=== PATIENT | female | born 1965 | race Caucasian/White ===

== ENCOUNTER 2020-09-10 16:44 | Emergency (ER) | payer OTHER, SELFPAY ==
[2020-09-10 16:45] VITALS: BP 163/103; PULSE 94; RESP 16; TEMP 36; O2SAT 99; BMI 32.2
[2020-09-10 16:47] VITALS: BP 163/103; PULSE 94; RESP 16; TEMP 36; O2SAT 99
--- NOTE | 2020-09-10 16:56 | EKG12_ITS ---
Test Reason : ABD PAIN Blood Pressure : / mmHG Vent. Rate : 087 BPM Atrial Rate : 087 BPM P-R Int : 168 ms QRS Dur : 096 ms QT Int : 372 ms P-R-T Axes : 056 -25 019 degrees QTc Int : 447 ms Normal sinus rhythm Moderate voltage criteria for LVH, may be normal variant Borderline ECG Confirmed by BENJIE BLANK, THOMAS ([id number]), pictures editor PETAR JAMES ([id number]) on 09/14/2020 9:57:53 AM Referred By: STEVE Confirmed By:THOMAS WALDROP MD
--- NOTE | 2020-09-10 16:56 | CT_ITS ---
INDICATION: abdominal pain -- IV PO Contrast EXAMINATION: CT Abdomen And Pelvis W/ Contrast Injection TECHNIQUE: Helically acquired images were obtained of the abdomen and pelvis after IV contrast. A radiation dose optimization technique was used for this scan. IV Contrast dosage and agent: Oral and amp; IV Gastrografin and amp; 100mL Isovue-300 Oral contrast: Yes. COMPARISON: None. FINDINGS: Visualized lung bases: Unremarkable Liver: The liver is enlarged measuring 19.5 cm in craniocaudal dimension. Gallbladder: Unremarkable Spleen: Unremarkable Pancreas: Unremarkable Adrenal Glands: Unremarkable Kidneys: Unremarkable Vasculature: Unremarkable GI Tract: Unremarkable Lymphadenopathy: There is widespread lymphadenopathy in the abdomen and pelvis. For example, there is a 2.8 cm right inguinal lymph node (axial image 114), a 3.5 cm left internal iliac node (axial image 93), a 1.3 cm caval node (axial image 66) and a 1.9 cm patricia hepatis node (axial image 48). Peritoneum: No ascites. Bladder: Unremarkable Reproductive organs: Bilateral tubal ligation. Bones/Soft tissues: Mild scattered degenerative changes of the visualized spine. CT/Abdomen/Pelvis WITH Contrast IMPRESSION: Widespread lymphadenopathy in the abdomen and pelvis as described above with no suspicious mass identified. Leading diagnosis is lymphoma. Recommend percutaneous biopsy of the 2.8 cm right inguinal lymph node which should be easily accessible by ultrasound. Hepatomegaly. Electronically Signed: Ra Kincaid MD at 19:24 EDT Tel , Service support ,
--- NOTE | 2020-09-10 16:57 | ED.VIS.GI ---
HPI HPI - GI History of Present Illness Chief Complaint: Abd Pain Detail of Chief Complaint: At mental pain for 2 days and nausea x2 weeks Informant: patient Abdominal Pain/Flank Pain Current Severity: 610 Diarrhea/Melena/Hematochezia GI Symptom: Negative for Diarrhea, Melena and Hematochezia Narrative Narrative: Patient presents to the emergency department with nausea x2 weeks. Initially she attributed to attempting to quit smoking. Patient started having some discomfort to the right lower quadrant 2 days ago and noticed a lump there. She denies any fevers. She denies blood in her stool or black tarry stool. She denies chest pain or shortness of breath. She denies urinary symptoms. She is not had any significant abdominal surgeries other than a tubal ligation. Prior similar symptoms: No PFSH PFSH Medical History (Updated 09/10/20 @ 20:[address] Roosevelt Marin, ) Arthritis Home Medications hydrochlorothiazide 12.5 mg PO DAILY #30 capsule 04/30/14 [Rx Last Taken 01/19/17] dicyclomine 20 mg PO TIDAC #20 capsule 01/19/17 [Rx Last Taken Unknown] levothyroxine 175 mcg PO DAILY 01/19/17 [History Last Taken 01/19/17] promethazine 25 mg PO Q6H PRN PRN #10 tablet 01/19/17 [Rx Last Taken Unknown] hydrocodone-acetaminophen 1 tab PO Q4H PRN PRN 2 Days #10 tablet 09/10/20 [Rx Last Taken Unknown] ondansetron 4 mg PO Q8H PRN PRN #10 tab 09/10/20 [Rx Last Taken Unknown] Allergy/AdvReac Type Severity Reaction Status Date / Time gabapentin Allergy Intermediate Hives Verified 09/10/20 17:05 Sulfa (Sulfonamide Allergy Intermediate HIVES, Verified 01/19/17 08:00 Antibiotics) NAUSEA morphine AdvReac Mild Nausea Verified 09/10/20 17:05 Social History Smoking Status: Light Smoker (<10/day) ROS ROS ED Constitutional Constitutional ED: Reports systems reviewed and no addt'l complaints, except as documented; Denies body ache(s), change in weight or chills Eyes Eyes: Denies acute decrease in peripheral vision, change in vision, double vision or loss of vision ENT ENT ED: Reports none; Denies ear pain, lip swelling, loss taste/smell, neck pain, otalgia or sore throat Cardiovascular Cardiovascular: Reports none; Denies abdominal pain, chest pain with activity, leg edema, lightheadedness, palpitations, rapid heart rate or syncope Respiratory/Chest Respiratory/Chest: Reports none; Denies change in mental status, dry cough, dyspnea, hemoptysis, shortness of breath at rest or shortness of breath with exertion Gastrointestinal Gastrointestinal: Reports none, abdominal pain and nausea; Denies change in stool character, diarrhea, hematemesis, hematochezia, melena, rectal bleeding or vomiting Genitourinary Genitourinary ED: Reports none; Denies abdominal discomfort, anuria, dysuria, genital pain or polyuria Musculoskeletal Musculoskeletal: Reports none; Denies arthralgias, back pain, difficulty walking, extremity pain, muscle weakness or myalgias Integumentary Reports none; Denies abscess or rash Neurologic Neurologic: Reports none; Denies abnormal gait, confusion, focal weakness, frequent falls, headache(s), loss of vision, numbness, paresthesias, radicular pain, vertigo or weakness Psychiatric Psychiatric: Reports systems reviewed and no addt'l complaints, except as documented and none; Denies behavioral changes, confusion, difficulty concentrating, hallucinations, suicidal ideation, tactile hallucinations or visual hallucinations Endocrine Endocrinology: Denies none, cold intolerance, excessive sweating, fatigue or heat intolerance Hematologic/Lymphatic Hematologic/Lymphatic: Reports none; Denies anemia, easy bleeding or easy bruising Allergic/Immunologic Allergic/Immunologic ED: Denies as per HPI, none, lip swelling, mouth swelling, throat swelling, tongue swelling or hives EXAM Physical Exam Const Vital Signs: 09/10/20 16:45 09/10/20 16:47 09/10/20 19:45 Temperature 96.8 F L 96.8 F L Temperature Source Temporal Temporal Pulse Rate 94 94 Respiratory Rate 16 16 16 Blood Pressure 163/103 H 163/103 H Blood Pressure Mean 123 123 Pulse Ox 99 99 Oxygen Delivery Method Room Air Room Air Positive well nourished and well developed General Appearance ED: well developed and NAD HEENT Reports TM's clear and moist mucous membranes normocephalic and atraumatic; Negative for trauma or tenderness Tympanic Membrane ED: Yes TM's clear Eyes PERRL and EOMs intact bilaterally General Eye ED: Negative for pale conjunctiva or scleral icterus Neck no lymphadenopathy, supple and no JVD General: Negative for tenderness Chest Wall inspection of chest normal and palpation of chest normal Chest: Negative for tenderness Resp normal respiratory effort and clear to auscultation bilaterally Effort and Inspection: Negative for respiratory distress or pain with movement Auscultation: Negative for rhonchi, wheezes or diminished lung sounds Cardio regular rate, regular rhythm, S1 normal heart sound, S2 normal heart sound and no murmurs Peripheral Pulses: pulses 2+ throughout GI normal to inspection, nondistended, normoactive bowel sounds, soft to palpation, non-tender, non-distended and no masses GI Narrative: Patient has a fullness/mass in the right groin area that is slightly tender to palpation. I suspect this may be an inguinal hernia. There is no erythema or warmth over the area. Palpation: soft and tender RLQ Back/Spine no CVA tenderness and no thoracic nor lumbar tenderness Extremity normal to inspection General Extremety ED: Negative for edema General Extremity: Negative for edema Neuro oriented x3, CN's II-XII intact bilaterally, no sensory deficits noted and gait normal Sensorium / Orientation: awake, alert, oriented to person, oriented to place and oriented to time Motor Exam: strength 5/5 throughout and strength abnormal Psych mental status grossly normal Skin no rashes or lesions noted and no wounds MDM MDM MDM Narrative Medical decision making narrative: Patient has concerning evidence for lymphoma on CT. Oncology referral was recommended with possible biopsy of right inguinal lymph node. I did discuss case with oncologist on-call Dr. Gonzales who asked that patient call his office and they will see her after the weekend. Lab Data Attestation: I reviewed the patient's lab results. Labs: Laboratory Results - last 24 hr 09/10/20 09/10/20 09/10/20 16:45 17:05 17:05 WBC 10.0 RBC 4.22 Hgb 12.4 Hct 37.4 MCV 88.6 MCH 29.4 MCHC 33.2 RDW Std Deviation 44.2 H RDW Coeff of Junior 13.7 Plt Count 301 MPV 10.3 Immature Gran % (Auto) 0.400 Neut % (Auto) 58.9 Lymph % (Auto) 29.7 [place] % (Auto) 7.1 Eos % (Auto) 3.2 Baso % (Auto) 0.7 Absolute Neuts (auto) 5.9 Absolute Lymphs (auto) 2.97 Nucleated RBC % 0 Sodium 137 Potassium 3.1 L Chloride 98 Carbon Dioxide 33.0 H Anion Gap 6 BUN 15 Creatinine 0.88 Estim Creat Clear Calc 70.01 Est GFR (MDRD) Af Amer 86 Est GFR (MDRD) Non-Af 71 BUN/Creatinine Ratio 17.0 Glucose 89 Lactic Acid Calcium 10.4 H Total Bilirubin 0.40 AST 22 ALT 35 Alkaline Phosphatase 95 Troponin I < 0.015 Total Protein 8.1 Albumin 4.2 Globulin 3.9 Albumin/Globulin Ratio 1.1 Lipase 30 L Urine Color Yellow Urine Clarity Clear Urine pH 7.0 Ur Specific [place] 1.010 Urine Protein Negative Urine Glucose (UA) Normal Urine Ketones Negative Urine Occult Blood Negative Urine Nitrite Negative Urine Bilirubin Negative Urine Urobilinogen Normal Ur Leukocyte Esterase Negative Urine RBC 0 SEEN Urine WBC 0 SEEN Ur Squamous Epith Cells 0 SEEN Urine Bacteria 0 SEEN Urine Mucus 0 SEEN 09/10/20 17:05 WBC RBC Hgb Hct MCV MCH MCHC RDW Std Deviation RDW Coeff of Junior Plt Count MPV Immature Gran % (Auto) Neut % (Auto) Lymph % (Auto) [place] % (Auto) Eos % (Auto) Baso % (Auto) Absolute Neuts (auto) Absolute Lymphs (auto) Nucleated RBC % Sodium Potassium Chloride Carbon Dioxide Anion Gap BUN Creatinine Estim Creat Clear Calc Est GFR (MDRD) Af Amer Est GFR (MDRD) Non-Af BUN/Creatinine Ratio Glucose Lactic Acid 1.1 Calcium Total Bilirubin AST ALT Alkaline Phosphatase Troponin I Total Protein Albumin Globulin Albumin/Globulin Ratio Lipase Urine Color Urine Clarity Urine pH Ur Specific [place] Urine Protein Urine Glucose (UA) Urine Ketones Urine Occult Blood Urine Nitrite Urine Bilirubin Urine Urobilinogen Ur Leukocyte Esterase Urine RBC Urine WBC Ur Squamous Epith Cells Urine Bacteria Urine Mucus Radiography Diagnostic Testing: Radiology Impression Abdomen/Pelvis CT 09/10/20 16:56 IMPRESSION: Widespread lymphadenopathy in the abdomen and pelvis as described above with no suspicious mass identified. Leading diagnosis is lymphoma. Recommend percutaneous biopsy of the 2.8 cm right inguinal lymph node which should be easily accessible by ultrasound. Hepatomegaly. Electronically Signed: Ra Kincaid MD at 19:24 EDT Tel , Service support , EKG Initial EKG: Attestation: I personally reviewed and interpreted this EKG as follows: Comments: Sinus rhythm with a ventricular rate of 87 bpm with moderate LVH criteria. Discharge Plan Triage Chief Complaint: Abd Pain ED Provider: Roosevelt Marin Dx/Rx/DC Orders Clinical Impression: Abdominal pain, Lymphoma Instructions: What Is Non-Hodgkins Lymphoma?, ED Abdominal Pain Unkn Cause Fem, ED Tumor, Uncertain Cause Prescriptions: New hydrocodone-acetaminophen [hydrocodone-acetaminophen] 1 TABLET tablet 1 tab PO Q4H PRN PRN (Reason: Pain) 2 Days Qty: 10 RF: 0 ondansetron [ondansetron] 4 MG tablet 4 mg PO Q8H PRN PRN (Reason: Nausea) Qty: 10 RF: 0 No Action hydrochlorothiazide 12.5 MG capsule 12.5 mg PO DAILY Qty: 30 RF: 2 levothyroxine 175 MCG tablet 175 mcg PO DAILY RF: 0 promethazine 25 MG tablet 25 mg PO Q6H PRN PRN (Reason: Nausea) Qty: 10 RF: 0 dicyclomine 10 MG capsule 20 mg PO TIDAC Qty: 20 RF: 0 Primary Care Provider: Miles Underwood Referrals: Leena Gonzales MD [STAFF PHYSICIAN] - 3-5 Days Miles Underwood MD [Primary Care Provider] - Disposition Disposition: Home, self care
[2020-09-10] MEDS: 0.9% Normal Saline 1,000 ML 125 ML IV (17:16)
[2020-09-10] MEDS: Ondansetron 4 MG/2 ML Vial IV (17:16)
[2020-09-10 17:23] LABS: Absolute Lymphocyte Count 2.97 X10^3/uL (0.83-4.51); Absolute Neutrophil Count 5.9 X10^3/uL (2.0-7.7); Basophil# 0.07 X10^3/uL; Basophil% 0.7 % (0-1); Eosinophil# 0.32 X10^3/uL; Eosinophils% 3.2 % (0-5); Hematocrit 37.4 % (37-47); Hemoglobin 12.4 g/dL (12.0-15.0); Lymphocyte # 2.97 X10^3/ul (0.83-4.51); Lymphocyte % 29.7 % (19-41); Mean Corp Hgb Conc 33.2 g/dL (32-36); Mean Corpuscular Hgb 29.4 pg (27.0-32.0); Mean Corpuscular Volume 88.6 fL (81-99); Mean Platelet Vol. 10.3 fl (6.2-12.0); Monocyte# 0.71 X10^3/uL; Monocyte% 7.1 % (0-10); NRBC Flagged by Analyzer 0 % (0-5); Neutrophil # 5.89 X10^3/uL (2.7-7.7); Neutrophil % 58.9 % (47-70); Platelet Count 301 K/mm3 (150-450); RBC Distribution Width CV 13.7 % (11.6-14.6); RBC Distribution Width SD 44.2 fl (35.1-43.9); Red Blood Count 4.22 M/mm3 (4.2-5.4)
[2020-09-10 17:43] LABS: ALB/GLOB Ratio 1.1 RATIO (0.9-2.4); AST(SGOT) 22 U/L (15-37); Alanine Aminotransfer ALT/SGPT 35 U/L (13-56); Albumin, Serum 4.2 g/dL (3.2-5.0); Alkaline Phosphatase 95 U/L (45-117); Anion Gap 6 (5-15); BUN 15 mg/dL (7-18); Calcium,Total 10.4 mg/dL (8.5-10.1); Chloride 98 mmol/L (98-107); Creatinine, Serum 0.88 mg/dL (0.55-1.02); EST Glomerular Filtration Rate 71 mL/min (>60); Est Glom Filt Rate - Afr Amer 86 mL/min (>60); Estimated Creatinine Clearance 70.01 ml/min; Globulin 3.9 g/dL (2.2-4.2); Glucose 89 mg/dL (74-106); Lipase 30 U/L (73-393); Potassium 3.1 mmol/L (3.5-5.1); Protein, Total 8.1 g/dL (6.4-8.2); Sodium Level 137 mmol/L (136-145)
[2020-09-10 17:56] LABS: Lactic Acid 1.1 mmol/L (0.4-1.9)
[2020-09-10 19:00] LABS: Bacteria 0 SEEN /hpf (None Seen); Mucous, Urine 0 SEEN /hpf (<or=2+); Red Blood Cells-Urine 0 SEEN /hpf (0-5); Squamous Epithelial Cells - UA 0 SEEN /hpf (5-10); White Blood Cells 0 SEEN /hpf (0-5)
[2020-09-10 19:08] LABS: Color, Urine Yellow (Yellow); Glucose, Dipstick Normal (Normal); Ketone-Dipstick Negative (Negative); Leukocyte Esterase-Dipstick Negative /ul (Negative); Nitrite-Dipstick Negative (Negative); Occult Blood-Urine Negative /ul (Negative); Protein-Dipstick Negative (Negative); Urine Bilirubin Dipstick Negative (Negative); Urine Clarity Clear (Clear); Urine Urobilinogen Normal (Normal)
[2020-09-10 19:45] VITALS: RESP 16
[2020-09-10] MEDS: Morphine 4 MG/ML Syringe IV (20:23)
[2020-09-10 21:15] VITALS: BP 154/106; PULSE 83; RESP 16; O2SAT 98
== END 2020-09-10 21:16 | disposition home or self-care (01) ==
PROVIDERS: Emergency Provider Emergency Medicine; PCP Family Medicine
DX: R10.9 Unspecified abdominal pain (principal); C85.90 Non-Hodgkin lymphoma, unspecified, unspecified site
CPT/HCPCS: 74177; 80053; 81001; 83605; 83690; 84484; 85025; 93005; 96361; 96374; 96375; 99284; J7030; Q9967; A4216; J2405

== ENCOUNTER → 2020-09-23 07:59 | Outpatient (CLI) | payer OTHER, SELFPAY ==
[2020-09-16 12:55] VITALS: BMI 32.1
[2020-09-23] VITALS (10 sets, daily range): BP systolic 111–165; BP diastolic 66–90; PULSE 67–85; RESP 10–22; TEMP 37; O2SAT 95–100; BMI 31.9
--- NOTE | 2020-09-23 | IMM_PTH ---
PATIENT: OSIEL MEDINA LOC: CT U#:[id number] AGE/SX: 59/F ROOM: RE09/23/[address]: Dr. Leena Gonzales MD : 1965 BED: DIS: SPEC #: [id number] RECD: 09/24/20 11:24 STATUS: EMA REQ #: [id number] ASHLEY: 09/23/20 00:[address]: Leena Gonzales DEPT: IMMUNOHISTOCHEMISTRY RECD BY: Lynda Worthington ENTERED: 09/24/20 11:26 SP TYPE: IMMUNO OTHR DR: Dr. Miles Underwood MD Tissues: Inguinal lymph node, NOS Procedures: BCL-2 (add) BCL-6 (add) CD10 (add) CD20 (add) CD23 (add) CD43 (add) CD45 (add) CD5 (add) CD79A (add) CYCLIN (add) KI-67 (add) CD3 (initial) PHYSICIAN & [address] [id number] SPECIMEN INFORMATION: Tissue Source: Right inguinal lymph node Clinical Info: Inguinal mass Specimen Number: [id number] CPT code: 05698, 38920 x11 METHODOLOGY: Deparaffinized sections of prefer/formalin-fixed tissue or PAP/DQ stained slides are incubated with monoclonal/polyclonal antibodies/oligonucleotide probes. Localization is made via biotin free immunoperoxidase method. Appropriate controls are performed and reacted as expected. Results on target cell population are indicated in the following table: RESULTS: ANTIBODY / CLONE RESULT CD3 (PS1) negative CD5 (SP10) negative CD20 (L26) positive CD43 (L60) negative CD45 (RP2/18) positive CD79a (11E3) positive CD10 (56C6) positive CD23 (1B12) negative BCL-2 (bcl-2/100/D5) positive BCL-6 (RY675A/A8) positive Cyclin D1/BCL-1 (SP4) negative Ki-67 (30-9) positive, low to moderate These tests were developed and their performance characteristics determined by [facility]. They may not have been cleared or approved by the U.S. Food and Drug Administration. The FDA has determined that such clearance or approval is not necessary. The above immunohistochemical/dualISH markers are ordered and reviewed by the Pathologist. INTERPRETATION: Right inguinal lymph node, CT-guided biopsy: Consistent with involvement by non-Hodgkin B-cell lymphoma, favor follicular lymphoma, grade 1/3. SJ:blu 09/27/2020 Case has been reviewed in consultation with Dr. Quiles who concurs with the above diagnosis. IDC:AM
--- NOTE | 2020-09-23 | ASPIGT_PTH ---
PATIENT: OSIEL MEDINA LOC: ID U#:[id number] AGE/SX: 59/F ROOM: RE09/23/[address]: Dr. Leena Gonzales MD : 1965 BED: DIS: SPEC #: [id number] RECD: 09/23/20 10:50 STATUS: EMA OLIVERIO #: [id number] ASHLEY: 09/23/20 00:[address]: Leena Gonzales DEPT: SURGICAL PATHOLOGY RECD BY: Rohit Wisdom ENTERED: 09/23/20 10:52 SP TYPE: ASP RAD OTHR DR: Dr. Miles Underwood MD Tissues: Inguinal region, NOS Procedures: FNA Specimen Adequacy Special Stain Group II Surgery Specimen Level IV Imprint (control) HEADER OPERATION: CT-guided inguinal mass biopsy PRE-OP DIAGNOSIS: Inguinal mass TISSUE SUBMITTED: Right inguinal lymph node 18-gauge core x4 MICROSCOPIC DIAGNOSIS Right inguinal lymph node, CT-guided core biopsy: Consistent with focal involvement by non-Hodgkin B-cell lymphoma and favor follicular lymphoma, grade 1/3. Flow cytometry study from [facility] shows a clonal (lambda+) CD10 positive B-cell population is detected in polyclonal background. The complete report is viewable in patient?s EMR. See microscopic description and comment. SJ:rg 09/27/2020 COMMENT The specimen is evaluated at the time of biopsy by Dr. Garcias. Immediate Evaluation = Numerous lymphocytes are noted. Immunohistochemistry ([id number]) supports the above diagnosis. Flow cytometry study from [facility] also mention that correlation with FISH studies for BCL2, BCL6 and c-myc rearrangements may be contributory. Correlation with clinical findings and appropriate follow up are necessary. Case has been reviewed in consultation with Dr. Quiles who concurs with the above diagnosis. IDC:AM MICROSCOPIC DESCRIPTION Slides are reviewed. The specimen shows fragments of lymphoid tissue with focal nodule formation consisting of small lymphocytes. Immunohistochemistry ([id number]) shows these lymphocytes to be positive for CD20, CD79a, BCL2 and BCL6, consistent with focal involvement by follicular lymphoma.. GROSS DESCRIPTION Received in fixative is one container labeled with the patient's name and designated right inguinal lymph node. The specimen consists of multiple irregular fragments of [place] soft tissue that in aggregate measure 1 x 0.2 x 0.1 cm. The specimen is totally submitted in one cassette. Two touch imprints are prepared at the time of core biopsy. A core is also submitted for flow cytometry study. / SJ:rg 09/23/20 TC:0 CPT: 82755,31638 ADDENDUM ADDENDUM ADDENDUM ADDENDUM ADDENDUM ADDENDUM ADDENDUM ADDENDUM ADDENDUM ADDENDUM 02/08/2023 09:37 ADDENDUM 02/08/2023 09:37 ADDENDUM 02/08/2023 09:37 ADDENDUM 02/08/2023 09:37 ADDENDUM 02/08/2023 09:37 This addendum is added to incorporate an outside pathology consultation report. The case was examined at [facility] (#[id number]) and the following diagnosis was rendered. Right inguinal lymph node, CT-guided core biopsy: Classic follicular lymphoma. Please see complete above mentioned consultation report in EMR
--- NOTE | 2020-09-23 08:12 | CT_ITS ---
PROCEDURE: CT GUIDED biopsy of the right inguinal lymph node. DATE: 09/23/2020. INDICATION: Female, 54 years old. Right inguinal adenopathy. PHYSICIAN: Jake Taylor M.D. RADIATION DOSAGE (If Supplied By Facility): CTDIvol = ( 14.5 ) mGy, DLP = ( 326.45 ) mGycm. Individualized dose optimization techniques were utilized. PROCEDURE: The risks, benefits, and alternatives to the procedure were explained to the patient. The specific risk of hemorrhage requiring further treatment or intervention was detailed and accepted. Follow-up instructions were discussed with the patient as well. Written informed consent was obtained. The patient was brought into the CT suite and placed in the supine position. . An appropriate entry site was identified. The overlying skin was prepped and draped in the usual sterile fashion. 1% lidocaine was administered subcutaneously for local anesthesia. Conscious sedation was performed. The patient received 2 mg of VERSED intravenously. Conscious sedation was started at 10:01 AM and terminated at 10:21 AM. The patient was independently monitored by the department nurse. Under CT guidance, a total of 4 passes were performed utilizing an 18-gauge core biopsy needle. The specimens were then placed in the appropriate fluid and transported to the laboratory for analysis. Hemostasis was obtained. The patient tolerated the procedure well without immediate complications. CT/Biopsy/Inj or Needle Placement IMPRESSION: Successful CT guided percutaneous core biopsies of the right inguinal lymph node, as described above. The conscious sedation protocol was followed. Electronically Signed: Jake Taylor MD at 10:48 EDT , Service support ,
[2020-09-23 08:32] LABS: Absolute Lymphocyte Count 2.04 X10^3/uL (0.83-4.51); Basophil# 0.06 X10^3/uL; Basophil% 0.7 % (0-1); Eosinophil# 0.31 X10^3/uL; Eosinophils% 3.4 % (0-5); Hematocrit 34.5 % (37-47); Hemoglobin 11.5 g/dL (12.0-15.0); Lymphocyte # 2.04 X10^3/ul (0.83-4.51); Lymphocyte % 22.6 % (19-41); Mean Corp Hgb Conc 33.3 g/dL (32-36); Mean Corpuscular Hgb 29.6 pg (27.0-32.0); Mean Corpuscular Volume 88.7 fL (81-99); Mean Platelet Vol. 10.1 fl (6.2-12.0); Monocyte# 0.64 X10^3/uL; Monocyte% 7.1 % (0-10); NRBC Flagged by Analyzer 0 % (0-5); Neutrophil # 5.95 X10^3/uL (2.7-7.7); Platelet Count 269 K/mm3 (150-450); RBC Distribution Width CV 13.5 % (11.6-14.6); Red Blood Count 3.89 M/mm3 (4.2-5.4)
[2020-09-23 09:12] LABS: Prothrombin Time (Protime)PT. 12.7 SECONDS (11.7-14.9)
[2020-09-23 09:13] LABS: Partial Thromboplast Time 32.7 Seconds (24.1-36.2)
[2020-09-23] MEDS: Midazolam 2 MG/2 ML Syringe IV (10:01)
== END | disposition home or self-care (01) ==
PROVIDERS: PCP Family Medicine; Referring Provider Internal Medicine Hematology & Oncology; Visit Provider Internal Medicine Hematology & Oncology
DX: Z01.818 Encounter for other preprocedural examination (principal); C82.05 Follicular lymphoma grade I, lymph nodes of inguinal region and lower limb; R59.1 Generalized enlarged lymph nodes; M54.5 Low back pain; R10.9 Unspecified abdominal pain; G89.29 Other chronic pain; I10 Essential (primary) hypertension; F17.210 Nicotine dependence, cigarettes, uncomplicated
CPT/HCPCS: 49180; 36415; 77012; 85025; 85610; 85730; 88172; 88305; 88313; 88341; 88342; 99156; J7040; A4216

== ENCOUNTER → 2020-10-05 11:51 | Outpatient (CLI) | payer OTHER, SELFPAY ==
[2020-09-30 14:39] VITALS: BMI 32.3
[2020-10-05 13:25] LABS: Absolute Lymphocyte Count 1.52 X10^3/uL (0.83-4.51); Absolute Neutrophil Count 6.2 X10^3/uL (2.0-7.7); Basophil# 0.07 X10^3/uL; Basophil% 0.8 % (0-1); Eosinophil# 0.18 X10^3/uL; Eosinophils% 2.1 % (0-5); Hematocrit 37.8 % (37-47); Hemoglobin 12.4 g/dL (12.0-15.0); Lymphocyte # 1.52 X10^3/ul (0.83-4.51); Lymphocyte % 17.9 % (19-41); Mean Corp Hgb Conc 32.8 g/dL (32-36); Mean Corpuscular Hgb 29.3 pg (27.0-32.0); Mean Corpuscular Volume 89.4 fL (81-99); Mean Platelet Vol. 10.4 fl (6.2-12.0); Monocyte% 5.9 % (0-10); NRBC Flagged by Analyzer 0 % (0-5); Neutrophil # 6.21 X10^3/uL (2.7-7.7); Neutrophil % 72.9 % (47-70); Platelet Count 322 K/mm3 (150-450); RBC Distribution Width CV 13.6 % (11.6-14.6); RBC Distribution Width SD 44.7 fl (35.1-43.9); Red Blood Count 4.23 M/mm3 (4.2-5.4); White Blood Count 8.5 K/mm3 (4.4-11.0)
[2020-10-05 13:38] LABS: Prothrombin Time (Protime)PT. 12.9 SECONDS (11.7-14.9)
[2020-10-05 13:52] LABS: ALB/GLOB Ratio 0.9 RATIO (0.9-2.4); AST(SGOT) 21 U/L (15-37); Alanine Aminotransfer ALT/SGPT 36 U/L (13-56); Albumin, Serum 3.9 g/dL (3.2-5.0); Alkaline Phosphatase 104 U/L (45-117); Anion Gap 5 (5-15); BUN 16 mg/dL (7-18); BUN/Creat Ratio 22.7 RATIO (10-20); Bilirubin, Direct 0.11 mg/dL (0.00-0.30); Calcium,Total 9.2 mg/dL (8.5-10.1); Chloride 100 mmol/L (98-107); Cholesterol 169 mg/dL (200); EST Glomerular Filtration Rate 92 mL/min (>60); Est Glom Filt Rate - Afr Amer 112 mL/min (>60); Globulin 4.2 g/dL (2.2-4.2); Glucose 64 mg/dL (74-106); Potassium 3.6 mmol/L (3.5-5.1); Protein, Total 8.1 g/dL (6.4-8.2); Sodium Level 138 mmol/L (136-145); Triglycerides 90 mg/dL
[2020-10-05 14:24] LABS: HIV - WCH Non-Reactive (Nonreactive); Hepatitis B Surface Antibody Non-Reactive; Hepatitis B Surface Antigen Non-Reactive (Nonreactive); Syphilis Antibodies Non-reactive
[2020-10-15 08:08] LABS: HCV Quant. RNA PCR HCV Not Detected IU/mL (.); Hepatitis B Core Ab Total Negative (Negative)
[2020-10-15 11:12] LABS: Hepatitis A AB, Total Negative (Negative)
== END ==
PROVIDERS: PCP Family Medicine; Referring Provider Internal Medicine Infectious Disease; Visit Provider Internal Medicine Infectious Disease
DX: B18.2 Chronic viral hepatitis C (principal)
CPT/HCPCS: 36415; 80053; 82248; 82465; 84478; 85025; 85610; 86703; 86704; 86706; 86708; 86780; 87340; 87522; 87902

== ENCOUNTER 2021-04-26 12:36 | Outpatient (CLI) | payer MEDICAID, SELFPAY ==
--- NOTE | 2021-04-26 12:38 | CT_ITS ---
STUDY: CT CHEST, ABDOMEN T PELVIS WITH CONTRAST REASON FOR EXAM: Female, 55 years old. F/U LYMPHOMA RADIATION DOSAGE (If Supplied By Facility): CTDIvol = ( 15.65 ) mGy, DLP = ( 1827.7 ) mGycm TECHNIQUE: Transaxial imaging was performed following intravenous administration of IV 100mL Isovue-300. Individualized dose optimization techniques were used for this CT. COMPARISON: Comparison is made with prior study dated 09/10/2020. FINDINGS: CHEST The lungs are normal. There is no demonstrated pleural abnormality. There are calcifications of the coronary arteries. There are multiple small lymph nodes within the mediastinum, which are normal in size and morphology most compatible with reactive lymph hyperplasia. Normal hilar regions. Normal unenhanced pulmonary arteries. Normal aorta arch and descending thoracic aorta. Normal osseous structures. Diffuse fatty infiltration of the liver. ABDOMEN There is decreased attenuation of the liver consistent with steatosis. Mild hepatomegaly. Normal gallbladder and extrahepatic biliary system. Normal spleen. Normal pancreas. Normal bilateral adrenal glands. Normal right kidney. Normal left kidney. Normal visualized stomach. Normal small intestine. Normal colon. The appendix is visualized and appears normal. Normal abdominal aorta. Normal inferior vena cava. There is borderline retroperitoneal lymphadenopathy with enlarged nodes no greater than 10mm in the short axis diameter. PELVIS Normal urinary bladder. Normal visualized small intestine. Normal visualized colon. There is no pelvic fluid. The previously seen right inguinal lymph node has decreased in size. It presently measures 1.1 cm. Stable 3.5 cm lymph node in the left FENTANYL iliac chain. Normal visualized pelvic arteries. There is evidence of bilateral tubal ligation clips. Normal abdominal wall. There are degenerative changes of the visualized lumbar spine. CT/CT Chest, Abd, Pel w/Contrast IMPRESSION: Interval decrease in size of the right iliac lymph node. Stable enlargement of the left iliac lymph node. Electronically Signed: Jake Taylor MD at 14:45 EST , Service support ,
--- NOTE | 2021-04-26 12:38 | CT_ITS ---
STUDY: CT SOFT TISSUE NECK WITH CONTRAST REASON FOR EXAM: Female, 55 years old. F/U for non-Hodgkin''s lymphoma. RADIATION DOSAGE (If Supplied By Facility): CTDIvol = ( 15.65 ) mGy, DLP = ( 1827.7 ) mGycm TECHNIQUE: The patient was scanned in a multi-detector CT scanner. High resolution transaxial imaging was performed following intravenous administration of IV 100mL Isovue-300. Sagittal and coronal images were reconstructed. Individualized dose optimization techniques were used for this CT. COMPARISON: None. FINDINGS: Normal bilateral parotid glands. Normal bilateral nuclear medical tech spaces. Normal bilateral parapharyngeal spaces. Normal bilateral carotid spaces. Normal bilateral sublingual and submandibular glands and spaces. Normal visualized nasopharynx. Normal retropharyngeal space. Normal perivertebral space. Normal visualized bilateral faucial tonsils. The visualized tongue, tongue base and oropharynx are normal. There are minimally enlarged lymph nodes of the neck, with preservation of normal kirby architecture, consistent with a reactive lymph hyperplasia. There is no demonstrated solid or cystic mass lesion. There is no abnormal contrast enhancement. Normal epiglottis, bilateral vallecula and hypopharynx. The pre-epiglottic and paraglottic adipose spaces are normal. Normal visualized bilateral piriform sinuses, aryepiglottic folds, vocal cords, and arytenoid-cricoid articulations. Normal subglottic trachea. Normal bilateral lobes of the thyroid gland. Normal visualized pulmonary apices. Normal visualized paranasal sinuses. There is multilevel degenerative changes of the cervical spine. CT/Soft Tissue Neck WITH Contrast IMPRESSION: Scattered small cervical lymph nodes as described. Electronically Signed: Jake Taylor MD at 14:34 EST , Service support ,
== END 2021-04-26 23:59 | disposition home or self-care (01) ==
LOC: CT 12:37
PROVIDERS: PCP Family Medicine; Referring Provider Internal Medicine Hematology & Oncology; Visit Provider Internal Medicine Hematology & Oncology
DX: C82.08 Follicular lymphoma grade I, lymph nodes of multiple sites (principal)
CPT/HCPCS: 70491; 71260; 74177; Q9967

== ENCOUNTER → 2021-11-29 | Outpatient (CLI) | payer MEDICAID, SELFPAY ==
--- NOTE | 2021-11-29 07:46 | CT_ITS ---
STUDY: CT CHEST, ABDOMEN T PELVIS WITH CONTRAST REASON FOR EXAM: Female, 56 years old. F/U LYMPHOMA WITH INCREASED ABDOMINAL BLOATING RADIATION DOSAGE (If Supplied By Facility): CTDIvol = ( 21.19 ) mGy, DLP = ( 2002.47 ) mGycm TECHNIQUE: Transaxial imaging was performed following intravenous administration of IV 100mL Isovue-300. Individualized dose optimization techniques were used for this CT. COMPARISON: Comparison is made with prior study dated 04/26/2021. FINDINGS: CHEST Stable small bilateral axillary lymph nodes. The largest lymph node in the right axilla measures 1.3 cm. Mild degree of groundglass appearance in both lungs as compared to prior study. Follow-up is recommended. There is no demonstrated pleural abnormality. There are calcifications of the coronary arteries. Mild cardiomegaly. There are multiple small lymph nodes within the mediastinum, which are normal in size and morphology most compatible with reactive lymph hyperplasia. Normal hilar regions. Normal unenhanced pulmonary arteries. Normal aorta arch and descending thoracic aorta. There are multi-level degenerative changes of the thoracic spine. Diffuse fatty infiltration of the liver. ABDOMEN There is decreased attenuation of the liver consistent with steatosis. Mild hepatomegaly. Normal gallbladder and extrahepatic biliary system. Normal spleen. Normal pancreas. Normal bilateral adrenal glands. Normal right kidney. Normal left kidney. Normal visualized stomach. Normal small intestine. Normal colon. The appendix is visualized and appears normal. There is scattered atherosclerotic calcification of the abdominal aorta, without a demonstrated aneurysm. Normal inferior vena cava. There is retroperitoneal lymphadenopathy with enlarged nodes greater than 10-15mm in the short axis. There is evidence of a 2 cm x 2.6 cm lymph node in the aortocaval region. This has increased as compared to prior study. Normal abdominal wall. There are diffuse degenerative changes of the visualized lumbar spine. PELVIS Normal urinary bladder. There is evidence of bilateral tubal ligation. Since prior study, there has been a decrease in the size of the left external iliac lymph node. It presently measures 2.3 cm Normal visualized small intestine. Normal visualized colon. There is no pelvic fluid. Normal visualized pelvic arteries. CT/CT Chest, Abd, Pel w/Contrast IMPRESSION: Slight increase in size of a lymph node in the aortocaval region. Slight decrease in size of the left external iliac lymph node. Mild hepatomegaly and diffuse fatty infiltration of the liver. Electronically Signed: Jake Taylor MD at 9:58 EDT ,
== END | disposition home or self-care (01) ==
PROVIDERS: PCP Family Medicine; Referring Provider Internal Medicine Hematology & Oncology; Visit Provider Internal Medicine Hematology & Oncology
DX: C82.90 Follicular lymphoma, unspecified, unspecified site (principal)
CPT/HCPCS: 71260; 74177; Q9967

== ENCOUNTER 2021-12-14 12:04 | Emergency (ER) | payer MEDICAID, SELFPAY ==
[2021-12-14 12:05] VITALS: BP 174/91; PULSE 93; RESP 18; TEMP 36.2; O2SAT 100; BMI 33.7
--- NOTE | 2021-12-14 12:54 | EKG12_ITS ---
Test Reason : ABDOMINAL PAIN Blood Pressure : / mmHG Vent. Rate : 071 BPM Atrial Rate : 071 BPM P-R Int : 152 ms QRS Dur : 094 ms QT Int : 396 ms P-R-T Axes : 003 -21 000 degrees QTc Int : 430 ms Normal sinus rhythm Moderate voltage criteria for LVH, may be normal variant ( R in aVL , [place] product ) Borderline ECG Confirmed by SHUBHAM BLANK, DAVID ([id number]), editorial writer PETAR JAMES ([id number]) on 12/16/2021 11:52:47 AM Referred By: LUIS Confirmed By:LANDON JALLOH MD
[2021-12-14] MEDS: 0.9% Normal Saline 1,000 ML 1000 ML IV (13:04)
--- NOTE | 2021-12-14 13:14 | NURSING ---
PER LAB, NEED ANOTHER PURPLE. DYAN WILL PRINT THE LABEL
[2021-12-14 13:27] LABS: ALB/GLOB Ratio 0.9 RATIO (0.9-2.4); AST(SGOT) 25 U/L (15-37); Alanine Aminotransfer ALT/SGPT 44 U/L (13-56); Albumin, Serum 3.5 g/dL (3.2-5.0); Alkaline Phosphatase 122 U/L (45-117); Anion Gap 7 (5-15); BUN 20 mg/dL (7-18); Calcium,Total 9.2 mg/dL (8.5-10.1); Chloride 99 mmol/L (98-107); Creatinine, Serum 0.87 mg/dL (0.55-1.02); EST Glomerular Filtration Rate 72 mL/min (>60); Est Glom Filt Rate - Afr Amer 87 mL/min (>60); Globulin 4.1 g/dL (2.2-4.2); Glucose 112 mg/dL (74-106); Lipase 54 U/L (73-393); Potassium 3.1 mmol/L (3.5-5.1); Protein, Total 7.6 g/dL (6.4-8.2); Sodium Level 137 mmol/L (136-145); Troponin-I HS 6 pg/mL (3.0-54.0)
[2021-12-14 13:27] LABS: Absolute Lymphocyte Count 1.95 X10^3/uL (0.83-4.51); Absolute Neutrophil Count 5.7 X10^3/uL (2.0-7.7); Basophil# 0.03 X10^3/uL; Basophil% 0.4 % (0-1); Eosinophil# 0.19 X10^3/uL; Eosinophils% 2.3 % (0-5); Hematocrit 33.4 % (37-47); Hemoglobin 11.3 g/dL (12.0-15.0); Lymphocyte # 1.95 X10^3/ul (0.83-4.51); Lymphocyte % 23.3 % (19-41); Mean Corp Hgb Conc 33.8 g/dL (32-36); Mean Corpuscular Hgb 29.4 pg (27.0-32.0); Mean Corpuscular Volume 86.8 fL (81-99); Mean Platelet Vol. 10.7 fl (6.2-12.0); Monocyte# 0.52 X10^3/uL; Monocyte% 6.2 % (0-10); NRBC Flagged by Analyzer 0 % (0-5); Neutrophil # 5.65 X10^3/uL (2.7-7.7); Neutrophil % 67.4 % (47-70); Platelet Count 223 K/mm3 (150-450); RBC Distribution Width CV 13.7 % (11.6-14.6); RBC Distribution Width SD 43.1 fl (35.1-43.9); Red Blood Count 3.85 M/mm3 (4.2-5.4); White Blood Count 8.4 K/mm3 (4.4-11.0)
[2021-12-14] MEDS: Famotidine 200 MG/20 ML MDV 20 MG in 0.9% Normal Saline (Pres. free 8 ML 300 MG IV (13:45)
[2021-12-14 15:00] VITALS: BP 132/78; PULSE 91; RESP 16; O2SAT 97
[2021-12-14] MEDS: Potassium Chloride Oral Tablet 20 MEQ PO (15:09)
[2021-12-14] MEDS: Mag Hydrox/Al Hydrox/Simeth 30 ML UDC PO (15:09)
--- NOTE | 2021-12-14 15:23 | EDS_ITS ---
HPI HPI - GI History of Present Illness Chief Complaint: Abd Pain Informant: patient Narrative Narrative: Patient is a 56-year-old female with history of follicular lymphoma that is currently just observed, presenting with worsening abdominal discomfort and bloating/distention. Is been going on for the past 2 months but worse over the past few days. Last night she had episode where she threw up stomach acid into her mouth. She denies any blood in her stool. She notes that last week she had a CT of her chest abdomen pelvis performed by her oncologist. She does she recent was on a course of Augmentin. No chest pain, shortness of breath or difficulty breathing. No other complaints at this time. [facility] Medical History Allergies Anemia Anxiety and depression Arthritis Chronic back pain Depression Drug abuse Easy bruising Follicular lymphoma Hepatitis C virus infection cured after antiviral drug therapy History of edema Hypertension Mass of right axilla Osteoarthritis Pain in right upper arm Post-menopausal Shortness of breath on exertion Smoker Thyroid disease Wears dentures Home Medications hydrochlorothiazide 12.5 mg capsule 12.5 mg PO DAILY ##30 04/30/14 [Rx Last Taken 01/19/17] levothyroxine 175 mcg tablet 200 mcg PO DAILY 01/19/17 [History Last Taken 01/19/17] promethazine 25 mg tablet 25 mg PO Q6H PRN PRN Nausea #10 TABLETS 01/19/17 [Rx Last Taken Unknown] ondansetron 4 mg disintegrating tablet 4 mg PO Q8H PRN PRN Nausea #10 tabs 09/10/20 [Rx Last Taken Unknown] duloxetine 60 mg capsule,delayed release (Cymbalta) 60 mg PO DAILY 09/16/20 [History Last Taken Unknown] ibuprofen 600 mg tablet 600 mg PO Q6H PRN Pain 09/16/20 [History Last Taken Unknown] polyethylene glycol 3350 17 gram oral powder packet (Miralax) 17 g PO DAILY 02/21/21 [History Last Taken Unknown] buprenorphine 8 mg-naloxone 2 mg sublingual tablet 1 tab sublingual BID 05/03/21 [History Last Taken Unknown] bupropion HCl 150 mg tablet,12 hr sustained-release (Wellbutrin SR) 150 mg PO BID 05/03/21 [History Last Taken Unknown] famotidine 20 mg tablet (Pepcid) 20 mg PO BID #30 tabs 12/14/21 [Rx Last Taken Unknown] ondansetron HCl 4 mg tablet 4 mg PO Q6H PRN nausea and vomiting #20 tabs 12/14/21 [Rx Last Taken Unknown] Allergy/AdvReac Type Severity Reaction Status Date / Time gabapentin AdvReac Intermediate Hives Verified 12/14/21 12:07 Sulfa (Sulfonamide AdvReac Intermediate HIVES, Verified 12/14/21 12:07 Antibiotics) NAUSEA morphine AdvReac Mild Nausea Verified 12/14/21 12:07 Family History Grandmother Arthritis Thyroid disorder Breast cancer Diabetes Hypertension CVA (cerebral vascular accident) Grandfather Diabetes Mother Anesthesia complication Asthma Severe allergy Grandmother Breast cancer High cholesterol Thyroid disorder Father CVA (cerebral vascular accident) Surgical History H/O total thyroidectomy History of back surgery History of excision of mass History of tubal ligation Status post removal of thyroid nodule Social History Smoking Status: Current every day smoker tobacco type: cigarettes Tobacco: How many years used: 35 how long ago did patient quit smoking: only smoking 1-2 cigarettes/day second hand exposure: No counseling given: provider counseling alcohol intake: never substance use type: former substance user Date of last use: 3.5 YEARS AGO, marijuana, heroin and methamphetamine 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: [employer] seatbelt use: always do you feel safe at home: Yes additional social history: Does Not Take Aspirin Does Take Ibuprofen As Needed ROS ROS ED Constitutional Constitutional ED: Denies chills or fever(s) ENT ENT ED: Denies rhinorrhea or sore throat Cardiovascular Cardiovascular: Denies chest pain or palpitations Respiratory/Chest Respiratory/Chest: Denies cough Gastrointestinal Gastrointestinal: Reports abdominal pain and nausea; Denies constipation, diarrhea, melena or vomiting Genitourinary Genitourinary ED: Denies dysuria or hematuria Musculoskeletal Musculoskeletal: Denies arthralgias or myalgias Integumentary Denies rash Neurologic Neurologic: Denies headache(s) or weakness Psychiatric Psychiatric: Denies anxiety Hematologic/Lymphatic Hematologic/Lymphatic: Denies easy bleeding or easy bruising EXAM Physical Exam Const Vital Signs: 12/14/21 12:05 12/14/21 15:00 Temperature 97.1 F L Temperature Source Temporal Pulse Rate 93 91 Respiratory Rate 18 16 Blood Pressure 174/91 H 132/78 H Blood Pressure Mean 118 96 Pulse Ox 100 97 Oxygen Delivery Method Room Air Room Air Positive well nourished and well developed General Appearance ED: well developed and NAD; Negative for pallor HEENT Reports moist mucous membranes normocephalic and atraumatic Eyes PERRL and EOMs intact bilaterally Neck supple and no JVD Resp normal respiratory effort and clear to auscultation bilaterally Cardio regular rate and no murmurs GI non-tender, non-distended and no masses GI Narrative: Slightly protuberant abdomen, no fluid wave appreciated Palpation: Negative for guarding or rigid Back/Spine no CVA tenderness Extremity full ROM General Extremety ED: Negative for edema or tenderness General Extremity: Negative for edema Neuro moves all extremities Sensorium / Orientation: alert and oriented to person Motor Exam: Negative for general weakness Psych mental status grossly normal and thought process normal Skin no wounds General Skin Exam: Negative for jaundice or pallor MDM MDM MDM Narrative Medical decision making narrative: Patient is evaluated for increased abdominal distention and discomfort. Her discomfort is mostly in her epigastric region. She had a CT of her chest abdomen pelvis last week which is reviewed and did show some changes in her lymph nodes but nothing to really explain her symptoms. No obstruction or mass. Patient is given IV fluids and Pepcid in the ER. Initially she is hypertensive but on repeat without any intervention her blood pressure improved significantly. EKG does not show any acute changes. Cardiac work-up normal.CBC shows mild anemia which is at the patient's baseline. CMP shows a mildly elevated alkaline phosphatase at 122 which is just a little bit above her baseline. Potassium mildly low at 3.1. She is given potassium replacement in the ER. Lipase and liver enzymes are normal. High sensitivity troponin is normal at 6. I suspect patient's pain is more from her stomach in the absence of any pancreatitis and I do not suspect cholecystitis. She does not have an elevated white count and has a negative Lund sign. I do not think repeat imaging is indicated. Patient is given a GI cocktail be started on H2 jerald therapy. Is given a referral for GI. Counseled on return precautions. She verbalized agreement understands plan. Discharged home in stable condition. Lab Data Attestation: I reviewed the patient's lab results. Labs: Laboratory Results - last 24 hr 12/14/21 12/14/21 12/14/21 12:55 12:55 13:17 WBC Cancelled 8.4 Corrected WBC Cancelled RBC Cancelled 3.85 L Hgb Cancelled 11.3 L Hct Cancelled 33.4 L MCV Cancelled 86.8 MCH Cancelled 29.4 MCHC Cancelled 33.8 RDW Std Deviation Cancelled 43.1 RDW Coeff of Junior Cancelled 13.7 Plt Count Cancelled 223 MPV Cancelled 10.7 Immature Gran % (Auto) Cancelled 0.400 Neut % (Auto) Cancelled 67.4 Lymph % (Auto) Cancelled 23.3 Yell % (Auto) Cancelled 6.2 Eos % (Auto) Cancelled 2.3 Baso % (Auto) Cancelled 0.4 Absolute Neuts (auto) Cancelled 5.7 Absolute Lymphs (auto) Cancelled 1.95 Total Counted Cancelled Neutrophils % (Manual) Cancelled Band Neutrophils % Cancelled Lymphocytes % (Manual) Cancelled Monocytes % (Manual) Cancelled Eosinophils % (Manual) Cancelled Basophils % (Manual) Cancelled Metamyelocytes % Cancelled Myelocytes % Cancelled Promyelocytes % Cancelled Blast Cells % Cancelled Plasma Cell % (Manual) Cancelled Other Cells % Cancelled Nucleated RBC % Cancelled 0 Nucleated RBCs/100 WBC Cancelled Differential Comment Cancelled Diff Path Review Cancelled Hypersegmented Neuts Cancelled Atypical Lymphocytes Cancelled Reactive Lymphocytes Cancelled Smudge Cells Cancelled Toxic Granulation Cancelled Toxic Vacuolation Cancelled Dohle Bodies Cancelled Karina Rods Cancelled Platelet Estimate Cancelled Plt Morphology Comment Cancelled RBC Morphology Cancelled Polychromasia Cancelled Hypochromasia Cancelled Poikilocytosis Cancelled Basophilic Stippling Cancelled Anisocytosis Cancelled Microcytosis Cancelled Macrocytosis Cancelled Spherocytes Cancelled Sickle Cells Cancelled Target Cells Cancelled Tear Drop Cells Cancelled Ovalocytes Cancelled Stomatocytes Cancelled Marvin-Algona Bodies Cancelled Bayard Cells Cancelled Bite Cells Cancelled Crenated Cell Cancelled Acanthocytes (Spur) Cancelled Rouleaux Cancelled Schistocytes Cancelled Sodium 137 Potassium 3.1 L Chloride 99 Carbon Dioxide 31.0 Anion Gap 7 BUN 20 H Creatinine 0.87 Estim Creat Clear Calc 69.20 Est GFR (MDRD) Af Amer 87 Est GFR (MDRD) Non-Af 72 BUN/Creatinine Ratio 23.0 H Glucose 112 H Calcium 9.2 Total Bilirubin 0.20 AST 25 ALT 44 Alkaline Phosphatase 122 H Troponin I High Sens 6 Total Protein 7.6 Albumin 3.5 Globulin 4.1 Albumin/Globulin Ratio 0.9 Lipase 54 L Rhythm Strip Rhythm Strip: Sinus Rhythm Rate: 71 Ectopy: None EKG Initial EKG: Attestation: I personally reviewed and interpreted this EKG as follows: Interpretation: Sinus Rhythm Comments: Normal sinus rhythm at a rate of 71 Left axis deviation Minimal voltage criteria for LVH Normal ST segments No change compared to prior EKG on 09/10/2020 Discharge Plan Triage Chief Complaint: Abd Pain ED Provider: Luba Kessler Dx/Rx/DC Orders Clinical Impression: Epigastric pain, Hypokalemia Instructions: ED Hypokalemia, ED Epigastric Pain Uncertain Cause Prescriptions: New famotidine [Pepcid] 20 mg tablet 20 mg PO BID Qty: 30 0RF ondansetron HCl 4 mg tablet 4 mg PO Q6H PRN (Reason: nausea and vomiting) Qty: 20 0RF No Action ibuprofen 600 mg tablet 600 mg PO Q6H PRN (Reason: Pain) duloxetine [Cymbalta] 60 mg capsule,delayed release(DR/EC) 60 mg PO DAILY bupropion HCl [Wellbutrin SR] 150 mg tablet sustained-release 12 hr 150 mg PO BID buprenorphine-naloxone 8-2 mg tablet, sublingual 1 tab sublingual BID hydrochlorothiazide 12.5 MG capsule 12.5 mg PO DAILY Qty: 30 2RF levothyroxine 175 MCG tablet 200 mcg PO DAILY promethazine 25 MG tablet 25 mg PO Q6H PRN PRN (Reason: Nausea) Qty: 10 0RF ondansetron [ondansetron] 4 MG tablet 4 mg PO Q8H PRN PRN (Reason: Nausea) Qty: 10 0RF polyethylene glycol 3350 [Miralax] 17 gram Powder In Packet 17 g PO DAILY Primary Care Provider: Miles Underwood Referrals: Friend,DO Tai [Med Staff - Active Staff] - As soon as possible Miles Underwood MD [Primary Care Provider] - Disposition Disposition: Home, Self Care
== END 2021-12-14 15:36 | disposition home or self-care (01) ==
PROVIDERS: Emergency Provider Emergency Medicine; PCP Family Medicine; Visit Provider Emergency Medicine
DX: R10.13 Epigastric pain (principal); C82.90 Follicular lymphoma, unspecified, unspecified site; E87.6 Hypokalemia; F17.210 Nicotine dependence, cigarettes, uncomplicated; R14.0 Abdominal distension (gaseous); F32.A Depression, unspecified; F41.9 Anxiety disorder, unspecified; Z79.899 Other long term (current) drug therapy; Z79.890 Hormone replacement therapy; E07.9 Disorder of thyroid, unspecified; Z86.19 Personal history of other infectious and parasitic diseases
CPT/HCPCS: 80053; 83690; 84484; 85025; 93005; 99284; A4216; J3490

== ENCOUNTER → 2021-12-16 | Outpatient (CLI) | payer MEDICAID, SELFPAY ==
[2021-12-16 11:34] LABS: Erythrocyte Sedimentation Rate 16 mm/hr (0-30)
[2021-12-16 12:13] LABS: LDH 158 U/L (84-246)
[2021-12-16 12:20] LABS: Hemoglobin A1c 5.6 % (3.8-5.6)
[2021-12-16 12:37] LABS: HIV - WCH Non-Reactive (Nonreactive); Vitamin B12 504 pg/mL (211-911)
[2021-12-19 13:07] LABS: Anti-Centromere B Ab <0.2 AI (0.0-0.9); Anti-Chromatin <0.2 AI (0.0-0.9); Anti-Jo <0.2 AI (0.0-0.9); Anti-Scleroderma-70 AB <0.2 AI (0.0-0.9); RNP Ab <0.2 AI (0.0-0.9); SJOGREN'S Anti-SS-A test 0.5 AI (0.0-0.9); SJOGREN'S Anti-SS-B test < 0.2 AI (0.0-0.9); Smith Ab <0.2 AI (0.0-0.9)
[2021-12-19 15:07] LABS: Endomysial Antibody IgA Negative (Negative)
[2021-12-20 15:12] LABS: Immunoglobulin A 227 mg/dL (87-352); t-Transglutaminase IgA <2 U/mL (0-3)
[2021-12-20 15:15] LABS: Anti-dsDNA Ab <1 IU/mL (0-9)
[2021-12-23 07:07] LABS: Albumin 3.5 g/dL (2.9-4.4); Alpha-1-Globulins 0.3 g/dL (0.0-0.4); Alpha-2-Globulins 0.8 g/dL (0.4-1.0); Complement C3 144 mg/dL (82-167); Cytoplasmic Ab (C-ANCA) <1:20 titer (Neg:<1:20); Immunoglobulin A 236 mg/dL (87-352); Immunoglobulin E 76 IU/mL (6-495); Immunoglobulin G 1102 mg/dL (586-1602); Immunoglobulin M 66 mg/dL (26-217); PROEL- TOTAL PROTEIN 6.6 g/dL (6.0-8.5)
[2021-12-23 11:03] LABS: Complement CH50 > 60 U/mL (>41)
[2021-12-23 11:04] LABS: AFP, Tumor Marker 3.7 ng/mL (0.0-9.2); CCP IgG Antibodies 5 units (0-19); Perinuclear Ab (P-ANCA) <1:20 titer (Neg:<1:20)
== END | disposition home or self-care (01) ==
LOC: LAB 10:26
PROVIDERS: PCP Family Medicine; Referring Provider Internal Medicine Gastroenterology; Visit Provider Internal Medicine Gastroenterology
DX: R10.9 Unspecified abdominal pain (principal)
CPT/HCPCS: 36415; 82105; 82607; 82784; 82785; 83036; 83516; 83615; 84165; 85652; 86140; 86160; 86162; 86200; 86225; 86235; 86255; 86256; 86334; 86703

== ENCOUNTER → 2021-12-22 | Outpatient (CLI) | payer MEDICAID, SELFPAY ==
--- NOTE | 2021-12-22 07:26 | US_ITS ---
STUDY: ABDOMINAL ULTRASOUND - ELASTOGRAPHY REASON FOR VISIT: Female, 56 years old. GRANT. TECHNIQUE: Liver stiffness measurements were obtained on a [employer] RS 85 ultrasound machine using a CA 1-7 probe following the SRU guidelines. 3 measurements were obtained using a 2-D-SWE method. The IQR/M was 23 % suggesting a quality data set. TECHNICAL QUALITY: Adequate. COMPARISON: Comparison is made with prior study done earlier today. FINDINGS: Liver: Hepatomegaly and fatty infiltration of the liver. Median liver stiffness measured 6 kPa. US/Elastography Parenchyma/Organ IMPRESSION: Liver stiffness measures 6 kPa compatible with F2-F3 (Mild to moderate liver fibrosis) Metavir score. Electronically Signed: Jake Taylor MD at 13:04 EDT ,
--- NOTE | 2021-12-22 07:37 | US_ITS ---
STUDY: ABDOMINAL ULTRASOUND - RIGHT UPPER QUADRANT REASON FOR VISIT: Female, 56 years old GRANT TECHNIQUE: Ultrasound evaluation of the right upper quadrant was performed with real-time and static berkowitz-scale imaging. TECHNICAL QUALITY: Adequate. COMPARISON: None. FINDINGS: Liver: The liver is enlarged and measures 19 cm. There is increased echogenicity consistent with fatty infiltration. Focal fatty sparing is seen in the region of the gallbladder fossa. The bile ducts are within normal limits. There is hepatic color flow. The direction of portal flow is hepatopetal. There is no demonstrated mass lesion. Gallbladder: Normal distended gallbladder. The gallbladder wall measures 1.3 mm. There is a negative sonographic Lund''s sign. There is no pericholecystic fluid. There are no gallstones. Common Bile Duct (C.B.D.): The common bile duct measures 5.0 mm. Pancreas: Normal size of the head, body and tail of the pancreas. There is increased echogenicity of the pancreas. There is a 2.1 cm x 1.8 cm x 1.1 cm hypoechoic nodule in the body of the pancreas. A similar appearing hypoechoic solid nodule is also seen in the head of the pancreas measuring 1.8 cm x 1.9 cm x 0.9 cm. These may represent peripancreatic lymph nodes. Correlation with a dedicated CT scan of the pancreas is recommended. Right Kidney: Normal size of the right kidney. The right kidney measures 11.8 cm x 5.6 x 5 cm. Normal renal cortex. The right cortex measures 1.4 cm. There is no demonstrated renal mass or cyst. There is no right hydronephrosis. US/Abdomen Limited IMPRESSION: Hepatomegaly and fatty infiltration of the liver. Focal fatty sparing is seen in the region of the gallbladder fossa. There are 2 adjacent hypoechoic nodules in the region of the head and neck portion of the pancreas. These may represent peripancreatic lymph nodes. Correlation with a dedicated CT scan of the pancreas is recommended for further evaluation. The patient is known to have lymphoma. Electronically Signed: Jake Taylor MD at 13:01 EDT ,
== END | disposition home or self-care (01) ==
LOC: US 07:25
PROVIDERS: PCP Family Medicine; Referring Provider Internal Medicine Gastroenterology; Visit Provider Internal Medicine Gastroenterology
DX: K75.81 Nonalcoholic steatohepatitis (NASH) (principal)
CPT/HCPCS: 76705; 76981

== ENCOUNTER → 2022-01-02 | Outpatient (CLI) | payer MEDICAID, SELFPAY ==
--- NOTE | 2022-01-02 15:02 | CT_ITS ---
STUDY: CT ABDOMEN AND PELVIS WITH CONTRAST REASON FOR EXAM: Female, 56 years old. Pancreatic protocol. Pancreatic abnormality seen on prior abdominal ultrasound. RADIATION DOSAGE (If Supplied By Facility): CTDIvol = ( 20.35 ) mGy, DLP = ( 1434.4 ) mGycm TECHNIQUE: Transaxial images were obtained from the dome of the diaphragm to the symphysis pubis with oral contrast. Oral and amp; IV Readi-CAT and amp; 100mL Isovue-300 was administered. Sagittal and coronal images were reconstructed. Individualized dose optimization techniques were used for this CT. COMPARISON: Comparison is made with prior CT scan dated 09/10/2020 and prior sonogram of the abdomen dated 12/22/2021. FINDINGS: The visualized lung bases are unremarkable. The visualized portions of the heart are within normal limits. There is decreased attenuation of the liver consistent with steatosis. Hepatomegaly. Normal gallbladder and extrahepatic biliary system. Normal spleen. Normal pancreas. There are 2 adjacent well-defined hypodense nodules in the region of the uncinate process of the pancreas and head of the pancreas. These correspond to the sonographic findings. The larger measures 1.9 cm x 1.4 cm. Another nodule measures 1.7 cm x 1.1 cm. These most likely represent peripancreatic lymph nodes. Small lymph nodes are also seen within the gastroepiploic ligament. Normal bilateral adrenal glands. Normal right kidney. Normal left kidney. Normal visualized stomach. Normal small intestine. There are scattered colonic diverticula consistent with diverticulosis. The appendix is visualized and appears normal. Normal abdominal aorta. Normal inferior vena cava. There is retroperitoneal lymphadenopathy with enlarged nodes greater than 10-15mm in the short axis. This has progressed as compared to prior study. Normal urinary bladder. There is absence of the uterus consistent with a prior hysterectomy. Normal abdominal wall. There are degenerative changes of the visualized lumbar spine. CT/Abdomen/Pelvis WITH Contrast IMPRESSION: Retroperitoneal and peripancreatic lymphadenopathy. Hepatomegaly and diffuse fatty infiltration of the liver. Electronically Signed: Jake Taylor MD at 15:37 EDT ,
== END | disposition home or self-care (01) ==
LOC: CT 15:01
PROVIDERS: PCP Family Medicine; Referring Provider Internal Medicine Gastroenterology; Visit Provider Internal Medicine Gastroenterology
DX: R59.0 Localized enlarged lymph nodes (principal); K76.0 Fatty (change of) liver, not elsewhere classified; R16.0 Hepatomegaly, not elsewhere classified
CPT/HCPCS: 74177; Q9967

== ENCOUNTER 2022-01-11 07:10 | Day surgery (SDC) | payer MEDICAID, SELFPAY ==
--- NOTE | 2022-01-10 17:32 | PCM.HP.BLA ---
History and Physical Date of Admission: 01/11/22 HISTORY OF PRESENT ILLNESS This is a 55 year-old woman who presents with a recurrent soft tissue mass on her right axillary area that has been increasing in size over the last several months.? She denies any pain in the soft tissue mass unless she bumps it.? She complains of some numbness on the posterior antebrachial area of her right arm.? She denies any trauma.? She denies any fever.? She denies any difficulty using her right arm and hand.? She denies any recent infection.? She has developed Stage IV lymphoma that is currently stable at this time. She is receiving no treatments at this time.? She had this mass excised in January,. Patient had a CT in November, which showed stable small bilateral axillary lymph nodes.? The largest lymph node in the right axilla measures 1.3 cm. She presents at this time for further evaluation and treatment. PAST MEDICAL HISTORY Anemia Anxiety and depression Arthritis Chronic back pain Drug abuse Follicular lymphoma Hepatitis C virus infection cured after antiviral drug therapy Hypertension Mass of right axilla Osteoarthritis Pain in right upper arm Thyroid disease PAST SURGICAL HISTORY H/O total thyroidectomy History of back surgery History of tubal ligation Status post removal of thyroid nodule ALLERGIES gabapentin Sulfa (Sulfonamide Antibiotics) morphine MEDICATIONS hydrochlorothiazide levothyroxine promethazine ondansetron bupropion HCl duloxetine ibuprofen buprenorphine-naloxone [Suboxone] FAMILY HISTORY Grandmother - Arthritis, Thyroid disorder, Breast cancer, Diabetes, Hypertension, CVA (cerebral vascular accident) Grandfather - Diabetes Mother - Anesthesia complication, Asthma Grandmother - Breast cancer, High cholesterol, Thyroid disorder SOCIAL HISTORY Smoking Status:? Current every day smoker tobacco type: cigarettes Tobacco: How many years used:? 35 alcohol intake:? never substance use type:? former substance user Date of last use: 3 YEARS AGO, heroin and methamphetamine REVIEW OF SYSTEMS GENERAL:? Denies fever, fatigue or weight loss.? She has history of drug abuse. EYES:? Denies eye pain. ENT:? Denies nasal congestion or sore throat. CARDIOVASCULAR:? Denies chest pain, fatigue, lightheadedness or shortness of breath with exertion. RESPIRATORY:? Denies cough.? Has shortness of breath.? The patient is a smoker. GASTROINTESTINAL:? Complains of constipation.? Denies nausea, vomiting or diarrhea. GENITOURINARY:? Denies hematuria.? Has urinary frequency.? She has had a uterine ablation. MUSCULOSKELETAL:? Complains of joint pain, back pain and arthritis.? Denies stiffness and muscle weakness.? She has had a back surgery. INTEGUMENTARY:? She has enlarging painful recurrent soft tissue mass in the right posterior axillary area. NEUROLOGIC: Denies poor balance and weakness.? She has some numbness in the right posterior arm.? Has lightheadedness. PSYCHOLOGICAL:? Complains of depression.? Denies anxiety.? Has claustrophobia. ENDOCRINE:? Denies excessive thirst or urination.? She has thyroid disease, has had thyroid nodule removed. HEMATOLOGIC:? She has anemia. She has Stage IV lymphoma. PHYSICAL EXAMINATION HEENT:? Pupils equal, round and reactive to light.? Extraocular muscles intact.? Throat is clear. NECK:? Supple.? Nontender.? No cervical adenopathy. LUNGS:? Clear to auscultation. HEART:? Regular rate and rhythm. ABDOMEN:? Soft.? No masses. EXTREMITIES:? Full range of motion.? No axillary adenopathy.? Radial pulses are palpable. On the right posterior axillary area, there is a soft tissue mass measuring about 6 cm. It is mobile.? No evidence of infection.? No ulceration.? Slight tenderness when she bumps it.? She has some numbness in the right posterior arm along with generalized pain in the right arm. NEUROLOGIC:? Cranial nerves II-XII grossly intact. IMPRESSION 1.? 6 cm? painful recurrent soft tissue mass, right posterior axillary area. 2.? Some paresthesias in the right posterior arm. 3.? History of lymphoma. 4.? Smoker. PLAN I recommend excision of this painful recurrent soft tissue mass on her right posterior axillary area that has increased in size over the last several months.? We will send the soft tissue mass to Pathology for analysis to rule out carcinoma.? Depending on the amount of dissection, a drain may be necessary postoperatively.? She will wear a compression Amado wrap postoperatively.? Surgery can be performed on an outpatient basis under local anesthesia with IV sedation.? The patient was informed of the risks and complications of the procedure, including alternatives of surgery.? These were discussed with her personally.? She voiced understanding and wished to proceed.? Some of the risks and complications were included in a form from the [employer]. Encouraged the patient to stop smoking as it may have deleterious effects on wound healing. Assessment & Plan Assessment/Plan (1) Mass of right axilla: (2) Pain in right upper arm: (3) Paresthesia of arm: (4) Follicular lymphoma: QUALIFIERS: Follicular lymphoma grade: grade I Lymphoma site: multiple regions Qualified Code(s): C82.08 - Follicular lymphoma grade I, lymph nodes of multiple sites (5) Smoker: (6) Substance abuse:
[2022-01-11] VITALS (8 sets, daily range): BP systolic 124–140; BP diastolic 60–92; PULSE 64–80; RESP 16–18; TEMP 36.2–36.9; O2SAT 93–96; BMI 33.0
[2022-01-11] MEDS: Lactated Ringers 1,000 ML 15 ML IV (07:56)
[2022-01-11] MEDS: Cefazolin 2 GM in 0.9% Normal Saline 100 ML IV (08:42)
--- NOTE | 2022-01-11 09:00 | SOF_PTH ---
PATIENT: OSIEL MEDINA LOC: [facility] U#:[id number] AGE/SX: 56/F ROOM: RE01/11/[address]: Dr. Royal Sandoval MD : 1965 BED: DIS: 01/11/2022 SPEC #: [id number] RECD: 01/11/22 11:45 STATUS: EMA REQ #: [id number] ASHLEY: 01/11/22 09:[address]: Royal Sandoval DEPT: SURGICAL PATHOLOGY RECD BY: Chari Kim ENTERED: 01/11/22 13:30 SP TYPE: SOFT TISS OTHR DR: Dr. Miles Underwood MD Tissues: Soft tissues, NOS Procedures: Surgery Specimen Level III HEADER OPERATION: Excision, painful soft tissue mass, posterior axillary line PRE-OP DIAGNOSIS: Soft tissue mass, right posterior axillary area TISSUE SUBMITTED: Soft tissue mass, right posterior axillary area MICROSCOPIC DIAGNOSIS Soft tissue mass, right posterior axillary area, excision: Mature adipose tissue, consistent with lipoma. BAM:blu 01/12/2022 MICROSCOPIC DESCRIPTION Slides are reviewed. GROSS DESCRIPTION Received in fixative is one container labeled with the patient's name and designated soft tissue mass, right posterior axillary area. The specimen consists of an irregular piece of yellow adipose tissue measuring 8 x 5.5 x 2.5 cm. Sections reveal yellow adipose cut surfaces without areas of hemorrhage, necrosis or cystic degeneration. Hospice Executive Director sections are submitted in four cassettes. / BAM:blu 01/11/2022 TC:1 CPT: 13370
[2022-01-11] MEDS: Lidocaine 1% /Epi 1:100 (20ml) 20 ML Vial (09:05)
--- NOTE | 2022-01-11 10:32 | PCM.OPRPT ---
Problems Associated Problem List Diagnoses (1) Mass of right axilla: (2) Pain in right upper arm: (3) Paresthesia of arm: (4) Follicular lymphoma: (5) Smoker: (6) Substance abuse: Report of Operation Date of Procedure: 01/11/22 Pre-Operative Diagnosis: 1.? 6 cm? painful recurrent soft tissue mass, right posterior axillary area/lateral back. 2.? Some paresthesias in the right posterior arm. 3.? History of lymphoma. 4.? Smoker. 5. History of substance abuse - on Suboxone. Post-Operative Diagnosis: Same. Surgery/Procedure Performed:: Excision 6 cm painful recurrent soft tissue mass right posterior axillary area/lateral back with 6 cm layered closure. Description of Surgical Findings:: This is a 55 year-old woman who presents with a recurrent soft tissue mass on her right axillary area that has been increasing in size over the last several months.? She denies any pain in the soft tissue mass unless she bumps it.? She complains of some numbness on the posterior antebrachial area of her right arm.? She denies any trauma.? She denies any fever.? She denies any difficulty using her right arm and hand.? She denies any recent infection.? She has developed Stage IV lymphoma that is currently stable at this time. She is receiving no treatments at this time.? She had this mass excised in January,. Patient had a CT in November, which showed stable small bilateral axillary lymph nodes.? The largest lymph node in the right axilla measures 1.3 cm. She presents at this time for excision of this recurrent soft tissue mass. Patient was informed of the risks and complications of the procedure including alternatives to surgery. These were discussed with the patient personally. Patient voices understanding and wishes to proceed. Some of the risks and complications were included in a form from the [employer]. I used Brigido absorbable hemostat. Reference Number - [id number]. Lot Number - [id number]. Expiration - January 04, 2026. Surgeon: Royal Sandoval ships equipment engineer: None Type of Anesthesia: Local MAC (with xylocaine and epinephrine.) Anesthesiologist: Marco A Yip MD and Efraín Xiong CRNA. Specimen's removed: Soft tissue mass right posterior axillary area to Pathology. Drains: None. Estimated Blood Loss (mL): 20. Description of Procedure: Patient was seen in the preop area to concha the surgical area. Any further questions she had were answered personally and to her satisfaction. Patient was taken to OR in supine position and was given IV sedation. Her right shoulder was lifted up after placing a bump underneath. The right shoulder and axillary area was prepped and draped in the usual fashion. SCD's were placed for DVT prophylaxis. Perioperative antibiotics were given intravenously. I marked a curvilinear line to be used for the incision, and it was infiltrated with Xylocaine and epinephrine. After waiting 5 minutes for the anesthetic to take effect, a curvilinear incision was made into the subcutaneous tissue. The soft tissue mass was palpable and using sharp dissection with scissors, I dissected out the soft tissue mass down to the muscle. There was some residual scar tissue from previous surgery that was also excised. The mass was easily dissected off the muscle. There was no infiltration of the mass into the muscle. The scar tissue that was adherent to the muscle from previous surgery could explain her discomfort when the mass was bumped and with activity. The mass was sent to Pathology for analysis to rule out carcinoma. The wound was irrigated with saline. Hemostasis was obtained with electrocautery. I sprayed Brigido absorbable hemostat into the wound to help minimize seroma formation. I felt the wound cavity was not large enough to warrant a drain. Will place a compression dressing on for postop care. The wound was then closed in a layered fashion with 3-0 Monocryl interrupted sutures for the deep dermis and subcutaneous tissue. The skin was approximated with 3-0 Monocryl running subcuticular suture and followed with Histoacryl skin tissue adhesive. After allowing the adhesive to dry, I placed a gauze compression dressing. The length of the layered closure is 6 cm. Patient tolerated the procedure well and was sent to PACU in satisfactory condition. Patient will be sent home on antibiotics. She will use Tylenol for pain as she is on Suboxone. Patient will followup in a week for a wound check and for discussion of the pathology report. Will place an libia wrap in the office to help with compression. She will keep her right arm elevated during the initial postoperative period. She will be on a lifting restriction as well during the initial postoperative period. Grafts/Implants Used: Brigido absorbable hemostat. Procedure Start Time: 09:05 Procedure Stop Time: 09:54 Complications None. Admit VTE Documentation VTE Present on Admission: No VTE Mechan Device Prophylaxis: SCD's VTE Pharm Prophylaxis ordered?: No Addendum Addendum: Surgery Charges CPT - 95311 ICD-10 - R22.31, M79.621, R20.2, C82.90, F17.200, F19.10
[2022-01-11] MEDS: Acetaminophen 500 MG Tablet 1000 MG PO (10:45)
--- NOTE | 2022-01-11 11:33 | DCINST_ITS ---
Discharge Instructions Diet Discharge Diet: No restrictions Activity Discharge Activity: May Shower (in two days.) and - (No heavy lifting right arm. 20 lb lifting restriction. ) Return to work on:: 01/16/22 (tentative.) May shower in (days): 2 May resume sexual activity in: 1 week Weight Bearing Status: Full weight bearing Lifting Restrictions: 20 lbs. Keep extremity elevated above heart level: Right Arm (elevate right arm.) Dressing / Incision Call your doctor if your incision/area has: Continuous Slow Oozing, Sudden Increased Bleeding, Increased Pain/ Swelling, Increased Redness, Foul Smelling Discharge and Swelling at the incision site Call your doctor if you observe: Fever of 101 or Higher, Coldness, Increased Pain, Shortness of breath, Calf discomfort and Uncontrolled pain Change Dressing in: 2 days (dry dressings every other day as needed.) Cleanse incision/area with: Soap & Water (may get the incision wet in the shower in two days.) Follow Up Care Please Follow Up With: Royal Sandoval MD When: one week. call [phone] for appt. Test Results: Test results from this visit will be discussed in further detail at your follow- up appointment, if applicable. Discharge Plan Admission Primary Reason for Your Visit: excision soft tissue mass right posterior axillary area. Attending Provider: Royal Sandoval Primary Care Provider: Miles Underwood Instructions Additional Instructions / Restrictions: Apply dry dressings every other day. Empty and record drainage output daily. No heavy lifting right arm - 20 lbs restriction Discharge Orders/Prescriptions Prescriptions: New doxycycline hyclate 100 mg capsule 100 mg PO BID Qty: 20 0RF L.acidoph,saliva-B.bif-S.therm [Acidophilus Probiotic Blend] 175 mg capsule 1 cap PO DAILY 10 Days Qty: 10 0RF No Action ibuprofen 600 mg tablet 600 mg PO Q6H PRN (Reason: Pain) duloxetine [Cymbalta] 60 mg capsule,delayed release(DR/EC) 60 mg PO DAILY bupropion HCl [Wellbutrin SR] 150 mg tablet sustained-release 12 hr 150 mg PO BID buprenorphine-naloxone 8-2 mg tablet, sublingual 1 tab sublingual BID hydrochlorothiazide 12.5 MG capsule 12.5 mg PO DAILY Qty: 30 2RF levothyroxine 175 MCG tablet 200 mcg PO DAILY ondansetron [ondansetron] 4 MG tablet 4 mg PO Q8H PRN PRN (Reason: Nausea) Qty: 10 0RF polyethylene glycol 3350 [Miralax] 17 gram Powder In Packet 17 g PO DAILY famotidine [Pepcid] 20 mg tablet 20 mg PO BID Qty: 30 2RF Referrals / Follow Up: Royal Sandoval MD [Med Staff - Active Staff] - ( followup one week.) Miles Underwood MD [Primary Care Provider] - Disposition Disposition (needs filled in before D/C Order can be placed): Home, Self Care
== END 2022-01-11 12:23 | disposition home or self-care (01) ==
LOC: SDC 07:11 → AC 07:12
PROVIDERS: PCP Family Medicine; Referring Provider Surgery; Visit Provider Surgery
PROC: (CPT 21931; principal; 2022-01-11 08:45)
DX: D17.21 Benign lipomatous neoplasm of skin and subcutaneous tissue of right arm (principal); C82.08 Follicular lymphoma grade I, lymph nodes of multiple sites; G89.29 Other chronic pain; I10 Essential (primary) hypertension; E89.0 Postprocedural hypothyroidism; M19.90 Unspecified osteoarthritis, unspecified site; F41.9 Anxiety disorder, unspecified; F17.210 Nicotine dependence, cigarettes, uncomplicated; Z79.899 Other long term (current) drug therapy; Z87.898 Personal history of other specified conditions; Z86.19 Personal history of other infectious and parasitic diseases; Z80.3 Family history of malignant neoplasm of breast
CPT/HCPCS: 21931; 88305; 88304; J7120; J2405

== ENCOUNTER → 2022-02-07 | Outpatient (CLI) | payer MEDICAID, SELFPAY | END | disposition home or self-care (01) | PROVIDERS: PCP Family Medicine; Visit Provider Nurse Practitioner Family | DX: S41.101A Unspecified open wound of right upper arm, initial encounter (principal); X58.XXXA Exposure to other specified factors, initial encounter; D17.21 Benign lipomatous neoplasm of skin and subcutaneous tissue of right arm; F17.200 Nicotine dependence, unspecified, uncomplicated | CPT/HCPCS: 87070; 87075; 87077; 87186; 87205 ==

== ENCOUNTER 2022-02-21 12:17 | Day surgery (SDC) | payer MEDICAID, SELFPAY ==
--- NOTE | 2022-02-21 | IMM_PTH ---
PATIENT: OSIEL MEDINA LOC: [place] U#:[id number] AGE/SX: 56/F ROOM: RE02/21/[address]: Dr. Tai Castelan DO : 1965 BED: DIS: 02/21/2022 SPEC #: [id number] RECD: 02/22/22 09:50 STATUS: EMA REQ #: [id number] ASHLEY: 02/21/22 00:[address]: Tai Castelan DEPT: IMMUNOHISTOCHEMISTRY RECD BY: Ferny Carmona ENTERED: 02/22/22 09:50 SP TYPE: IMMUNO OTHR DR: Dr. Miles Underwood MD Tissues: Stomach, NOS Procedures: H Pylori (initial) PHYSICIAN & INSTITUTION [place] [id number] SPECIMEN INFORMATION: Tissue Source: B. Antrum Clinical Info: Abdominal pain Specimen Number: [id number] CPT code: 56889 METHODOLOGY: Deparaffinized sections of prefer/formalin-fixed tissue or PAP/DQ stained slides are incubated with monoclonal/polyclonal antibodies/oligonucleotide probes. Localization is made via biotin free immunoperoxidase method. Appropriate controls are performed and reacted as expected. Results on target cell population are indicated in the following table: RESULTS: ANTIBODY / CLONE RESULT Block B H Pylori (polyclonal) negative These tests were developed and their performance characteristics determined by [facility]. They may not have been cleared or approved by the U.S. Food and Drug Administration. The FDA has determined that such clearance or approval is not necessary. The above immunohistochemical/dualISH markers are ordered and reviewed by the Pathologist. INTERPRETATION: Antrum: Negative for Helicobacter pylori organisms. /BAM :julia 02/23/2022
[2022-02-21] MEDS: Lactated Ringers 1,000 ML 15 ML IV (12:35)
[2022-02-21 12:51] VITALS: BP 138/75; PULSE 72; RESP 17; TEMP 36.6; O2SAT 95; BMI 32.7
--- NOTE | 2022-02-21 13:30 | EGD_PTH ---
PATIENT: OSIEL MEDINA LOC: [place] U#:[id number] AGE/SX: 56/F ROOM: RE02/21/[address]: Dr. Tai Castelan DO : 1965 BED: DIS: 02/21/2022 SPEC #: [id number] RECD: 02/21/22 14:30 STATUS: EMA REMukund #: [id number] ASHLEY: 02/21/22 13:[address]: Tai Castelan DEPT: SURGICAL PATHOLOGY RECD BY: Chari Kim ENTERED: 02/22/22 11:36 SP TYPE: EGD BIOPSY OT DR: Dr. Miles Underwood MD Tissues: A - Duodenum, NOS B - Gastric mucous membrane C - Gastric mucous membrane D - Esophagus, NOS E - Ileum, NOS F - Sigmoid colon biopsy G - Sigmoid colon biopsy Procedures: Special Stain Group II Surgery Specimen Level IV Alcian Blue/PAS (control) HEADER OPERATION: Colonoscopy, EGD ([facility] [place]) PRE-OP DIAGNOSIS: Abdominal pain TISSUE SUBMITTED: A. Duodenum colon biopsy, B. Antrum biopsy, C. Gastric body biopsy, D. Distal esophagus biopsy, E. Terminal ileum biopsy, F. Sigmoid colon biopsy, G. Sigmoid polyp biopsy MICROSCOPIC DIAGNOSIS A. Duodenum colon biopsy: Fragments of duodenal mucosa, no pathologic diagnosis. B. Antrum biopsy: Mild gastritis. See microscopic description and comment. C. Gastric body biopsy: A fragment of gastric mucosa with focal moderate chronic inflammation. D. Distal esophagus biopsy: Fragments of gastroesophageal mucosa with chronic inflammation. Intestinal metaplasia (goblet cell metaplasia) not identified. See comment. E. Terminal ileum biopsy: Fragments of small intestinal mucosa, no pathologic diagnosis. F. Sigmoid colon biopsy: Fragments of colonic mucosa, no pathologic diagnosis. G. Sigmoid polyp biopsy: Tubular adenoma. /BAM COMMENT B. The results of immunohistochemistry for Helicobacter pylori will be reported separately ([id number]). C & D. Alcian blue/PAS stain with matched control supports the above diagnosis. MICROSCOPIC DESCRIPTION Slides are reviewed. The specimen shows fragments of gastric mucosa with chronic inflammatory cell infiltrates in the lamina propria consisting of lymphocytes and plasma cells, consistent with mild chronic gastritis. Focal intestinal metaplasia (goblet cell metaplasia) is also noted. GROSS DESCRIPTION A. Received is one container labeled with the patient name and designated duodenum. The specimen consists of two irregular fragment of light [place]ijer[place] soft tissue that in aggregate measure 0.6 x 0.3 x 0.1 cm. The specimen is totally submitted in one cassette. B. Received is one container labeled with the patient name and designated antrum. The specimen consists of two irregular fragment of light [place] soft tissue that in aggregate measure 0.8 x 0.3 x 0.1 cm. The specimen is totally submitted in one cassette. C. Received is one container labeled with the patient name and designated gastric body. The specimen consists of one irregular fragment of light [place] soft tissue that measures 0.4 x 0.4 x 0.1 cm. The specimen is totally submitted in one cassette. D. Received is one container labeled with the patient name and designated distal esophagus. The specimen consists of two irregular fragment of light [place] soft tissue that in aggregate measure 0.8 x 0.3 x 0.1 cm. The specimen is totally submitted in one cassette. E. Received is one container labeled with the patient name and designated terminal ileum. The specimen consists of two irregular fragment of light [place] soft tissue that in aggregate measure 1.0 x 0.3 x 0.1. The specimen is totally submitted in one cassette. F. Received is one container labeled with the patient name and designated sigmoid colon. The specimen consists of two irregular fragment of light [place] soft tissue that in aggregate measure 1.2 x 0.3 x 0.1 cm. The specimen is totally submitted in one cassette. G. Received is one container labeled with the patient name and designated sigmoid polyp. The specimen consists of one irregular fragment of light [place] soft tissue that measures 0.3 x 0.3 x 0.1 cm. The specimen is totally submitted in one cassette. /SJ:cc 02/22/2022 TC:1 CPT:21903 x7, 50522
--- NOTE | 2022-02-21 13:45 | PCM.HP.BLA ---
History and Physical Date of Admission: 02/21/22 STACI MEDINA, is a 56 F who presents to the office today for Initial consult. Staci established with this clinic 12.16.21 following [facility] ED presentation 12.14.21 with epigastric abdominal discomfort and bloating, reflux, SOB, decreased appetite (several pounds weight loss) and constipation (BM QOD with very hard stools with anal burning) for two months with worsening over a couple days to include emesis; symptoms have been stable. Biochemical workup found hypokalemia and this was replaced; cardiac workup WNL; imaging done the week prior by her oncologist reviewed with lymph node changes. She was given GI cocktail and discharged home with famotidine which is minimally helpful. HCV history with treatment in . She returned to IV drug use 2015 and contracted HCV again and underwent treatment again which cleared again. Last blood monitoring 10.05.20 with continued clearance. [facility] follicular lymphoma Stage IV, grade I(); drug abuse; depression. CT chest/abd/pel 11.29.21 for follicular lymphoma monitoring noted stable/mild increase lymphadenopathy; groundglass appearance in bilateral lungs, new since last study; fatty infiltration of liver with hepatomegaly (normal spleen). Biochemical workup 12.14.21 CBC, CMP (potassium 3.1) without additional pertinent abnormality. AST 25/ALT44/ alk phos H122; lipase L54 ROS Const Constitutional: No anorexia, fatigue, fever(s), weight change or sleep problems Eyes Eyes: No change in vision ENT ENT: No abnormal hearing, difficulty swallowing, mouth lesions, tongue swelling or throat swelling Resp Respiratory: No cough or shortness of breath Cardio Cardiology: No chest pain at rest, chest pain with exertion, shortness of breath or dyspnea on exertion Gastro GI: No difficulty swallowing Genitourinary-Female: No difficulty urinating or burning urination Musc Musculoskeletal: No joint pain, joint swelling, muscle weakness or decreased muscle mass Skin Skin: No hair loss in leg, yellowing of the eye, itchy eyes, rash, skin ulcer or skin swelling Neuro Neurology: No abnormal hearing, abnormal movements, confusion, unsteady gait/balance or memory loss Psych Psychiatric: No anxiety, No confusion and No memory loss Endo Endocrine: No fatigue or weight change Aller/Imm Allergy/Immunologic: No itchy eyes, throat swelling or tongue swelling Salas/Lymp Hematologic/Lymphatic: No easy bleeding, easy bruising or enlarged lymph nodes Exam Const General: cooperative and comfortable Nutritional Appearance: average body habitus and well nourished [facility] Head: normal to inspection Ears: hearing grossly normal bilaterally Nose: external nose normal Face and sinus: normal facial exam Mouth: oral mucosae normal Throat: posterior oropharynx normal Eyes General: appearance normal, both eyes and all related structures Neck Neck: normal visual inspection Chest Chest palpation & inspection: normal inspection of the chest and normal palpation of entire chest wall Resp Effort & Inspection: normal respiratory effort Auscultation: Bilateral: Clear to Auscultation Cardio Palpation: normal PMI Rate: regular rate Rhythm: regular rhythm GI Inspection: normal to inspection Auscultation: normal bowel sounds Percussion: normal to percussion Palpation: no hepatosplenomegaly Skin General: no rashes or lesions noted Neuro General: patient alert Extrem General: normal to inspection Psych Affect: normal affect Quality Reporting Tobacco Screening ([facility] 138) Smoking Status: Current every day smoker Assessment and Plan Assessment and Plan (1) Abdominal pain: ?Status:?Chronic ?Plan: The differential diagnosis for abdominal pain could be secondary to fatty liver disease as she does have some mild hepatomegaly.? She does not drink any alcohol.? Also on the differential diagnosis for abdominal pain would be peptic ulcer disease, hiatal hernia, cholelithiasis, bile acid reflux.? We will get an upper endoscopy and we will get imaging with functional studies including gastric emptying study (2) Hepatitis C virus infection cured after antiviral drug therapy: ?Status:?Chronic ?Plan: Patient is negative for hepatitis C PCR RNA quant.? She will need to get alpha-fetoprotein checked every 6 months. ? ? ? Orders: Orders CRP Today R10.9 - Unspecified abdominal pain ? LDH Today R10.9 - Unspecified abdominal pain ? Erythrocyte Sed Rate Today R10.9 - Unspecified abdominal pain ? ANCA Today R10.9 - Unspecified abdominal pain ? Celiac Disease Profile Today R10.9 - Unspecified abdominal pain ? Immunoglobulin A Today R10.9 - Unspecified abdominal pain ? Immunoglobulin E Today R10.9 - Unspecified abdominal pain ? Immunoglobulin G Today R10.9 - Unspecified abdominal pain ? Immunoglobulin M Today R10.9 - Unspecified abdominal pain ? Vitamin B12 Today R10.9 - Unspecified abdominal pain ? HIV - [facility] Today R10.9 - Unspecified abdominal pain ? Hemoglobin A1c Today R10.9 - Unspecified abdominal pain ? DORI Comprehensive Panel Today R10.9 - Unspecified abdominal pain ? Calprotectin, Stool Today R10.9 - Unspecified abdominal pain ? AFP, Tumor Marker Today R10.9 - Unspecified abdominal pain ? Complement C3 Today R10.9 - Unspecified abdominal pain ? Complement C4 Today R10.9 - Unspecified abdominal pain ? CCP IgG Antibodies Today R10.9 - Unspecified abdominal pain ? Complement CH50 Today R10.9 - Unspecified abdominal pain ? GIANCARLO + Protein Elect, Serum Today R10.9 - Unspecified abdominal pain ? Elastography Parenchyma/Organ 1 Week K75.81 - Nonalcoholic steatohepatitis (GRANT), R10.9 - Unspecified abdominal pain ? I have examined the patient and the H&P has been reviewed. There are no clinical changes since date of exam.
[2022-02-21 14:25] VITALS: BP 114/61; BP 138/75; PULSE 68; RESP 16; TEMP 36.6; O2SAT 100
--- NOTE | 2022-02-21 14:27 | OP.EGD_ITS ---
Patient Name: Staci Sutton Procedure Date: 02/21/2022 1:40 PM Date of : 1965 Age: 56 Procedure: Upper GI endoscopy Indications: Epigastric abdominal pain Providers: Tai Castelan DO Medicines: Monitored Anesthesia Care Patient Profile: This is a 56 year old female. Refer to note in patient chart for documentation of history and physical. Patient has symptoms of chronic epigastric abdominal pain. Complications: No immediate complications. Procedure: Pre-Anesthesia Assessment: - Prior to the procedure, a History and Physical was performed, and patient medications and allergies were reviewed. The risks and benefits of the procedure and the sedation options and risks were discussed with the patient. All questions were answered and informed consent was obtained. Patient identification and proposed procedure were verified in the pre-procedure area. Mental Status Examination: alert and oriented. Airway Examination: normal oropharyngeal airway and neck mobility. Respiratory Examination: clear to auscultation. CV Examination: normal. Prophylactic Antibiotics: The patient does not require prophylactic antibiotics. Prior Anticoagulants: The patient has taken no previous anticoagulant or antiplatelet agents. After reviewing the risks and benefits, the patient was deemed in satisfactory condition to undergo the procedure. The anesthesia plan was to use monitored anesthesia care (MAC). Immediately prior to administration of medications, the patient was re-assessed for adequacy to receive sedatives. The heart rate, respiratory rate, oxygen saturations, blood pressure, adequacy of pulmonary ventilation, and response to care were monitored throughout the procedure. The physical status of the patient was re-assessed after the procedure. After obtaining informed consent, the endoscope was passed under direct vision. Throughout the procedure, the patient's blood pressure, pulse, and oxygen saturations were monitored continuously. The Colonoscope was introduced through the mouth, and advanced to the second part of duodenum. The upper GI endoscopy was accomplished without difficulty. The patient tolerated the procedure well. Scope In: 1:52:40 PM Scope Out: 1:59:26 PM Total Procedure Duration Time 0 hours 6 minutes 46 seconds Findings: Non-severe esophagitis with no bleeding was found 36 to 38 cm from the incisors. Biopsies were taken with a cold forceps for histology. Verification of patient identification for the specimen was done. Estimated blood loss was minimal. A small hiatal hernia was present. One non-bleeding cratered gastric ulcer with no stigmata of bleeding was found in the gastric body. The lesion was 3 mm in largest dimension. Biopsies were taken with a cold forceps for histology. Verification of patient identification for the specimen was done. Estimated blood loss was minimal. There was retained fluid seen in the stomach. Patchy mildly erythematous mucosa without active bleeding and with no stigmata of bleeding was found in the first portion of the duodenum. Impression: - Non-severe reflux esophagitis. Biopsied. - Small hiatal hernia. - Non-bleeding gastric ulcer with no stigmata of bleeding. Biopsied. - Erythematous duodenopathy. Recommendation: - Discharge patient to home. - Resume previous diet. - Continue present medications. - Await pathology results. - Repeat upper endoscopy in 1 year for surveillance. - Use sucralfate tablets 1 gram PO BID for 4 weeks. - Gastric emptying study to evaluate retained food in the stomach Procedure Code(s): --- Professional --- 08914, Esophagogastroduodenoscopy, flexible, transoral; with biopsy, single or multiple CPT copyright 2017 [employer] [place] [employer]. All rights reserved. The codes documented in this report are preliminary and upon him coder review may be revised to meet current compliance requirements. Tai Castelan DO 02/21/2022 2:26:52 PM This report has been signed electronically. Number of Addenda: 0 Note Initiated On: 02/21/2022 1:40 PM
--- NOTE | 2022-02-21 14:27 | OP.CCLET_ITS ---
02/21/2022 Miles Underwood Re : Upper GI endoscopy procedure for Staci Stewartr Kj This procedure was performed on Monday, February 21, 2022. My impressions and recommendations are as follows: Impressions : - Non-severe reflux esophagitis. Biopsied. - Small hiatal hernia. - Non-bleeding gastric ulcer with no stigmata of bleeding. Biopsied. - Erythematous duodenopathy. Recommendations : - Discharge patient to home. - Resume previous diet. - Continue present medications. - Await pathology results. - Repeat upper endoscopy in 1 year for surveillance. - Use sucralfate tablets 1 gram PO BID for 4 weeks. - Gastric emptying study to evaluate retained food in the stomach My findings are described in the full procedure note, which is enclosed. If I can be of further assistance, please feel free to contact me at . Sincerely, Tai Friend, 02/21/2022 2:26:52 PM This report has been signed electronically.
[2022-02-21 14:30] VITALS: BP 109/70; BP 138/75; PULSE 63; RESP 14; O2SAT 92
--- NOTE | 2022-02-21 14:31 | OP.CCLET_ITS ---
02/21/2022 Miles Underwood Re : Colonoscopy procedure for Staci Sutton Dear Kj This procedure was performed on Monday, February 21, 2022. My impressions and recommendations are as follows: Impressions : - Preparation of the colon was fair. - One 5 mm polyp in the sigmoid colon, removed with a hot snare. Resected and retrieved. - Congested mucosa in the sigmoid colon, in the descending colon and in the transverse colon. Biopsied. - Stool in the rectum, in the sigmoid colon, at the splenic flexure and in the cecum. - Congested mucosa in the terminal ileum. Biopsied. Recommendations : - Discharge patient to home. - Resume previous diet. - Continue present medications. - Await pathology results. - Repeat colonoscopy in 5 years for surveillance after piecemeal polypectomy. - Return to GI office. My findings are described in the full procedure note, which is enclosed. If I can be of further assistance, please feel free to contact me at . Sincerely, Tai Castelan, 02/21/2022 2:31:05 PM This report has been signed electronically.
--- NOTE | 2022-02-21 14:31 | OP.COLON_ITS ---
Patient Name: Staci Sutton Procedure Date: 02/21/2022 1:59 PM Date of : 1965 Age: 56 Procedure: Colonoscopy Indications: Epigastric abdominal pain, Abdominal pain in the left lower quadrant, Abdominal pain in the left upper quadrant, Clinically significant diarrhea of unexplained origin Providers: Tai Castelan DO Medicines: Monitored Anesthesia Care Patient Profile: This is a 56 year old female. Refer to note in patient chart for documentation of history and physical. Patient has symptoms of chronic epigastric abdominal pain. Last Colonoscopy: none. The patient's first colonoscopy is today. Complications: No immediate complications. Procedure: Pre-Anesthesia Assessment: - Prior to the procedure, a History and Physical was performed, and patient medications and allergies were reviewed. The risks and benefits of the procedure and the sedation options and risks were discussed with the patient. All questions were answered and informed consent was obtained. Patient identification and proposed procedure were verified in the pre-procedure area. Mental Status Examination: alert and oriented. Airway Examination: normal oropharyngeal airway and neck mobility. Respiratory Examination: clear to auscultation. CV Examination: normal. Prophylactic Antibiotics: The patient does not require prophylactic antibiotics. Prior Anticoagulants: The patient has taken no previous anticoagulant or antiplatelet agents. After reviewing the risks and benefits, the patient was deemed in satisfactory condition to undergo the procedure. The anesthesia plan was to use monitored anesthesia care (MAC). Immediately prior to administration of medications, the patient was re-assessed for adequacy to receive sedatives. The heart rate, respiratory rate, oxygen saturations, blood pressure, adequacy of pulmonary ventilation, and response to care were monitored throughout the procedure. The physical status of the patient was re-assessed after the procedure. After I obtained informed consent, the scope was passed under direct vision. Throughout the procedure, the patient's blood pressure, pulse, and oxygen saturations were monitored continuously. The Colonoscope was introduced through the anus and advanced to the terminal ileum. The colonoscopy was performed without difficulty. The patient tolerated the procedure well. The quality of the bowel preparation was fair. Scope In: 2:02:02 PM Scope Withdrawal Time 0 hours 12 minutes 7 seconds Scope Out: 2:20:04 PM Total Procedure Duration Time 0 hours 18 minutes 2 seconds Findings: The perianal and digital rectal examinations were normal. Internal hemorrhoids were seen on retroflexion exam in the rectum. A 5 mm polyp was found in the sigmoid colon. The polyp was sessile. The polyp was removed with a hot snare. Resection and retrieval were complete. Verification of patient identification for the specimen was done. Estimated blood loss was minimal. An area of mildly congested mucosa was found in the sigmoid colon, in the descending colon and in the transverse colon. Biopsies were taken with a cold forceps for histology. Verification of patient identification for the specimen was done. Estimated blood loss was minimal. A small amount of stool was found in the rectum, in the sigmoid colon, at the splenic flexure and in the cecum. A patchy area of the terminal ileum was congested. Biopsies were taken with a cold forceps for histology. Verification of patient identification for the specimen was done. Estimated blood loss was minimal. Impression: - Preparation of the colon was fair. - One 5 mm polyp in the sigmoid colon, removed with a hot snare. Resected and retrieved. - Congested mucosa in the sigmoid colon, in the descending colon and in the transverse colon. Biopsied. - Stool in the rectum, in the sigmoid colon, at the splenic flexure and in the cecum. - Congested mucosa in the terminal ileum. Biopsied. Recommendation: - Discharge patient to home. - Resume previous diet. - Continue present medications. - Await pathology results. - Repeat colonoscopy in 5 years for surveillance after piecemeal polypectomy. - Return to GI office. Procedure Code(s): --- Professional --- 05567, Colonoscopy, flexible; with removal of tumor(s), polyp(s), or other lesion(s) by snare technique 08521, 61, Colonoscopy, flexible; with biopsy, single or multiple CPT copyright 2017 [place] [employer]. All rights reserved. The codes documented in this report are preliminary and upon lead electrician review may be revised to meet current compliance requirements. Tai Castelan DO 02/21/2022 2:31:05 PM This report has been signed electronically. Number of Addenda: 0 Note Initiated On: 02/21/2022 1:59 PM
[2022-02-21 14:35] VITALS: BP 101/59; BP 138/75; PULSE 61; RESP 63; O2SAT 16
[2022-02-21 14:40] VITALS: BP 108/65; BP 138/75; PULSE 63; RESP 16; TEMP 36.5; O2SAT 95
[2022-02-21 14:57] VITALS: BP 138/75
== END 2022-02-21 15:16 | disposition home or self-care (01) ==
LOC: EN 12:19 → AC 12:21
PROVIDERS: PCP Family Medicine; Referring Provider Family Medicine; Visit Provider Internal Medicine Gastroenterology
PROC: 0DJD8ZZ Inspection of Lower Intestinal Tract, Via Natural or Artificial Opening Endoscopic (ICD-10-PCS; CPT 45378; principal; 2022-02-21 13:25)
DX: K21.00 Gastro-esophageal reflux disease with esophagitis, without bleeding (principal); D12.5 Benign neoplasm of sigmoid colon; K44.9 Diaphragmatic hernia without obstruction or gangrene; K31.89 Other diseases of stomach and duodenum; K29.50 Unspecified chronic gastritis without bleeding; F17.200 Nicotine dependence, unspecified, uncomplicated; K64.8 Other hemorrhoids; K63.89 Other specified diseases of intestine; K25.7 Chronic gastric ulcer without hemorrhage or perforation; F32.A Depression, unspecified; F41.9 Anxiety disorder, unspecified; I10 Essential (primary) hypertension; R12 Heartburn; E07.9 Disorder of thyroid, unspecified; Z79.899 Other long term (current) drug therapy
CPT/HCPCS: 43239; 45385; 45380; 88305; 88313; 88342; J7120; J2405

== ENCOUNTER → 2022-11-28 | Outpatient (CLI) | payer MEDICAID, SELFPAY ==
--- NOTE | 2022-11-28 08:01 | CT_ITS ---
EXAM: CT CHEST, ABDOMEN AND PELVIS WITH INTRAVENOUS CONTRAST CLINICAL INDICATION: F/U LYMPHOMA TECHNIQUE: Helically acquired images were obtained of the chest, abdomen and pelvis with intravenous contrast. This CT exam was performed using one or more of the following dose reduction techniques: automated exposure control, adjustment of the mA and/or kV according to patient size, and/or use of iterative reconstruction technique. CONTRAST: Oral and amp; IV Gastrografin and amp; 100mL Isovue-300 RADIATION DOSE: CTDIvol = 16.18 mGy, DLP = 1496.45 mGy-cm COMPARISON: CT chest abdomen pelvis with contrast 11/29/2021. FINDINGS: CHEST: LUNGS AND PLEURAL SPACES: Unremarkable. No mass. No consolidation or edema. No pleural effusion or thickening. No pneumothorax. HEART: Mild cardiomegaly is unchanged. Normal pericardium. No calcified plaques in the 3 vessel coronary arteries. MEDIASTINUM: Tiny left periaortic nodes are unchanged. No mediastinal or hilar lymphadenopathy. No paratracheal lymphadenopathy. Esophagus is unremarkable. No hiatal hernia. THYROID: Unremarkable. No thyroid lesions. ABDOMEN: LIVER: Moderate diffuse fatty infiltration of the liver is unchanged. Mild hepatomegaly measuring 21.6 cm long. GALLBLADDER AND BILE DUCTS: Unremarkable. No calcified gallstones. No gallbladder distention or wall edema. No intra- or extrahepatic biliary ductal dilation. PANCREAS: Unremarkable. No focal cystic or solid mass. SPLEEN: Unremarkable. Normal size without focal cystic or solid mass. ADRENALS: Unremarkable. No nodules. KIDNEYS AND URETERS: Unremarkable. Normal renal size and position. No hydronephrosis. STOMACH AND BOWEL: Unremarkable. No stomach or bowel distention. No focal inflammatory change. PELVIS: APPENDIX: No evidence of acute appendicitis. BLADDER: Unremarkable. REPRODUCTIVE: Unremarkable as visualized. No mass. CHEST, ABDOMEN and PELVIS: INTRAPERITONEAL SPACE: Unremarkable. No ascites or other fluid collection. No free air. BONES/JOINTS: 6 lumbar type vertebral bodies due to partial lumbarization of S1. Using this convention, there is an old anterior wedge compression fracture of the T9 vertebral body. There is left L5 unilateral pars defect and mild anterolisthesis of L5 on L6.. No suspicious lytic or blastic abnormality. SOFT TISSUES: Unremarkable. No discrete abdominal or pelvic wall hernia. VASCULATURE: 4 cm and dilatation of the ascending thoracic aorta versus 2.2 cm diameter of the ascending thoracic aorta. This is unchanged. No aortic dissection. No obvious central pulmonary embolism although this study was not performed with the pulmonary embolism protocol. LYMPH NODES: 4.3 x 3 x 4.6 cm solid lymphadenopathy in the right axilla is unchanged. Smaller solid lymph nodes in both axilla are unchanged. Decreased size of retroperitoneal lymphadenopathy in between the IVC and the abdominal aorta measuring approximately 1.7 x 0.7, previously 2.5 x 1.2 cm (series 3, image 66). Small solid mesenteric lymph nodes around the mesenteric vessels are unchanged. New left pelvic sidewall lymphadenopathy measuring 3.5 x 4.5 cm (series 3, image 93). At least 4 solid lymph nodes above the pancreatic head, behind the right main portal vein and in the right celiac plexus are unchanged in size and configuration. CT/CT Chest, Abd, Pel w/Contrast IMPRESSION: 1. New large left pelvic sidewall lymphadenopathy measuring 3.5 x 4.5 cm. 2. Large solid lymphadenopathy in the right axilla and multiple small solid lymph nodes in both axilla are unchanged. 3. Decreased size of retroperitoneal lymphadenopathy in between the IVC and the abdominal aorta measuring approximately 1.7 x 0.7 cm, previously 2.5 x 1.2 cm (series 3, image 66). 4. At least 4 prominent solid lymph nodes above the pancreatic head/behind the right main portal vein and in the right side of the celiac plexus are unchanged in size and configuration. 5. Tiny solid lymph nodes in the mesentery around the mesenteric vessels are unchanged. 6. Tiny lymph nodes in the left anterior periaortic space of the chest are unchanged. 7. Hepatomegaly and moderate diffuse hepatic steatosis are unchanged. Electronically Signed: Garrett Dueñas MD at 11:58 EDT ,
[2022-11-28 08:26] LABS: CREATININE FINGERSTICK < 0.9 mg/dL (0.55-1.02); EGFR FINGERSTICK > 60.0000 mL/min (>60)
== END | disposition home or self-care (01) ==
LOC: CT 08:00
PROVIDERS: PCP Family Medicine; Referring Provider Internal Medicine Hematology & Oncology; Visit Provider Internal Medicine Hematology & Oncology
DX: C82.90 Follicular lymphoma, unspecified, unspecified site (principal)
CPT/HCPCS: 71260; 74177; Q9967

== ENCOUNTER 2022-12-18 07:42 | Outpatient (CLI) | payer MEDICAID, SELFPAY ==
[2022-12-18] VITALS (9 sets, daily range): BP systolic 76–138; BP diastolic 56–91; PULSE 63–73; RESP 13–18; TEMP 37.2; O2SAT 93–98; BMI 30.9
--- NOTE | 2022-12-18 | IMM_PTH ---
PATIENT: OSIEL MEDINA LOC: CT U#:[id number] AGE/SX: 57/F ROOM: RE12/18/[address]: Dr. Leena Gonzales MD : 1965 BED: DIS: 12/18/2022 SPEC #: [id number] RECD: 12/18/22 13:34 STATUS: EMA REQ #: [id number] ASHLEY: 12/18/22 00:[address]: Leena Gonzales DEPT: IMMUNOHISTOCHEMISTRY RECD BY: Lynda Worthington ENTERED: 12/18/22 13:36 SP TYPE: IMMUNO OTHR DR: Dr. Miles Underwood MD Tissues: Lymph node of pelvis, NOS Procedures: BCL-2 (add) BCL-6 (add) CD10 (add) CD20 (add) CD23 (add) CD3 (add) CD43 (add) CD45 (add) CD5 (add) CD79A (add) CK8 (add) CYCLIN (add) KI-67 (add) MUM1 (add) C-MYC (add) Pankeratin (initial) PHYSICIAN & [place] [id number] SPECIMEN INFORMATION: Tissue Source: Left pelvic lymph node Clinical Info: Left pelvic lymph node Specimen Number: [id number] CPT code: 15910, 64028 x15 METHODOLOGY: Deparaffinized sections of prefer/formalin-fixed tissue or PAP/DQ stained slides are incubated with monoclonal/polyclonal antibodies/oligonucleotide probes. Localization is made via biotin free immunoperoxidase method. Appropriate controls are performed and reacted as expected. Results on target cell population are indicated in the following table: RESULTS: ANTIBODY / CLONE RESULT AE1-3 (AE1/AE3/PCK26) negative CK8 (52egsuS76) negative CD3 (PS1) negative CD5 (SP10) negative CD10 (56C6) positive CD20 (L26) positive CD23 (1B12) positive CD43 (L60) negative CD45 (RP2/18) positive CD79a (11E3) positive BCL-2 (bcl-2/100/D5) positive BCL-6 (QS215Z/A8) positive Cyclin D1/BCL-1 (SP4) negative MUM1 (MRQ-43) positive, plasma cells C-MYC (Y69) negative Ki-67 (30-9) positive (<10%) These tests were developed and their performance characteristics determined by [facility]. They may not have been cleared or approved by the U.S. Food and Drug Administration. The FDA has determined that such clearance or approval is not necessary. The above immunohistochemical/dualISH markers are ordered and reviewed by the Pathologist. INTERPRETATION: Left pelvic lymph node, CT-guided core biopsy: Classic follicular lymphoma (CFL). See comment. SJ:rg 12/26/2022 The specimen is sent to [facility] for expert opinion, reviewed by Dr. West and the above diagnosis is rendered. The complete report is viewable in the patient's EMR. Case has been reviewed in consultation with Dr. Quiles who concurs with the above diagnosis. IDC:AM
--- NOTE | 2022-12-18 07:55 | CT_ITS ---
PROCEDURE: CT GUIDED biopsy of the left pelvic lymph node DATE: December 18, 2022. INDICATION: Female, 57 years old. History of lymphoma. PHYSICIAN: Jake Taylor M.D. RADIATION DOSAGE (If Supplied By Facility): CTDIvol = ( 24 ) mGy, DLP = ( 598.54 ) mGycm. Individualized dose optimization techniques were utilized. PROCEDURE: The risks, benefits, and alternatives to the procedure were explained to the patient. The specific risk of hemorrhage requiring further treatment or intervention was detailed and accepted. Follow-up instructions were discussed with the patient as well. Written informed consent was obtained. The patient was brought into the CT suite and placed in the prone position. . An appropriate entry site was identified. The overlying skin was prepped and draped in the usual sterile fashion. 1% lidocaine was administered subcutaneously for local anesthesia. Conscious sedation was performed. The patient received 3 mg of Versed and 75 mcg of fentanyl intravenously. Conscious sedation was started at 9:01 AM and terminated at 9:21 AM. The patient was independently monitored by the department nurse. Under CT guidance, a total of 7 passes were performed utilizing an 18-gauge core biopsy needle. The specimens were then placed in the appropriate fluid and transported to the laboratory for analysis. Hemostasis was obtained. The patient tolerated the procedure well without immediate complications. CT/Biopsy/Inj or Needle Placement IMPRESSION: Successful CT guided biopsy of the left pelvic lymph node, as described above. Conscious sedation protocol was followed. Electronically Signed: Jake Taylor MD at 10:00 EDT ,
[2022-12-18 08:00] LABS: Platelet Count 229 K/mm3 (150-450)
[2022-12-18 08:26] LABS: Prothrombin Time (Protime)PT. 13.3 SECONDS (11.7-14.9)
[2022-12-18 08:37] LABS: Partial Thromboplast Time 28.9 Seconds (24.1-36.2)
[2022-12-18] MEDS: Midazolam 2 MG/2 ML Syringe IV ×2 (09:01→09:17)
[2022-12-18] MEDS: 0.9% Normal Saline (250mL Bag) 250 ML 15 ML IV (09:01)
[2022-12-18] MEDS: fentaNYL 100 MCG/2 ML Ampul IV ×2 (09:02→09:17)
[2022-12-18] MEDS: Lidocaine 2% (20 ml mdv) 20 ML Vial INFILT (09:14)
--- NOTE | 2022-12-18 09:15 | ASPIGT_PTH ---
PATIENT: OSIEL MEDINA LOC: [place] U#:[id number] AGE/SX: 57/F ROOM: RE12/18/[address]: Dr. Leena Gonzales MD : [id number] BED: DIS: 12/18/2022 SPEC #: [id number] RECD: 12/18/22 10:22 STATUS: EMA REQ #: [id number] ASHLEY: 12/18/22 09:[address]: Leena Gonzales DEPT: SURGICAL PATHOLOGY RECD BY: Rohit Wisdom ENTERED: 12/18/22 10:23 SP TYPE: ASP RAD OTHR DR: Dr. Miles Underwood MD Tissues: Lymph node of pelvis, NOS Procedures: FNA Specimen Adequacy Special Stain Group II Surgery Specimen Level IV Surgery Specimen Level V Imprint (control) HEADER OPERATION: CT-guided lymph node biopsy PRE-OP DIAGNOSIS: Left pelvic lymph node TISSUE SUBMITTED: Left pelvic lymph node 18-gauge core x7 MICROSCOPIC DIAGNOSIS Left pelvic lymph node, CT-guided core biopsy: Consistent with follicular lymphoma. See comment. SJ:rg 12/26/2022 COMMENT The specimen is evaluated at the time of biopsy by Dr. Garcias. Immediate Evaluation = Numerous lymphocytes are noted. Immunohistochemistry ([id number]) supports the above diagnosis. The specimen is sent to [facility] for expert opinion, reviewed by Dr. West and the above diagnosis is rendered. The complete report is viewable in the patient's EMR. Flow cytometry study from [facility] shows low cell viability and low cell yield hinders accurate interpretation; however, in the viable cell population, the analysis has detected a lambda monotypic Bcell population (10%). 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 This case is discussed with Dr. Gonzales on 12/27/2022. Case has been reviewed in consultation with Dr. Quiles who concurs with the above diagnosis. IDC:AM MICROSCOPIC DESCRIPTION Slides are reviewed. GROSS DESCRIPTION Received in fixative is one container labeled with the patient's name and designated left pelvic lymph node. The specimen consists of multiple irregular fragments of [place] soft tissue that in aggregate measure 1.0 x 0.1 x <0.1 cm. The specimen is totally submitted in one cassette. Two touch imprints are prepared at the time of core biopsy. A portion of the specimen is also submitted for flow cytometry studies. / SJ:rg 12/18/2022 TC:0 [facility]: [id number] ADDENDUM ADDENDUM ADDENDUM ADDENDUM ADDENDUM ADDENDUM ADDENDUM ADDENDUM ADDENDUM ADDENDUM 02/08/2023 09:41 ADDENDUM 02/08/2023 09:41 ADDENDUM 02/08/2023 09:41 ADDENDUM 02/08/2023 09:41 ADDENDUM 02/08/2023 09:41 This addendum is added to incorporate an outside pathology consultation report. The case was examined at [facility] (#[id number]) and the following diagnosis was rendered. Left pelvic lymph node, CT-guided core biopsy: Limited tissue with findings most consistent with recurrent follicular lymphoma. Please see complete above mentioned consultation report in EMR
== END 2022-12-18 23:59 | disposition home or self-care (01) ==
LOC: CT 07:44
PROVIDERS: Radiology Diagnostic Radiology; PCP Family Medicine; Referring Provider Internal Medicine Hematology & Oncology; Visit Provider Internal Medicine Hematology & Oncology
DX: Z01.818 Encounter for other preprocedural examination (principal); C82.90 Follicular lymphoma, unspecified, unspecified site; R59.9 Enlarged lymph nodes, unspecified
CPT/HCPCS: 38505; 36415; 77012; 85049; 85610; 85730; 88172; 88305; 88307; 88313; 88341; 88342; 99156; J7050

== ENCOUNTER 2023-04-02 15:11 | Emergency (ER) | payer MEDICAID, SELFPAY ==
[2023-04-02 15:13] VITALS: BP 185/98; PULSE 80; RESP 22; TEMP 36.6; O2SAT 100; BMI 32.0
[2023-04-02 15:16] VITALS: BP 185/98; PULSE 80; RESP 22; O2SAT 100
--- NOTE | 2023-04-02 15:24 | EX.ED.SAOD ---
HPI History of Present Illness Chief Complaint: Substance Abuse Informant: patient Onset/Context/Timing Onset: Today Context: Gradual Onset Timing: Continuous Current Severity: Mild Maximum Severity: Mild Associated Symptoms Associated Symptoms: Positive for diarrhea* Narrative Prior similar symptoms: Yes Recent Illness/Hospitalization: No PFSH PFSH Medical History Allergies Anemia Anxiety Anxiety and depression Arthritis Chronic back pain Delayed surgical wound healing Depression Drug abuse Easy bruising Excessive bleeding Follicular lymphoma Gastric reflux Heartburn Hepatitis C virus infection cured after antiviral drug therapy History of edema Hypertension Leg cramps Lipoma of right axilla Lymph node enlargement Lymphoma Mass of right axilla Open wound Open wound of right axillary region Osteoarthritis Pain in right upper arm Post-menopausal Shortness of breath on exertion Smoker Substance abuse Thyroid disease Wears dentures Home Medications duloxetine 60 mg capsule,delayed release (Cymbalta) 60 mg PO DAILY 09/16/20 [History Last Taken 01/11/22 06:00] buprenorphine 8 mg-naloxone 2 mg sublingual tablet 1 tab sublingual BID 05/03/21 [History Last Taken Unknown] bupropion HCl 150 mg tablet,12 hr sustained-release (Wellbutrin SR) 150 mg PO BID 05/03/21 [History Last Taken 01/11/22 06:00] famotidine 20 mg tablet (Pepcid) 20 mg PO BID #30 tabs 01/03/22 [Rx Last Taken 01/11/22 06:00] cetirizine 10 mg tablet 10 mg PO DAILY 12/18/22 [History Last Taken Unknown] chlorthalidone 25 mg tablet 25 mg PO DAILY 12/18/22 [History Last Taken Unknown] levothyroxine 200 mcg tablet 200 mcg PO DAILY 12/18/22 [History Last Taken Unknown] levothyroxine 25 mcg tablet 25 mcg PO DAILY 12/18/22 [History Last Taken Unknown] ondansetron 4 mg disintegrating tablet 4 mg PO Q6H PRN nausea and vomiting #7 tabs 04/02/23 [Rx Last Taken Unknown] Allergy/AdvReac Type Severity Reaction Status Date / Time gabapentin Allergy Intermediate Hives Verified 04/02/23 15:13 Sulfa (Sulfonamide Allergy Intermediate HIVES, Verified 04/02/23 15:13 Antibiotics) NAUSEA morphine AdvReac Mild Nausea Verified 12/25/23 15:13 Family History Grandmother Arthritis Thyroid disorder Breast cancer Diabetes Hypertension CVA (cerebral vascular accident) Grandfather Diabetes Mother Anesthesia complication Asthma Severe allergy Grandmother Breast cancer High cholesterol Thyroid disorder Father CVA (cerebral vascular accident) Surgical History H/O total thyroidectomy History of axillary surgery History of back surgery History of excision of mass History of tubal ligation Status post removal of thyroid nodule Social History Smoking Status: Light Smoker (<10/day) Tobacco: How many years used: 35 how long ago did patient quit smoking: only smoking 1-2 cigarettes/day second hand exposure: No counseling given: provider counseling alcohol intake: never substance use type: former substance user Date of last use: 3.5 YEARS AGO, marijuana, heroin and methamphetamine brenda/anabaptist: Lutheran seatbelt use: always do you feel safe at home: Yes additional social history: Does Not Take Aspirin Does Take Ibuprofen As Needed ROS ROS ED ROS Narrative Diarrhea. Withdrawal symptoms. Abdominal cramping. Review of Systems ROS Unobtainable: Denies due to encephalopathy Constitutional Constitutional ED: Denies chills or fever(s) ENT ENT ED: Denies ear pain Cardiovascular Cardiovascular: Denies chest pain Respiratory/Chest Respiratory/Chest: Denies cough or dyspnea Gastrointestinal Gastrointestinal: Reports abdominal pain, diarrhea and nausea; Denies constipation, melena or vomiting Musculoskeletal Musculoskeletal: Denies arthralgias Integumentary Denies abscess Neurologic Neurologic: Denies headache(s) Psychiatric Psychiatric: Denies anxiety or depression Endocrine Endocrinology: Denies cold intolerance Hematologic/Lymphatic Hematologic/Lymphatic: Denies easy bleeding Allergic/Immunologic Allergic/Immunologic ED: Denies mouth swelling or tongue swelling EXAM Physical Exam Narrative Exam Narrative: 57-year-old female vital signs are stable blood pressure 185/98. Pulse ox 100% room air no signs hypoxia. Afebrile. Does not look septic or toxic. She is anxious and walking about the room. H EENT exam unremarkable. Neck nontender. Lungs clear to auscultation bilaterally. Heart regular rhythm no murmur. Abdomen soft, nontender, nondistended normal bowel sounds no peritoneal signs. Moving all 4 extremities. Calves are nontender no edema. Neurologically she is awake and alert with no focal motor deficits. Const Vital Signs: 04/02/23 15:13 04/02/23 15:16 04/02/23 16:00 Temperature 97.8 F Temperature Source Oral Pulse Rate 80 80 99 Respiratory Rate 22 H 22 H 18 Blood Pressure 185/98 H 185/98 H 148/70 H Blood Pressure Mean 127 127 96 Pulse Ox 100 100 100 Oxygen Delivery Method Room Air Room Air Room Air 04/02/23 17:23 Temperature Temperature Source Pulse Rate 92 Respiratory Rate 12 Blood Pressure 160/95 H Blood Pressure Mean 116 Pulse Ox 96 Oxygen Delivery Method Room Air Positive well nourished and well developed; Negative for obese or cachectic General Appearance ED: well developed; Negative for cachectic or pallor Nutritional Appearance: Negative for cachectic or obese HEENT Reports moist mucous membranes; Denies dry mucous membranes atraumatic; Negative for trauma or tenderness Mouth ED: No dry mucous membranes Mouth: No dry mucous membranes Eyes PERRL and EOMs intact bilaterally General Eye ED: Negative for pale conjunctiva, scleral icterus or other Neck no lymphadenopathy, supple and no JVD Thyroid: Negative for tender or other Lymph Lymphatic: no lymphadenopathy noted; Negative for lymphadenopathy or other Chest Wall inspection of chest normal; Negative for palpation of chest normal Resp normal respiratory effort and clear to auscultation bilaterally Effort and Inspection: Negative for retractions Auscultation: Negative for rales, rhonchi or wheezes Cardio regular rate, regular rhythm, S1 normal heart sound, S2 normal heart sound and no murmurs Rate: Negative for bradycardia or tachycardic Rhythm: Negative for abnormal rhythm Bruits: Negative for other GI soft to palpation, non-tender, non-distended and no masses Inspection: Negative for abdominal distention Palpation: Negative for tender, guarding, rigid or hepatomegaly Bladder / Kidney Exam: No other Back/Spine no CVA tenderness General Back: Negative for CVA tenderness Cervical Spine: Negative for cervical spine tenderness Thoracic Spine / Upper Back: Negative for thoracic spinal tenderness Lumbar Spine / Lower Back: Negative for lumbar spinal tenderness Extremity General Extremety ED: Negative for edema or tenderness General Extremity: Negative for edema Neuro oriented x3 and CN's II-XII intact bilaterally Sensorium / Orientation: alert, oriented to person, oriented to place and oriented to time; Negative for confused, lethargic or stuporous Speech: speech normal Motor Exam: strength 5/5 throughout Psych mental status grossly normal and thought process normal Mood & Affect: anxious Skin General Skin Exam: Negative for jaundice or pallor Rashes: no rashes Trauma: Negative for abrasion MDM MDM MDM Narrative Medical decision making narrative: 57-year-old female history of oxycodone abuse. Today took Suboxone which put her in withdrawal. She complaining of nausea, diarrhea and abdominal cramping. She does not want detox. She will be treated with IV Ativan and Zofran and reassessed. Repeat exam at 4:00 patient was still having a lot of withdrawal symptoms. Was given a second dose of IV Ativan. Patient doing well at 5:40 PM. She will be given 1 more dose of Ativan and discharged home with a prescription for Zofran. She was strongly encouraged both by nursing staff and myself to consider either an in or outpatient detox. History & Record Review Discussion w/independent historian: Patient Additional record(s) reviewed:: Prior inpatient record, Prior outpatient record, Prior ED visit and Prior labs Discharge Plan Triage Chief Complaint: Substance Abuse ED Provider: Colt Figueroa Dx/Rx/DC Orders Clinical Impression: History of lymphoma, Drug abuse, Acute drug withdrawal syndrome Instructions: Treating Drug Abuse and Addiction, ED Drug Abuse, ED Opioid Withdrawal Prescriptions: New ondansetron 4 mg tablet,disintegrating 4 mg PO Q6H PRN (Reason: nausea and vomiting) Qty: 7 0RF No Action duloxetine [Cymbalta] 60 mg capsule,delayed release(DR/EC) 60 mg PO DAILY bupropion HCl [Wellbutrin SR] 150 mg tablet sustained-release 12 hr 150 mg PO BID buprenorphine-naloxone 8-2 mg tablet, sublingual 1 tab sublingual BID levothyroxine 25 mcg tablet 25 mcg PO DAILY Patient Comments: TAKE 1 TABLET BY MOUTH EVERY DAY on ON AN EMPTY STOMACH in addition to 200mcg. levothyroxine 200 mcg tablet 200 mcg PO DAILY Patient Comments: Take 1 tablet by mouth once daily. cetirizine 10 mg tablet 10 mg PO DAILY Patient Comments: TAKE 1 TABLET BY MOUTH EVERY DAY chlorthalidone 25 mg tablet 25 mg PO DAILY Patient Comments: Take 1 tablet by mouth once daily. famotidine [Pepcid] 20 mg tablet 20 mg PO BID Qty: 30 2RF Primary Care Provider: Miles Underwood Referrals: Miles Underwood MD [Primary Care Provider] - As Needed Activity Restrictions/Additional Instructions: Strongly consider either following up with the [facility] for outpatient detox or if you continue to use consider inpatient detox. Zofran as needed for nausea. Disposition Disposition: Home, Self Care
[2023-04-02] MEDS: LORazepam 2 MG/ML Syringe 1 MG IV ×3 (15:39→17:57)
[2023-04-02] MEDS: Ondansetron 4 MG/2 ML Vial IV (15:39)
[2023-04-02 16:00] VITALS: BP 148/70; PULSE 99; RESP 18; O2SAT 100
[2023-04-02 17:23] VITALS: BP 160/95; PULSE 92; RESP 12; O2SAT 96
[2023-04-02 18:01] VITALS: BP 154/92; PULSE 94; RESP 16; O2SAT 99
== END 2023-04-02 18:05 | disposition home or self-care (01) ==
PROVIDERS: Emergency Provider Emergency Medicine; PCP Family Medicine; Visit Provider Emergency Medicine
DX: F19.139 Other psychoactive substance abuse with withdrawal, unspecified (principal); F17.210 Nicotine dependence, cigarettes, uncomplicated; G89.29 Other chronic pain; F41.9 Anxiety disorder, unspecified; F32.A Depression, unspecified; Z79.899 Other long term (current) drug therapy
CPT/HCPCS: 96374; 96375; 96376; 99283; A4216; J2405

== ENCOUNTER 2023-04-02 23:22 | Emergency (ER) | payer MEDICAID, SELFPAY ==
[2023-04-02 23:23] VITALS: BP 169/86; PULSE 94; RESP 16; TEMP 36.1; O2SAT 99; BMI 32.3
--- NOTE | 2023-04-02 23:56 | EDS_ITS ---
HPI History of Present Illness Chief Complaint: Substance Abuse Informant: patient Narrative Narrative: 57-year-old female history of opiate abuse presenting to the emergency room requesting detox. Patient states for 12 years she was on Suboxone currently being prescribed by Dr. Mooney. She states that she was a former IV heroin user. About 1 week ago she began to use oxycodone 30 mg tablets. She states that this was a relapse. She reports that she tried to get back on her Suboxone today but is having withdrawal symptoms still. She notes nausea diarrhea jitteriness palpitations. She was seen in the emergency room earlier and was not wanting detox. Patient does use recreational cannabis [facility] Medical History Allergies Anemia Anxiety Anxiety and depression Arthritis Chronic back pain Delayed surgical wound healing Depression Drug abuse Easy bruising Excessive bleeding Follicular lymphoma Gastric reflux Heartburn Hepatitis C virus infection cured after antiviral drug therapy History of edema Hypertension Leg cramps Lipoma of right axilla Lymph node enlargement Lymphoma Mass of right axilla Open wound Open wound of right axillary region Osteoarthritis Pain in right upper arm Post-menopausal Shortness of breath on exertion Smoker Substance abuse Thyroid disease Wears dentures Home Medications duloxetine 60 mg capsule,delayed release (Cymbalta) 60 mg PO DAILY 09/16/20 [History Last Taken 01/11/22 06:00] buprenorphine 8 mg-naloxone 2 mg sublingual tablet 1 tab sublingual BID 05/03/21 [History Last Taken Unknown] bupropion HCl 150 mg tablet,12 hr sustained-release (Wellbutrin SR) 150 mg PO BID 05/03/21 [History Last Taken 01/11/22 06:00] famotidine 20 mg tablet (Pepcid) 20 mg PO BID #30 tabs 01/03/22 [Rx Last Taken 01/11/22 06:00] cetirizine 10 mg tablet 10 mg PO DAILY 12/18/22 [History Last Taken Unknown] chlorthalidone 25 mg tablet 25 mg PO DAILY 12/18/22 [History Last Taken Unknown] levothyroxine 200 mcg tablet 200 mcg PO DAILY 12/18/22 [History Last Taken Unknown] levothyroxine 25 mcg tablet 25 mcg PO DAILY 12/18/22 [History Last Taken U nknown] ondansetron 4 mg disintegrating tablet 4 mg PO Q6H PRN nausea and vomiting #7 tabs 04/02/23 [Rx Last Taken Unknown] Allergy/AdvReac Type Severity Reaction Status Date / Time gabapentin Allergy Intermediate Hives Verified 04/02/23 23:25 Sulfa (Sulfonamide Allergy Intermediate HIVES, Verified 04/02/23 23:25 Antibiotics) NAUSEA morphine AdvReac Mild Nausea Verified 04/02/23 23:25 Family History Grandmother Arthritis Thyroid disorder Breast cancer Diabetes Hypertension CVA (cerebral vascular accident) Grandfather Diabetes Mother Anesthesia complication Asthma Severe allergy Grandmother Breast cancer High cholesterol Thyroid disorder Father CVA (cerebral vascular accident) Surgical History H/O total thyroidectomy History of axillary surgery History of back surgery History of excision of mass History of tubal ligation Status post removal of thyroid nodule Social History Smoking Status: Current every day smoker tobacco type: cigarettes Tobacco: How many years used: 35 how long ago did patient quit smoking: only smoking 1-2 cigarettes/day second hand exposure: No counseling given: provider counseling alcohol intake: never substance use type: former substance user Date of last use: 3.5 YEARS AGO, marijuana, heroin and methamphetamine brenda/gnosticism: Orthodox seatbelt use: always do you feel safe at home: Yes additional social history: Does Not Take Aspirin Does Take Ibuprofen As Needed ROS ROS ED Constitutional Constitutional ED: Reports chills and sweats; Denies fever(s) or weight loss Eyes Eyes: Denies change in vision or diplopia ENT ENT ED: Denies ear pain, rhinorrhea or sore throat Cardiovascular Cardiovascular: Denies chest pain, orthopnea, palpitations or racing heartbeat Respiratory/Chest Respiratory/Chest: Denies cough, dyspnea or orthopnea Gastrointestinal Gastrointestinal: Reports diarrhea and nausea; Denies abdominal pain or vomiting Genitourinary Genitourinary ED: Denies dysuria, hematuria or urinary frequency Musculoskeletal Musculoskeletal: Reports myalgias; Denies arthralgias Integumentary Denies abscess or rash Neurologic Neurologic: Reports other Details: Jitteriness ; Denies headache(s) or weakness Psychiatric Psychiatric: Denies anxiety, depression, suicidal ideation or suicidal thoughts Endocrine Endocrinology: Denies polydipsia, polyphagia or polyuria Allergic/Immunologic Allergic/Immunologic ED: Denies mouth swelling, tongue swelling or urticaria EXAM Physical Exam Const Vital Signs: 04/02/23 23:23 Temperature 97.0 F L Temperature Source Temporal Pulse Rate 94 Respiratory Rate 16 Blood Pressure 169/86 H Blood Pressure Mean 113 Pulse Ox 99 Oxygen Delivery Method Room Air Positive well nourished and well developed General Appearance ED: well developed HEENT Reports normocephalic, head/scalp atraumatic and moist mucous membranes Eyes PERRL and EOMs intact bilaterally Neck no lymphadenopathy, supple and no JVD Resp normal respiratory effort and clear to auscultation bilaterally Cardio regular rate, regular rhythm and no murmurs GI normal to inspection, nondistended, normoactive bowel sounds and non-tender Palpation: soft Back/Spine no CVA tenderness and normal ROM Extremity normal to inspection General Extremety ED: Negative for edema General Extremity: Negative for edema Neuro oriented x3 and CN's II-XII intact bilaterally Sensorium / Orientation: alert Motor Exam: strength 5/5 throughout Psych mental status grossly normal Mood & Affect: anxious; Negative for depressed or tearful Skin no rashes or lesions noted and no wounds MDM MDM MDM Narrative Medical decision making narrative: After the history and physical I told the patient that since she is having withdrawal symptoms we agreed to admit her into detox. She nodded in agreement after I left the room informed nursing that she does not want to stay in the hospital and subsequently left the emergency department again. Lab Data Attestation: I reviewed the patient's lab results. Labs: Laboratory Results - last 24 hr 04/03/23 00:15 WBC 13.5 H RBC 3.95 L Hgb 11.1 L Hct 34.1 L MCV 86.3 MCH 28.1 MCHC 32.6 RDW Std Deviation 42.7 RDW Coeff of Junior 13.7 Plt Count 292 MPV 9.9 Immature Gran % (Auto) 0.600 Neut % (Auto) 82.1 H Lymph % (Auto) 12.3 L [place] % (Auto) 4.6 Eos % (Auto) 0.1 Baso % (Auto) 0.3 Absolute Neuts (auto) 11.1 H Absolute Lymphs (auto) 1.66 Nucleated RBC % 0 Sodium 133 L Potassium 3.3 L Chloride 95 L Carbon Dioxide 34.0 H Anion Gap 4 L BUN 11 Creatinine 0.65 Estim Creat Clear Calc 91.55 Est GFR (MDRD) Af Amer 122 Est GFR (MDRD) Non-Af 101 BUN/Creatinine Ratio 17.0 Glucose 102 Calcium 9.5 Total Bilirubin 0.30 AST 25 ALT 38 Alkaline Phosphatase 92 Total Protein 7.6 Albumin 3.7 Globulin 3.9 Albumin/Globulin Ratio 0.9 Serum , Qual NEGATIVE Urine Opiates Screen NEGATIVE Urine Methadone Screen NEGATIVE Ur Barbiturates Screen NEGATIVE Ur Phencyclidine Scrn NEGATIVE Ur Amphetamines Screen NEGATIVE MDMA (Ecstasy) Screen NEGATIVE U Benzodiazepines Scrn NEGATIVE Urine Cocaine Screen NEGATIVE U Cannabinoids Screen POSITIVE H Ur Drug Screen Comment Ethyl Alcohol < 3.0 Discharge Plan Triage Chief Complaint: Substance Abuse ED Provider: Gaston Flores Dx/Rx/DC Orders Clinical Impression: Drug abuse, Acute drug withdrawal syndrome Prescriptions: No Action duloxetine [Cymbalta] 60 mg capsule,delayed release(DR/EC) 60 mg PO DAILY bupropion HCl [Wellbutrin SR] 150 mg tablet sustained-release 12 hr 150 mg PO BID buprenorphine-naloxone 8-2 mg tablet, sublingual 1 tab sublingual BID levothyroxine 25 mcg tablet 25 mcg PO DAILY Patient Comments: TAKE 1 TABLET BY MOUTH EVERY DAY on ON AN EMPTY STOMACH in addition to 200mcg. levothyroxine 200 mcg tablet 200 mcg PO DAILY Patient Comments: Take 1 tablet by mouth once daily. cetirizine 10 mg tablet 10 mg PO DAILY Patient Comments: TAKE 1 TABLET BY MOUTH EVERY DAY chlorthalidone 25 mg tablet 25 mg PO DAILY Patient Comments: Take 1 tablet by mouth once daily. ondansetron 4 mg tablet,disintegrating 4 mg PO Q6H PRN (Reason: nausea and vomiting) Qty: 7 0RF famotidine [Pepcid] 20 mg tablet 20 mg PO BID Qty: 30 2RF Primary Care Provider: Miles Underwood Referrals: Miles Underwood MD [Primary Care Provider] - Disposition Disposition: Home, Self Care Discharge Date/Time: 04/03/23 00:34
[2023-04-03] MEDS: Ondansetron ODT 4 MG Tablet PO (00:33)
[2023-04-03 00:39] LABS: Amphetamine Urine VISTA NEGATIVE (<1000 ng/mL); Barbiturate Urine VISTA NEGATIVE (< 200 ng/mL); Benzodiazepine Urine VISTA NEGATIVE (< 200 ng/mL); Cocaine Urine VISTA NEGATIVE (< 300 ng/mL); Ecstacy Urine VISTA NEGATIVE (< 500 ng/mL); Methadone Urine VISTA NEGATIVE (< 300 ng/mL); PCP Urine VISTA NEGATIVE (< 25 ng/mL); THC Urine VISTA POSITIVE (< 50 ng/mL); Vista UDS pH Range 7
[2023-04-03 00:41] LABS: Alcohol, Blood (Medical)-Serum < 3.0 mg/dL; Internal QC Validated? YES +Cl - CLEAR BKGD; Pregnancy, Serum, hCG Quali. NEGATIVE Negative
[2023-04-03 00:42] LABS: Absolute Lymphocyte Count 1.66 X10^3/uL (0.83-4.51); Absolute Neutrophil Count 11.1 X10^3/uL (2.0-7.7); Basophil# 0.04 X10^3/uL; Basophil% 0.3 % (0-1); Eosinophil# 0.02 X10^3/uL; Eosinophils% 0.1 % (0-5); Hematocrit 34.1 % (37-47); Hemoglobin 11.1 g/dL (12.0-15.0); Lymphocyte # 1.66 X10^3/ul (0.83-4.51); Lymphocyte % 12.3 % (19-41); Mean Corp Hgb Conc 32.6 g/dL (32-36); Mean Corpuscular Hgb 28.1 pg (27.0-32.0); Mean Corpuscular Volume 86.3 fL (81-99); Mean Platelet Vol. 9.9 fl (6.2-12.0); Monocyte# 0.62 X10^3/uL; Monocyte% 4.6 % (0-10); NRBC Flagged by Analyzer 0 % (0-5); Neutrophil # 11.08 X10^3/uL (2.7-7.7); Neutrophil % 82.1 % (47-70); Platelet Count 292 K/mm3 (150-450); RBC Distribution Width CV 13.7 % (11.6-14.6); RBC Distribution Width SD 42.7 fl (35.1-43.9); Red Blood Count 3.95 M/mm3 (4.2-5.4); White Blood Count 13.5 K/mm3 (4.4-11.0)
[2023-04-03 00:44] LABS: ALB/GLOB Ratio 0.9 RATIO (0.9-2.4); AST(SGOT) 25 U/L (15-37); Alanine Aminotransfer ALT/SGPT 38 U/L (13-56); Albumin, Serum 3.7 g/dL (3.2-5.0); Alkaline Phosphatase 92 U/L (45-117); Anion Gap 4 (5-15); BUN 11 mg/dL (7-18); Calcium,Total 9.5 mg/dL (8.5-10.1); Chloride 95 mmol/L (98-107); Creatinine, Serum 0.65 mg/dL (0.55-1.02); EST Glomerular Filtration Rate 101 mL/min (>60); Est Glom Filt Rate - Afr Amer 122 mL/min (>60); Estimated Creatinine Clearance 91.55 ml/min; Globulin 3.9 g/dL (2.2-4.2); Glucose 102 mg/dL (74-106); Potassium 3.3 mmol/L (3.5-5.1); Protein, Total 7.6 g/dL (6.4-8.2); Sodium Level 133 mmol/L (136-145)
== END 2023-04-03 00:34 | disposition home or self-care (01) ==
LOC: ED 23:55
PROVIDERS: Emergency Provider Emergency Medicine; PCP Family Medicine; Visit Provider Emergency Medicine
DX: F11.13 Opioid abuse with withdrawal (principal); F32.A Depression, unspecified; F41.9 Anxiety disorder, unspecified; F17.210 Nicotine dependence, cigarettes, uncomplicated; Z79.899 Other long term (current) drug therapy; Z85.72 Personal history of non-Hodgkin lymphomas
CPT/HCPCS: 36415; 80053; 80307; 80320; 84703; 85025; 82077

== ENCOUNTER 2023-04-03 08:35 | Observation (INO) | payer MEDICAID, SELFPAY ==
[2023-04-03 08:37] VITALS: BP 165/100; PULSE 95; RESP 16; TEMP 36.1; O2SAT 98; BMI 31.3
--- NOTE | 2023-04-03 08:59 | EX.ED.SAOD ---
HPI History of Present Illness Chief Complaint: Substance Abuse Informant: patient Narrative Narrative: Patient returns to the emergency room again secondary to requesting detox. She was seen twice yesterday. She has a history of heroin abuse and has been on Suboxone for 12 years. A week or slightly more ago she started taking oxycodone. Yesterday she started taking Suboxone again to get herself off of it and threw herself into withdrawal. She was initially seen in the ER yesterday afternoon for help with symptom control and did not want detox at that time. She was given several doses of Zofran and Ativan. She return to the emergency room again last night, but eloped prior to admission. She states that she feels that she cannot do this at home on her own and needs to be admitted. She complains of muscle spasms in her legs with abdominal cramping and diarrhea. [facility] Medical History Allergies Anemia Anxiety Anxiety and depression Arthritis Chronic back pain Delayed surgical wound healing Depression Drug abuse Easy bruising Excessive bleeding Follicular lymphoma Gastric reflux Heartburn Hepatitis C virus infection cured after antiviral drug therapy History of edema Hypertension Leg cramps Lipoma of right axilla Lymph node enlargement Lymphoma Mass of right axilla Open wound Open wound of right axillary region Osteoarthritis Pain in right upper arm Post-menopausal Shortness of breath on exertion Smoker Substance abuse Thyroid disease Wears dentures Home Medications duloxetine 60 mg capsule,delayed release (Cymbalta) 60 mg PO DAILY 09/16/20 [History Last Taken 01/11/22 06:00] buprenorphine 8 mg-naloxone 2 mg sublingual tablet 1 tab sublingual BID 05/03/21 [History Last Taken Unknown] bupropion HCl 150 mg tablet,12 hr sustained-release (Wellbutrin SR) 150 mg PO BID 05/03/21 [History Last Taken 01/11/22 06:00] famotidine 20 mg tablet (Pepcid) 20 mg PO BID #30 tabs 01/03/22 [Rx Last Taken 01/11/22 06:00] cetirizine 10 mg tablet 10 mg PO DAILY 12/18/22 [History Last Taken Unknown] chlorthalidone 25 mg tablet 25 mg PO DAILY 12/18/22 [History Last Taken Unknown] levothyroxine 200 mcg tablet 200 mcg PO DAILY 12/18/22 [History Last Taken Unknown] levothyroxine 25 mcg tablet 25 mcg PO DAILY 12/18/22 [History Last Taken Unknown] ondansetron 4 mg disintegrating tablet 4 mg PO Q6H PRN nausea and vomiting #7 tabs 04/02/23 [Rx Last Taken Unknown] Allergy/AdvReac Type Severity Reaction Status Date / Time gabapentin Allergy Intermediate Hives Verified 04/03/23 08:38 Sulfa (Sulfonamide Allergy Intermediate HIVES, Verified 04/03/23 08:38 Antibiotics) NAUSEA morphine AdvReac Mild Nausea Verified 04/03/23 08:38 Family History Grandmother Arthritis Thyroid disorder Breast cancer Diabetes Hypertension CVA (cerebral vascular accident) Grandfather Diabetes Mother Anesthesia complication Asthma Severe allergy Grandmother Breast cancer High cholesterol Thyroid disorder Father CVA (cerebral vascular accident) Surgical History H/O total thyroidectomy History of axillary surgery History of back surgery History of excision of mass History of tubal ligation Status post removal of thyroid nodule Social History Smoking Status: Current every day smoker tobacco type: cigarettes and e-cigarettes Tobacco: How many years used: 35 how long ago did patient quit smoking: only smoking 1-2 cigarettes/day second hand exposure: No counseling given: provider counseling alcohol intake: never substance use type: former substance user Date of last use: 3.5 YEARS AGO, marijuana, heroin and methamphetamine brenda/congregational: Yarsanism seatbelt use: always do you feel safe at home: Yes additional social history: Does Not Take Aspirin Does Take Ibuprofen As Needed ROS ROS ED Constitutional Constitutional ED: Denies chills or fever(s) Eyes Eyes: Denies discharge from eye(s) ENT ENT ED: Denies discharge from eye(s), rhinorrhea or sore throat Cardiovascular Cardiovascular: Denies chest pain or palpitations Respiratory/Chest Respiratory/Chest: Denies cough or dyspnea Gastrointestinal Gastrointestinal: Reports abdominal pain, diarrhea and nausea; Denies vomiting Genitourinary Genitourinary ED: Denies dysuria Musculoskeletal Musculoskeletal: Reports extremity pain; Denies back pain Integumentary Denies Abrasions or rash Neurologic Neurologic: Denies headache(s) or weakness Psychiatric Psychiatric: Reports anxiety; Denies depression Allergic/Immunologic Allergic/Immunologic ED: Denies lip swelling or urticaria EXAM Physical Exam Const Vital Signs: 04/03/23 08:37 Temperature 97 F L Temperature Source Temporal Pulse Rate 95 Respiratory Rate 16 Blood Pressure 165/100 H Blood Pressure Mean 121 Pulse Ox 98 Oxygen Delivery Method Room Air Positive well nourished and well developed General Appearance ED: well developed HEENT Reports moist mucous membranes Eyes EOMs intact bilaterally Chest Wall inspection of chest normal and palpation of chest normal Resp normal respiratory effort and clear to auscultation bilaterally Cardio regular rate and regular rhythm GI soft to palpation and non-tender Neuro oriented x3 and no sensory deficits noted Motor Exam: strength 5/5 throughout Psych Mood & Affect: anxious MDM MDM MDM Narrative Medical decision making narrative: Patient's labs from midnight are reviewed. I will repeat the tox screen and EtOH level at this time. She is given 0.5 mg of Ativan. History & Record Review Discussion w/independent historian: Patient Additional record(s) reviewed:: Prior ED visit and Prior labs Lab Data Attestation: I reviewed the patient's lab results. Labs: Laboratory Results - last 24 hr 04/03/23 04/03/23 09:15 09:20 Urine Opiates Screen NEGATIVE Urine Methadone Screen NEGATIVE Ur Barbiturates Screen NEGATIVE Ur Phencyclidine Scrn NEGATIVE Ur Amphetamines Screen NEGATIVE MDMA (Ecstasy) Screen NEGATIVE U Benzodiazepines Scrn NEGATIVE Urine Cocaine Screen NEGATIVE U Cannabinoids Screen POSITIVE H Ur Drug Screen Comment Ethyl Alcohol < 3.0 Treatment and Re-Evaluation Narrative: .On repeat evaluation patient is still complaining of some leg spasms her talk screen is positive for cannabinoids. EtOH is negative. I will speak with hospitalist regarding admission. Discharge Plan Triage Chief Complaint: Substance Abuse ED Provider: Kelley Herrera Dx/Rx/DC Orders Clinical Impression: Desire for detoxification, Opiate abuse, episodic Prescriptions: No Action duloxetine [Cymbalta] 60 mg capsule,delayed release(DR/EC) 60 mg PO DAILY bupropion HCl [Wellbutrin SR] 150 mg tablet sustained-release 12 hr 150 mg PO BID buprenorphine-naloxone 8-2 mg tablet, sublingual 1 tab sublingual BID levothyroxine 25 mcg tablet 25 mcg PO DAILY Patient Comments: TAKE 1 TABLET BY MOUTH EVERY DAY on ON AN EMPTY STOMACH in addition to 200mcg. levothyroxine 200 mcg tablet 200 mcg PO DAILY Patient Comments: Take 1 tablet by mouth once daily. cetirizine 10 mg tablet 10 mg PO DAILY Patient Comments: TAKE 1 TABLET BY MOUTH EVERY DAY chlorthalidone 25 mg tablet 25 mg PO DAILY Patient Comments: Take 1 tablet by mouth once daily. ondansetron 4 mg tablet,disintegrating 4 mg PO Q6H PRN (Reason: nausea and vomiting) Qty: 7 0RF famotidine [Pepcid] 20 mg tablet 20 mg PO BID Qty: 30 2RF Primary Care Provider: Miles Underwood Referrals: Miles Underwood MD [Primary Care Provider] - Disposition Disposition: Acute Care [facility]
[2023-04-03] MEDS: LORazepam 2 MG/ML Syringe 0.5 MG IV (09:12)
[2023-04-03 09:49] LABS: Amphetamine Urine VISTA NEGATIVE (<1000 ng/mL); Barbiturate Urine VISTA NEGATIVE (< 200 ng/mL); Benzodiazepine Urine VISTA NEGATIVE (< 200 ng/mL); Cocaine Urine VISTA NEGATIVE (< 300 ng/mL); Ecstacy Urine VISTA NEGATIVE (< 500 ng/mL); Methadone Urine VISTA NEGATIVE (< 300 ng/mL); PCP Urine VISTA NEGATIVE (< 25 ng/mL); THC Urine VISTA POSITIVE (< 50 ng/mL); Vista UDS pH Range 7
[2023-04-03 09:52] LABS: Alcohol, Blood (Medical)-Serum < 3.0 mg/dL
--- NOTE | 2023-04-03 10:37 | NURSING ---
DR CHONG FOR DR MOYA
--- NOTE | 2023-04-03 10:49 | PCM.HP.STD ---
[facility] General Date of Service: 04/03/23 Chief Complaint: opiate withdrawal. [facility] Narrative OSIEL MEDINA, is a 57 F who presents with opiate withdrawal. Patient has been on Suboxone through Dr. Acuna and over the past week has been using oxycodone. She either takes orally or snorts it. Patient has taken her Suboxone and then started going through withdrawal from the oxycodones that she was taking. Presented to the emergency room 2 other times. And just was not able to tolerated at home so presents again for the third time within 24 hours. Patient now agreeable to staying. She did agree to stay yesterday but left AMA. [facility] Medical History Allergies Anemia Anxiety Anxiety and depression Arthritis Chronic back pain Delayed surgical wound healing Depression Drug abuse Easy bruising Excessive bleeding Follicular lymphoma Gastric reflux Heartburn Hepatitis C virus infection cured after antiviral drug therapy History of edema Hypertension Leg cramps Lipoma of right axilla Lymph node enlargement Lymphoma Mass of right axilla Open wound Open wound of right axillary region Osteoarthritis Pain in right upper arm Post-menopausal Shortness of breath on exertion Smoker Substance abuse Thyroid disease Wears dentures Home Medications duloxetine 60 mg capsule,delayed release (Cymbalta) 60 mg PO DAILY 09/16/20 [History Last Taken 01/11/22 06:00] buprenorphine 8 mg-naloxone 2 mg sublingual tablet 1 tab sublingual BID 05/03/21 [History Last Taken Unknown] bupropion HCl 150 mg tablet,12 hr sustained-release (Wellbutrin SR) 150 mg PO BID 05/03/21 [History Last Taken 01/11/22 06:00] famotidine 20 mg tablet (Pepcid) 20 mg PO BID #30 tabs 01/03/22 [Rx Last Taken 01/11/22 06:00] cetirizine 10 mg tablet 10 mg PO DAILY 12/18/22 [History Last Taken Unknown] chlorthalidone 25 mg tablet 25 mg PO DAILY 12/18/22 [History Last Taken Unknown] levothyroxine 200 mcg tablet 200 mcg PO DAILY 12/18/22 [History Last Taken Unknown] levothyroxine 25 mcg tablet 25 mcg PO DAILY 12/18/22 [History Last Taken Unknown] ondansetron 4 mg disintegrating tablet 4 mg PO Q6H PRN nausea and vomiting #7 tabs 04/02/23 [Rx Last Taken Unknown] Allergy/AdvReac Type Severity Reaction Status Date / Time gabapentin Allergy Intermediate Hives Verified 04/03/23 08:38 Sulfa (Sulfonamide Allergy Intermediate HIVES, Verified 04/03/23 08:38 Antibiotics) NAUSEA morphine AdvReac Mild Nausea Verified 04/03/23 08:38 Family History Grandmother Arthritis Thyroid disorder Breast cancer Diabetes Hypertension CVA (cerebral vascular accident) Grandfather Diabetes Mother Anesthesia complication Asthma Severe allergy Grandmother Breast cancer High cholesterol Thyroid disorder Father CVA (cerebral vascular accident) Surgical History H/O total thyroidectomy History of axillary surgery History of back surgery History of excision of mass History of tubal ligation Status post removal of thyroid nodule Social History Smoking Status: Current every day smoker tobacco type: cigarettes and e-cigarettes Tobacco: How many years used: 35 how long ago did patient quit smoking: only smoking 1-2 cigarettes/day second hand exposure: No counseling given: provider counseling alcohol intake: never substance use type: former substance user Date of last use: 3.5 YEARS AGO, marijuana, heroin and methamphetamine brenda/sabianism: Worship seatbelt use: always do you feel safe at home: Yes additional social history: Does Not Take Aspirin Does Take Ibuprofen As Needed ROS ROS Narrative Tremulousness. Feeling ill. All review of systems were negative except as mentioned above in the history of present illness and the other review of systems. Vital Signs Vital Signs Vital Signs: 04/03/23 08:37 Temperature 36.1 C L Temperature Source Temporal Pulse Rate 95 Respiratory Rate 16 Blood Pressure 165/100 H Blood Pressure Mean 121 Pulse Ox 98 Oxygen Delivery Method Room Air Weight Weight: 87.997 kg Body Mass Index (BMI) 31.3 Physical Exam Const alert Constitutional Narrative: Appears older than stated age. Nontoxic. Normal gait. General Appearance: cooperative HEENT normocephalic Eyes Eyes Narrative: No icterus. Neck no lymphadenopathy Resp normal respiratory effort GI non-tender and non-distended Extremity normal to inspection Neuro Sensorium / Orientation: awake and alert Psych affect normal Results Lab / Micro Data Labs: Laboratory Results - last 24 hr 04/03/23 09:15: Ethyl Alcohol < 3.0 04/03/23 09:20: Urine Opiates Screen NEGATIVE, Urine Methadone Screen NEGATIVE, Ur Barbiturates Screen NEGATIVE, Ur Phencyclidine Scrn NEGATIVE, Ur Amphetamines Screen NEGATIVE, MDMA (Ecstasy) Screen NEGATIVE, U Benzodiazepines Scrn NEGATIVE, Urine Cocaine Screen NEGATIVE, U Cannabinoids Screen POSITIVE H, Ur Drug Screen Comment Assessment & Plan Assessment/Plan (1) Acute drug withdrawal syndrome: PLAN: Plan Acute opiate withdrawal Precipitated by Suboxone with patient has been taking oxycodone. Patient has been oxycodone through Dr. Acuna but over the past week has been taking oxycodone. Discussed with the patient and she agrees to stay in the [facility] program. Patient will be placed on buprenorphine as well as other agents to help with other somatic complaints with her withdrawal. Patient already established with 180. Tobacco abuse: Continue nicotine patch. Charges/Coding Visit Charges Inpatient E&M: 01657 Init Hosp L2
--- NOTE | 2023-04-03 10:51 | NURSING ---
MED SURG CASTILLO OPIOD ABUSE, DESIRE FOR DETOX
[2023-04-03 11:02] VITALS: BP 140/74; PULSE 88; RESP 18; O2SAT 98
[2023-04-03 11:37] VITALS: BMI 30.5
[2023-04-03 11:48] VITALS: BP 162/97; PULSE 82; RESP 18; TEMP 36.7; O2SAT 97
[2023-04-03] MEDS: hydrOXYzine PAM 25 MG Capsule 50 MG PO (12:00)
[2023-04-03] MEDS: Ondansetron 8 MG Tablet PO (12:00)
[2023-04-03 14:29] VITALS: BP 160/83; PULSE 92; RESP 16; TEMP 36.8; O2SAT 100
[2023-04-03] MEDS: Acetaminophen 500 MG Tablet PO (15:28)
[2023-04-03] MEDS: cloNIDine HCl 0.1 MG Tablet 0.100000000000000006 MG PO (15:50)
[2023-04-03] MEDS: Buprenorphine HCl 2 MG TAB.SUBL 4 MG SL (16:02)
--- NOTE | 2023-04-03 17:13 | NURSING ---
pt leaving [facility]. pt stated her son is home alone and can't stay
== END 2023-04-03 17:12 | disposition left against medical advice (07) ==
LOC: ED 10:24 → MS3 17:15
PROVIDERS: Emergency Provider Emergency Medicine; PCP Family Medicine
DX: F11.23 Opioid dependence with withdrawal (principal); F17.210 Nicotine dependence, cigarettes, uncomplicated; F17.290 Nicotine dependence, other tobacco product, uncomplicated; E07.9 Disorder of thyroid, unspecified; Z79.890 Hormone replacement therapy; Z79.899 Other long term (current) drug therapy; K21.9 Gastro-esophageal reflux disease without esophagitis; Z86.19 Personal history of other infectious and parasitic diseases
CPT/HCPCS: 36415; 80053; 80307; 80320; 84703; 85025; 96374; 96375; 96376; 99221; 99282; 99283; 99284; J7030; A4216; G0378; G0480; J2405

== ENCOUNTER 2023-05-18 19:10 | Emergency (ER) | payer MEDICAID, SELFPAY ==
[2023-05-18 19:12] VITALS: BP 175/100; PULSE 100; RESP 18; TEMP 36.7; O2SAT 98; BMI 31.4
--- OUTSIDE RECORDS SUMMARY | 2023-05-18 20:35 | XMS RPT_ITS | CCD ---
Author Name Unknown Address [address] [facility] [address] [place] [address] Organization [facility] Care Team Providers Care Engineering Specialist Technician Name Role Phone Jade Underwood MD Primary Care Provider [phone] Janeth BLANK,MS, Erick Unavailable Christian [facility], Leena Morrison Unavailable Beryl PIZANO, [place] Primary Care Provider Unava ilable LEENA GONZALES Referring Unavailable ERICK FOWLER Attending UnavailERICK Gao Attending UnavailERICK Gao Referring Unavaildorian SYKES RUNGE Primary Care Unavailable ERICK FOWLER Attending ERICK Lambert Referring Unavaildorian SYKES RUNGE Primary Care Unavailable Jade Underwood MD Primary Care Provider SHERIDAN GRADY Attending Unavailable JADE UNDERWOOD Primary Care Unavailable JADE UNDERWOOD Referring Unavailable JADE UNDERWOOD Referring Unavailable JADE UNDERWOOD Primary Care Unavailable JADE UNDERWOOD Attending Unavailable JADE UNDERWOOD Primary Care Unavailable JADE UNDERWOOD Referring Unavailable JADE UNDERWOOD Primary Care Unavailable Allergies Allergy Classification Reported Allergen(s) Allergy Type Date of Onset Reaction(s) Facility (20 sources) gabapentin; Translations: [GABAPENTIN] Drug Allergy 7 [facility] Work Phone: (20 sources) Sulfonamides (Antibiotic); Translations: [SULFA (SULFONAMIDE ANTIBIOTICS)] Drug Intolerance 5 GI Upset [facility] Work Phone: Medications Current Medications Medication Drug Class(es) Dates Sig (Normalized) Sig (Original) amoxicillin 875 mg / clavulanate 125 mg oral tablet (1 source) Penicillin-class Antibacterial Start: 12-09-2021 End: 12-14-2021 take 1 tablet by mouth twice daily amoxicillin-clav ulanic acid (AUGMENTIN) 875-125 mg per tablet Take 1 tablet by mouth twice daily for 5 days. 10 tablet 0 12/09/2021 12/14/2021 Active Completed/Discontinued Medications Medication Drug Class(es) Dates Sig (Normalized) Sig (Original) 12 hr buPROPion hydrochloride 150 mg extended release oral tablet (20 sources) Aminoketone Start: 01-23-2022 End: 12-18-2022 take 1 tablet by mouth twice daily buPROPion SR (ZYBAN SR; WELLBUTRIN SR) 150 mg 12 hr tablet Take 1 tablet by mouth twice daily. 180 tablet 1 12/18/2022 Active Problems Active Problems Problem Classification Problem Date Documented Date Episodic/Chronic Complications of surgical procedures or medical care (20 sources) Postoperative hypothyroidism; Translations: [Postprocedural hypothyroidism] Onset: 07-26-2015 07-26-2015 Chronic Disorders of teeth and jaw (1 source) Temporomandibular joint disorder; Translations: [Unspecified temporomandibular joint disorder, unspecified side] Episodic Essential hypertension (20 sources) Essential hypertension; Translations: [Essential (primary) hypertension] Onset: 03-08-2018 03-08-2018 Chronic Hepatitis (2 sources) Chronic hepatitis C; Translations: [Chronic viral hepatitis C] Chronic Hepatitis (20 sources) Viral hepatitis C; Translations: [Unspecified viral hepatitis C without hepatic coma] 02-06-2018 Episodic Mood disorders (20 sources) Major depressive disorder; Translations: [Major depressive disorder, single episode, unspecified] Onset: 03-16-2005 01-01-2017 Chronic Non-Hodgkin`s lymphoma (20 sources) Follicular non-Hodgkin's lymphoma, small cleaved cell (clinical); Translations: [Follicular lymphoma grade I, lymph nodes of multiple sites] Onset: 10-06-2020 02-18-2021 Chronic Osteoarthritis (7 sources) Osteoarthritis; Translations: [Unspecified osteoarthritis, unspecified site] Onset: 11-02-2022 11-02-2022 Chronic Other connective tissue disease (20 sources) History of lumbar fusion; Translations: [Arthrodesis status] Onset: 02-15-2011 02-15-2011 Episodic Other injuries and conditions due to external causes (1 source) Injury of coccyx; Translations: [Unspecified injury of lower back, initial encounter] Episodic Other lower respiratory disease (1 source) Cough; Translations: [Acute cough] Episodic Other nervous system disorders (20 sources) Chronic pain; Translations: [Other chronic pain] Onset: 09-16-2014 09-16-2014 Chronic Other nervous system disorders (1 source) Other chronic pain; Translations: [Chronic pain of both knees] Onset: 06-06-2022 Chronic Other non-traumatic joint disorders (1 source) Joint pain; Translations: [Pain in unspecified joint] Episodic Other nutritional; endocrine; and metabolic disorders (2 sources) Obese class I; Translations: [Obesity, unspecified] Onset: 01-30-2023 01-30-2023 Chronic Other skin disorders (1 source) Mass of skin; Translations: [Localized swelling, mass and lump, unspecified] Episodic Other skin disorders (1 source) Mass of skin of back; Translations: [Localized swelling, mass and lump, trunk] Episodic Other upper respiratory disease (2 sources) Seasonal allergy; Translations: [Other seasonal allergic rhinitis] Chronic Other upper respiratory disease (1 source) Nasal sinus problem; Translations: [Other specified disorders of nose and nasal sinuses] Episodic Residual codes; unclassified (7 sources) Edema; Translations: [Edema, unspecified] Episodic Substance-related disorders (20 sources) History of heroin abuse; Translations: [Opioid abuse, in remission] 08-23-2016 Chronic Past or Other Problems Problem Classification Problem Date Documented Date Episodic/Chronic Allergic reactions (7 sources) Allergic condition; Translations: [Allergy status to unspecified drugs, medicaments and biological substances status] Onset: 11-02-2022 11-02-2022 Episodic Fluid and electrolyte disorders (7 sources) Hypokalemia; Translations: [Hypokalemia] Onset: 11-02-2022 11-02-2022 Episodic Infective arthritis and osteomyelitis (except that caused by tuberculosis or sexually transmitted disease) (7 sources) Bilateral infective arthritis of knees; Translations: [Pyogenic arthritis, unspecified] Onset: 11-02-2022 11-02-2022 Episodic Other and unspecified benign neoplasm (7 sources) Lipoma of axilla; Translations: [Benign lipomatous neoplasm of skin and subcutaneous tissue of unspecified limb] Onset: 11-02-2022 11-02-2022 Episodic Other connective tissue disease (1 source) Myalgia, unspecified site; Translations: [Myalgias] Onset: 11-02-2022 Episodic Other non-traumatic joint disorders (2 sources) Pain in right knee; Translations: [Pain in joint, lower leg] Onset: 06-06-2022 Episodic Other non-traumatic joint disorders (1 source) Pain in left knee; Translations: [Chronic pain of both knees] Onset: 06-06-2022 Episodic Other screening for suspected conditions (not mental disorders or infectious disease) (20 sources) Patient encounter status; Translations: [Encounter for screening for malignant neoplasm of colon] Onset: 02-21-2018 02-21-2018 Episodic Pancreatic disorders (not diabetes) (7 sources) Disorder of pancreas; Translations: [Disease of pancreas, unspecified] Onset: 01-05-2022 11-02-2022 Episodic Residual codes; unclassified (20 sources) Family history of breast cancer; Translations: [Family history of malignant neoplasm of breast] Onset: 01-31-2007 01-31-2007 Episodic Spondylosis; intervertebral disc disorders; other back problems (20 sources) Radiculopathy due to lumbar intervertebral disc disorder; Translations: [Intervertebral disc disorders with radiculopathy, lumbar region] Onset: 10-28-2014 10-28-2014 Episodic Results Test Name Value Interpretation Reference Range Facil ity Vital Signs Date Time Vital Sign Value Performing Clinician Nenai fiona 01-30-2023 13:45-0400 Body height 167.6 cm Erick Fowler MD,MS Work Phone: [facility] 01-30-2023 13:45-0400 Body mass index (BMI) [Ratio] 30.76 kg/m2 Erick Fowler MD,MS Work Phone: [facility] 01-30-2023 13:45-0400 Body temperature 98.71 [degF] Erick Fowler MD,MS Work Phone: [facility] 01-30-2023 13:45-0400 Body weight 86.46 kg Erick Fowler MD,MS Work Phone: [facility] 01-30-2023 13:45-0400 Diastolic blood pressure 75 mm[Hg] Erick Fowler MD,MS Work Phone: [facility] 01-30-2023 13:45-0400 Heart rate 72 /min Erick Fowler MD,MS Work Phone: [facility] 01-30-2023 13:45-0400 Respiratory rate 14 /min Erick Fowler MD,MS Work Phone: [facility] 01-30-2023 13:45-0400 SaO2% (BldA) [Mass fraction] 96 % Erick Fowler MD,MS Work Phone: [facility] 01-30-2023 13:45-0400 Systolic blood pressure 126 mm[Hg] Erick Fowler MD,MS Work Phone: [facility] 11-22-2022 10:06-0400 Body height 166 cm Sheridan [place] SATELLITE DISH TECHNICIAN.GARNISHER Work Phone: [facility] 11-22-2022 10:06-0400 Body weight 88.72 kg Sheridan [place] SATELLITE DISH TECHNICIAN.GARNISHER Work Phone: [facility] 11-22-2022 10:06-0400 Diastolic blood pressure 76 mm[Hg] Sheridan Miguel A SATELLITE DISH TECHNICIAN.GARNISHER Work Phone: [facility] 11-22-2022 10:06-0400 Systolic blood pressure 126 mm[Hg] Sheridan Miguel A SATELLITE DISH TECHNICIAN.GARNISHER Work Phone: [facility] 05-04-2022 15:46-0500 Body weight 90.27 kg Jade Underwood MD Work Phone: [facility] 05-04-2022 15:46-0500 Diastolic blood pressure 82 mm[Hg] Jade Underwood MD Work Phone: [facility] 05-04-2022 15:46-0500 Heart rate 84 /min Jade Underwood MD Work Phone: [facility] 05-04-2022 15:46-0500 SaO2% (BldA) [Mass fraction] 95 % Jade Underwood MD Work Phone: [facility] 05-04-2022 15:46-0500 Systolic blood pressure 130 mm[Hg] Jade Underwood MD Work Phone: [facility] 12-09-2021 12:28-0400 Body temperature 98.01 [degF] Kary Paige APRN.GARNISHER Work Phone: [facility] 12-09-2021 12:28-0400 Body weight 94.8 kg Kary Paige APRN.GARNISHER Work Phone: [facility] 12-09-2021 12:28-0400 Diastolic blood pressure 80 mm[Hg] Kary Paige APRN.GARNISHER Work Phone: [facility] 12-09-2021 12:28-0400 Heart rate 106 /min Kary Paige APRN.GARNISHER Work Phone: [facility] 12-09-2021 12:28-0400 Respiratory rate 18 /min Kary Paige APRN.GARNISHER Work Phone: [facility] 12-09-2021 12:28-0400 SaO2% (BldA) [Mass fraction] 97 % Kary Paige APRN.GARNISHER Work Phone: [facility] 12-09-2021 12:28-0400 Systolic blood pressure 126 mm[Hg] Kary Paige APRN.GARNISHER Work Phone: [facility] 07-25-2021 13:05-0400 Body temperature 97.5 [degF] La Alejandra PA-C Work Phone: [facility] 07-25-2021 13:05-0400 Body weight 98.43 kg La Brennany PA-C Work Phone: [facility] 07-25-2021 13:05-0400 Diastolic blood pressure 74 mm[Hg] La Athy PA-C Work Phone: [facility] 07-25-2021 13:05-0400 Heart rate 78 /min La Athy PA-C Work Phone: [facility] 07-25-2021 13:05-0400 Respiratory rate 16 /min La Athy PA-C Work Phone: [facility] 07-25-2021 13:05-0400 SaO2% (BldA) [Mass fraction] 97 % La Athy PA-C Work Phone: [facility] 07-25-2021 13:05-0400 Systolic blood pressure 132 mm[Hg] La Athy PA-C Work Phone: [facility] Encounters Encounter Date Encounter Type Care Provider Facility Start: 05-14-2023 Refill Jade Underwood MD Work Phone: [facility] Procedures Date Procedure Procedure Detail Performing Clinician Start: 01-30-2023 Beta-2 microglobulin Na jose Fowler MD,MS Work Phone: Start: 01-30-2023 CBC AND ELECTRONIC DIFF Erick Fowler MD,MS Work Phone: Start: 01-30-2023 Complete blood count with white cell differential, automated Erick Fowler MD,MS Work Phone: Start: 01-30-2023 Comprehensive metabo lic panel Erick Fowler MD,MS Work Phone: Start: 01-30-2023 Flow cytometry cell surf marker techl only ea Erick Fowler MD,MS Work Phone: Start: 01-30-2023 Iadna hepatitis c qu ant & reverse director industrial Erick Fowler MD,MS Work Phone: Start: 01-30-2023 IMMUNOGLOBULIN FREE CHAINS Erick Fowler MD,MS Work Phone: Start: 01-30-2023 SPE SERUM TOTAL PROTEIN Erick Fowler MD,MS Work Phone: Start: 11-02-2022 Lipid 1996 panel - S judith or Plasma Jade Underwood MD Work Phone: Start: 02-21-2022 Colonoscopy Jade Wagner MD Work Phone: Start: 11-14-2016 Mammography Jade Wagner MD Work Phone: Plan of Treatment Date Care Activity Detail Author Start: 11-23-2027 HPV TESTING HPV TESTING [facility] Start: 11-23-2027 Screening for malign ant neoplasm of cervix HPV Testing [facility] Start: 11-03-2027 Lipid panel Lipid Screening [facility] Start: 11-03-2027 LIPID SCREEN LIPID SCREEN [facility] Start: 06-06-2027 Tetanus vaccination TETANUS [facility] Start: 06-06-2027 Urine microalbumin profile [facility] Start: 11-02-2025 DIABETES SCREEN DIABETES SCREEN [facility] Start: 11-02-2025 Diabetes Screening Diabetes Screenin g [facility] Start: 2024 LIPID SCREEN LIPID SCREEN [facility] Start: 01-31-2024 Potassium [Moles/vol ume] in Serum or Plasma POTASSIUM [facility] Start: 11-23-2023 BP CONTROLLED (<130/80) BP CON TROLLED (<130/80) [facility] Start: 11-23-2023 PAP TESTING PAP TESTING [facility] Start: 11-23-2023 Screening for malign ant neoplasm of cervix Pap Testing [facility] Start: 11-03-2023 ANNUAL PCP TEAM MEETING SPECIALIST RAYMOND DISEASE VISIT ANNUAL PCP TEAM CHRONIC DISEASE VISIT [facility] Start: 11-03-2023 BP CONTROLLED (<130/80) BP CON TROLLED (<130/80) [facility] Start: 11-03-2023 COVID-19 VACCINE (#1) COVID-19 VACCI NE (#1) [facility] Immunizations Immunization Date Immunization Notes Care Provider Fa cility 11-02-2022 pneumococcal (PCV20) vaccine, 20 valent (PREVNAR 20) Jade Underwood MD Work Phone: [facility] 03-23-2022 influenza, seasonal, injectable Jade Underwood MD Work Phone: [facility] 03-23-2022 influenza virus vaccine, unspecified formulation Erick Fowler MD,MS Work Phone: [facility] 12-22-2020 influenza, seasonal, injectable Jade Underwood MD Work Phone: [facility] 03-08-2020 influenza, seasonal, injectable Jade Underwood MD Work Phone: [facility] 05-16-2018 hepatitis A and hepatitis B vaccine Jade Underwood MD Work Phone: [facility] 05-16-2018 hepatitis B vaccine, unspecified formulation Jade Underwood MD Work Phone: [facility] 06-06-2017 tetanus toxoid, reduced diphtheria toxoid, and acellular pertussis vaccine, adsorbed Jade Underwood MD Work Phone: [facility] 12-01-2016 influenza, injectabl e, quadrivalent, contains preservative Jade Underwood MD Work Phone: [facility] 12-25-2014 influenza, injectabl e, quadrivalent, contains preservative Jade Underwood MD Work Phone: [facility] 02-06-2006 influenza virus vaccine, unspecified formulation Jade Underwood MD Work Phone: [facility] Work Phone: Payers Date Payer Category [facility]ayer [facility] [id number] 2023-Present [address] [place] [address] [id number] 2022 Medicaid [id number] 2022 Unknown [id number] 2020 Medicaid [facility] [facility] MEDICAID [id number] 2020-Present [phone] [address] [place] [address] Medicaid [id number] 2020 Medicaid [id number] 1967 Unknown [id number] 1967 Unknown [id number] 1967 Unknown [id number] Social History Date Type Detail Facility Start: 09-15-2020 End: 12-09-2021 Tobacco smoking status NHIS Ex-smoker [facility] History of tobacco use Cigarette Smoker [facility] Start: 09-15-2020 End: 11-02-2022 Cigarettes smoked current (pack per day) - Reported 0.5 [facility] Start: 09-15-2020 End: 05-04-2022 Tobacco use and exposure Smokeless tobacco non-user [facility] Start: 02-18-2021 End: 11-22-2022 Alcohol intake Current non-drinker of alcohol (finding) [facility] Start: 1965 Sex Assigned At Female [facility] Start: 07-15-2021 End: 12-09-2021 Exposure to SARS-CoV-2 (event) Not sure [facility] Work Phone: History of tobacco use Current smoker [facility] Start: 05-04-2022 [facility] Start: 05-04-2022 End: 11-02-2022 Tobacco use panel [facility] National Score (1-10 0), lower number is lower risk 92 [facility] Start: 02-08-2021 Gender identity Identifies as female gender (finding) [facility] Start: 02-08-2021 Sexual orientation Heterosexual (fin dylan) [facility] Tobacco smoking consumption unknown [facility] Start: 1965 Sex Assigned At Not on file [facility] Clinical Notes 02-05-2015 to 05-14-2023 Telephone Encounter - Kelley Renee - 05/14/2023 2:05 PM ESTTelephone Encounter - Guerline Dao LPN - 05/11/2023 11:40 AM Noris Garcia DO, PhD - 01/30/2023 2:00 PM EDTAttachments Note Date & Type Note Facility 05-14-2023 Miscellaneous Notes [facility] Patient has been identified by name and date of : Yes Patient aware RX will be sent to pharmacy. No need to notify patient. Patient phones for refill(s): Requested Prescriptions Pending Prescriptions Disp Refills DULoxetine (CYMBALTA) 60 mg capsule 90 capsule 1 Sig: Take 1 capsule by mouth once daily. Date of last office visit : 11/02/2022 Date of next office visit : Visit date not found Last 2 Encounter Wt Readings: Date: Wt: 11/22/2022 88.7 kg (195 lb 9.6 oz) 11/02/2022 85.7 kg (189 lb) Not applicable Please advise. Kelley Tanner Pss documented in this encounter [facility] 05-11-2023 Miscellaneous Notes No show letter #1 sent to patient for missed visit today. documented in this encounter [facility] 01-30-2023 History of Presen t illness Narrative Follicular Lymphoma History of Present Illness Mr Sutton is a 57 y/o male with a history of Hep C (treated twice 2010 and 2015), IV drug abuse (in the past), hypertension, chronic back pain who is seen in consultation for Stage SHAYE, Grade 1 FL. His oncology history is detailed below. The patient confirms the below stated oncology history. Currently the patient states she has some intermittent night sweats, 15 lbs unplanned weight loss in last 3-4 months and worsening fatigue over the last few months. No fevers reported. Patient was initially seen in the [place] emergency room on September 10, 2020 with abdominal pain, nausea, anorexia, and a few pounds weight loss. CT scan of the abdomen and pelvis showed widespread lymphadenopathy in the abdomen and pelvis concerning for lymphoma and hepatomegaly. Right inguinal lymph node CT-guided core biopsy was completed on September 23, 2020 was consistent with focal involvement by non-Hodgkin B-cell lymphoma and favor follicular lymphoma, grade 1/3. Flow cytometry study showed a clonal (lambda+) CD10 positive B-cell population is detected in polyclonal background. PET/CT completed October showed Increased glucose concentration observed in the left vallecula, the right axilla, the abdominal retroperitoneum and left hemipelvis and right inguinal lymph node distributions, as well as axial skeleton. Patient had no B symptoms at presentation and reported nonspecific mainly upper GI symptoms that responded to OTC symptomatic treatment (Gas-X) and reducing the use of NSAIDs at the time of diagnosis. Patient is in the intermediate risk group by FLIPI International prognostic index score of 2 (1 for being stage IV and and 1 point for involvement of more than 4 kirby areas). She is below age 60 with a normal hemoglobin and LDH (0 points) at diagnosis. Pt established care with Dr Zamora and on followed with watchful waiting. CT Scans from April 26, 2021 showed scattered small cervical lymph nodes, Interval decrease in size of the right iliac lymph node and stable enlargement of the left iliac lymph node. CT scans from November 29, 2021 showed slight increase in size of a lymph node in the aortocaval region, slight decrease in size of the left external iliac lymph node and mild hepatomegaly and diffuse fatty infiltration of the liver. CT scans from November 28, 2022 showed new large left pelvic sidewall lymphadenopathy measuring 3.5 x 4.5 cm. Large solid lymphadenopathy in the right axilla and multiple small solid lymph nodes in both axilla were unchanged. There was decreased size of retroperitoneal lymphadenopathy in between the IVC and the abdominal aorta measuring approximately 1.7 x 0.7 cm, previously 2.5 x 1.2 cm . At least 4 prominent solid lymph nodes above the pancreatic head/behind the right main portal vein and in the right side of the celiac plexus were unchanged in size and configuration. Tiny solid lymph nodes in the mesentery around the mesenteric vessels were unchnaged. Tiny lymph nodes in the left anterior periaortic space of the chest were unchanged as well CT guided core biopsy of left pelvic nodule consistent with follicular lymphoma, grade 1 In terms of his Hep C treated presumed cured patient was evaluated by ID on October 05, 2020, HCV quantitative RNA PCR was not detected, conclusion was made that he has no active hepatitis C andas such no contraindication for anti-CD 20 monoclonal antibody therapy. Oncology History Diagnosis: Follicular lymphoma, Grade 1 Date of diagnosis: September 23, 2020 Presentation: Nausea, vomiting abdominal pain Sites of initial disease: left vallecula, the right axilla, the abdominal retroperitoneum and left hemipelvis and right inguinal lymph node distributions, as well as axial skeleton Pathology: CT guided core biopsy right inguinal lymph node (09/23/20) consistent with FL. Grade 1.A clonal (lambda+) CD10 positive B-cell population is detected in polyclonal background. CT guided core biopsy of left pelvic nodule (12/18/22)consistent with follicular lymphoma Prognostic indicators: FLIPI International prognostic index score of 2 (1 for being stage IV and and 1 point for involvement of more than 4 kirby areas). She is below age 62 with a normal hemoglobin and LDH (0 points) at diagnosis Treatment/critical events: No treatments yet Review of Systems CONSTITUTIONAL: fever no; nightsweats yes; weightloss yes; fatigue 5 HEENT: change in vision yes; facial pain/tenderness no; mouth pain/sores no RESP: cough no; sputum no; SOB no; UMANA no CVS: chest pain no; palpitations no; edema noGI: nausea/vomiting no; diarrhea no; blood in stool no : dysuria no; frequency no; urinary retention no HEME: bleeding no; bruising no ID: recent infection no LYMPH: notably enlargement/growth LN no NEURO: change in sensation no; change in strength no; gait imbalance no SKIN: rash no A 10-point ROS is otherwise unremarkable except as further documented in the HPI. Past Medical History: Diagnosis Date Follicular lymphoma Hepatitis C History of heroin abuse HTN (hypertension) Intervertebral disc disorder with radiculopathy of lumbar region Lipoma of axilla Major depressive disorder Osteoarthritis Allergies Allergen Reactions Gabapentin rash Sulfa Antibiotics Other reaction(s): GI Upset Current Outpatient Medications Medication Sig buprenorphine 8 mg/naloxone 2 mg (SUBOXONE) SL film DISSOLVE 1 (ONE) FILM UNDER THE TONGUE TWICE DAILY buPROPion 150 MG tablet SR Take 1 tablet by mouth 2 times daily. Cetirizine 10 MG tablet Take 1 tablet by mouth daily. Chlorthalidone 25 MG tablet Take 1 tablet by mouth daily. Diclofenac sodium 1 % Gel gel Apply 2 g topically Every 12 hours as needed. DULoxetine [address] Particles capsule DR Take 1 capsule by mouth daily. Levothyroxine 200 MCG tablet Take 1 tablet by mouth daily. Multiple Vitamins-Minerals (MULTIVITAMIN GUMMIES ADULT PO) Take by mouth. Potassium Chloride ER 20 MEQ Tab CR tablet Take 1 tablet by mouth 2 times daily. Sucralfate 1 GM/10ML oral suspension Take 10 mL by mouth 2 times daily. Family history of Breast cancer in maternal grandmother. Other quintana no other cancer history in family. Physical Examination BP 126/75 (BP Position: Sitting) Pulse 72 Temp 98.7 F (37.1 C) (Oral) Resp 14 Ht 1.676 m (5' 6 ) Wt 86.5 kg (190 lb 9.6 oz) SpO2 96% BMI 30.76 kg/m ECOG Performance Status 0 Ms. Sutton is a 57 y.o. year-old female in [facility]. HEENT: normocephalic, atraumatic; extraocular movements intact and pupils reactive to light; sclera anicteric; conjuctiva normal; oropharynx without lesions NECK: supple; no JVD CHEST: clear to auscultation and percussion bilaterally; no wheezes/rhonchi/rales CARD: heart sounds regular; no murmurs/rubs/gallops appreciated ABDO: soft, non-tender, non-distended; bowel sounds normoactive Liver Not palpable cm Spleen Not palpable cm EXT: free of clubbing, cyanosis, and edema NEURO: screening examination grossly non-focal; A&O x 3 SKIN: free of rashes LYMPH: no cervical, supraclavicular, axillary or inguinal LAD Left (cm x cm) Right (cm x cm) Cervical Not palpable Not palpable Supraclavicular Not palpable Not palpable Axillary Not palpable Not palpable Inguinal Not palpable Not palpable PSYCH: Normal mood, affect congruent Data Review Lab Results Component Value Date/Time WBC 6.96 01/30/2023 03:17 PM SODIUM 136 01/30/2023 03:17 PM POTASSIUM 3.8 01/30/2023 03:17 PM CHLORIDE 99 01/30/2023 03:17 PM CO2 31 01/30/2023 03:17 PM BUN 13 01/30/2023 03:17 PM ALT 24 01/30/2023 03:17 PM AST 22 01/30/2023 03:17 PM Additional studies are pending at the time this document was created and are described in the detailed plan below Impression Ms Sutton endorses several worsening symptoms at this time including unplanned weight loss, fatigue and intermittent night sweats. She has also had new large left pelvic sidewall lymphadenopathy measuring 3.5 x 4.5 cm which on biopsy shows FL, grade 1 (since Nov 2021 imaging). Patients primary oncologist has recommended follow up imaging in 6 mo ths. Given the worsening symptoms and new large mass development within the year it is essential we rule out a more aggressive form of the disease. Patients last PET was 2 years ago and we would need a updated PET imaging. Also, we would need a Bone marrow biopsy to rule out marrow involvement to truly stage her disease. We will also get additional lab work. Patient will return after these imaging and staging studies are done to discuss further treatment. Plan in Detail Imaging studies will be completed a whole-body FDG-PET Lymphoma study Additional laboratory studies to include: LDH, B2M, hepatitis serologies, and HIV serology, Immunophenotyping, Immunoglobulin free chains, monoclonal protein immunofixation, Uric acid Bone marrow biopsy to be completed to complete staging Please see a separate note by Dr. Fowler for further details. Mert Garcia DO, PhD Fellow Physician Hematology and Medical Oncology [facility] Chief Complaint Patient presents with Follow-up History of Present Illness Ms Sutton is a 57 y.o. female with a history of Hep C (treated twice 2010 and 2015), hypertension, and chronic back pain who is seen in consultation for advanced stage follicular lymphoma. Her oncology history is detailed below. She is accompanied by her son to the current visit. The patient confirms the below stated oncology history. Currently the patient reports worsening fatigue over the past few months associated with intermittent night sweats and 15 lbs (unintentional) weight loss in the past 3-4 months. She denies fevers. Denies any recent infections. Denies any new overt LAD. Oncology History Diagnosis: Follicular lymphoma, grade 1 Date of diagnosis: 09/23/2020 Stage at diagnosis: advanced stage Sites of initial disease: left vallecula, R axilla, abdominal LAD, RP, R inguinal LAD, and left hemipelvis as well as axial skeleton Presentation: Nausea, vomiting abdominal pain She initially presented to the ED in Sep 2020 with abdominal pain, nausea, and anorexia. CT A/P showed widespread lymphadenopathy in the abdomen and pelvis concerning for lymphoma and hepatomegaly. She then underwent R inguinal LNBx (09/23/20) that came back as follicular lymphoma, grade 1/3. PET/CT (10/26/20) showed FDG avidity in the left vallecula, R axilla, abdominal LAD, RP, R inguinal LAD, and left hemipelvis as well as axial skeleton. Pathology: R inguinal LNBx, 09/23/20 - FL, grade 1 Prognostic indicators: FLIPI: 2 Treatment/critical events: 04/26/21: CTs showed scattered small cervical LN with interval decrease in size of the right iliac LN and stable enlargement of the left iliac LN 11/29/21: CTs showed slight increase in size of a lymph node in the aortocaval region, slight decrease in size of the left external iliac lymph node and mild hepatomegaly and diffuse fatty infiltration of the liver. 11/28/22: CTs showed new large left pelvic sidewall LAD measuring 3.5 x 4.5 cm with relatively stable R axillary, and abdominal LAD and decreased RP LAD. 12/18/22: CT guided core biopsy of left pelvic LN came back c/w low-grade follicular lymphoma Review of Systems CONSTITUTIONAL: fever no; nightsweats yes; weightloss yes; fatigue Yes HEENT: change in vision yes; facial pain/tenderness no; mouth pain/sores no RESP: cough no; sputum no; SOB no; UMANA no CVS: chest pain no; palpitations no; edema no GI: nausea/vomiting no; diarrhea no; blood in stool no : dysuria no; frequency no; urinary retention no HEME: bleeding no; bruising no ID: recent infection no LYMPH: notably enlargement/growth LN no NEURO: change in sensation no; change in strength no; gait imbalance no SKIN: rash no A 12-point ROS is otherwise unremarkable except as further documented in the HPI. 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 Cetirizine 10 MG tablet Take 1 tablet by mouth daily. Chlorthalidone 25 MG tablet Take 1 tablet by mouth daily. Diclofenac sodium 1 % Gel gel Apply 2 g topically Every 12 hours as needed. DULoxetine [address] Particles capsule DR Take 1 capsule by mouth daily. Levothyroxine 200 MCG tablet Take 1 tablet by mouth daily. Multiple Vitamins-Minerals (MULTIVITAMIN GUMMIES ADULT PO) Take by mouth. Potassium Chloride ER 20 MEQ Tab CR tablet Take 1 tablet by mouth 2 times daily. Sucralfate 1 GM/10ML oral suspension Take 10 mL by mouth 2 times daily. Family History No FH of lymphomas Physical Examination BP 126/75 (BP Position: Sitting) Pulse 72 Temp 98.7 F (37.1 C) (Oral) Resp 14 Ht 1.676 m (5' 6 ) Wt 86.5 kg (190 lb 9.6 oz) SpO2 96% BMI 30.76 kg/m ECOG Performance Status 1 Ms. Sutton is a 57 y.o. year-old female in [facility]. HEENT: normocephalic, atraumatic; extraocular movements intact and pupils reactive to light; sclera anicteric; conjuctiva normal; oropharynx without lesions NECK: supple; no JVD CHEST: clear to auscultation and percussion bilaterally; no wheezes/rhonchi/rales CARD: heart sounds regular; no murmurs/rubs/gallops appreciated ABDO: soft, non-tender, non-distended; bowel sounds normoactive EXT: free of clubbing, cyanosis, and edema NEURO: screening examination grossly non-focal; A&O x 3 SKIN: free of rashes LYMPH: no cervical, supraclavicular, axillary or inguinal LAD PSYCH: Normal mood, affect congruent Data Review Lab Results Component Value Date/Time WBC 6.96 01/30/2023 03:17 PM SODIUM 136 01/30/2023 03:17 PM POTASSIUM 3.8 01/30/2023 03:17 PM CHLORIDE 99 01/30/2023 03:17 PM CO2 31 01/30/2023 03:17 PM BUN 13 01/30/2023 03:17 PM ALT 24 01/30/2023 03:17 PM AST 22 01/30/2023 03:17 PM Additional studies are pending at the time this document was created and are described in the detailed plan below. Imaging CT C/A/P, 11/28/22 IMPRESSION - New large left pelvic sidewall lymphadenopathy measuring 3.5 x 4.5 cm. - Large solid lymphadenopathy in the right axilla and multiple small solid lymph nodes in both axilla were unchanged. - There was decreased size of retroperitoneal lymphadenopathy in between the IVC and the abdominal aorta measuring approximately 1.7 x 0.7 cm, previously 2.5 x 1.2 cm . - At least 4 prominent solid lymph nodes above the pancreatic head/behind the right main portal vein and in the right side of the celiac plexus were unchanged in size and configuration. - Tiny solid lymph nodes in the mesentery around the mesenteric vessels were unchnaged. - Tiny lymph nodes in the left anterior periaortic space of the chest were unchanged as well Impression/Plan Follicular lymphoma Ms. Sutton is a 57 y.o. female with advanced stage FL diagnosed in Sep 2020 (never treated) with recent progression on the surveillance CTs in Nov 2022. I discussed the natural history and pathobiology of follicular lymphoma with Ms. Sutton and her family today including the risk of HT. I discussed the indications for treatment (GELF criteria) and the treatment options when treatment is required. Of note, her CTs in Nov 2022 showed new large left pelvic sidewall lymphadenopathy measuring 3.5 x 4.5 cm. Although this was biopsied and came back as FL, I am worried for transformation given her presentation (progressively worsening fatigue and 'B' symptoms) and the probability of sampling error. Hence, would recommend PET scan for further evaluation. Based on the results of the PET, may consider repeat biopsy should the FDG avidity is high. This is very important as the treatment options are different for FL versus transformed lymphoma. As she did not have BMBx at diagnosis, would recommend BMBx for completion of staging w/up. Will also order PB flow to r/o circulating lymphoma cells. Will order B2M, LDH, and viral studies including EBV PCR, hepatitis and HIV testing as Hep B/C and HIV have been associated with the development of lymphoma. We will also check SFLC ratio, qt immunoglobulins, and a SPEP with immunofixation as some lymphomas secrete a paraprotein that can be used to follow the disease activity. Chronic medical issues I advised her to follow with her PCP for chronic medical issues including routine healthcare needs, health maintenance, and age appropriate health screening. I had a detailed discussion with patient and her family and answered all questions to their satisfaction. I will plan to see her back (2 weeks) following the PET and BMBx to review the results and formulate the final management plan. Erick Fowler MD, MS Muffler Installer - Hematology documented in this encounter [facility] 01-30-2023 Instructions Annabelle Rodriguez RN - 01/30/2023 2:00 PM EDT Primary Care Team Dr. Erick Singh, GARNISHER - Certified Nurse Practitioner Idalmis Keenan CNP- Certified Nurse Pracitioner Yolanda Haynes RN - Nurse Annabelle Palencia RN - Nurse Vicki Sykes RN- Patient Care Die Attacher Contact Numbers: Clinic Phone & Appointment Changes: [phone] Clinic For Medication Refills: Please plan ahead and request all prescription refills at your office visit with your doctor. Allow one week for prescription refills to be processed over the telephone. All Paperwork: Please allow up to 2 weeks for all disability, FMLA, etc to be filled out. Please specify what your request is as to what and where we should send completed paperwork. (This is to inform us if we should send the completed papers to you or directly to your employer). Yolanda, the primary nurse is the one who will normally fill this paperwork out for you, and will only call to inform you the paperwork is completed and sent if requested. Fall Prevention at Home Here are some tips to use in your home to help prevent falls. Throughout the home Remove throw rugs so you do not trip on them. Replace or remove carpet that is torn or has turned-up edges. Avoid thick carpet. Shoes may catch on these and cause you to stumble or fall. Move furniture or other things that may block pathways. Be sure you have good lighting throughout your home. Use night lights or leave some lights on in the house to help you see at night or when you come home in the evening. Use switches that glow in the dark, so they can be seen more easily. Keep electrical cords and small things out of your path. Use your cane or walker rather than using furniture to give you support when walking. Stairs Mount sturdy handrails to help with going up and down stairs. They should extend beyond the top and bottom stair. Improve the visibility on your stairs. Have good lighting on the stairs. Non-skid surfaces can be applied to wood stairs to prevent sliding. [place] a bright colored line on the edge of each step so they are more easily seen, especially if you have poor vision. In the bathroom Place non-skid decals or a mat in the tub or shower. Install grab bars around the toilet and in the shower or bathtub. Towel bars are to hold towels, and they will break if you use them as grab bars. Use a tub seat and an elevated toilet seat. Leave the bathroom door unlocked so it can be opened if you do fall. In the bedroom Avoid wearing long nightgowns or robes. These can cause you to trip. Avoid wearing loose shoes that cause you to scuff or shuffle your feet as you walk. Wear shoes or slippers that fit well and stay securely on your feet. In the kitchen Have commonly used items at counter level or within easy reach. Do not climb or reach to high shelves. If you use a step stool, use a stable step stool with a handrail. Other tips Be careful that you do not trip over your pet. Be aware of where you pet is when you are moving around. Use caution when sitting down. Before sitting down on a chair, make sure the backs of your legs are touching the seat of the chair behind you. Keep a telephone close by or consider carrying a portable phone. Take your time. Get in the habit of moving at speeds that are safe for your energy level and ability. Do not cantu to answer the phone or door. Ask for help when getting up from bed, a chair or the toilet if you feel at all shaky, weak, dizzy or lightheaded. Talk to your doctor or others on your health care team if you have questions. You may request more written information from the [employer] for [employer] Information at or email: [email or web address]. The following attachments cannot be sent through Care Everywhere.Scan: PET (Allyson Paige) (Swiss)Bone Marrow Procedure Guide (Allyson Paige) (Swiss)documented in this encounter [facility] 01-26-2023 Note Request received for second opinion consultation by Halina Solorio APRN-LENORA. Dx Follicular Lymphoma . Please review OS slides to confirm diagnosis. Thanks. Preoperative Diagnosis: Left pelvic lymph node. [facility] documented as of this encounter (statuses as of 11/03/2022) [facility] History of Past illness Narrative* Problem Noted Date Diagnosed Date Resolved Date Delayed surgical wound healing 11/02/2022 11/02/2022 11/02/2022 Opioid dependence 11/02/2022 11/02/2022 11/02/2022 Pain of right upper arm 01/18/2022 11/02/202210/08 Paresthesia of upper extremity 01/18/2022 11/02/2022 11/02/2022 Substance abuse 01/18/2022 11/02/2022 11/02/2022 Screening for colon cancer 02/21/2018 1 06/01/2021 Overview: Added automatically from request for surgery [id number] Pain in right elbow 02/05/2015 08/24/19 17 Arthrodesis status 11/04/2012 7 Backache 11/04/2012 08/23/2016 Premenopausal menorrhagia 01/24/2012 Chronic SI joint pain 03/24/20112016 History of depression 03/24/20112011 Back pain 02/15/2011 08/23/2016 DDD (degenerative disc disease), lumbar 02/15/2011 08/23/2016 Lumbago 02/08/2007 08/23/2016 Overview: Herniated disc L4-L5. LIPOMA OTHER SPECIFIED SITES 01/31/2007 08/23/2016 Diffuse cystic mastopathy 01/31/2007 Nontoxic uninodular goiter 01/15/2007 0 08/23/2016 Enthesopathy of hip region 09/28/2005 0 08/23/2016 Nontoxic multinodular goiter 02/15/2005 12/13/2011 Headache(784.0) 02/15/2005 08/23/2016 documented as of this encounter (statuses as of 11/14/2022) [facility] History of Past illness Narrative* Problem Noted Date Diagnosed Date Resolved Date Delayed surgical wound healing 11/02/2022 11/02/2022 11/02/2022 Opioid dependence 11/02/2022 11/02/2022 11/02/2022 Pain of right upper arm 01/18/2022 11/02/202210/08 Paresthesia of upper extremity 01/18/2022 11/02/2022 11/02/2022 Substance abuse 01/18/2022 11/02/2022 11/02/2022 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 Dsouza Screening for colon cancer 02/21/2018 1 06/01/2021 Overview: Added automatically from request for surgery [id number] Pain in right elbow 02/05/2015 08/24/19 17 Arthrodesis status 11/04/2012 7 Backache 11/04/2012 08/23/2016 Premenopausal menorrhagia 01/24/2012 Chronic SI joint pain 03/24/20112016 History of depression 03/24/20112011 Back pain 02/15/2011 08/23/2016 DDD (degenerative disc disease), lumbar 02/15/2011 08/23/2016 Lumbago 02/08/2007 08/23/2016 Overview: Herniated disc L4-L5. LIPOMA OTHER SPECIFIED SITES 01/31/2007 08/23/2016 Diffuse cystic mastopathy 01/31/2007 Nontoxic uninodular goiter 01/15/2007 0 08/23/2016 Enthesopathy of hip region 09/28/2005 0 08/23/2016 Nontoxic multinodular goiter 02/15/2005 12/13/2011 Headache(784.0) 02/15/2005 08/23/2016 documented as of this encounter (statuses as of 11/22/2022) [facility] History of Past illness Narrative* Problem Noted Date Diagnosed Date Resolved Date Delayed surgical wound healing 11/02/2022 11/02/2022 11/02/2022 Opioid dependence 11/02/2022 11/02/2022 11/02/2022 Pain of right upper arm 01/18/2022 11/02/202210/08 Paresthesia of upper extremity 01/18/2022 11/02/2022 11/02/2022 Substance abuse 01/18/2022 11/02/2022 11/02/2022 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 Dsouza Screening for colon cancer 02/21/2018 1 06/01/2021 Overview: Added automatically from request for surgery [id number] Pain in right elbow 02/05/2015 08/24/19 17 Arthrodesis status 11/04/2012 7 Backache 11/04/2012 08/23/2016 Premenopausal menorrhagia 01/24/2012 Chronic SI joint pain 03/24/20112016 History of depression 03/24/20112011 Back pain 02/15/2011 08/23/2016 DDD (degenerative disc disease), lumbar 02/15/2011 08/23/2016 Lumbago 02/08/2007 08/23/2016 Overview: Herniated disc L4-L5. LIPOMA OTHER SPECIFIED SITES 01/31/2007 08/23/2016 Diffuse cystic mastopathy 01/31/2007 Nontoxic uninodular goiter 01/15/2007 0 08/23/2016 Enthesopathy of hip region 09/28/2005 0 08/23/2016 Nontoxic multinodular goiter 02/15/2005 12/13/2011 Headache(784.0) 02/15/2005 08/23/2016 documented as of this encounter (statuses as of 11/23/2022) [facility] History of Past illness Narrative* Problem Noted Date Diagnosed Date Resolved Date Delayed surgical wound healing 11/02/2022 11/02/2022 11/02/2022 Opioid dependence 11/02/2022 11/02/2022 11/02/2022 Pain of right upper arm 01/18/2022 11/02/202210/08 Paresthesia of upper extremity 01/18/2022 11/02/2022 11/02/2022 Substance abuse 01/18/2022 11/02/2022 11/02/2022 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 Dsouza Screening for colon cancer 02/21/2018 1 06/01/2021 Overview: Added automatically from request for surgery [id number] Pain in right elbow 02/05/2015 08/24/19 17 Arthrodesis status 11/04/2012 7 Backache 11/04/2012 08/23/2016 Premenopausal menorrhagia 01/24/2012 Chronic SI joint pain 03/24/20112016 History of depression 03/24/20112011 Back pain 02/15/2011 08/23/2016 DDD (degenerative disc disease), lumbar 02/15/2011 08/23/2016 Lumbago 02/08/2007 08/23/2016 Overview: Herniated disc L4-L5. LIPOMA OTHER SPECIFIED SITES 01/31/2007 08/23/2016 Diffuse cystic mastopathy 01/31/2007 Nontoxic uninodular goiter 01/15/2007 0 08/23/2016 Enthesopathy of hip region 09/28/2005 0 08/23/2016 Nontoxic multinodular goiter 02/15/2005 12/13/2011 Headache(784.0) 02/15/2005 08/23/2016 documented as of this encounter (statuses as of 12/19/2022) [facility] History of Past illness Narrative* Problem Noted Date Diagnosed Date Resolved Date Delayed surgical wound healing 11/02/2022 11/02/2022 11/02/2022 Opioid dependence 11/02/2022 11/02/2022 11/02/2022 Pain of right upper arm 01/18/2022 11/02/2022 0710/2022 Paresthesia of upper extremity 01/18/2022 11/02/2022 11/02/2022 Substance abuse 01/18/2022 11/02/2022 11/02/2022 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 Dsouza Screening for colon cancer 02/21/2018 1 06/01/2021 Overview: Added automatically from request for surgery [id number] Pain in right elbow 02/05/2015 08/24/19 17 Arthrodesis status 11/04/2012 7 Backache 11/04/2012 08/23/2016 Premenopausal menorrhagia 01/24/2012 Chronic SI joint pain 03/24/20112016 History of depression 03/24/20112011 Back pain 02/15/2011 08/23/2016 DDD (degenerative disc disease), lumbar 02/15/2011 08/23/2016 Lumbago 02/08/2007 08/23/2016 Overview: Herniated disc L4-L5. LIPOMA OTHER SPECIFIED SITES 01/31/2007 08/23/2016 Diffuse cystic mastopathy 01/31/2007 Nontoxic uninodular goiter 01/15/2007 0 08/23/2016 Enthesopathy of hip region 09/28/2005 0 08/23/2016 Nontoxic multinodular goiter 02/15/2005 12/13/2011 Headache(784.0) 02/15/2005 08/23/2016 documented as of this encounter (statuses as of 05/11/2023) [facility] History of Past illness Narrative* Problem Noted Date Diagnosed Date Resolved Date Delayed surgical wound healing 11/02/2022 11/02/2022 11/02/2022 Opioid dependence 11/02/2022 11/02/2022 11/02/2022 Pain of right upper arm 01/18/2022 11/02/202210/08 Paresthesia of upper extremity 01/18/2022 11/02/2022 11/02/2022 Substance abuse 01/18/2022 11/02/2022 11/02/2022 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 Dsouza Screening for colon cancer 02/21/2018 1 06/01/2021 Overview: Added automatically from request for surgery [id number] Pain in right elbow 02/05/2015 08/24/19 17 Arthrodesis status 11/04/2012 7 Backache 11/04/2012 08/23/2016 Premenopausal menorrhagia 01/24/2012 Chronic SI joint pain 03/24/20112016 History of depression 03/24/20112011 Back pain 02/15/2011 08/23/2016 DDD (degenerative disc disease), lumbar 02/15/2011 08/23/2016 Lumbago 02/08/2007 08/23/2016 Overview: Herniated disc L4-L5. LIPOMA OTHER SPECIFIED SITES 01/31/2007 08/23/2016 Diffuse cystic mastopathy 01/31/2007 Nontoxic uninodular goiter 01/15/2007 0 08/23/2016 Enthesopathy of hip region 09/28/2005 0 08/23/2016 Nontoxic multinodular goiter 02/15/2005 12/13/2011 Headache(784.0) 02/15/2005 08/23/2016 documented as of this encounter (statuses as of 05/15/2023) [facility] NoteHNO ID: [id number] Author: Jade Underwood MD Service: ? Author Type: Physician Type: Progress Notes Filed: 11/02/2022 3:12 PM Note Text: Patient presents with: 6 Month Exam HPI: Patient presents today for office visit for follow up. PSYCH: Currently tolerating medications well: Yes. But, doesn't feel they are working anymore for her anxiety/depression. Waiting to get in with psychiatry. Has appt scheduled. Side effects: No. Sleep issues: No. Sleeping fairly good for the most part. Pain in legs is the issue. Xrays show some degenerative changes. Had ordered rheum studies at last ov and she did not do them. Has a hx of ddd and has had issues with her right leg since. Energy changes: Yes. still with fatigue. Taking Vitamin B-12 which is helping a little bit. Appetite changes: yes. Loss of appetite. Current depression: trying to having a better outlook on things. Stopped watching the news. Current anxiety: some current anxiety Suicidal ideation: No. HYPOTHYROID: Patient is compliant with medications: Taking whole pill daily. Patient has changes in energy: Yes Patient has changes in hair or skin: No Patient has temperature intolerance: No Patient has weight changes: No Arthritis: pain in other areas are better. Would like refill on Diclofenac gel. Using Ibuprofen sparingly due to G.I upset. The gel definitely helps. Offered physical therapy. Decline for now. No swelling or giving out. Still seeing heme onc. Has talked with [facility]ology about switching to them. No chest pain or shortness of breath. See previous note: PSYCH: Currently tolerating medications well: Yes . Side effects: No. Sleep issues: trouble staying asleep. Usually waking up due to pain in knees. 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 Walking everywhere she goes also doesn't help. Energy changes: Yes. Fatigue. Better once up and moving around. Appetite changes: No. Current depression: improving with being able to work. Current anxiety: No. Suicidal ideation: No. HYPOTHYROID: Patient is compliant with medications: Taking whole pill daily. Patient has changes in energy: Yes Patient has changes in hair or skin: No Patient has temperature intolerance: No Patient has weight changes: No Arthritis: Pain in knees, elbows, shoulders, and feet. Arthritis v side effect of meds or lymphoma? Takes ibuprofen 600mg which doesn't help stomach. Sees Dr Friend on Protonix and carafate now. Knees are worst issue. No swelling or giving out. Has some family hx of arthritis but unsure if rheumatologic Discussed using voltaren gel and avoiding nsaid. Still seeing heme onc. In next month Has a lump on her left back. Feels like a lipoma. Suggested we could have surgery evaluate it. Has had repeat hep c levels after treatment. No chest pain or shortness of breath MEDICATIONS: Current Outpatient Medications Medication Sig cetirizine (ZYRTEC) 10 mg tablet Take 1 tablet by mouth once daily. sucralfate (CARAFATE) 100 mg/mL suspension Take 10 mL by mouth twice daily. DULoxetine (CYMBALTA) 60 mg capsule Take 1 capsule by mouth once daily. buPROPion SR (ZYBAN SR; WELLBUTRIN SR) 150 mg 12 hr tablet Take 1 tablet by mouth twice daily. levothyroxine (SYNTHROID) 200 mcg tablet Take 1 tablet by mouth once daily. chlorthalidone (HYGROTON) 25 mg tablet Take 1 tablet by mouth once daily. ondansetron orally disintegrating (ZOFRAN ODT) 4 mg disintegrating tablet Take 1 tablet by mouth every 8 hours as needed for nausea/vomiting. multivit-minerals/folic acid (ADULT MULTIVITAMIN GUMMIES ORAL) Take by mouth. fluticasone (FLONASE) 50 mcg/actuation nasal spray Use 2 Sprays in each nostril once daily. Rinse mouth after use. polyethylene glycol 3350 (MIRALAX) 17 gram/dose powder Take 17 g by mouth once daily. Mix with 8 ounces of liquid and allow sufficient time to dissolve. (1 capful equals 17 g) buprenorphine-nalOXone SL (SUBOXONE) 8-2 mg subl Dissolve 2 tablets under the tongue once daily. No current facility-administered medications for this visit. ALLERGIES: ALLERGIES Allergen Reactions Neurontin [Gabapent* rash Sulfa (Sulfonamide * GI Upset PAST MEDICAL HISTORY Diagnosis Date Depressive disorder, not elsewhere classified Headache(784.0) Hepatitis C Signs- now tests neg. post tx History of heroin abuse (HCC) in remission, sees [facility] Human papillomavirus in conditions classified elsewhere and of unspecified site Hypertension Lumbago 02/08/2007 Nontoxic uninodular goiter 01/15/2007 Postoperative hypothyroidism 07/26/2015 Unspecified disorder of thyroid 1992 Benign, left thyroidectomy PAST SURGICAL HISTORY Procedure Laterality Date CAUTERY CERVIX CRYOCAUTERY INITIAL/REPEAT 09/2004 at correctional facility COLONOSCOPY W/BIOPSY SINGLE/MULTIPLE 02/21/2022 Dr. Castelan- [facility]; repeat 5 years DANWV (MISSED AB 1ST TRIMESTER) EGD W/B (more content not included)...[facility]07-20-2023 Miscellaneous Notes* Telephone Encounter - Arleen Valdivia - 10/26/2022 1:29 PM EDT Patient has been identified by name and date of : Yes Last office visit in this department was 05-04-22 NOV:11-02-22 RX INSTRUCTIONS: Patient aware RX will be sent to pharmacy. No need to notify patient. Patient phones requesting refills as follows: diclofenac (VOLTAREN) 1 % topical gel Requested Prescriptions Pending Prescriptions Disp Refills cetirizine (ZYRTEC) 10 mg tablet 30 tablet 5 Sig: Take 1 tablet by mouth once daily. Please review and advise. Arleen Webb documented in this encounterTus[facility]aw[facility]02-28-2023 NoteHNO ID: [id number] Author: RT Sanjiv(R) Service: ? Author Type: Cilnical Scientist Type: Progress Notes Filed: 06/06/2022 2:57 PM Note Text: Radiology Service Progress Note PATIENT NAME: Staci Sutton DATE OF SERVICE: June 06, 2022 TIME: 2:42 PM PATIENT IDENTITY VERIFICATION COMPLETED USING TWO (2) IDENTIFIERS: Name and Date of confirmed by patient verbally. FALL SCREENING: Has the patient had 2 falls in the last year or 1 fall with injury or currently using an Ambulatory Assistive Device (Walker, Cane, Wheelchair, Crutches, etc.)? No PATIENT GENDER DATA: Female. status: : No status: NO. PATIENT RELEVANT IMPLANT DATA REVIEWED: Yes RADIOLOGY DEPARTMENT: General X-ray: Exam(s) Completed: Lower Extremity X-Ray(s): Knee, AP / Lat / Tunne / Merchant Bilateral PERIPHERAL IV DATA: Not applicable SIGNED BY: RT Sanjiv(R) June 06, 2022 2:42 [facility]01-26-2023 History of Present illness Narrative* Jade Underwood MD - 05/04/2022 3:46 PM EST Patient presents with: Follow Up Arthritis HPI: Patient presents today for office visit for follow up. PSYCH: Currently tolerating medications well: Yes . Side effects: No. Sleep issues: trouble staying asleep. Usually waking up due to pain in knees. 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 Walking everywhere she goes also doesn't help. Energy changes: Yes. Fatigue. Better once up and moving around. Appetite changes: No. Current depression: improving with being able to work. Current anxiety: No. Suicidal ideation: No. HYPOTHYROID: Patient is compliant with medications: Taking whole pill daily. Patient has changes in energy: Yes Patient has changes in hair or skin: No Patient has temperature intolerance: No Patient has weight changes: No Arthritis: Pain in knees, elbows, shoulders, and feet. Arthritis v side effect of meds or lymphoma?Takes ibuprofen 600mg which doesn't help stomach. Sees Dr Friend on Protonix and carafate now. Knees are worst issue. No swelling or giving out. Has some family hx of arthritis but unsure if rheumatologic Discussed using voltaren gel and avoiding nsaid. Still seeing heme onc. In next month Has a lump on her left back. Feels like a lipoma. Suggested we could have surgery evaluate it. Has had repeat hep c levels after treatment. No chest pain or shortness of breath. MEDICATIONS: Current Outpatient Medications Medication Sig pantoprazole DR (PROTONIX) 40 mg tablet Take 40 mg by mouth once daily. sucralfate (CARAFATE) 100 mg/mL suspension Take 10 mL by mouth twice daily. chlorthalidone (HYGROTON) 25 mg tablet Take 1 tablet by mouth once daily. levothyroxine (SYNTHROID) 200 mcg tablet Take 1 tablet by mouth once daily. Except 1/2 tab on Mondays (Patient taking differently: Take 200 mcg by mouth once daily.) DULoxetine (CYMBALTA) 60 mg capsule Take 1 capsule by mouth once daily. ibuprofen (MOTRIN) 600 mg tablet Take 1 tablet by mouth every 6 hours as needed for pain. buPROPion SR (ZYBAN SR; WELLBUTRIN SR) 150 mg 12 hr tablet Take 1 tablet by mouth twice daily. cetirizine (ZYRTEC) 10 mg tablet Take 1 tablet by mouth once daily. ondansetron orally disintegrating (ZOFRAN ODT) 4 mg disintegrating tablet Take 1 tablet by mouth every 8 hours as needed for nausea/vomiting. multivit-minerals/folic acid (ADULT MULTIVITAMIN GUMMIES ORAL) Take by mouth. polyethylene glycol 3350 (MIRALAX) 17 gram/dose powder Take 17 g by mouth once daily. Mix with 8 ounces of liquid and allow sufficient time to dissolve. (1 capful equals 17 g) buprenorphine-nalOXone SL (SUBOXONE) 8-2 mg subl Dissolve 2 tablets under the tongue once daily. cyclobenzaprine (FLEXERIL) 10 mg tablet Take 1 tablet by mouth three times daily as needed for muscle spasm. fluticasone (FLONASE) 50 mcg/actuation nasal spray Use 2 Sprays in each nostril once daily. Rinse mouth after use. No current facility-administered medications for this visit. ALLERGIES: ALLERGIES Allergen Reactions Neurontin [Gabapent* rash Sulfa (Sulfonamide * GI Upset PAST MEDICAL HISTORY Diagnosis Date Depressive disorder, not elsewhere classified Headache(784.0) Hepatitis C Signs- now tests neg. post tx History of heroin abuse (HCC) in remission, sees [facility] Human papillomavirus in conditions classified elsewhere and of unspecified site Hypertension Lumbago 02/08/2007 Nontoxic uninodular goiter 01/15/2007 Postoperative hypothyroidism 07/26/2015 Unspecified disorder of thyroid 1992 Benign, left thyroidectomy PAST SURGICAL HISTORY Procedure Laterality Date CAUTERY CERVIX CRYOCAUTERY INITIAL/REPEAT 09/2004 at correctional facility [facility] D&C (MISSED AB 1ST TRIMESTER) EGD W/BX, SINGLE OR MULT 02/21/2022 Dr. Castelan- [facility] LAMINECTOMY W/O FFD 1/2 VERT SEG LUMBAR 2008 L4-L5 Lumbar fusion LIG/TRNSXJ FLP TUBE ABDL/VAG APPR UNI/BI 02/2006 Tubal ligation NOVASURE 03/07/2012 PAST SURGICAL HISTORY OF 1991 left thyroidectomy, benign nodule PAST SURGICAL HISTORY OF 02/2014 right thyroid removed PAST SURGICAL HISTORY OF 2012 Fatty Tissue Removal from right armpit THYROID RIGHT FINE NEEDLE ASPIRATION 02/20/2007 U/S FNA right thyroid nodule/cyst FAMILY HISTORY Problem Relation Age of Onset Allergies Mother Asthma Mother other (gout) Father Breast Cancer Maternal Grandmother Thyroid Maternal Grandmother Stroke Paternal Grandmother other (htn) Paternal Grandmother Diabetes Paternal Grandfather Social History Tobacco Use Smoking status: Every Day Packs/day: 0.50 Years: 15.00 Pack years: 7.50 Types: Cigarettes Smokeless tobacco: Never Substance Use Topics Alcohol use: No Drug use: No Comment: past heroin use, but Clean for almost 1 year- last 04/2017 Reviewed current medications, allergies, past medical history, surgical history, family history andsocial history today. REVIEW OF SYSTEMS All other reviewed and negative other than HPI. HEALTH MAINTENANCE: Reviewed health maintenance issues today and recommended the following in detail. COVID-19 VACCINE(1) Never done PNEUMOCOCCAL(1 - PCV) Never done BP CONTROLLED (<130/80) Never done SHINGRIX VACCINE(1 of 2) Never done PAP TESTING due on 12/05/2015 MAMMOGRAM due on 11/14/2017 HEPATITIS B(2 of 3 - Hep B Twinrix 3-dose series) due on 06/13/2018 HPV TESTING due on 12/05/2019 VITALS: BP 130/82 Pulse 84 Wt 90.3 kg (199 lb) LMP 02/27/2012 SpO2 95% BMI 32.12 kg/m Last 4 Encounter Wt Readings: Date: Wt: 05/04/2022 90.3 kg (199 lb) 12/09/2021 94.8 kg (209 lb) 07/25/2021 98.4 kg (217 lb) 02/18/2021 95.3 kg (210 lb) PHYSICAL EXAMINATION: General appearance: Well appearing, alert, in no acute distress, well-hydrated, well nourished. Skin:lipoma like lesion on back. Head: Normocephalic, no masses, lesions, tenderness or abnormalities Eyes: Anicteric sclera. Pupils are equally round and reactive to light. Extraocular movements are intact. Lungs: Lungs clear to auscultation. No wheezing, rhonchi, rales Heart: RRR without murmur, gallop, or rubs. No ectopy Abdomen: Normal abdominal exam, Abdomen soft, non-tender. Bowel sounds normal. No masses, organomegaly Extremities: No deformities, edema, skin discoloration, clubbing or cyanosis. Good capillary refill. Musculoskeletal: No joint swelling, deformity, or tenderness Peripheral pulses: Normal Neuro: Negative. ASSESSMENT/PLAN: 1. 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) - ICD9: 202.08, ICD10: C82.08 (primary diagnosis) Per heme onc 2. S/P lumbar fusion - ICD9: V45.4, ICD10: Z98.1 - DULOXETINE 60 MG CAPSULE,DELAYED RELEASE 3. Moderate episode of recurrent major depressive disorder (HCC) - ICD9: 296.32, ICD10: F33.1 - DULOXETINE 60 MG CAPSULE,DELAYED RELEASE 4. Postoperative hypothyroidism - ICD9: 244.0, ICD10: E89.0 - follow labs. - LEVOTHYROXINE 200 MCG TABLET - TSH BLD - T4 FREE/FREE THYROX 5. Edema, unspecified type - ICD9: 782.3, ICD10: R60.9 - stable. - CHLORTHALIDONE 25 MG TABLET 6. History of heroin abuse (HCC) - ICD9: 305.53, ICD10: F11.11 - per 1 80 7. Chronic hepatitis C without hepatic coma (HCC) - ICD9: 070.54, ICD10: B18.2 - treated 8. Essential hypertension - ICD9: 401.9, ICD10: I10 - good control - Continue current medication(s) - Goal of BP <130/80 - COMP METABOLIC PANEL - LIPID PANEL BASIC 9. Mass of skin of back - ICD9: 782.2, ICD10: R22.2 - start with us - US CHEST WALL/SOFT TISSUE 10. Chronic pain of both knees - ICD9: 719.46, 338.29, ICD10: M25.561, M25.562, G89.29 - XR KNEE GENERAL 4V AP BOTH/PA BOTH/LAT/MERC BILATERAL 11. Arthralgia, unspecified joint - ICD9: 719.40, ICD10: M25.50 - SED RATE WESTERGREN - C-REACTIVE PROTEIN (CRP) - DORI BY IFA SCREEN - RHEUMATOID FACTOR BL 12. Screening breast examination - ICD9: V76.10, ICD10: Z12.39 - Follow up for annual exam in one year. - [facility] SCREENING Jade Underwood RTO in six months and prn. documented in this encounterTuscarawas Hospital01-20-2023 Miscellaneous Notes* Telephone Encounter - Eugenia Lamar Ma - 04/28/2022 1:59 PM EST Last office visit: 03/31/22 F/u scheduled: 05/04/22 Eugenia Lamar Ma * Telephone Encounter - Karyna Lutz Pss - 04/28/2022 1:49 PM EST Patient has been identified by name and date of : Yes Requested Prescriptions Pending Prescriptions Disp Refills chlorthalidone (HYGROTON) 25 mg tablet 30 tablet 0 Sig: Take 1 tablet by mouth once daily. levothyroxine (SYNTHROID) 200 mcg tablet 30 tablet 0 Sig: Take 1 tablet by mouth once daily. Except 1/2 tab on Mondays RX INSTRUCTIONS: Patient aware RX will be sent to pharmacy. No need to notify patient. Karyna Lutz Pss documented in this encounterTuscarawas Hospital12-29-2022 Miscellaneous Notes* Telephone Encounter - Lyndsey Fuentes Pss - 04/06/2022 1:14 PM EST Patient has been identified by name and date of : Yes Last office visit in this department: 02/18/2021 RX INSTRUCTIONS: Patient aware RX will be sent to pharmacy. No need to notify patient. Patient phones requesting refills as follows: Requested Prescriptions Pending Prescriptions Disp Refills DULoxetine (CYMBALTA) 60 mg capsule 30 capsule 0 Sig: Take 1 capsule by mouth once daily. ibuprofen (MOTRIN) 600 mg tablet 60 tablet 5 Sig: Take 1 tablet by mouth every 6 hours as needed for pain. buPROPion SR (ZYBAN SR; WELLBUTRIN SR) 150 mg 12 hr tablet 60 tablet 0 Sig: Take 1 tablet by mouth twice daily. Please review and advise. Lyndsey Fuentes Pss documented in this encounterTuscarawas Hospital12-23-2022 History of Present illness Narrative* Jade Underwood MD - 03/31/2022 8:06 AM EST Did not check in. Called and no answer. Left message to reschedule. documented in this encounterTuscarawas Hospital12-21-2022 Miscellaneous Notes* Telephone Encounter - DENIZ Moon - 03/29/2022 11:22 AM EST VIRGIE 02/18/2021 Appointment scheduled 03/31/22 Please advise. Thank you. DENIZ Moon * Telephone Encounter - Venita Singh - 03/29/2022 11:07 AM EST Patient has been identified by name and date of : Yes Patient phones for refill(s): Requested Prescriptions Pending Prescriptions Disp Refills levothyroxine (SYNTHROID) 200 mcg tablet 30 tablet 0 Sig: Take 1 tablet by mouth once daily. Except 1/2 tab on Mondays chlorthalidone (HYGROTON) 25 mg tablet 30 tablet 0 Sig: Take 1 tablet by mouth once daily. Date of last office visit in primary care: 12/09/21 Last 2 Encounter Wt Readings: Date: Wt: 12/09/2021 94.8 kg (209 lb) 07/25/2021 98.4 kg (217 lb) Previous labs/tests for medication: Not applicable Please advise. Thank you. Venita Singh documented in this encounterTuscarawas Hospital12-01-2022 Miscellaneous Notes* Telephone Encounter - DENIZ Moon - 03/09/2022 2:34 PM EST TC to patient who is agreeable to appointment. [facility] Pt also requesting refill of Cymbalta as she took the last capsule today. Pended if provider agreeable. Please advise. Thank you. DENIZ Moon * Telephone Encounter - Cassie Burciaga Ma - 03/07/2022 3:04 PM EST Left message for patient to return call. Pt needs to be seen in family medicine. Has not been seen in over a year. Then needs referred to physical therapy for functional capacity eval. Cassie Burciaga Ma * Telephone Encounter - Jade Underwood MD - 03/07/2022 1:44 PM EST Needs a functional capacity eval by physical therapy to complete this. Also has not been seen here in a year so is way over due and cannot fill out anything like that unless seen relatively recently. * Telephone Encounter - Guerline Dao LPN - 03/06/2022 6:35 PM EST Type of form: Treating Source Statement Form received via walk in When form is completed, forms states to fax back to citizens Disability Form has been forwarded to Physician Desk: Dr. Kj Dao LPN documented in this encounterTuscarawas Hospital12-01-2022 Miscellaneous Notes* Telephone Encounter - Cassie Burciaga Ma - 03/09/2022 11:36 AM EST Dose was adjusted on 12/04/21 * Telephone Encounter - Elly Singh PA-C - 12/03/2021 3:34 PM EDT Please clarify notes from Dr. Underwood 11/25/2021. Patient is listed on [facility] labs 11/23/2021 with TSH of 0.28 indicating she is over replaced with thyroid. There are notes in the chart that this was discussed but I do not see that anything was changed. Please ask if he adjusted her dose or recommended rechecking labs. If not we probably should consider at least rechecking labs and then consider changing thyroid doseif the TSH is still low. Thanks, Rei Singh PA-C documented in this encounterTuscarawas Hospital11-25-2022 Miscellaneous Notes* Telephone Encounter - Chuyita Paige MA - 03/03/2022 11:01 AM EST Patient has been identified by name and date of : Yes Requested Prescriptions Pending Prescriptions Disp Refills buPROPion SR (ZYBAN SR; WELLBUTRIN SR) 150 mg 12 hr tablet 60 tablet 0 Sig: Take 1 tablet by mouth twice daily. RX INSTRUCTIONS: Patient aware RX will be sent to pharmacy. No need to notify patient. Chuyita Paige MA Virgie: 06/2021 No appointment scheduled Last refill: 01/2022 * Telephone Encounter - Radha Webb - 03/03/2022 9:30 AM EST Patient has been identified by name and date of : Yes Last office visit in this department: 02/18/2021 RX INSTRUCTIONS: Patient aware RX will be sent to pharmacy. No need to notify patient. Patient phones requesting refills as follows: Requested Prescriptions Pending Prescriptions Disp Refills buPROPion SR (ZYBAN SR; WELLBUTRIN SR) 150 mg 12 hr tablet 60 tablet 0 Sig: Take 1 tablet by mouth twice daily. Please review and advise. Radha Guerin Pss documented [facility] this [facility]11-18-2022 Miscellaneous Notes* Telephone Encounter - Lyndsey Fuentes Pss - 02/24/2022 10:37 AM EST Patient has been identified by name and date of : Yes Last office visit in this department: 02/18/2021 RX INSTRUCTIONS: Patient aware RX will be sent to pharmacy. No need to notify patient. Patient phones requesting refills as follows: Requested Prescriptions Pending Prescriptions Disp Refills levothyroxine (SYNTHROID) 200 mcg tablet 30 tablet 0 Sig: Take 1 tablet by mouth once daily. Except 1/2 tab on Mondays chlorthalidone (HYGROTON) 25 mg tablet 30 tablet 0 Sig: Take 1 tablet by mouth once daily. Please review and advise. Lyndsey Fuentes Pss [facility]10-31-[facility]22 Miscellaneous Notes* Telephone Encounter - Guerline Dao LPN - 02/06/2022 12:17 PM EDT VIRGIE 02/18/21 Has been notified to schedule a visit. * [facility] 02/06/2022 11:51 AM EDT Patient has been identified by name and date of : Yes Requested Prescriptions Pending Prescriptions Disp Refills DULoxetine (CYMBALTA) 60 mg capsule 30 capsule 0 Sig: Take 1 capsule by mouth once daily. RX INSTRUCTIONS: Patient aware RX will be sent to pharmacy. No need to notify patient. Margaret [facility] Electronically [facility] at 02/06/2022 11:53 AM EDT documented in this encounterTuscarawas Hospital09-27-2022 Miscellaneous Notes* Telephone Encounter - Sandra Webb - 01/03/2022 12:14 PM EDT Patient has been identified by name and date of : Yes Requested Prescriptions Pending Prescriptions Disp Refills DULoxetine (CYMBALTA) 60 mg capsule 30 capsule 0 Sig: Take 1 capsule by mouth once daily. RX INSTRUCTIONS: Patient aware RX will be sent to pharmacy. No need to notify patient. Sandradane Harrington Pss documented in this encounterTuscarawas Hospital09-22-2022 Miscellaneous Notes* Telephone Encounter - Eugenia Lamar Ma - 12/29/2021 10:43 AM EDT Last office visit: 02/18/21 F/u scheduled: none RX INSTRUCTIONS: Please note there was a med update on 12/04/21, but no rx sent to pharmacy Eugenia Lamar Ma * Telephone Encounter - Karyna Webb - 12/29/2021 10:30 AM EDT Patient has been identified by name and date of : Yes Requested Prescriptions Pending Prescriptions Disp Refills levothyroxine (SYNTHROID) 200 mcg tablet 30 tablet 0 Sig: Take 1 tablet by mouth once daily. Except 1/2 tab on Mondays RX INSTRUCTIONS: Please note there was a med update on 12/04/21, but no rx sent to pharmacy Patient aware RX will be sent to pharmacy. No need to notify patient. Karyna Webb documented in this encounterTuscarawas Hospital09-15-2022 Miscellaneous Notes* Telephone Encounter - Eugenia Lamar Ma - 12/22/2021 11:36 AM EDT Last office visit: 02/18/21 F/u scheduled: none, has no showed and cancelled last 2 appts. Eugenia Lamar Ma * Telephone Encounter - Kelley Tanner Pss - 12/22/2021 10:29 AM EDT [facility] Patient has been identified by name and date of : Yes Patient aware RX will be sent to pharmacy. No need to notify patient. Patient phones for refill(s): Requested Prescriptions Pending Prescriptions Disp Refills chlorthalidone (HYGROTON) 25 mg tablet 30 tablet 0 Sig: Take 1 tablet by mouth once daily. cetirizine (ZYRTEC) 10 mg tablet 30 tablet 5 Sig: Take 1 tablet by mouth once daily. Date of last office visit : 02/18/2021 Date of next office visit : Visit date not found Last 2 Encounter Wt Readings: Date: Wt: 12/09/2021 94.8 kg (209 lb) 07/25/2021 98.4 kg (217 lb) Please advise. Kelley Tanner Pss documented in this encounterTuscarawas Hospital09-02-2022 History of Present illness Narrative* Kary Paige APRN.GARNISHER - 12/09/2021 12:56 PM EDT CC: Patient presents with: Sore Throat: Pain rated 3, x2 wks, bilateral ear decreased hearing, cough, intermittent SOB, deniedchest pain. Patient complained of having difficulty swallowing solid foods on and off for the last few weeks. Patient is a lymphoma patient. Patient did mention it to her oncologist a week ago when he was getting do some scans but the oncologist said to follow-up with primary care and did not scan the area. Will make a follow-up with primary care to go over this patient was instructed if anything worsens or changes she needs to go to the ER patient denies any difficulty breathing swallowing liquids at thistime HPI: Staci Sutton is a 56 year old female who presents to the office with complaint of respiratory symptoms, head congestion, cough, nonproductive, and sore throat for 2 weeks. Symptoms are worsening Associated symptoms includes sore throat and facial pain/pressure. Denies fever, nausea, vomiting , and diarrhea. Treatments tried include nothing so far. with no relief of symptoms. Sick contacts: unknown. History of asthma, frequent episodes of bronchitis, chronic bronchitis, bronchiectasis or COPD: No Smoker: No Seasonal/environmental allergies: No The ROS is otherwise negative. The patient's pmh, medications, allergies, and past visits are reviewed. PHYSICAL EXAM: BP 126/80 Pulse 106 Temp 36.7 C (98 F) Resp 18 Wt 94.8 kg (209 lb) LMP 02/27/2012 SpO2 97% BMI 33.73 kg/m General appearance: alert, cooperative, pleasant, in no acute distress Head: Normocephalic Eyes: EOM's intact, conjunctiva pink and moist, no icterus, sclera white, non-injected Ears: Right ear: External ear/canal- Normal, TM - clear with good landmarks. Left ear: External ear/canal- Normal, TM - clear with good landmarks Oropharynx:moist without lesions, No erythema, exudates or tonsillar hypertrophy. Heart: Negative. RRR without obvious murmur, gallop, or rubs. No ectopy. Lungs: clear to auscultation, without rales or wheeze, good air exchange PAST MEDICAL HISTORY Diagnosis Date Depressive disorder, not elsewhere classified Headache(784.0) Hepatitis C Signs- now tests neg. post tx History of heroin abuse (HCC) in remission, sees [facility] Human papillomavirus in conditions classified elsewhere and of unspecified site Hypertension Lumbago 02/08/2007 Nontoxic uninodular goiter 01/15/2007 Postoperative hypothyroidism 07/26/2015 Unspecified disorder of thyroid 1991 Benign, left thyroidectomy PAST SURGICAL HISTORY Procedure Laterality Date CAUTERY CERVIX CRYOCAUTERY INITIAL/REPEAT 09/2004 at [facility] (MISSED AB 1ST TRIMESTER) LAMINECTOMY W/O FFD 04/10 VERT SEG LUMBAR 2008 L4-L5 Lumbar fusion LIG/TRNSXJ FLP TUBE ABDL/VAG APPR UNI/BI 02/2006 Tubal ligation NOVASURE 03/07/2012 PAST SURGICAL HISTORY OF 1991 left thyroidectomy, benign nodule PAST SURGICAL HISTORY OF 02/2014 right thyroid removed PAST SURGICAL HISTORY OF 2012 Fatty Tissue Removal from right armpit THYROID RIGHT FINE NEEDLE ASPIRATION 02/20/07 U/S FNA right thyroid nodule/cyst ALLERGIES Neurontin [Gabapentin] and Sulfa (Sulfonamide Antibiotics) MEDICATIONS levothyroxine (SYNTHROID) 200 mcg tablet Take 1 tablet by mouth once daily. Except 1/2 tab on Mondays chlorthalidone (HYGROTON) 25 mg tablet Take 1 tablet by mouth once daily. DULoxetine (CYMBALTA) 60 mg capsule Take 1 capsule by mouth once daily. ibuprofen (MOTRIN) 600 mg tablet Take 1 tablet by mouth every 6 hours as needed for pain. cyclobenzaprine (FLEXERIL) 10 mg tablet Take 1 tablet by mouth three times daily as needed for muscle spasm. buPROPion SR (ZYBAN SR; WELLBUTRIN SR) 150 mg 12 hr tablet Take 1 tablet by mouth twice daily. cetirizine (ZYRTEC) 10 mg tablet Take 1 tablet by mouth once daily. ondansetron orally disintegrating (ZOFRAN ODT) 4 mg disintegrating tablet Take 1 tablet by mouth every 8 hours as needed for nausea/vomiting. multivit-minerals/folic acid (ADULT MULTIVITAMIN GUMMIES ORAL) Take by mouth. fluticasone (FLONASE) 50 mcg/actuation nasal spray Use 2 Sprays in each nostril once daily. Rinse mouth after use. polyethylene glycol 3350 (MIRALAX) 17 gram/dose powder Take 17 g by mouth once daily. Mix with 8 ounces of liquid and allow sufficient time to dissolve. (1 capful equals 17 g) buprenorphine-nalOXone SL (SUBOXONE) 8-2 mg subl Dissolve 2 tablets under the tongue once daily. amoxicillin-clavulanic acid (AUGMENTIN) 875-125 mg per tablet Take 1 tablet by mouth twice daily for 5 days. potassium chloride (K-TAB) 10 mEq tablet Take 1 tablet by mouth daily with breakfast. (Patient not taking: Reported on 07/25/2021 ) FAMILY HISTORY Problem Relation Age of Onset Allergies Mother Asthma Mother other (gout) Father Breast Cancer Maternal Grandmother Thyroid Maternal Grandmother Stroke Paternal Grandmother other (htn) Paternal Grandmother Diabetes Paternal Grandfather Social History Tobacco Use Smoking status: Former Packs/day: 0.50 Years: 15.00 Pack years: 7.50 Types: Cigarettes Smokeless tobacco: Never Substance Use Topics Alcohol use: No Drug use: No Comment: past heroin use, but Clean for almost 1 year- last 04/2017 ASSESSMENT/PLAN: 1. Sinus pressure - ICD9: 478.19, ICD10: J34.89 (primary diagnosis) 2. Acute cough - ICD9: 786.2, ICD10: R05.1 Augmentin twice a day for 5 days. Prescription instructions reviewed with patient as applicable. Potential red flag symptoms discussed with the patient. Reviewed appropriate action plan to take if red flag symptoms occur. Patient agreeable to treatment plan. Kary Piage APRN.LENORA documented [facility] encounter[facility] Miscellaneous Notes* Telephone Encounter - Karyna Webb - 11/18/2021 12:51 PM EDT Patient has been identified by name and date of : Yes Requested Prescriptions Pending Prescriptions Disp Refills chlorthalidone (HYGROTON) 25 mg tablet 30 tablet 5 Sig: Take 1 tablet by mouth once daily. DULoxetine (CYMBALTA) 60 mg capsule 90 capsule 1 Sig: Take 1 capsule by mouth once daily. levothyroxine (SYNTHROID) 200 mcg tablet 90 tablet 1 Sig: Take 1 tablet by mouth once daily. Take on empty stomach. For Thyroid. RX INSTRUCTIONS: Patient aware RX will be sent to pharmacy. No need to notify patient. Karyna Webb documented in this encounterT[facility]04-18-2022 History of Present illness Narrative* La Alejandra PA-C - 07/25/2021 3:13 PM EDT This note was created using [employer]. Subjective Staci Sutton is a 55 year old female. HPI Patient presents with low back pain and tailbone pain after a fall . She states before workshe slipped and fell landing on her buttock. Since then has been very sore. She did have a fusion in her lumbar spine 10 to 12 years ago but has had chronic back problems since then. She states she always gets pain radiating down her legs. Denies any weakness. No loss of bowel or bladder control orsaddle anesthesia. She denies hitting her head. No other injuries. She has been able to ambulate. She also would like her blood pressure checked. She goes to a clinic a couple days a week in the check her blood pressure on a machine and 1 time it was 180/100. She states they did not recheck it manually. She is not having any symptoms of this. She is on chlorthalidone for history of hypertension. Review of Systems Musculoskeletal: Positive for back pain. All other systems reviewed and are negative. PAST MEDICAL HISTORY Diagnosis Date Depressive disorder, not elsewhere classified Headache(784.0) Hepatitis C Signs- now tests neg. post tx History of heroin abuse (HCC) in remission, sees [facility] Human papillomavirus in conditions classified elsewhere and of unspecified site Hypertension Lumbago 02/08/2007 Nontoxic uninodular goiter 01/15/2007 Postoperative hypothyroidism 07/26/2015 Unspecified disorder of thyroid 1992 Benign, left thyroidectomy Current Outpatient Medications Medication Sig Dispense Refill buPROPion SR (ZYBAN SR; WELLBUTRIN SR) 150 mg 12 hr tablet Take 1 tablet by mouth twice daily. 60 tablet 5 chlorthalidone (HYGROTON) 25 mg tablet Take 1 tablet by mouth once daily. 30 tablet 5 ibuprofen (MOTRIN) 600 mg tablet Take 1 tablet by mouth every 6 hours as needed for pain. 60 tablet5 levothyroxine (SYNTHROID) 200 mcg tablet Take 1 tablet by mouth once daily. Take on empty stomach. For Thyroid. 90 tablet 1 DULoxetine (CYMBALTA) 60 mg capsule Take 1 capsule by mouth once daily. 90 capsule 1 cetirizine (ZYRTEC) 10 mg tablet Take 1 tablet by mouth once daily. 30 tablet 5 ondansetron orally disintegrating (ZOFRAN ODT) 4 mg disintegrating tablet Take 1 tablet by mouth every 8 hours as needed for nausea/vomiting. 30 tablet 0 multivit-minerals/folic acid (ADULT MULTIVITAMIN GUMMIES ORAL) Take by mouth. fluticasone (FLONASE) 50 mcg/actuation nasal spray Use 2 Sprays in each nostril once daily. Rinse mouth after use. 1 Bottle 5 polyethylene glycol 3350 (MIRALAX) 17 gram/dose powder Take 17 g by mouth once daily. Mix with 8 ounces of liquid and allow sufficient time to dissolve. (1 capful equals 17 g) 510 g 5 buprenorphine-nalOXone SL (SUBOXONE) 8-2 mg subl Dissolve 2 tablets under the tongue once daily. predniSONE (DELTASONE) 20 mg tablet Take 2 tablets by mouth once daily for 5 days. 10 tablet 0 cyclobenzaprine (FLEXERIL) 10 mg tablet Take 1 tablet by mouth three times daily as needed for muscle spasm. 15 tablet 0 diclofenac (VOLTAREN) 1 % topical gel Apply 2 g to affected area twice daily as needed. (Patient not taking: Reported on 07/25/2021 ) 350 g 11 potassium chloride (K-TAB) 10 mEq tablet Take 1 tablet by mouth daily with breakfast. (Patient not taking: Reported on 07/25/2021 ) 30 tablet 5 No current facility-administered medications for this visit. PAST SURGICAL HISTORY Procedure Laterality Date CAUTERY CERVIX CRYOCAUTERY INITIAL/REPEAT 09/2004 at [facility] facility D&C (MISSED AB 1ST TRIMESTER) LAMINECTOMY W/O FFD 04/10 VERT SEG LUMBAR 2008 L4-L5 Lumbar fusion LIG/TRNSXJ FLP TUBE ABDL/VAG APPR UNI/BI 02/2006 Tubal ligation NOVASURE 03/07/2012 PAST SURGICAL HISTORY OF 1991 left thyroidectomy, benign nodule PAST SURGICAL HISTORY OF 02/2014 right thyroid removed PAST SURGICAL HISTORY OF 2012 Fatty Tissue Removal from right armpit THYROID RIGHT FINE NEEDLE ASPIRATION 02/20/07 U/S FNA right thyroid nodule/cyst FAMILY HISTORY Problem Relation Age of Onset Allergies Mother Asthma Mother other (gout) Father Breast Cancer Maternal Grandmother Thyroid Maternal Grandmother Stroke Paternal Grandmother other (htn) Paternal Grandmother Diabetes Paternal Grandfather Social History Tobacco Use Smoking status: Former Smoker Packs/day: 0.50 Years: 15.00 Pack years: 7.50 Types: Cigarettes Smokeless tobacco: Never Used Substance Use Topics Alcohol use: No Drug use: No Comment: past heroin use, but Clean for almost 1 year- last 04/2017 Objective BP 132/74 Pulse 78 Temp 36.4 C (97.5 F) Resp 16 Wt 98.4 kg (217 lb) LMP 02/27/2012 HeW736% BMI 35.02 kg/m Physical Exam Vitals reviewed. Constitutional: Appearance: Normal appearance. HENT: Head: Normocephalic and atraumatic. Musculoskeletal: Comments: Exam of the lumbar spine reveals a midline surgical scar over the lumbar back. No significant tenderness here or in the paraspinal lumbar musculature. She is tender over the tailbone on palpation. No bruising or swelling. Increased pain with sitting. Normal strength and sensation in lower extremities. DTRs intact and symmetrical bilaterally. Able to ambulate normally. Skin: General: Skin is warm and dry. Findings: No rash. Neurological: Mental Status: She is alert. Assessment and Plan ASSESSMENT/PLAN: 1. Tailbone injury, initial encounter - ICD9: 959.19, ICD10: S39.92XA (primary diagnosis) X-rays are negative. Discussed Tylenol, given prescription for prednisone and flexeril. Discussed not taking ibuprofen at the same time as prednisone. Follow- up with PCP if not improving. - XR SACRUM/COCCYX 3V AP/LAT 2. Chronic low back pain with sciatica, sciatica laterality unspecified, unspecified back pain laterality - ICD9: 724.2, 724.3, 338.29, ICD10: M54.40, G89.29 - XR LUMBAR GENERAL 3V AP/LAT/L5-S1 La Alejandra PA-C documented in this encounterT[facility]03-25-2022 Miscellaneous Notes* Telephone Encounter - Vika Webb - 07/01/2021 4:37 PM EDT Patient has been identified by name and date of : Yes Pending Prescriptions Disp Refills BUPROPION HCL SR 150 MG TABLET,12 HR SUSTAINED-RELEASE 60 tablet 5 Sig: Take 1 tablet by mouth twice daily. MARCELLUS: No RX INSTRUCTIONS: Patient aware RX will be sent to pharmacy. No need to notify patient. Vika Farris Pss documented in this encounterT[facility]aw[facility]11-15-2018 History of Past illness Narrative* Problem Noted Date Resolved Date Screening for colon cancer 02/21/201803/31 Overview: Added automatically from request for surgery [id number] Pain in right elbow 02/05/2015 08/23/2016 Arthrodesis status 11/04/2012 08/23/2016 Backache 11/04/2012 08/23/2016 Premenopausal menorrhagia 01/24/20122012 Chronic SI joint pain 03/24/2011 08/23/2016 History of depression 03/24/2011 12/13/2011 Back pain 02/15/2011 08/23/2016 DDD (degenerative disc disease), lumbar 02/16/20 11 08/23/2016 Lumbago 02/08/2007 08/23/2016 Overview: Herniated disc L4-L5. LIPOMA OTHER SPECIFIED SITES 01/31/2007 Diffuse cystic mastopathy 01/31/20072016 Nontoxic uninodular goiter 01/15/200708/23 Enthesopathy of hip region 09/28/200508/23 Nontoxic multinodular goiter 02/15/200508/2011 Headache(784.0) 02/15/2005 08/23/2016 documented as of this encounter (statuses as of 04/01/2022) [facility] of [facility] illness Narrative* Problem Noted Date Resolved Date Screening for colon cancer 02/21/201803/31 Overview: Added automatically from request for surgery [id number] Pain in right elbow 02/05/2015 08/23/2016 Arthrodesis status 11/04/2012 08/23/2016 Backache 11/04/2012 08/23/2016 Premenopausal menorrhagia 01/24/20122012 Chronic SI joint pain 03/24/2011 08/23/2016 History of depression 03/24/2011 12/13/2011 Back pain 02/15/2011 08/23/2016 DDD (degenerative disc disease), lumbar 02/16/20 11 08/23/2016 Lumbago 02/08/2007 08/23/2016 Overview: Herniated disc L4-L5. LIPOMA OTHER SPECIFIED SITES 01/31/2007 Diffuse cystic mastopathy 01/31/20072016 Nontoxic uninodular goiter 01/15/200708/23 Enthesopathy of hip region 09/28/200508/23 Nontoxic multinodular goiter 02/15/200508/2011 Headache(784.0) 02/15/2005 08/23/2016 documented as of this encounter (statuses as of 04/12/2022) [facility] illness Narrative* Problem Noted Date Resolved Date Screening for colon cancer 02/21/201803/31 Overview: Added automatically from request for surgery [id number] Pain in right elbow 02/05/2015 08/23/2016 Arthrodesis status 11/04/2012 08/23/2016 Backache 11/04/2012 08/23/2016 Premenopausal menorrhagia 01/24/20122012 Chronic SI joint pain 03/24/2011 08/23/2016 History of depression 03/24/2011 12/13/2011 Back pain 02/15/2011 08/23/2016 DDD (degenerative disc disease), lumbar 02/16/20 11 08/23/2016 Lumbago 02/08/2007 08/23/2016 Overview: Herniated disc L4-L5. LIPOMA OTHER SPECIFIED SITES 01/31/2007 Diffuse cystic mastopathy 01/31/20072016 Nontoxic uninodular goiter 01/15/200708/23 Enthesopathy of hip region 09/28/200508/23 Nontoxic multinodular goiter 02/15/200508/2011 Headache(784.0) 02/15/2005 08/23/2016 documented as of this encounter (statuses as of 04/15/2022) [facility] Narrative* Problem Noted Date Resolved Date Screening for colon cancer 02/21/201803/31 Overview: Added automatically from request for surgery [id number] Pain in right elbow 02/05/2015 08/23/2016 Arthrodesis status 11/04/2012 08/23/2016 Backache 11/04/2012 08/23/2016 Premenopausal menorrhagia 01/24/20122012 Chronic SI joint pain 03/24/2011 08/23/2016 History of depression 03/24/2011 12/13/2011 Back pain 02/15/2011 08/23/2016 DDD (degenerative disc disease), lumbar 02/16/20 11 08/23/2016 Lumbago 02/08/2007 08/23/2016 Overview: Herniated disc L4-L5. LIPOMA OTHER SPECIFIED SITES 01/31/2007 Diffuse cystic mastopathy 01/31/20072016 Nontoxic uninodular goiter 01/15/200708/23 Enthesopathy of hip region 09/28/200508/23 Nontoxic multinodular goiter 02/15/200508/2011 Headache(784.0) 02/15/2005 08/23/2016 documented as of this encounter (statuses as of 04/28/2022) [facility] Narrative* Problem Noted Date Resolved Date Screening for colon cancer 02/21/201803/31 Overview: Added automatically from request for surgery [id number] Pain in right elbow 02/05/2015 08/23/2016 Arthrodesis status 11/04/2012 08/23/2016 Backache 11/04/2012 08/23/2016 Premenopausal menorrhagia 01/24/20122012 Chronic SI joint pain 03/24/2011 08/23/2016 History of depression 03/24/2011 12/13/2011 Back pain 02/15/2011 08/23/2016 DDD (degenerative disc disease), lumbar 02/16/20 11 08/23/2016 Lumbago 02/08/2007 08/23/2016 Overview: Herniated disc L4-L5. LIPOMA OTHER SPECIFIED SITES 01/31/2007 Diffuse cystic mastopathy 01/31/20072016 Nontoxic uninodular goiter 01/15/200708/23 Enthesopathy of hip region 09/28/200508/23 Nontoxic multinodular goiter 02/15/200508/2011 Headache(784.0) 02/15/2005 08/23/2016 documented as of this encounter (statuses as of 05/04/2022) [facility] Narrative* Problem Noted Date Diagnosed Date Resolved Date Screening for colon cancer 02/21/2018 1 06/01/2021 Overview: Added automatically from request for surgery [id number] Pain in right elbow 02/05/2015 08/24/19 17 Arthrodesis status 11/04/2012 7 Backache 11/04/2012 08/23/2016 Premenopausal menorrhagia 01/24/2012 Chronic SI joint pain 03/24/20112016 History of depression 03/24/20112011 Back pain 02/15/2011 08/23/2016 DDD (degenerative disc disease), lumbar 02/15/2011 08/23/2016 Lumbago 02/08/2007 08/23/2016 Overview: Herniated disc L4-L5. LIPOMA OTHER SPECIFIED SITES 01/31/2007 08/23/2016 Diffuse cystic mastopathy 01/31/2007 Nontoxic uninodular goiter 01/15/2007 0 08/23/2016 Enthesopathy of hip region 09/28/2005 0 08/23/2016 Nontoxic multinodular goiter 02/15/2005 12/13/2011 Headache(784.0) 02/15/2005 08/23/2016 documented as of this encounter (statuses as of 10/26/2022) [facility] Narrative* Problem Noted Date Resolved Date Pain in right elbow 02/05/2015 08/23/2016 Arthrodesis status 11/04/2012 08/23/2016 Backache 11/04/2012 08/23/2016 Premenopausal menorrhagia 01/24/20122012 Chronic SI joint pain 03/24/2011 08/23/2016 History of depression 03/24/2011 12/13/2011 Back pain 02/15/2011 08/23/2016 DDD (degenerative disc disease), lumbar 02/16/20 11 08/23/2016 Lumbago 02/08/2007 08/23/2016 Overview: Herniated disc L4-L5. LIPOMA OTHER SPECIFIED SITES 01/31/2007 Diffuse cystic mastopathy 01/31/20072016 Nontoxic uninodular goiter 01/15/200708/23 Enthesopathy of hip region 09/28/200508/23 Nontoxic multinodular goiter 02/15/200508/2011 Headache(784.0) 02/15/2005 08/23/2016 documented as of this encounter (statuses as of 07/01/2021) [facility]arrative* Problem Noted Date Resolved Date Pain in right elbow 02/05/2015 08/23/2016 Arthrodesis status 11/04/2012 08/23/2016 Backache 11/04/2012 08/23/2016 Premenopausal menorrhagia 01/24/20122012 Chronic SI joint pain 03/24/2011 08/23/2016 History of depression 03/24/2011 12/13/2011 Back pain 02/15/2011 08/23/2016 DDD (degenerative disc disease), lumbar 02/16/20 11 08/23/2016 Lumbago 02/08/2007 08/23/2016 Overview: Herniated disc L4-L5. LIPOMA OTHER SPECIFIED SITES 01/31/2007 Diffuse cystic mastopathy 01/31/20072016 Nontoxic uninodular goiter 01/15/200708/23 Enthesopathy of hip region 09/28/200508/23 Nontoxic multinodular goiter 02/15/200508/2011 Headache(784.0) 02/15/2005 08/23/2016 documented as of this encounter (statuses as of 07/25/2021) [facility]* Problem Noted Date Resolved Date Pain in right elbow 02/05/2015 08/23/2016 Arthrodesis status 11/04/2012 08/23/2016 Backache 11/04/2012 08/23/2016 Premenopausal menorrhagia 01/24/20122012 Chronic SI joint pain 03/24/2011 08/23/2016 History of depression 03/24/2011 12/13/2011 Back pain 02/15/2011 08/23/2016 DDD (degenerative disc disease), lumbar 02/16/20 11 08/23/2016 Lumbago 02/08/2007 08/23/2016 Overview: Herniated disc L4-L5. LIPOMA OTHER SPECIFIED SITES 01/31/2007 Diffuse cystic mastopathy 01/31/20072016 Nontoxic uninodular goiter 01/15/200708/23 Enthesopathy of hip region 09/28/200508/23 Nontoxic multinodular goiter 02/15/200508/2011 Headache(784.0) 02/15/2005 08/23/2016 documented as of this encounter (statuses as of 11/21/2021) [facility]* Problem Noted Date Resolved Date Pain in right elbow 02/05/2015 08/23/2016 Arthrodesis status 11/04/2012 08/23/2016 Backache 11/04/2012 08/23/2016 Premenopausal menorrhagia 01/24/20122012 Chronic SI joint pain 03/24/2011 08/23/2016 History of depression 03/24/2011 12/13/2011 Back pain 02/15/2011 08/23/2016 DDD (degenerative disc disease), lumbar 02/16/20 11 08/23/2016 Lumbago 02/08/2007 08/23/2016 Overview: Herniated disc L4-L5. LIPOMA OTHER SPECIFIED SITES 01/31/2007 Diffuse cystic mastopathy 01/31/20072016 Nontoxic uninodular goiter 01/15/200708/23 Enthesopathy of hip region 09/28/200508/23 Nontoxic multinodular goiter 02/15/200508/2011 Headache(784.0) 02/15/2005 08/23/2016 documented as of this encounter (statuses as of 12/09/2021) [facility]* Problem Noted Date Resolved Date Pain in right elbow 02/05/2015 08/23/2016 Arthrodesis status 11/04/2012 08/23/2016 Backache 11/04/2012 08/23/2016 Premenopausal menorrhagia 01/24/20122012 Chronic SI joint pain 03/24/2011 08/23/2016 History of depression 03/24/2011 12/13/2011 Back pain 02/15/2011 08/23/2016 DDD (degenerative disc disease), lumbar 02/16/20 11 08/23/2016 Lumbago 02/08/2007 08/23/2016 Overview: Herniated disc L4-L5. LIPOMA OTHER SPECIFIED SITES 01/31/2007 Diffuse cystic mastopathy 01/31/20072016 Nontoxic uninodular goiter 01/15/200708/23 Enthesopathy of hip region 09/28/200508/23 Nontoxic multinodular goiter 02/15/200508/2011 Headache(784.0) 02/15/2005 08/23/2016 documented as of this encounter (statuses as of 12/22/2021) [facility]* Problem Noted Date Resolved Date Pain in right elbow 02/05/2015 08/23/2016 Arthrodesis status 11/04/2012 08/23/2016 Backache 11/04/2012 08/23/2016 Premenopausal menorrhagia 01/24/20122012 Chronic SI joint pain 03/24/2011 08/23/2016 History of depression 03/24/2011 12/13/2011 Back pain 02/15/2011 08/23/2016 DDD (degenerative disc disease), lumbar 02/16/20 11 08/23/2016 Lumbago 02/08/2007 08/23/2016 Overview: Herniated disc L4-L5. LIPOMA OTHER SPECIFIED SITES 01/31/2007 Diffuse cystic mastopathy 01/31/20072016 Nontoxic uninodular goiter 01/15/200708/23 Enthesopathy of hip region 09/28/200508/23 Nontoxic multinodular goiter 02/15/200508/2011 Headache(784.0) 02/15/2005 08/23/2016 documented as of this encounter (statuses as of 12/29/2021) [facility]* Problem Noted Date Resolved Date Pain in right elbow 02/05/2015 08/23/2016 Arthrodesis status 11/04/2012 08/23/2016 Backache 11/04/2012 08/23/2016 Premenopausal menorrhagia 01/24/20122012 Chronic SI joint pain 03/24/2011 08/23/2016 History of depression 03/24/2011 12/13/2011 Back pain 02/15/2011 08/23/2016 DDD (degenerative disc disease), lumbar 02/16/20 11 08/23/2016 Lumbago 02/08/2007 08/23/2016 Overview: Herniated disc L4-L5. LIPOMA OTHER SPECIFIED SITES 01/31/2007 Diffuse cystic mastopathy 01/31/20072016 Nontoxic uninodular goiter 01/15/200708/23 Enthesopathy of hip region 09/28/200508/23 Nontoxic multinodular goiter 02/15/200508/2011 Headache(784.0) 02/15/2005 08/23/2016 documented as of this encounter (statuses as of 01/03/2022) [facility]* Problem Noted Date Resolved Date Pain in right elbow 02/05/2015 08/23/2016 Arthrodesis status 11/04/2012 08/23/2016 Backache 11/04/2012 08/23/2016 Premenopausal menorrhagia 01/24/20122012 Chronic SI joint pain 03/24/2011 08/23/2016 History of depression 03/24/2011 12/13/2011 Back pain 02/15/2011 08/23/2016 DDD (degenerative disc disease), lumbar 02/16/20 11 08/23/2016 Lumbago 02/08/2007 08/23/2016 Overview: Herniated disc L4-L5. LIPOMA OTHER SPECIFIED SITES 01/31/2007 Diffuse cystic mastopathy 01/31/20072016 Nontoxic uninodular goiter 01/15/200708/23 Enthesopathy of hip region 09/28/200508/23 Nontoxic multinodular goiter 02/15/200508/2011 Headache(784.0) 02/15/2005 08/23/2016 documented as of this encounter (statuses as of 01/30/2022) [facility]* Problem Noted Date Resolved Date Pain in right elbow 02/05/2015 08/23/2016 Arthrodesis status 11/04/2012 08/23/2016 Backache 11/04/2012 08/23/2016 Premenopausal menorrhagia 01/24/20122012 Chronic SI joint pain 03/24/2011 08/23/2016 History of depression 03/24/2011 12/13/2011 Back pain 02/15/2011 08/23/2016 DDD (degenerative disc disease), lumbar 02/16/20 11 08/23/2016 Lumbago 02/08/2007 08/23/2016 Overview: Herniated disc L4-L5. LIPOMA OTHER SPECIFIED SITES 01/31/2007 Diffuse cystic mastopathy 01/31/20072016 Nontoxic uninodular goiter 01/15/200708/23 Enthesopathy of hip region 09/28/200508/23 Nontoxic multinodular goiter 02/15/200508/2011 Headache(784.0) 02/15/2005 08/23/2016 documented as of this encounter (statuses as of 02/06/2022) [facility]* Problem Noted Date Resolved Date Pain in right elbow 02/05/2015 08/23/2016 Arthrodesis status 11/04/2012 08/23/2016 Backache 11/04/2012 08/23/2016 Premenopausal menorrhagia 01/24/20122012 Chronic SI joint pain 03/24/2011 08/23/2016 History of depression 03/24/2011 12/13/2011 Back pain 02/15/2011 08/23/2016 DDD (degenerative disc disease), lumbar 02/16/20 11 08/23/2016 Lumbago 02/08/2007 08/23/2016 Overview: Herniated disc L4-L5. LIPOMA OTHER SPECIFIED SITES 01/31/2007 Diffuse cystic mastopathy 01/31/20072016 Nontoxic uninodular goiter 01/15/200708/23 Enthesopathy of hip region 09/28/200508/23 Nontoxic multinodular goiter 02/15/200508/2011 Headache(784.0) 02/15/2005 08/23/2016 documented as of this encounter (statuses as of 02/24/2022) [facility] History of Past illness Narrative* Problem Noted Date Resolved Date Pain in right elbow 02/05/2015 08/23/2016 Arthrodesis status 11/04/2012 08/23/2016 Backache 11/04/2012 08/23/2016 Premenopausal menorrhagia 01/24/20122012 Chronic SI joint pain 03/24/2011 08/23/2016 History of depression 03/24/2011 12/13/2011 Back pain 02/15/2011 08/23/2016 DDD (degenerative disc disease), lumbar 02/16/20 11 08/23/2016 Lumbago 02/08/2007 08/23/2016 Overview: Herniated disc L4-L5. LIPOMA OTHER SPECIFIED SITES 01/31/2007 Diffuse cystic mastopathy 01/31/20072016 Nontoxic uninodular goiter 01/15/200708/23 Enthesopathy of hip region 09/28/200508/23 Nontoxic multinodular goiter 02/15/200508/2011 Headache(784.0) 02/15/2005 08/23/2016 documented as of this encounter (statuses as of 03/03/2022) [facility] History of Past illness Narrative* Problem Noted Date Resolved Date Pain in right elbow 02/05/2015 08/23/2016 Arthrodesis status 11/04/2012 08/23/2016 Backache 11/04/2012 08/23/2016 Premenopausal menorrhagia 01/24/20122012 Chronic SI joint pain 03/24/2011 08/23/2016 History of depression 03/24/2011 12/13/2011 Back pain 02/15/2011 08/23/2016 DDD (degenerative disc disease), lumbar 02/16/20 11 08/23/2016 Lumbago 02/08/2007 08/23/2016 Overview: Herniated disc L4-L5. LIPOMA OTHER SPECIFIED SITES 01/31/2007 Diffuse cystic mastopathy 01/31/20072016 Nontoxic uninodular goiter 01/15/200708/23 Enthesopathy of hip region 09/28/200508/23 Nontoxic multinodular goiter 02/15/200508/2011 Headache(784.0) 02/15/2005 08/23/2016 documented as of this encounter (statuses as of 03/09/2022) [facility] History of Past illness Narrative* Problem Noted Date Resolved Date Pain in right elbow 02/05/2015 08/23/2016 Arthrodesis status 11/04/2012 08/23/2016 Backache 11/04/2012 08/23/2016 Premenopausal menorrhagia 01/24/20122012 Chronic SI joint pain 03/24/2011 08/23/2016 History of depression 03/24/2011 12/13/2011 Back pain 02/15/2011 08/23/2016 DDD (degenerative disc disease), lumbar 02/16/20 11 08/23/2016 Lumbago 02/08/2007 08/23/2016 Overview: Herniated disc L4-L5. LIPOMA OTHER SPECIFIED SITES 01/31/2007 Diffuse cystic mastopathy 01/31/20072016 Nontoxic uninodular goiter 01/15/200708/23 Enthesopathy of hip region 09/28/200508/23 Nontoxic multinodular goiter 02/15/200508/2011 Headache(784.0) 02/15/2005 08/23/2016 documented as of this encounter (statuses as of 03/29/2022) [facility] Diagnosis Lump of skin Localized superficial swelling, mass, or lump [facility] Diagnosis Tailbone injury, initial encounter- Primary Chronic low back pain with sciatica, sciatica laterality unspecified, unspecified back pain laterality [facility] Diagnosis Edema, unspecified type S/P lumbar fusion Arthrodesis status Moderate episode of recurrent major depressive disorder (HCC) Postoperative hypothyroidism Postsurgical hypothyroidism [facility] Diagnosis Sinus pressure- Primary Other diseases of nasal cavity and sinuses Acute cough [facility] Diagnosis Edema, unspecified type Seasonal allergies Allergic rhinitis, cause unspecified [facility] Diagnosis Postoperative hypothyroidism Postsurgical hypothyroidism [facility] Diagnosis S/P lumbar fusion Arthrodesis status Moderate episode of recurrent major depressive disorder (HCC) [facility] Diagnosis Encounter for screening mammogram for breast cancer [facility] Diagnosis Postoperative hypothyroidism Postsurgical hypothyroidism Edema, unspecified type [facility]* Diagnosis 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)- Primary Postoperative hypothyroidism Postsurgical hypothyroidism Chronic hepatitis C without hepatic coma (HCC) Chronic hepatitis C without mention of hepatic coma Essential hypertension Unspecified essential hypertension [facility] Diagnosis S/P lumbar fusion Arthrodesis status Moderate episode of recurrent major depressive disorder (HCC) TMJ dysfunction Temporomandibular joint disorders, unspecified [facility] Diagnosis S/P lumbar fusion Arthrodesis status Moderate episode of recurrent major depressive disorder (HCC) [facility] Diagnosis Edema, unspecified type Postoperative hypothyroidism Postsurgical hypothyroidism [facility]* Diagnosis 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)- Primary S/P lumbar fusion Arthrodesis status Moderate episode of recurrent major depressive disorder (HCC) Postoperative hypothyroidism Postsurgical hypothyroidism Edema, unspecified type History of heroin abuse (HCC) Opioid abuse, in remission Chronic hepatitis C without hepatic coma (HCC) Chronic hepatitis C without mention of hepatic coma Essential hypertension Unspecified essential hypertension Mass of skin of back Chronic pain of both knees Arthralgia, unspecified joint Screening breast examination Breast screening, unspecified [facility]* Diagnosis Seasonal allergies Allergic rhinitis, cause unspecified [facility] Diagnosis Postoperative hypothyroidism- Primary Postsurgical hypothyroidism [facility] Diagnosis S/P lumbar fusion Arthrodesis status Moderate episode of recurrent major depressive disorder (HCC) [facility] Diagnosis Encounter for gynecological examination (general) (routine) without abnormal findings- Primary Screening for cervical cancer Screening for malignant neoplasm of the cervix Encounter for screening for human papillomavirus (HPV) Special screening examination for human papillomavirus (HPV) Encounter for screening mammogram for malignant neoplasm of breast Other screening mammogram [facility] Diagnosis Edema, unspecified type Postoperative hypothyroidism Postsurgical hypothyroidism [facility] Diagnosis Follicular lymphoma grade I of lymph nodes of multiple sites- Primary Nodular lymphoma of lymph nodes of multiple sites [facility] Diagnosis Follicular lymphoma grade I of lymph nodes of multiple sites 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 for referral (narrative)* Diagnostic Procedure Only (Urgent) - Closed Specialty Diagnoses / Procedures Referred By Aniya royal Referred To Contact XR IMAGING Diagnoses Tailbone injury, initial encounter Procedures XR SACRUM/COCCYX 3V AP/LAT RADEX SACRUM & COCCYX MINIMUM 2 VIEWS La Alejandra PA-C [address] [place] [address] Xr Imaging Referral ID Status Reason Start Date Expiration Date V isits Requested Visits Authorized [id number] Closed Auto-Generate d Referral 07/25/2021 08/24/2022 1 1 * Diagnostic Procedure Only (Urgent) - Closed Specialty Diagnoses / Procedures Referred By Contac t Referred To Contact XR IMAGING Diagnoses Chronic low back pain with sciatica, sciatica laterality unspecified, unspecified back pain laterality Procedures XR LUMBAR GENERAL 3V AP/LAT/L5-S1 RADEX SPINE LUMBOSACRAL 2/3 VIEWS La Alejandra PA-C [address] [place] [address] Xr Imaging Referral ID Status Reason Start Date Expiration Date V isits Requested Visits Authorized [id number] Closed Auto-Generate d Referral 07/25/2021 08/24/[address] [facility] for referral (narrative)* Diagnostic Procedure Only (Routine) - Pending Review Specialty Diagnoses / Procedures Referred By Aniya t Referred To Contact BR IMAGING Diagnoses Encounter for screening mammogram for breast cancer Procedures GRACE SCREENING SCREENING MAMMOGRAPHY BI 2-VIEW BREAST INC CAD Jade Underwood MD [address] [place] [address] [facility] [address] [place] [address] Referral ID Status Reason Start Date Expiration Date Visits Requested Visits Authorized [id number] Pending Review Auto-Generat ed Referral 02/24/[address] [facility] for referral (narrative)* Diagnostic Procedure Only (Routine) - Authorized Specialty Diagnoses / Procedures Referred By Aniya royal Referred To Contact BR IMAGING Diagnoses Screening breast examination Procedures GRACE SCREENING SCREENING MAMMOGRAPHY BI 2-VIEW BREAST INC CAD Jade Underwood MD [facility] [place] [address] [facility] [address] [place] [address] Referral ID Status Reason Start Date Expiration Date Visits Requested Visits Authorized [id number] Authorized Auto-Generat ed Referral 05/04/2022 06/03/2023 1 1 * Diagnostic Procedure Only (Routine) - Authorized Specialty Diagnoses / Procedures Referred By Aniya t Referred To Contact US IMAGING Diagnoses Mass of skin of back Procedures US CHEST WALL/SOFT TISSUE US CHEST REAL TIME W/IMAGE DOCUMENTATION Jade Underwood MD [address] [place] [address] Us [facility] Referral ID Status Reason Start Date Expiration Date Visits Requested Visits Authorized [id number] Authorized Auto-Generat ed Referral 05/04/2022 06/03/2023 1 1 * Diagnostic Procedure Only (Routine) - Pending Review Specialty Diagnoses / Procedures Referred By Yaniac t Referred To Contact XR IMAGING Diagnoses Chronic pain of both knees Procedures XR KNEE GENERAL 4V AP BOTH/PA BOTH/LAT/MERC BILATERAL RADIOLOGIC EXAM KNEE COMPLETE 4/MORE VIEWS Jade Underwood MD [address] [place] [address] Xr Imaging Referral ID Status Reason Start Date Expiration Date Visits Requested Visits Authorized [id number] Pending Review Auto-Generat ed Referral 05/04/2022 06/03/2023 1 1 [facility] Diagnostic Procedure Only (Routine) - Pending Review Specialty Diagnoses / Procedures Referred By Aniya t Referred To Contact BR IMAGING Diagnoses Encounter for screening mammogram for malignant neoplasm of breast Procedures GRACE SCREENING SCREENING MAMMOGRAPHY BI 2-VIEW BREAST INC Sheridan Grayson APRN.CNP [address] [place] [address] [facility] [address] [place] [address] Referral ID Status Reason Start Date Expiration Date Visits Requested Visits Authorized [id number] Pending Review Auto-Generat ed Referral 11/22/2022 12/22/2023 1 1 [facility] Summary Purpose Family History No Family History Records FoundNo Family History Records FoundNo Family History Records Found Advance Directives No Advanced Directives Records FoundNo Advanced Directives Records FoundNo Advanced Directives Records Found Reason for Referral Specialty Diagnoses / Procedures Referred By Aniya t Referred To Contact Diagnoses Follicular lymphoma grade I of lymph nodes of multiple sites Procedures BONE MARROW ASPIRATE AND BIOPSY Erick Fowler MD,MS [address] [place] [address] Referral ID Status Reason Start Date Expiration Date V isits Requested Visits Authorized [id number] Auth Not Needed 01/30/2023 02/24/2024 1 1 Specialty Diagnoses / Procedures Referred By Contac t Referred To Contact Diagnoses Follicular lymphoma grade I of lymph nodes of multiple sites Procedures BONE MARROW ASPIRATION Erick Fowler MD,MS [address] [place] [address] Referral ID Status Reason Start Date Expiration Date V isits Requested Visits Authorized [id number] New Request 01/30/2023 02/24/2024 1 1 Specialty Diagnoses / Procedures Referred By Contac t Referred To Contact Diagnoses Follicular lymphoma grade I of lymph nodes of multiple sites Procedures NUC PET LYMPHOMA CHG NUC THERAPY HYPERTHYROID SUBSEQUENT Erick Fowler MD,MS [address] [place] [address] Referral ID Status Reason Start Date Expiration Date V isits Requested Visits Authorized [id number] Pending Review 01/30/2023 02/24/2024 1 1 Additional Source Comments INFORMATION SOURCE (unrecogn ized section and content) DATE CREATED AUTHOR AUTHOR'S ORGANIZ ATION 03/21/2023 [facility] DATE CREATED AUTHOR AUTHOR'S ORGANIZ ATION 05/13/2023 [facility] Source Comments (unrecognize d section and content) In the event this informatio n is protected by the Federal Confidentiality of Alcohol and Drug Abuse Patient Records regulations: The Federal rules restrict any use of the information to criminally investigate or prosecute any alcohol or drug abuse patient.[facility] the event this information is protected by the Federal Confidentiality of Alcohol and Drug Abuse Patient Records regulations: The Federal rules restrict any use of the information to criminally investigate or prosecute any alcohol or drug abuse patient.[facility] the event this information is protected by the Federal Confidentiality of Alcohol and Drug Abuse Patient Records regulations: The Federal rules restrict any use of the information to criminally investigate or prosecute any alcohol or drug abuse patient.[facility] the event this information is protected by the Federal Confidentiality of Alcohol and Drug Abuse Patient Records regulations: The Federal rules restrict any use of the information to criminally investigate or prosecute any alcohol or drug abuse patient.[facility] the event this information is protected by the Federal Confidentiality of Alcohol and Drug Abuse Patient Records regulations: The Federal rules restrict any use of the information to criminally investigate or prosecute any alcohol or drug abuse patient.[facility] the event this information is protected by the Federal Confidentiality of Alcohol and Drug Abuse Patient Records regulations: The Federal rules restrict any use of the information to criminally investigate or prosecute any alcohol or drug abuse patient.[facility] the event this information is protected by the Federal Confidentiality of Alcohol and Drug Abuse Patient Records regulations: The Federal rules restrict any use of the information to criminally investigate or prosecute any alcohol or drug abuse patient.[facility] the event this information is protected by the Federal Confidentiality of Alcohol and Drug Abuse Patient Records regulations: The Federal rules restrict any use of the information to criminally investigate or prosecute any alcohol or drug abuse patient.[facility] the event this information is protected by the Federal Confidentiality of Alcohol and Drug Abuse Patient Records regulations: The Federal rules restrict any use of the information to criminally investigate or prosecute any alcohol or drug abuse patient.[facility] the event this information is protected by the Federal Confidentiality of Alcohol and Drug Abuse Patient Records regulations: The Federal rules restrict any use of the information to criminally investigate or prosecute any alcohol or drug abuse patient.[facility] the event this information is protected by the Federal Confidentiality of Alcohol and Drug Abuse Patient Records regulations: The Federal rules restrict any use of the information to criminally investigate or prosecute any alcohol or drug abuse patient.[facility] the event this information is protected by the Federal Confidentiality of Alcohol and Drug Abuse Patient Records regulations: The Federal rules restrict any use of the information to criminally investigate or prosecute any alcohol or drug abuse patient.[facility] the event this information is protected by the Federal Confidentiality of Alcohol and Drug Abuse Patient Records regulations: The Federal rules restrict any use of the information to criminally investigate or prosecute any alcohol or drug abuse patient.[facility] the event this information is protected by the Federal Confidentiality of Alcohol and Drug Abuse Patient Records regulations: The Federal rules restrict any use of the information to criminally investigate or prosecute any alcohol or drug abuse patient.[facility] the event this information is protected by the Federal Confidentiality of Alcohol and Drug Abuse Patient Records regulations: The Federal rules restrict any use of the information to criminally investigate or prosecute any alcohol or drug abuse patient.[facility] the event this information is protected by the Federal Confidentiality of Alcohol and Drug Abuse Patient Records regulations: The Federal rules restrict any use of the information to criminally investigate or prosecute any alcohol or drug abuse patient.[facility] the event this information is protected by the Federal Confidentiality of Alcohol and Drug Abuse Patient Records regulations: The Federal rules restrict any use of the information to criminally investigate or prosecute any alcohol or drug abuse patient.[facility] the event this information is protected by the Federal Confidentiality of Alcohol and Drug Abuse Patient Records regulations: The Federal rules restrict any use of the information to criminally investigate or prosecute any alcohol or drug abuse patient.[facility] the event this information is protected by the Federal Confidentiality of Alcohol and Drug Abuse Patient Records regulations: The Federal rules restrict any use of the information to criminally investigate or prosecute any alcohol or drug abuse patient.[facility]In the event this information is protected by the Federal Confidentiality of Alcohol and Drug Abuse Patient Records regulations: The Federal rules restrict any use of the information to criminally investigate or prosecute any alcohol or drug abuse patient.[facility] HospitalIn the event this information is protected by the Federal Confidentiality of Alcohol and Drug Abuse Patient Records regulations: The Federal rules restrict any use of the information to criminally investigate or prosecute any alcohol or drug abuse patient.[facility] HospitalIn the event this information is protected by the Federal Confidentiality of Alcohol and Drug Abuse Patient Records regulations: The Federal rules restrict any use of the information to criminally investigate or prosecute any alcohol or drug abuse patient.[facility] HospitalIn the event this information is protected by the Federal Confidentiality of Alcohol and Drug Abuse Patient Records regulations: The Federal rules restrict any use of the information to criminally investigate or prosecute any alcohol or drug abuse patient.[facility]In the event this information is protected by the Federal Confidentiality of Alcohol and Drug Abuse Patient Records regulations: The Federal rules restrict any use of the information to criminally investigate or prosecute any alcohol or drug abuse patient.[facility]In the event this information is protected by the Federal Confidentiality of Alcohol and Drug Abuse Patient Records regulations: The Federal rules restrict any use of the information to criminally investigate or prosecute any alcohol or drug abuse patient.[facility] HospitalIn the event this information is protected by the Federal Confidentiality of Alcohol and Drug Abuse Patient Records regulations: The Federal rules restrict any use of the information to criminally investigate or prosecute any alcohol or drug abuse patient.[facility] Reason for Visit (unrecogniz ed section and content) Reason Comments Fall tailbone pain x thur s after fall, blood pressure elevated Reason Onset Date Comments Refill Request 11/18/2021 Reason Comments Sore Throat Pain rated 3, x2 wks , bilateral ear decreased hearing, cough, intermittent SOB, denied chest pain. Reason Onset Date Comments Refill Request 12/22/2021 Reason Onset Date Comments Refill Request 12/29/2021 Reason Onset Date Comments Refill Request 01/03/2022 Reason Comments Refill Request Reason Onset Date Comments Refill Request 02/24/2022 Reason Onset Date Comments Refill Request 03/03/2022 Reason Comments Thyroid Disease Reason Onset Date Comments Refill Request 03/29/2022 Reason Comments Follow Up Reason Onset Date Comments Refill Request 04/06/2022 Reason Comments Forms Reason Onset Date Comments Refill Request 04/28/2022 Reason Comments Follow Up Arthritis Reason Onset Date Comments Refill Request 10/26/2022 Reason Comments Results Reason Onset Date Comments Refill Request 11/14/2022 Reason Comments Yearly Exam Specialty Diagnoses / Procedures Referred By Contac t Referred To Contact Gynecology Diagnoses Screening for cervical cancer Procedures CONSULT TO GYNECOLOGY OFFICE/OUTPATIENT [facility] MDM 60-74 MINUTES Jade Underwood MD [address] [place] [address] Referral ID Status Reason Start Date Expiration Date V isits Requested Visits Authorized [id number] Closed PCP Requested Referral Auto-Generated Referral 11/02/2022 11/02/2023 1 1 Reason Onset Date Comments Refill Request 11/23/2022 Reason Comments Follow-up Specialty Diagnoses / Procedures Referred By Aniya t Referred To Contact Diagnoses Follicular lymphoma grade I of lymph nodes of multiple sites Procedures BONE MARROW ASPIRATE AND BIOPSY Erick Fowler MD,MS [address] [place] [address] Referral ID Status Reason Start Date Expiration Date V isits Requested Visits Authorized [id number] Auth Not Needed 01/30/2023 02/24/2024 1 1 Reason Comments Letter No show letter #1 Reason Onset Date Comments Refill Request 05/14/2023 Care Teams (unrecognized sec tion and content) Engineering Specialist Technician Relationship Specialty Start Date End Date Jade Underwood MD [address] [place] [address] PCP - General 11/04/14 Engineering Specialist Technician Relationship Specialty Start Date End Date Jade Underwood MD [address] [place] [id number] PCP - General 11/04/14 Engineering Specialist Technician Relationship Specialty Start Date End Date Jade Underwood MD [address] [place] [address] PCP - General 11/04/14 Engineering Specialist Technician Relationship Specialty Start Date End Date Jade Underwood MD [address] [place] [address] PCP - General 11/04/14 Engineering Specialist Technician Relationship Specialty Start Date End Date Jade Underwood MD [address] [place] [id number] PCP - General 11/04/14 Engineering Specialist Technician Relationship Specialty Start Date End Date Jade Underwood MD [address] [place] [address] PCP - General 11/04/14 Engineering Specialist Technician Relationship Specialty Start Date End Date Jade Underwood MD [address] [place] [address] PCP - General 11/04/14 Engineering Specialist Technician Relationship Specialty Start Date End Date Jade Underwood MD [address] [place] [address] PCP - General 11/04/14 Engineering Specialist Technician Relationship Specialty Start Date End Date Jade Underwood MD [address] [place] [address] PCP - General 11/04/14 Engineering Specialist Technician Relationship Specialty Start Date End Date Jade Underwood MD [address] [place] [address] PCP - General 11/04/14 Engineering Specialist Technician Relationship Specialty Start Date End Date Jade Underwood MD [address] [place] [address] PCP - General 11/04/14 Engineering Specialist Technician Relationship Specialty Start Date End Date Jade Underwood MD [address] [place] [address] PCP - General 11/04/14 Engineering Specialist Technician Relationship Specialty Start Date End Date Jade Underwood MD [address] [facility] [place] [address] PCP - General 11/04/14 Engineering Specialist Technician Relationship Specialty Start Date End Date Jade Underwood MD [address] [place] [address] PCP - General 11/04/14 Engineering Specialist Technician Relationship Specialty Start Date End Date Jade Underwood MD [address] [place], [place] [id number] PCP - General 11/04/14 Engineering Specialist Technician Relationship Specialty Start Date End Date Jade Underwood MD [address] [place], [place] [address] PCP - General 11/04/14 Engineering Specialist Technician Relationship Specialty Start Date End Date Erick Fowler MD,MS [address] [place] [id number] Hematology 01/25/23 Leena Gonzales [facility] [address] [facility] [place] [address] Oncologist Medical Oncology 01/25/23 Engineering Specialist Technician Relationship Specialty Start Date End Date Merna Sykes RN PCP - General Hematology and Oncology 02/01/23 Erick Fowler MD,MS [address] [place] [phone] Hematology 01/25/23 Leena Gonzales [facility] [address] [place] [address] Oncologist Medical Oncology 01/25/23 FOR RECORDS PERTAINING TO PATIENTS WHO ARE OR HAVE BEEN ENROLLED IN A CHEMICAL DEPENDENCY/SUBSTANCEABUSE PROGRAM, SOME INFORMATION MAY BE OMITTED. This clinical summary was aggregated from multiple sources. Caution should be exercised in using it in the provision of clinical care. This summary normalizes information from multiple sources, and as a consequence, information in this document may materially change the coding, format and clinical context of patient data. In addition, data may be omitted in some cases. CLINICAL DECISIONS SHOULD BE BASED ON THE PRIMARY CLINICAL RECORDS. [facility]. provides no warranty or guarantee of the accuracy or completeness of information in this document.
== END 2023-05-18 20:31 | disposition left against medical advice (07) ==
LOC: ED 20:31
PROVIDERS: PCP Family Medicine
DX: R69 Illness, unspecified (principal); Z53.21 Procedure and treatment not carried out due to patient leaving prior to being seen by health care provider

== ENCOUNTER 2023-05-18 22:46 | Emergency (ER) | payer MEDICAID, SELFPAY ==
[2023-05-18 22:47] VITALS: BP 165/98; PULSE 91; RESP 18; TEMP 36.6; O2SAT 100; BMI 31.1
--- NOTE | 2023-05-18 23:16 | EX.ED.SAOD ---
HPI History of Present Illness Chief Complaint: Substance Abuse Narrative Narrative: 57-year-old female states that she is withdrawing from OxyContin and is experiencing nausea and diarrhea with abdominal cramping. She states she has not taken Suboxone in quite some time. While she presents, she would like symptomatic treatment as she is unable to enter detox for opiates because she has a child at home. She states that she has not vomited today but is having abdominal cramping and diarrhea. PFSH [facility] Medical History Allergies Anemia Anxiety Anxiety and depression Arthritis Chronic back pain Delayed surgical wound healing Depression Drug abuse Easy bruising Excessive bleeding Follicular lymphoma Gastric reflux Heartburn Hepatitis C virus infection cured after antiviral drug therapy History of edema Hypertension Leg cramps Lipoma of right axilla Lymph node enlargement Lymphoma Mass of right axilla Open wound Open wound of right axillary region Osteoarthritis Pain in right upper arm Post-menopausal Shortness of breath on exertion Smoker Substance abuse Thyroid disease Wears dentures Home Medications duloxetine 60 mg capsule,delayed release (Cymbalta) 60 mg PO DAILY 09/16/20 [History Last Taken 01/11/22 06:00] buprenorphine 8 mg-naloxone 2 mg sublingual tablet 1 tab sublingual BID 05/03/21 [History Last Taken Unknown] bupropion HCl 150 mg tablet,12 hr sustained-release (Wellbutrin SR) 150 mg PO BID 05/03/21 [History Last Taken 01/11/22 06:00] cetirizine 10 mg tablet 10 mg PO DAILY PRN allergies 12/18/22 [History Last Taken Unknown] chlorthalidone 25 mg tablet 25 mg PO DAILY 12/18/22 [History Last Taken Unknown] levothyroxine 200 mcg tablet 200 mcg PO DAILY 12/18/22 [History Last Taken Unknown] levothyroxine 25 mcg tablet 25 mcg PO DAILY 12/18/22 [History Last Taken Unknown] ondansetron 4 mg disintegrating tablet 4 mg PO Q6H PRN nausea and vomiting #7 tabs 04/02/23 [Rx Last Taken Unknown] dicyclomine 20 mg tablet 20 mg PO TID #20 tabs 05/18/23 [Rx Last Taken Unknown] ondansetron 4 mg disintegrating tablet 4 mg PO Q6H PRN nausea and vomiting #20 tabs 05/18/23 [Rx Last Taken Unknown] Allergy/AdvReac Type Severity Reaction Status Date / Time gabapentin Allergy Intermediate Hives Verified 05/18/23 22:50 Sulfa (Sulfonamide Allergy Intermediate HIVES, Verified 05/18/23 22:50 Antibiotics) NAUSEA morphine AdvReac Mild Nausea Verified 05/18/23 22:50 Family History Grandmother Arthritis Thyroid disorder Breast cancer Diabetes Hypertension CVA (cerebral vascular accident) Grandfather Diabetes Mother Anesthesia complication Asthma Severe allergy Grandmother Breast cancer High cholesterol Thyroid disorder Father CVA (cerebral vascular accident) Surgical History H/O total thyroidectomy History of axillary surgery History of back surgery History of excision of mass History of tubal ligation Status post removal of thyroid nodule Social History Smoking Status: Current every day smoker tobacco type: cigarettes and e-cigarettes Tobacco: How many years used: 35 how long ago did patient quit smoking: only smoking 1-2 cigarettes/day second hand exposure: No counseling given: provider counseling alcohol intake: never substance use type: former substance user Date of last use: 3.5 YEARS AGO, marijuana, heroin and methamphetamine brenda/denominational: Temple seatbelt use: always do you feel safe at home: Yes additional social history: Does Not Take Aspirin Does Take Ibuprofen As Needed ROS ROS ED ROS Narrative Constitutional: No fever, no chills. HEENT: No sore throat. No neck pain. No loss of vision. No rhinorrhea. Cardiovascular: No chest pain. No palpitations. No pedal edema. Respiratory: No cough, no shortness of breath. Abdominal: Crampy abdominal pain. Positive nausea. No vomiting. Positive diarrhea Genitourinary: No dysuria. No hematuria. Musculoskeletal: No myalgias. No arthralgias. Neurologic: No headaches. No dizziness. No lightheadedness. Skin: No rash. No change in color. Psychiatric: No depression. No anxiety. EXAM Physical Exam Narrative Exam Narrative: Afebrile. Vital signs noted. HEENT: Normocephalic. Atraumatic. PERRL, EOMI. Neck soft and supple. No point tenderness or step off. Cardiovascular: Regular rate and rhythm. No murmurs, rubs, or gallops appreciated. Respiratory: No tachypnea. Lungs clear to auscultation bilaterally. Gastrointestinal: Abdomen soft, nontender, with normoactive bowel sounds. No rebound or guarding. Neurological: Awake. Alert. Nonfocal, nonlateralizing. Skin: No rash. Normal color. No pallor. Musculoskeletal: No pedal edema. Full range of motion extremities. Const Vital Signs: 05/18/23 22:47 Temperature 97.8 F Temperature Source Temporal Pulse Rate 91 Respiratory Rate 18 Blood Pressure 165/98 H Blood Pressure Mean 120 Pulse Ox 100 Oxygen Delivery Method Room Air MDM MDM MDM Narrative Medical decision making narrative: In the differential diagnosis is gastroenteritis versus opiate withdrawal. Regardless, I do feel that both require symptomatic treatment. I reviewed her prior records and she has had opiate abuse in the past. I discussed entering detox, but she declined and does not want that at this time and prefers outpatient follow-up with the counseling center/[facility]. She was given intramuscular injections of Zofran and Bentyl here and I wrote her prescriptions for both Zofran and Bentyl to take as an outpatient for some of her symptom relief. I do not feel that she requires laboratory work or imaging. Disposition is discharged home in stable condition. History & Record Review Discussion w/independent historian: Patient Additional record(s) reviewed:: Prior ED visit (Prior visits for opiate withdrawal) Discharge Plan Triage Chief Complaint: Substance Abuse ED Provider: Garrett Darden Dx/Rx/DC Orders Clinical Impression: Opiate withdrawal, Diarrhea, Nausea Instructions: ED Opioid Withdrawal Prescriptions: New dicyclomine 20 mg tablet 20 mg PO TID Qty: 20 0RF ondansetron 4 mg tablet,disintegrating 4 mg PO Q6H PRN (Reason: nausea and vomiting) Qty: 20 0RF No Action duloxetine [Cymbalta] 60 mg capsule,delayed release(DR/EC) 60 mg PO DAILY bupropion HCl [Wellbutrin SR] 150 mg tablet sustained-release 12 hr 150 mg PO BID buprenorphine-naloxone 8-2 mg tablet, sublingual 1 tab sublingual BID levothyroxine 25 mcg tablet 25 mcg PO DAILY Patient Comments: TAKE 1 TABLET BY MOUTH EVERY DAY on ON AN EMPTY STOMACH in addition to 200mcg. levothyroxine 200 mcg tablet 200 mcg PO DAILY Patient Comments: Take 1 tablet by mouth once daily. cetirizine 10 mg tablet 10 mg PO DAILY PRN (Reason: allergies) Patient Comments: TAKE 1 TABLET BY MOUTH EVERY DAY chlorthalidone 25 mg tablet 25 mg PO DAILY Patient Comments: Take 1 tablet by mouth once daily. ondansetron 4 mg tablet,disintegrating 4 mg PO Q6H PRN (Reason: nausea and vomiting) Qty: 7 0RF Primary Care Provider: Miles Underwood Referrals: Counseling,Center [Group of Physicians] - As soon as possible Miles Underwood MD [Primary Care Provider] - 3-5 Days if not improving Disposition Disposition: Home, Self Care
[2023-05-18] MEDS: Dicyclomine 20 MG/2 ML Vial IM (23:21)
[2023-05-18] MEDS: Ondansetron 4 MG/2 ML Vial IM (23:21)
--- OUTSIDE RECORDS SUMMARY | 2023-05-18 23:30 | XMS RPT_ITS | CCD ---
Author Name Unknown Address [address] [facility] [address] [place] [address] Organization [facility] Care Team Providers Care [employer] Track [employer] Supervisor Name Role Phone Miles Allred MD Primary Care Provider [phone] Janeth BLANK,MS, Erick Unavailable [facility], Leena Morrison Unavailable Beryl PIZANO, [place] Primary Care Provider Unava ilable LEENA SIBLEY Referring Unavailable ERICK BRADY Attending UnavailERICK Gao Attending UnavailERICK Gao Referring Unavaildorian SYKES SEDALIA Primary Care Unavailable ERICK BRADY Attending ERICK Lambert Referring Unavaildorian SYKES SEDALIA Primary Care Unavailable Miles Allred MD Primary Care Provider [phone] DAMARIS CHASE Attending Unavailable MILES ALLRED Primary Care Unavailable MILES ALLRED Referring Unavailable MILES ALLRED Referring Unavailable MILES ALLRED Primary Care Unavailable MILES ALLRED Attending Unavailable MILES ALLRED Primary Care Unavailable MILES ALLRED Referring Unavailable MILES ALLRED Primary Care Unavailable Allergies Allergy Classification Reported Allergen(s) Allergy Type Date of Onset Reaction(s) Facility (20 sources) gabapentin; Translations: [GABAPENTIN] Drug Allergy 7 [facility] Work Phone: (20 sources) Sulfonamides (Antibiotic); Translations: [SULFA (SULFONAMIDE ANTIBIOTICS)] Drug Intolerance 5 GI Upset [facility] Work Phone: Medications Current Medications Medication Drug [...]
[2023-05-18 23:38] VITALS: BP 146/90; PULSE 87; RESP 18; O2SAT 96
== END 2023-05-18 23:39 | disposition home or self-care (01) ==
LOC: ED 23:26
PROVIDERS: Emergency Provider Emergency Medicine; PCP Family Medicine; Visit Provider Emergency Medicine
DX: F11.13 Opioid abuse with withdrawal (principal); F17.210 Nicotine dependence, cigarettes, uncomplicated; F17.290 Nicotine dependence, other tobacco product, uncomplicated
CPT/HCPCS: 99282; J2405

== ENCOUNTER 2023-05-19 06:55 | Observation (INO) | payer MEDICAID, SELFPAY ==
[2023-05-19 06:57] VITALS: BP 171/83; PULSE 76; RESP 18; TEMP 36.6; O2SAT 100; BMI 31.1
--- NOTE | 2023-05-19 07:11 | EX.ED.SAOD ---
HPI History of Present Illness Chief Complaint: Substance Abuse Detail of Chief Complaint: 57-year-old female requesting detox. Informant: patient Onset/Context/Timing Onset: Month(s) Context: Gradual Onset Timing: Continuous Current Severity: Moderate Maximum Severity: Moderate Narrative Narrative: 57-year-old female history of oxycodone abuse. Prior back surgery and history of lymphoma. Requesting inpatient detox. Last detox was 2 months ago. Prior similar symptoms: Yes Recent Illness/Hospitalization: Yes PFSH PFS Medical History Allergies Anemia Anxiety Anxiety and depression Arthritis Chronic back pain Delayed surgical wound healing Depression Drug abuse Easy bruising Excessive bleeding Follicular lymphoma Gastric reflux Heartburn Hepatitis C virus infection cured after antiviral drug therapy History of edema Hypertension Leg cramps Lipoma of right axilla Lymph node enlargement Lymphoma Mass of right axilla Open wound Open wound of right axillary region Osteoarthritis Pain in right upper arm Post-menopausal Shortness of breath on exertion Smoker Substance abuse Thyroid disease Wears dentures Home Medications duloxetine 60 mg capsule,delayed release (Cymbalta) 60 mg PO DAILY 09/16/20 [History Last Taken 01/11/22 06:00] buprenorphine 8 mg-naloxone 2 mg sublingual tablet 1 tab sublingual BID 05/03/21 [History Last Taken Unknown] bupropion HCl 150 mg tablet,12 hr sustained-release (Wellbutrin SR) 150 mg PO BID 05/03/21 [History Last Taken 01/11/22 06:00] cetirizine 10 mg tablet 10 mg PO DAILY PRN allergies 12/18/22 [History Last Taken Unknown] chlorthalidone 25 mg tablet 25 mg PO DAILY 12/18/22 [History Last Taken Unknown] levothyroxine 200 mcg tablet 200 mcg PO DAILY 12/18/22 [History Last Taken Unknown] levothyroxine 25 mcg tablet 25 mcg PO DAILY 12/18/22 [History Last Taken Unknown] ondansetron 4 mg disintegrating tablet 4 mg PO Q6H PRN nausea and vomiting #7 tabs 04/02/23 [Rx Last Taken Unknown] dicyclomine 20 mg tablet 20 mg PO TID #20 tabs 05/18/23 [Rx Last Taken Unknown] ondansetron 4 mg disintegrating tablet 4 mg PO Q6H PRN nausea and vomiting #20 tabs 05/18/23 [Rx Last Taken Unknown] Allergy/AdvReac Type Severity Reaction Status Date / Time gabapentin Allergy Intermediate Hives Verified 05/19/23 06:55 Sulfa (Sulfonamide Allergy Intermediate HIVES, Verified 05/19/23 06:55 Antibiotics) NAUSEA morphine AdvReac Mild Nausea Verified 05/19/23 06:55 Family History Grandmother Arthritis Thyroid disorder Breast cancer Diabetes Hypertension CVA (cerebral vascular accident) Grandfather Diabetes Mother Anesthesia complication Asthma Severe allergy Grandmother Breast cancer High cholesterol Thyroid disorder Father CVA (cerebral vascular accident) Surgical History H/O total thyroidectomy History of axillary surgery History of back surgery History of excision of mass History of tubal ligation Status post removal of thyroid nodule Social History Smoking Status: Current every day smoker tobacco type: cigarettes and e-cigarettes Tobacco: How many years used: 35 how long ago did patient quit smoking: only smoking 1-2 cigarettes/day second hand exposure: No counseling given: provider counseling alcohol intake: never substance use type: former substance user Date of last use: 3.5 YEARS AGO, marijuana, heroin and methamphetamine brenda/confucianism: Jainism seatbelt use: always do you feel safe at home: Yes additional social history: Does Not Take Aspirin Does Take Ibuprofen As Needed ROS ROS ED ROS Narrative Denies recent illness. Review of Systems ROS Unobtainable: Denies due to encephalopathy Constitutional Constitutional ED: Denies chills or fever(s) Eyes Eyes: Denies blurry vision ENT ENT ED: Denies ear pain Cardiovascular Cardiovascular: Denies chest pain Respiratory/Chest Respiratory/Chest: Denies cough or dyspnea Gastrointestinal Gastrointestinal: Denies abdominal pain Genitourinary Genitourinary ED: Denies dysuria Musculoskeletal Musculoskeletal: Denies arthralgias Integumentary Denies abscess Neurologic Neurologic: Denies headache(s) Psychiatric Psychiatric: Denies anxiety Endocrine Endocrinology: Denies cold intolerance Hematologic/Lymphatic Hematologic/Lymphatic: Denies easy bleeding or easy bruising Allergic/Immunologic Allergic/Immunologic ED: Denies mouth swelling or tongue swelling EXAM Physical Exam Narrative Exam Narrative: Well-appearing middle-aged female. Vital signs are stable afebrile. HEENT exam unremarkable. Neck nontender no lymphadenopathy. Lungs clear to auscultation bilaterally. Heart regular rhythm rate about 75 no murmur. Chest wall nontender. Abdomen soft nontender. Moving all 4 extremities. Calves are nontender without edema or cords. Neurologically she is awake and alert with no focal motor deficits. Back nontender. Const Vital Signs: 05/19/23 06:57 Temperature 97.9 F Temperature Source Temporal Pulse Rate 76 Respiratory Rate 18 Blood Pressure 171/83 H Blood Pressure Mean 112 Pulse Ox 100 Oxygen Delivery Method Room Air Positive well nourished and well developed; Negative for cachectic, contractures or unkempt General Appearance ED: well developed and NAD; Negative for unkempt, cachectic, contractures or pallor Nutritional Appearance: Negative for cachectic HEENT Reports moist mucous membranes; Denies dry mucous membranes atraumatic; Negative for trauma or tenderness Mouth ED: No dry mucous membranes Mouth: No dry mucous membranes Eyes PERRL and EOMs intact bilaterally General Eye ED: Negative for pale conjunctiva or scleral icterus Neck no lymphadenopathy, supple and no JVD Thyroid: Negative for tender Lymph Lymphatic: no lymphadenopathy noted; Negative for lymphadenopathy Chest Wall inspection of chest normal and palpation of chest normal Chest: Negative for other Resp normal respiratory effort and clear to auscultation bilaterally Effort and Inspection: Negative for retractions Auscultation: Negative for rales, rhonchi or wheezes Cardio regular rate, regular rhythm, S1 normal heart sound, S2 normal heart sound and no murmurs Rate: Negative for bradycardia or tachycardic Rhythm: Negative for abnormal rhythm Bruits: Negative for other GI soft to palpation, non-tender, non-distended and no masses Inspection: Negative for abdominal distention Palpation: Negative for tender, guarding or rigid Back/Spine no CVA tenderness General Back: Negative for CVA tenderness Cervical Spine: Negative for cervical spine tenderness Thoracic Spine / Upper Back: Negative for thoracic spinal tenderness Lumbar Spine / Lower Back: Negative for lumbar spinal tenderness Coccyx: Negative for swelling Extremity General Extremety ED: Negative for edema or tenderness General Extremity: Negative for edema Neuro oriented x3 and CN's II-XII intact bilaterally Sensorium / Orientation: alert, oriented to person, oriented to place and oriented to time; Negative for confused, lethargic or stuporous Speech: speech normal Motor Exam: strength 5/5 throughout Psych mental status grossly normal and thought process normal Appearance: Negative for unkempt Attitude: No belligerent, No agitated and No aggressive Mood & Affect: Negative for depressed, anxious or tearful Skin General Skin Exam: Negative for jaundice or pallor Lesions: no lesions Rashes: no rashes MDM MDM MDM Narrative Medical decision making narrative: 57-year-old female history of oxycodone abuse requesting inpatient detox. Screening labs are being obtained and I have the hospitalist on page for admission. Lab Data Attestation: I reviewed the patient's lab results. Lab results narrative: CBC unremarkable. CMP unremarkable except sodium 133 potassium 2.8.. Talk screen pending. Alcohol negative. Discharge Plan Dx/Rx/DC Orders Clinical Impression: History of lymphoma, Substance abuse, Admitted to substance misuse detoxification center Disposition Disposition: Acute Care Hospital [facility] Discharge Date/Time: 05/19/23 08:00
--- NOTE | 2023-05-19 07:14 | HP.PCM.HOS_ITS ---
HPI - General General Date of Admission: 05/19/23 Date of Service: 05/19/23 Chief Complaint: Opiate detoxification HPI Narrative OSIEL MEDINA, is a 57 F who presented to [facility] ED on 05/19/2023 for opiate detoxification. Patient seen at bedside in the ED. Patient was sitting up comfortably in bed, conversing normally, no acute distress. Patient was somewhat fatigued appearing but otherwise appeared generally comfortable. Patient states she has recently been abusing p.o. OxyContin. She has history of chronic back pain and is on opiates for this. Notes that she underwent inpatient detox for this about 1 month ago, tolerated the Subutex taper well with as needed medications. Has been taking about 7 OxyContin 30 mg tablets daily. Last use was on the evening of 05/17. She currently reports symptoms of feeling fatigued with withdrawal symptoms of nausea, diarrhea, yawning, generalized myalgias. Patient otherwise denies any acute concerns at this time. [facility] Medical History Allergies Anemia Anxiety Anxiety and depression Arthritis Chronic back pain Delayed surgical wound healing Depression Drug abuse Easy bruising Excessive bleeding Follicular lymphoma Gastric reflux Heartburn Hepatitis C virus infection cured after antiviral drug therapy History of edema Hypertension Leg cramps Lipoma of right axilla Lymph node enlargement Lymphoma Mass of right axilla Open wound Open wound of right axillary region Osteoarthritis Pain in right upper arm Post-menopausal Shortness of breath on exertion Smoker Substance abuse Thyroid disease Wears dentures Home Medications duloxetine 60 mg capsule,delayed release (Cymbalta) 60 mg PO DAILY mood 09/16/20 [History Last Taken 05/19/23] buprenorphine 8 mg-naloxone 2 mg sublingual tablet 2 tab sublingual BID withdrawal 05/03/21 [History Last Taken Unknown] bupropion HCl 150 mg tablet,12 hr sustained-release (Wellbutrin SR) 150 mg PO BID mood 05/03/21 [History Last Taken 05/19/23] cetirizine 10 mg tablet 10 mg PO DAILY PRN allergies 12/18/22 [History Last Taken Unknown] chlorthalidone 25 mg tablet 25 mg PO DAILY blood pressure 12/18/22 [History Last Taken 05/19/23] levothyroxine 200 mcg tablet 200 mcg PO DAILY thyroid 12/18/22 [History Last Taken 05/19/23] levothyroxine 25 mcg tablet 25 mcg PO DAILY thyroid 12/18/22 [History Last Taken 05/19/23] ondansetron 4 mg disintegrating tablet 4 mg PO Q6H PRN nausea and vomiting #7 tabs 04/02/23 [Rx Last Taken Unknown] dicyclomine 20 mg tablet 20 mg PO TID #20 tabs 05/18/23 [Rx Last Taken 05/19/23] ondansetron 4 mg disintegrating tablet 4 mg PO Q6H PRN nausea and vomiting #20 tabs 05/18/23 [Rx Last Taken Unknown] Allergy/AdvReac Type Severity Reaction Status Date / Time gabapentin Allergy Intermediate Hives Verified 05/19/23 06:55 Sulfa (Sulfonamide Allergy Intermediate HIVES, Verified 05/19/23 06:55 Antibiotics) NAUSEA morphine AdvReac Mild Nausea Verified 05/19/23 06:55 Family History Grandmother Arthritis Thyroid disorder Breast cancer Diabetes Hypertension CVA (cerebral vascular accident) Grandfather Diabetes Mother Anesthesia complication Asthma Severe allergy Grandmother Breast cancer High cholesterol Thyroid disorder Father CVA (cerebral vascular accident) Surgical History H/O total thyroidectomy History of axillary surgery History of back surgery History of excision of mass History of tubal ligation Status post removal of thyroid nodule Social History Smoking Status: Current every day smoker tobacco type: cigarettes and e- cigarettes Tobacco: How many years used: 35 how long ago did patient quit smoking: only smoking 1-2 cigarettes/day second hand exposure: No counseling given: provider counseling alcohol intake: never substance use type: former substance user Date of last use: 3.5 YEARS AGO, marijuana, heroin and methamphetamine brenda/spiritism: [employer] seatbelt use: always do you feel safe at home: Yes additional social history: Does Not Take Aspirin Does Take Ibuprofen As Needed ROS Constitutional Constitutional: Reports fatigue and malaise; Denies chills or fever(s) Eyes Eyes: Denies change in vision ENT HEENT: Denies nasal congestion, nasal discharge or sore throat Cardiovascular Cardiovascular: Denies chest pain, dyspnea on exertion or edema Respiratory/Chest Respiratory/Chest: Denies cough, shortness of breath at rest or wheezing Gastrointestinal Gastrointestinal: Reports diarrhea and nausea; Denies abdominal pain, constipation or vomiting Genitourinary Genitourinary: Denies dysuria Musculoskeletal Musculoskeletal: Reports back pain and myalgias; Denies arthralgias Neurologic Neurologic: Denies dizziness, focal weakness or headache(s) Vital Signs Vital Signs Vital Signs: 05/19/23 06:57 Temperature 97.9 F Temperature Source Temporal Pulse Rate 76 Respiratory Rate 18 Blood Pressure 171/83 H Blood Pressure Mean 112 Pulse Ox 100 Oxygen Delivery Method Room Air Weight Weight: 87.543 kg Body Mass Index (BMI) 31.1 Physical Exam Const alert, oriented x3 and no apparent distress Constitutional Narrative: Pleasant middle-age female, obese, moderately fatigued appearing, otherwise sitting up comfortably in bed, conversing normally, no acute distress. General Appearance: cooperative and comfortable HEENT normocephalic, head/scalp atraumatic, hearing grossly normal bilaterally, nasal mucous membranes and turbinates normal and moist oral mucous membranes Eyes PERRL, EOMs intact bilaterally and conjunctivae normal Neck full ROM, no lymphadenopathy and supple Lymph Lymphatic: no lymphadenopathy noted Chest inspection of chest normal Resp normal respiratory effort, normal air movement, no use of accessory muscles and clear to auscultation bilaterally Cardio regular rate, regular rhythm, no murmurs and peripheral pulses 2+ throughout GI normal to inspection, nondistended, normoactive bowel sounds, soft to palpation, non-tender and non-distended Back/Spine normal ROM Extremity normal to inspection, full ROM and no pedal edema Skin no rashes or lesions noted Neuro moves all extremities and no focal motor deficits Speech: speech normal Psych mental status grossly normal Results Lab / Micro Data 05/19/23 07:30 05/19/23 07:30 Assessment & Plan Assessment/Plan (1) Substance abuse: (2) Desire for detoxification: PLAN: Plan Patient is a 57-year-old female who presented to [facility] ED on 05/19/2023 with opiate abuse and desire for detoxification. 1. Opiate abuse with desire for detoxification, history of chronic back pain ? Case management/addiction medicine consulted. Subutex taper with as needed medications ordered per the opiate withdrawal order set. Monitor. Chronic medical conditions: ? Mood disorder: Stable. Continue home Wellbutrin and Cymbalta. ? Hypertension: Continue home chlorthalidone. ? Hypothyroidism: Continue home Synthroid. ? History of follicular lymphoma: Follows with Dr. Gonzales. Stage I disease, asymptomatic, currently with watchful expectancy and CT scans every 3 months. DVT prophylaxis: Lovenox CODE STATUS: Full code, verified Expected disposition: Home, 2 to 3 days Total clinical time spent by myself addressing the patient's medical issues, reviewing all the data, and collaborating with patient's care team: 40 minutes. Charges/Coding Visit Charges Inpatient E&M: 93458 Init Hosp L1
--- OUTSIDE RECORDS SUMMARY | 2023-05-19 07:21 | XMS RPT_ITS | CCD ---
Author Name Unknown Address [address] [place] [address] Organization [facility] Care Team Providers Care Fine Chemicals Operator Name Role Phone Jade Underwood MD Primary Care Provider Janeth BLANK,MS, Erick Unavailable Christian [facility], Leena Morrison Unavailable Beryl PIZANO, [place] Primary Care Provider Unava ilable LEENA GONZALES Referring Unavailable ERICK FOWLER Attending UnavailERICK Gao Attending UnavailERICK Gao Referring Unavaildorian SYKES FULLERTON Primary Care Unavailable ERICK FOWLER Attending ERICK Lambert Referring Unavaildorian SYKES FULLERTON Primary Care Unavailable Jade Underwood MD Primary Care Provider [phone] SHERIDAN GRADY Attending Unavailable JADE UNDERWOOD Primary Care Unavailable JADE UNDERWOOD Referring Unavailable JADE UNDERWOOD Referring Unavailable JADE UNDERWOOD Primary Care Unavailable JADE UNDERWOOD Attending Unavailable JADE UNDERWOOD Primary Care Unavailable JADE UNDERWOOD Referring Unavailable JADE UNDERWOOD Primary Care Unavailable Allergies Allergy Classification Reported Allergen(s) Allergy Type Date of Onset Reaction(s) Facility (20 sources) gabapentin; Translations: [GABAPENTIN] Drug Allergy 7 [facility] Work Phone: (20 sources) Sulfonamides (Antibiotic); Translations: [SULFA (SULFONAMIDE ANTIBIOTICS)] Drug Intolerance 5 GI Upset [facility] Work Phone: Medications Current Medications Medication [...] 167.6 cm Erick Fowler MD,MS Work Phone: [facility] 01-30-2023 13:45-0400 Body mass index (BMI) [Ratio] 30.76 kg/m2 Erick Fowler MD,MS Work Phone: [facility] 01-30-2023 13:45-0400 Body temperature 98.71 [degF] Erick Fowler MD,MS Work Phone: [facility] 01-30-2023 13:45-0400 Body weight 86.46 kg Erick Fowler MD,MS Work Phone: [facility] 01-30-2023 13:45-0400 Diastolic blood pressure 75 mm[Hg] Erick Fowler MD,MS Work Phone: [facility] 01-30-2023 13:45-0400 Heart rate 72 /min Erick Fowler MD,MS Work Phone: [facility] 01-30-2023 13:45-0400 Respiratory rate 14 /min Erick Fowler MD,MS Work Phone: [facility] 01-30-2023 13:45-0400 SaO2% (BldA) [Mass fraction] 96 % Erick Fowler MD,MS Work Phone: [facility] 01-30-2023 13:45-0400 Systolic blood pressure 126 mm[Hg] Erick Fowler MD,MS Work Phone: [facility] 11-22-2022 10:06-0400 Body height 166 cm Sheridan Charleston TOOL SMITH.EQUITY MANAGER Work Phone: [facility] 11-22-2022 10:06-0400 Body weight 88.72 kg Sheridan Charleston TOOL SMITH.EQUITY MANAGER Work Phone: [facility] 11-22-2022 10:06-0400 Diastolic blood pressure 76 mm[Hg] Sheridan Miguel A TOOL SMITH.EQUITY MANAGER Work Phone: [facility] 11-22-2022 10:06-0400 Systolic blood pressure 126 mm[Hg] Sheridan Miguel A TOOL SMITH.EQUITY MANAGER Work Phone: [facility] 05-04-2022 15:46-0500 Body weight 90.27 kg Jade Underwood MD Work Phone: [facility] 05-04-2022 15:46-0500 Diastolic blood pressure 82 mm[Hg] Jade Underwood MD Work Phone: [facility] 05-04-2022 15:46-0500 Heart rate 84 /min Jade Underwood MD Work Phone: [facility] 05-04-2022 15:46-0500 SaO2% (BldA) [Mass fraction] 95 % Jade Underwood MD Work Phone: [facility] 05-04-2022 15:46-0500 Systolic blood pressure 130 mm[Hg] Jade Underwood MD Work Phone: [facility] 12-09-2021 12:28-0400 Body temperature 98.01 [degF] Kary Paige APRN.EQUITY MANAGER Work Phone: [facility] 12-09-2021 12:28-0400 Body weight 94.8 kg Kary Paige APRN.EQUITY MANAGER Work Phone: [facility] 12-09-2021 12:28-0400 Diastolic blood pressure 80 mm[Hg] Kary Paige APRN.EQUITY MANAGER Work Phone: [facility] 12-09-2021 12:28-0400 Heart rate 106 /min Kary Paige APRN.EQUITY MANAGER Work Phone: [facility] 12-09-2021 12:28-0400 Respiratory rate 18 /min Kary Paige APRN.EQUITY MANAGER Work Phone: [facility] 12-09-2021 12:28-0400 SaO2% (BldA) [Mass fraction] 97 % Kary Paige APRN.EQUITY MANAGER Work Phone: [facility] 12-09-2021 12:28-0400 Systolic blood pressure 126 mm[Hg] Kary Paige APRN.EQUITY MANAGER Work Phone: [facility] 07-25-2021 13:05-0400 Body temperature 97.5 [degF] La Alejandra PA-C Work Phone: [facility] 07-25-2021 13:05-0400 Body weight 98.43 kg La Brennany PA-C Work Phone: [facility] 07-25-2021 13:05-0400 Diastolic blood pressure 74 mm[Hg] La Athy PA-C Work Phone: [facility] 07-25-2021 13:05-0400 Heart rate 78 /min La Athy PA-C Work Phone: [facility] 07-25-2021 13:05-0400 Respiratory rate 16 /min La Athy PA-C Work Phone: [facility] 07-25-2021 13:05-0400 SaO2% (BldA) [Mass fraction] 97 % La Athy PA-C Work Phone: [facility] 07-25-2021 13:05-0400 Systolic blood pressure 132 mm[Hg] La Athy PA-C Work Phone: [facility] Encounters Encounter Date Encounter Type Care Provider Facility Start: 05-14-2023 Refill Jade Underwood MD Work Phone: [facility] [place] Procedures Date Procedure Procedure Detail Performing Clinician Start: 01-30-2023 Beta-2 microglobulin Na jose Fowler MD,MS Work Phone: Start: 01-30-2023 CBC AND ELECTRONIC DIFF Erick Fowler MD,MS Work Phone: Start: 01-30-2023 Complete blood count with white cell differential, automated Erick Fowler MD,MS Work Phone: Start: 01-30-2023 Comprehensive metabo lic panel Erick Folwer MD,MS Work Phone: Start: 01-30-2023 Flow cytometry cell surf marker techl only ea Erick Fowler MD,MS Work Phone: Start: 01-30-2023 Iadna hepatitis c qu ant & reverse extrusion press supervisor Erick Fowler MD,MS Work Phone: Start: 01-30-2023 [...] Author Start: 11-23-2027 HPV TESTING HPV TESTING [facility] Start: 11-23-2027 Screening for malign ant neoplasm of cervix HPV Testing [facility] Start: 11-03-2027 Lipid panel Lipid Screening [facility] Start: 11-03-2027 LIPID SCREEN LIPID SCREEN [facility] Start: 06-06-2027 Tetanus vaccination TETANUS [facility] Start: 06-06-2027 Urine microalbumin profile [facility] Start: 11-02-2025 DIABETES SCREEN DIABETES SCREEN [facility] Start: 11-02-2025 Diabetes Screening Diabetes Screenin g [facility] Start: 2024 LIPID SCREEN LIPID SCREEN [facility] Start: 01-31-2024 Potassium [Moles/vol ume] in Serum or Plasma POTASSIUM [facility] Start: 11-23-2023 BP CONTROLLED (<130/80) BP CON TROLLED (<130/80) [facility] Start: 11-23-2023 PAP TESTING PAP TESTING [facility] Start: 11-23-2023 Screening for malign ant neoplasm of cervix Pap Testing [facility] Start: 11-03-2023 ANNUAL PCP TEAM BAGGER MEAT RAYMOND DISEASE VISIT ANNUAL PCP TEAM CHRONIC DISEASE VISIT [facility] Start: 11-03-2023 BP CONTROLLED (<130/80) BP CON TROLLED (<130/80) [facility] Start: 11-03-2023 COVID-19 VACCINE (#1) COVID-19 VACCI NE (#1) [facility] Immunizations Immunization Date Immunization Notes Care Provider Fa cility 11-02-2022 pneumococcal (PCV20) vaccine, 20 valent (PREVNAR 20) Jade Underwood MD Work Phone: [facility] 03-23-2022 influenza, seasonal, injectable Jade Underwood MD Work Phone: [facility] 03-23-2022 influenza virus vaccine, unspecified formulation Erick Fowler MD,MS Work Phone: [facility] 12-22-2020 influenza, seasonal, injectable Jade Underwood MD Work Phone: [facility] 03-08-2020 influenza, seasonal, injectable Jade Underwood MD Work Phone: [facility] 05-16-2018 hepatitis A and hepatitis B vaccine Jade Underwood MD Work Phone: [facility] 05-16-2018 hepatitis B vaccine, unspecified formulation Jade Underwood MD Work Phone: [facility] 06-06-2017 tetanus toxoid, reduced diphtheria toxoid, and acellular pertussis vaccine, adsorbed Jade Underwood MD Work Phone: [facility] 12-01-2016 influenza, injectabl e, quadrivalent, contains preservative Jade Underwood MD Work Phone: [facility] 12-25-2014 influenza, injectabl e, quadrivalent, contains preservative Jade Underwood MD Work Phone: [facility] 02-06-2006 influenza virus vaccine, unspecified formulation Jade Underwood MD Work Phone: [facility] Work Phone: Payers Date Payer Category Payer Unknown [facility] [id number] 2023-Present [address] [place] [address] [id number] 2022 Medicaid [id number] 2022 Unknown [id number] [address] [facility] MEDICAID [id number] 2020-Present [phone] [address] [place] [address] Medicaid [id number] 2020 Medicaid [id number] 1967 Unknown [id number] 1967 Unknown [id number] 1967 Unknown [id number] Social History Date Type Detail Facility Start: 09-15-2020 End: 12-09-2021 Tobacco smoking status NHIS Ex-smoker [facility] History of tobacco use Cigarette Smoker [facility] Start: 09-15-2020 End: 11-02-2022 Cigarettes smoked current (pack per day) - Reported 0.5 [facility] Start: 09-15-2020 End: 05-04-2022 Tobacco use and exposure Smokeless tobacco non-user [facility] Start: 02-18-2021 End: 11-22-2022 Alcohol intake Current non-drinker of alcohol (finding) [facility] Start: 1965 Sex Assigned At Female C [facility] Start: 07-15-2021 End: 12-09-2021 Exposure to SARS-CoV-2 (event) Not sure [facility] Work Phone: History of tobacco use Current smoker [facility] Start: 05-04-2022 [facility] Start: 05-04-2022 End: 11-02-2022 Tobacco use panel [facility] National Score (1-10 0), lower number is lower risk 92 [facility] Start: 02-08-2021 Gender identity Identifies as female gender (finding) [facility] Start: 02-08-2021 Sexual orientation Heterosexual (fin dylan) [facility] smoking consumption unknown [facility] Start: 1965 Sex Assigned At Not on file [facility] Clinical Notes 02-05-2015 to 05-14-2023 Telephone Encounter - Kelley Renee - 05/14/2023 2:05 PM ESTTelephone Encounter - Guerline Dao LPN - 05/11/2023 11:40 AM Noris Garcia DO, PhD - 01/30/2023 2:00 PM EDTAttachments Note Date & Type Note Facility 05-14-2023 Miscellaneous Notes Pharmacy verified in [facility] Patient has been identified by name and [...] Kelley Tanner Pss documented in this encounter [facility] 05-11-2023 Miscellaneous Notes No show letter #1 sent to patient for missed visit today. documented in this encounter [facility] 01-30-2023 History of Presen t illness [...] reported. Patient was initially seen in the [place] emergency room on September 10, 2020 with [...] is a 57 y.o. year-old female in [facility]. HEENT: normocephalic, atraumatic; extraocular movements intact and [...] PhD Fellow Physician Hematology and Medical Oncology [facility] Chief Complaint Patient presents with Follow-up History [...] is a 57 y.o. year-old female in [facility]. HEENT: normocephalic, atraumatic; extraocular movements intact and [...] final management plan. Erick Fowler MD, MS Screen Tender - Hematology documented in this encounter [facility] 01-30-2023 Instructions Annabelle Rodriguez RN - 01/30/2023 2:00 PM EDT Primary Care Team Dr. Erick Singh, EQUITY MANAGER - Certified Nurse Practitioner Idalmis Keenan CNP- Certified Nurse Pracitioner Yolanda Haynes RN - Nurse Annabelle Palencia RN - Nurse Vicki Sykes RN- Patient Care Urban Redevelopment Specialist Contact Numbers: Clinic Phone & Appointment Changes: [phone] Clinic For Medication Refills: Please plan ahead [...] applied to wood stairs to prevent sliding. [place] a bright colored line on the edge [...] may request more written information from the [employer] for [employer] Information at or email: [email or web address]. The following attachments cannot be sent through Care Everywhere.Scan: PET (Allyson Paige) (Upper Sor[place])Bone Marrow Procedure Guide (Allyson Paige) ([place])documented in this encounter [facility] 01-26-2023 Note Request received for second opinion consultation by Halina Solorio APRN-LENORA. Dx Follicular Lymphoma . Please review OS slides to confirm diagnosis. Thanks. Preoperative Diagnosis: Left pelvic lymph node. [facility] documented as of this encounter (statuses as of 11/03/2022) [facility]07-27-2023 History of Past illness Narrative* Problem Noted Date Diagnosed Date Resolved Date Delayed surgical wound healing 11/02/2022 11/02/2022 11/02/2022 Opioid dependence 11/02/2022 11/02/2022 11/02/2022 Pain of right upper arm 01/18/2022 11/02/202210/08 Paresthesia of upper extremity 01/18/2022 11/02/2022 11/02/2022 Substance abuse 01/18/2022 11/02/2022 11/02/2022 Screening for colon cancer 02/21/2018 1 06/01/2021 Overview: Added automatically from request for surgery [id number] Pain in right elbow 02/05/2015 08/24/19 17 [...] of this encounter (statuses as of 11/14/2022) [facility]07-27-2023 History of Past illness Narrative* Problem [...] Overview: Added automatically from request for surgery [id number] Pain in right elbow 02/05/2015 08/24/19 17 [...] of this encounter (statuses as of 11/22/2022) [facility]07-27-2023 History of Past illness Narrative* Problem [...] Overview: Added automatically from request for surgery [id number] Pain in right elbow 02/05/2015 08/24/19 17 [...] of this encounter (statuses as of 11/23/2022) [facility]07-27-2023 History of Past illness Narrative* Problem [...] Overview: Added automatically from request for surgery [id number] Pain in right elbow 02/05/2015 08/24/19 17 [...] of this encounter (statuses as of 12/19/2022) [facility]07-27-2023 History of Past illness Narrative* Problem [...] Overview: Added automatically from request for surgery [id number] Pain in right elbow 02/05/2015 08/24/19 17 [...] of this encounter (statuses as of 05/11/2023) [facility]07-27[facility]2023 History of Past illness Narrative* Problem [...] Overview: Added automatically from request for surgery [id number] Pain in right elbow 02/05/2015 08/24/19 17 [...] of this encounter (statuses as of 05/15/2023) [facility]07-27-2023 NoteHNO ID: [id number] Author: Jade Unedrwood MD Service: ? Author Type: Physician Type: [...] to pain in knees. 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 Castelan- [facility]; repeat 5 years DANPR (MISSED AB 1ST TRIMESTER) EGD W/B (more content not included)...[facility]07-20-2023 Miscellaneous Notes* Telephone Encounter - Arleen Valdivia [...] and advise. Arleen Webb documented in this encounter[facility]02-28-2023 NoteHNO ID: [id number] Author: RT Sanjiv(R) Service: ? Author Type: Big Data Developer Type: Progress Notes Filed: 06/06/2022 2:57 PM [...] BY: RT Sanjiv(R) June 06, 2022 2:42 [facility]01-26-2023 History of Present illness Narrative* Jade Underwood MD - 05/04/2022 3:46 PM EST Patient presents with: Follow Up Arthritis HPI: Patient presents today for office visit for follow up. PSYCH: Currently tolerating medications well: Yes . Side effects: No. Sleep issues: trouble staying asleep. Usually waking up due to pain in knees. 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 D&C (MISSED AB 1ST TRIMESTER) EGD W/BX, SINGLE OR MULT 02/21/2022 Dr. Castelan- [facility] LAMINECTOMY W/O FFD 1/2 VERT SEG [...] for annual exam in one year. - [facility] SCREENING Jade Underwood RTO in six months and prn. documented in [facility]23 Miscellaneous Notes* Telephone Encounter - Eugenia [...] patient. Karyna Lutz Pss documented in this encounterOhio[facility]12-29-2022 Miscellaneous Notes* Telephone Encounter - Lyndsey [...] advise. Lyndsey Fuentes Pss documented in this encounterOhio[facility]12-23-2022 History of Present illness Narrative* Jade Underwood MD - 03/31/2022 8:06 AM EST Did not check in. Called and no answer. Left message to reschedule. documented in this encounterOhio[facility] Hospital12-21-2022 Miscellaneous Notes* Telephone Encounter - DENIZ [...] Thank you. Venita Singh documented in this encounterOhio[facility] Hospital12-01-2022 Miscellaneous Notes* Telephone Encounter - DENIZ Moon - 03/09/2022 2:34 PM EST TC to patient who is agreeable to appointment. [facility] Pt also [...] Dr. Kj Dao LPN documented in this encounterOhio[facility]12-01-2022 Miscellaneous Notes* Telephone Encounter - Cassie [...] Thanks, Rei Singh PA-C documented in this encounterOhiohealth [facility] Hospital11-25-2022 Miscellaneous Notes* Telephone Encounter - Chuyita [...] advise. Radha Guerin Pss documented in this [facility]11-18-2022 Miscellaneous Notes* Telephone Encounter - Lyndsey Fuentes [...] advise. Lyndsey Fuentes Pss documented in this [facility]10-31-2022 Miscellaneous Notes* Telephone Encounter - Guerline Dao LPN - 02/06/2022 12:17 PM EDT VIRGIE 02/18/21 Has been notified to schedule a visit. * [facility] 11:51 AM EDT Patient has been identified by name and date of : Yes Requested Prescriptions Pending Prescriptions Disp Refills DULoxetine (CYMBALTA) 60 mg capsule 30 capsule 0 Sig: Take 1 capsule by mouth once daily. RX INSTRUCTIONS: Patient aware RX will be sent to pharmacy. No need to notify patient. [facility] in [facility] encounter[facility]09-27-2022 Miscellaneous Notes* Telephone Encounter - Sandra [...] patient. Sandradane Harrington Pss documented in this encounterOhiohealth [facility] Hospital09-22-2022 Miscellaneous Notes* Telephone Encounter - Eugenia [...] notify patient. Karyna Webb documented in this encounterOhio[facility] Hospital09-15-2022 Miscellaneous Notes* Telephone Encounter - Eugenia Lamar Ma - 12/22/2021 11:36 AM EDT Last office visit: 02/18/21 F/u scheduled: none, has no showed and cancelled last 2 appts. Eugenia Lamar Ma * Telephone Encounter - Kelley Tanner Pss - 12/22/2021 10:29 AM EDT Pharmacy verified [facility] Patient has been identified by name and [...] advise. Kelley Tanner Pss documented in this encounterOhio[facility] Hospital09-02-2022 History of Present illness Narrative* Kary Paige APRN.EQUITY MANAGER - 12/09/2021 12:56 PM EDT CC: Patient [...] occur. Patient agreeable to treatment plan. Kary Paige APRN.LENORA documented in this encounterOhiohealth [facility] Hospital08-12-2022 Miscellaneous Notes* Telephone Encounter - Karyna [...] notify patient. Karyna Webb documented in this encounterOhiohealth [facility] Hospital04-18-2022 History of Present illness Narrative* La Alejandra PA-C - 07/25/2021 3:13 PM EDT This note was created using [employer]. Subjective Staci Sutton is a 55 year [...] Wt 98.4 kg (217 lb) LMP 02/27/2012 ThI707% BMI 35.02 kg/m Physical Exam Vitals reviewed. [...] AP/LAT/L5-S1 La Alejandra PA-C documented in this encounterOhiohealth [facility] Hospital03-25-2022 Miscellaneous Notes* Telephone Encounter - Vika [...] patient. Vika Farris Pss documented in this encounterOhiohealth [facility] Hospital11-15-2018 History of Past illness Narrative* Problem Noted Date Resolved Date Screening for colon cancer 02/21/201803/31 Overview: Added automatically from request for surgery [id number] Pain in right elbow 02/05/2015 08/23/2016 Arthrodesis [...] of this encounter (statuses as of 04/01/2022) [facility] History of Past illness Narrative* Problem Noted Date Resolved Date Screening for colon cancer 02/21/201803/31 Overview: Added automatically from request for surgery [id number] Pain in right elbow 02/05/2015 08/23/2016 Arthrodesis [...] of this encounter (statuses as of 04/12/2022) [facility] History of Past illness Narrative* Problem Noted Date Resolved Date Screening for colon cancer 02/21/201803/31 Overview: Added automatically from request for surgery [id number] Pain in right elbow 02/05/2015 08/23/2016 Arthrodesis [...] of this encounter (statuses as of 04/15/2022) [facility] History of Past illness Narrative* Problem Noted Date Resolved Date Screening for colon cancer 02/21/201803/31 Overview: Added automatically from request for surgery [id number] Pain in right elbow 02/05/2015 08/23/2016 Arthrodesis [...] of this encounter (statuses as of 04/28/2022) [facility] of [facility] illness Narrative* Problem Noted Date Resolved Date Screening for colon cancer 02/21/201803/31 Overview: Added automatically from request for surgery [id number] Pain in right elbow 02/05/2015 08/23/2016 Arthrodesis [...] of this encounter (statuses as of 05/04/2022) [facility] History of Past illness Narrative* Problem Noted Date Diagnosed Date Resolved Date Screening for colon cancer 02/21/2018 1 06/01/2021 Overview: Added automatically from request for surgery [id number] Pain in right elbow 02/05/2015 08/24/19 17 [...] of this encounter (statuses as of 10/26/2022) [facility] History of Past illness Narrative* Problem [...] of this encounter (statuses as of 07/01/2021) [facility] History of Past illness Narrative* Problem [...] of this encounter (statuses as of 07/25/2021) [facility] of Past illness Narrative* Problem [...] of this encounter (statuses as of 11/21/2021) [facility] History of Past illness Narrative* Problem [...] of this encounter (statuses as of 12/09/2021) [facility] of Past illness Narrative* Problem [...] of this encounter (statuses as of 12/22/2021) [facility] of [facility] illness Narrative* Problem [...] of this encounter (statuses as of 12/29/2021) [facility] of [facility] illness Narrative* Problem [...] of this encounter (statuses as of 01/03/2022) [facility] of [facility] illness Narrative* Problem [...] of this encounter (statuses as of 01/30/2022) [facility] of [facility] illness Narrative* Problem [...] of this encounter (statuses as of 02/06/2022) [facility] of [facility] illness Narrative* Problem [...] of this encounter (statuses as of 02/24/2022) [facility] of Past illness Narrative* Problem [...] of this encounter (statuses as of 03/03/2022) [facility] of Past illness Narrative* Problem [...] of this encounter (statuses as of 03/09/2022) [facility] History of Past illness Narrative* Problem [...] of this encounter (statuses as of 03/29/2022) [facility] Diagnosis Lump of skin Localized superficial swelling, mass, or lump [facility] Diagnosis Tailbone injury, initial encounter- Primary Chronic low back pain with sciatica, sciatica laterality unspecified, unspecified back pain laterality [facility] Diagnosis Edema, unspecified type S/P lumbar fusion Arthrodesis status Moderate episode of recurrent major depressive disorder (HCC) Postoperative hypothyroidism Postsurgical hypothyroidism [facility] Diagnosis Sinus pressure- Primary Other diseases of nasal cavity and sinuses Acute cough [facility] Diagnosis Edema, unspecified type Seasonal allergies Allergic rhinitis, cause unspecified [facility] Diagnosis Postoperative hypothyroidism Postsurgical hypothyroidism [facility] Diagnosis S/P lumbar fusion Arthrodesis status Moderate episode of recurrent major depressive disorder (HCC) [facility] Diagnosis Encounter for screening mammogram for breast cancer [facility] Diagnosis Postoperative hypothyroidism Postsurgical hypothyroidism Edema, unspecified type [facility]* Diagnosis 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)- Primary Postoperative hypothyroidism Postsurgical hypothyroidism Chronic hepatitis C without hepatic coma (HCC) Chronic hepatitis C without mention of hepatic coma Essential hypertension Unspecified essential hypertension [facility] Diagnosis S/P lumbar fusion Arthrodesis status Moderate episode of recurrent major depressive disorder (HCC) TMJ dysfunction Temporomandibular joint disorders, unspecified [facility] Diagnosis S/P lumbar fusion Arthrodesis status Moderate episode of recurrent major depressive disorder (HCC) [facility] Diagnosis Edema, unspecified type Postoperative hypothyroidism Postsurgical hypothyroidism [facility]* Diagnosis Grade 1 follicular [...] Breast screening, unspecified [facility] Diagnosis Seasonal allergies Allergic rhinitis, cause unspecified [facility] Diagnosis Postoperative hypothyroidism- Primary Postsurgical hypothyroidism [facility] Diagnosis S/P lumbar fusion Arthrodesis status Moderate episode of recurrent major depressive disorder (HCC) [facility]* Diagnosis Encounter for gynecological examination (general) (routine) without abnormal findings- Primary Screening for cervical cancer Screening for malignant neoplasm of the cervix Encounter for screening for human papillomavirus (HPV) Special screening examination for human papillomavirus (HPV) Encounter for screening mammogram for malignant neoplasm of breast Other screening mammogram [facility] Diagnosis Edema, unspecified type Postoperative hypothyroidism Postsurgical hypothyroidism [facility] Diagnosis Follicular lymphoma grade I of lymph nodes of multiple sites- Primary Nodular lymphoma of lymph nodes of multiple sites [facility] Diagnosis Follicular lymphoma grade I of lymph nodes of multiple sites Nodular lymphoma of lymph nodes of multiple sites Follicular lymphoma grade I of lymph nodes of multiple sites- Primary Nodular lymphoma of lymph nodes of multiple sites [facility] Diagnosis S/P lumbar fusion Arthrodesis status Moderate episode of recurrent major depressive disorder (HCC) documented in this encounter [facility] for referral (narrative)* Diagnostic Procedure Only (Urgent) - Closed Specialty Diagnoses / Procedures Referred By Aniya royal Referred To Contact XR IMAGING Diagnoses Tailbone injury, initial encounter Procedures XR SACRUM/COCCYX 3V AP/LAT RADEX SACRUM & COCCYX MINIMUM 2 VIEWS La Alejandra PA-C [address] [place] [address] Xr Imaging Referral ID Status Reason Start Date Expiration Date V isits Requested Visits Authorized [id number] Closed Auto-Generate d Referral 07/25/2021 08/24/2022 1 1 * Diagnostic Procedure Only (Urgent) - Closed Specialty Diagnoses / Procedures Referred By Contac t Referred To Contact XR IMAGING Diagnoses Chronic low back pain with sciatica, sciatica laterality unspecified, unspecified back pain laterality Procedures XR LUMBAR GENERAL 3V AP/LAT/L5-S1 RADEX SPINE LUMBOSACRAL 2/3 VIEWS La Alejandra PA-C [address] [place] [address] Xr Imaging Referral ID Status Reason Start Date Expiration Date V isits Requested Visits Authorized [id number] Closed Auto-Generate d Referral 07/25/2021 08/24/2022 1 1 [facility] for referral (narrative)* Diagnostic Procedure Only (Routine) - Pending Review Specialty Diagnoses / Procedures Referred By Aniya t Referred To Contact BR IMAGING Diagnoses Encounter for screening mammogram for breast cancer Procedures GRACE SCREENING SCREENING MAMMOGRAPHY BI 2-VIEW BREAST INC CAD Jade Underwood MD [address] [place] [address] [facility] [address] [place] [address] Referral ID Status Reason Start Date Expiration Date Visits Requested Visits Authorized [id number] Pending Review Auto-Generat ed Referral 02/24/2023 1 1 [facility] for referral (narrative)* Diagnostic Procedure Only (Routine) - Authorized Specialty Diagnoses / Procedures Referred By Aniya royal Referred To Contact BR IMAGING Diagnoses Screening breast examination Procedures GRACE SCREENING SCREENING MAMMOGRAPHY BI 2-VIEW BREAST INC CAD Jade Underwood MD [facility] [place] [address] [facility] [address] [place] [address] Referral ID Status Reason Start Date Expiration Date Visits Requested Visits Authorized [id number] Authorized Auto-Generat ed Referral 05/04/2022 06/03/2023 1 1 * Diagnostic Procedure Only (Routine) - Authorized Specialty Diagnoses / Procedures Referred By Aniya t Referred To Contact US IMAGING Diagnoses Mass of skin of back Procedures US CHEST WALL/SOFT TISSUE US CHEST REAL TIME W/IMAGE DOCUMENTATION Jade Underwood MD [address] [place] [address] [facility] Referral ID Status Reason Start Date Expiration Date Visits Requested Visits Authorized [id number] Authorized Auto-Generat ed Referral 05/04/2022 06/03/2023 1 1 * Diagnostic Procedure Only (Routine) - Pending Review Specialty Diagnoses / Procedures Referred By Yaniac t Referred To Contact XR IMAGING Diagnoses Chronic pain of both knees Procedures XR KNEE GENERAL 4V AP BOTH/PA BOTH/LAT/MERC BILATERAL RADIOLOGIC EXAM KNEE COMPLETE 4/MORE VIEWS Jade Underwood MD [address] [place] [address] Xr Imaging Referral ID Status Reason Start Date Expiration Date Visits Requested Visits Authorized [id number] Pending Review Auto-Generat ed Referral 05/04/2022 06/03/2023 1 1 [facility] Diagnostic Procedure Only (Routine) - Pending Review Specialty Diagnoses / Procedures Referred By Aniya t Referred To Contact BR IMAGING Diagnoses Encounter for screening mammogram for malignant neoplasm of breast Procedures GRACE SCREENING SCREENING MAMMOGRAPHY BI 2-VIEW BREAST INC Sheridan Grayson APRN.CNP [address] [place] [address] [facility] [address] [place] [address] Referral ID Status Reason Start Date Expiration Date Visits Requested Visits Authorized [id number] Pending Review Auto-Generat ed Referral 11/22/2022 12/22/2023 1 1 [facility] Summary Purpose Family History No Family [...] MD,MS [address] [place] [address] Referral ID Status Reason Start Date Expiration Date V isits Requested Visits Authorized [id number] Auth Not Needed 01/30/2023 02/24/2024 1 1 Specialty Diagnoses / Procedures Referred By Contac t Referred To Contact Diagnoses Follicular lymphoma grade I of lymph nodes of multiple sites Procedures BONE MARROW ASPIRATION Erick Fowler MD,MS [address] [place] [address] Referral ID Status Reason Start Date Expiration Date V isits Requested Visits Authorized [id number] New Request 01/30/2023 02/24/2024 1 1 Specialty Diagnoses / Procedures Referred By Contac t Referred To Contact Diagnoses Follicular lymphoma grade I of lymph nodes of multiple sites Procedures NUC PET LYMPHOMA CHG NUC THERAPY HYPERTHYROID SUBSEQUENT Erick Fowler MD,MS [address] [place] [address] Referral ID Status Reason Start Date Expiration Date V isits Requested Visits Authorized [id number] Pending Review 01/30/2023 02/24/2024 1 1 Additional Source Comments INFORMATION SOURCE (unrecogn ized section and content) DATE CREATED AUTHOR AUTHOR'S ORGANIZ ATION 03/21/2023 [facility] DATE CREATED AUTHOR AUTHOR'S ORGANIZ ATION 05/13/2023 [facility] Source Comments (unrecognize d section and content) In the event this informatio n is protected by the Federal Confidentiality of Alcohol and Drug Abuse Patient Records regulations: The Federal rules restrict any use of the information to criminally investigate or prosecute any alcohol or drug abuse patient.[facility] the event this information is protected by the Federal Confidentiality of Alcohol and Drug Abuse Patient Records regulations: The Federal rules restrict any use of the information to criminally investigate or prosecute any alcohol or drug abuse patient.[facility] HospitalIn the event this information is protected by the Federal Confidentiality of Alcohol and Drug Abuse Patient Records regulations: The Federal rules restrict any use of the information to criminally investigate or prosecute any alcohol or drug abuse patient.[facility] the event this information is protected by the Federal Confidentiality of Alcohol and Drug Abuse Patient Records regulations: The Federal rules restrict any use of the information to criminally investigate or prosecute any alcohol or drug abuse patient.[facility] HospitalIn the event this information is protected by the Federal Confidentiality of Alcohol and Drug Abuse Patient Records regulations: The Federal rules restrict any use of the information to criminally investigate or prosecute any alcohol or drug abuse patient.[facility] HospitalIn the event this information is protected by the Federal Confidentiality of Alcohol and Drug Abuse Patient Records regulations: The Federal rules restrict any use of the information to criminally investigate or prosecute any alcohol or drug abuse patient.[facility] HospitalIn the event this information is protected by the Federal Confidentiality of Alcohol and Drug Abuse Patient Records regulations: The Federal rules restrict any use of the information to criminally investigate or prosecute any alcohol or drug abuse patient.[facility] the event this information is protected by the Federal Confidentiality of Alcohol and Drug Abuse Patient Records regulations: The Federal rules restrict any use of the information to criminally investigate or prosecute any alcohol or drug abuse patient.[facility] the event this information is protected by the Federal Confidentiality of Alcohol and Drug Abuse Patient Records regulations: The Federal rules restrict any use of the information to criminally investigate or prosecute any alcohol or drug abuse patient.[facility]In the event this information is protected by the Federal Confidentiality of Alcohol and Drug Abuse Patient Records regulations: The Federal rules restrict any use of the information to criminally investigate or prosecute any alcohol or drug abuse patient.[facility] HospitalIn the event this information is protected by the Federal Confidentiality of Alcohol and Drug Abuse Patient Records regulations: The Federal rules restrict any use of the information to criminally investigate or prosecute any alcohol or drug abuse patient.[facility] HospitalIn the event this information is protected by the Federal Confidentiality of Alcohol and Drug Abuse Patient Records regulations: The Federal rules restrict any use of the information to criminally investigate or prosecute any alcohol or drug abuse patient.[facility] HospitalIn the event this information is protected by the Federal Confidentiality of Alcohol and Drug Abuse Patient Records regulations: The Federal rules restrict any use of the information to criminally investigate or prosecute any alcohol or drug abuse patient.[facility] HospitalIn the event this information is protected by the Federal Confidentiality of Alcohol and Drug Abuse Patient Records regulations: The Federal rules restrict any use of the information to criminally investigate or prosecute any alcohol or drug abuse patient.[facility] HospitalIn the event this information is protected by the Federal Confidentiality of Alcohol and Drug Abuse Patient Records regulations: The Federal rules restrict any use of the information to criminally investigate or prosecute any alcohol or drug abuse patient.[facility] HospitalIn the event this information is protected by the Federal Confidentiality of Alcohol and Drug Abuse Patient Records regulations: The Federal rules restrict any use of the information to criminally investigate or prosecute any alcohol or drug abuse patient.[facility] HospitalIn the event this information is protected by the Federal Confidentiality of Alcohol and Drug Abuse Patient Records regulations: The Federal rules restrict any use of the information to criminally investigate or prosecute any alcohol or drug abuse patient.[facility] HospitalIn the event this information is protected by the Federal Confidentiality of Alcohol and Drug Abuse Patient Records regulations: The Federal rules restrict any use of the information to criminally investigate or prosecute any alcohol or drug abuse patient.[facility] HospitalIn the event this information is protected by the Federal Confidentiality of Alcohol and Drug Abuse Patient Records regulations: The Federal rules restrict any use of the information to criminally investigate or prosecute any alcohol or drug abuse patient.[facility] HospitalIn the event this information is protected by the Federal Confidentiality of Alcohol and Drug Abuse Patient Records regulations: The Federal rules restrict any use of the information to criminally investigate or prosecute any alcohol or drug abuse patient.[facility] HospitalIn the event this information is protected by the Federal Confidentiality of Alcohol and Drug Abuse Patient Records regulations: The Federal rules restrict any use of the information to criminally investigate or prosecute any alcohol or drug abuse patient.[facility] HospitalIn the event this information is protected by the Federal Confidentiality of Alcohol and Drug Abuse Patient Records regulations: The Federal rules restrict any use of the information to criminally investigate or prosecute any alcohol or drug abuse patient.[facility] HospitalIn the event this information is protected by the Federal Confidentiality of Alcohol and Drug Abuse Patient Records regulations: The Federal rules restrict any use of the information to criminally investigate or prosecute any alcohol or drug abuse patient.[facility] HospitalIn the event this information is protected by the Federal Confidentiality of Alcohol and Drug Abuse Patient Records regulations: The Federal rules restrict any use of the information to criminally investigate or prosecute any alcohol or drug abuse patient.[facility] HospitalIn the event this information is protected by the Federal Confidentiality of Alcohol and Drug Abuse Patient Records regulations: The Federal rules restrict any use of the information to criminally investigate or prosecute any alcohol or drug abuse patient.[facility] HospitalIn the event this information is protected by the Federal Confidentiality of Alcohol and Drug Abuse Patient Records regulations: The Federal rules restrict any use of the information to criminally investigate or prosecute any alcohol or drug abuse patient.[facility] Reason for Visit (unrecogniz ed section [...] cervical cancer Procedures CONSULT TO GYNECOLOGY OFFICE/OUTPATIENT [facility] MDM 60-74 MINUTES Jade Underwood MD [address] [place] [address] Referral ID Status Reason Start Date Expiration Date V isits Requested Visits Authorized [id number] Closed PCP Requested Referral Auto-Generated Referral 11/02/2022 11/02/2023 1 1 Reason Onset Date Comments Refill Request 11/23/2022 Reason Comments Follow-up Specialty Diagnoses / Procedures Referred By Aniya t Referred To Contact Diagnoses Follicular lymphoma grade I of lymph nodes of multiple sites Procedures BONE MARROW ASPIRATE AND BIOPSY Erick Fowler MD,MS [address] [place] [address] Referral ID Status Reason Start Date Expiration Date V isits Requested Visits Authorized [id number] Auth Not Needed 01/30/2023 02/24/2024 1 1 Reason Comments Letter No show letter #1 Reason Onset Date Comments Refill Request 05/14/2023 Care Teams (unrecognized sec tion and content) [employer] Relationship Specialty Start Date End Date Jade Underwood MD [address] [place] [address] PCP - General 11/04/14 [employer] Chemical[employer] Operator Relationship Specialty Start Date End Date Jade Underwood MD [address] [place] [address] PCP - General 11/04/14 [employer] Chemical[employer] Operator Relationship Specialty Start Date End Date Jade Underwood MD [address] [place] [address] PCP - General 11/04/14 Fine Chemical[employer] Operator Relationship Specialty Start Date End Date Jade Underwood MD [address] [place] [address] PCP - General 11/04/14 Fine Chemical[employer] Operator Relationship Specialty Start Date End Date Jade Underwood MD [address] [place] [address] PCP - General 11/04/14 Fine Chemicals Operator Relationship Specialty Start Date End Date Jade Underwood MD [address] [facility] [place] [address] PCP - General 11/04/14 Fine Chemical[employer] Operator Relationship Specialty Start Date End Date Jade Underwood MD [address] [facility] [place] [address] PCP - General 11/04/14 Fine Chemicals Operator Relationship Specialty Start Date End Date Jade Underwood MD [address] [facility] [place] [address] PCP - General 11/04/14 Fine Chemicals Operator Relationship Specialty Start Date End Date Jade Underwood MD [address] [facility] [place] [address] PCP - General 11/04/14 Fine Chemicals Operator Relationship Specialty Start Date End Date Jade Underwood MD [address] [place] [address] PCP - General 11/04/14 Fine Chemicals Operator Relationship Specialty Start Date End Date Jade Underwood MD [address] [place] [address] PCP - General 11/04/14 Fine Chemicals Operator Relationship Specialty Start Date End Date Jade Underwood MD [address] [place] [address] PCP - General 11/04/14 Fine Chemical[employer] Operator Relationship Specialty Start Date End Date Jade Underwood MD [address] [place] [address] PCP - General 11/04/14 Fine Chemicals Operator Relationship Specialty Start Date End Date Jade Underwood MD [address] [place] [address] PCP - General 11/04/14 Fine Chemicals Operator Relationship Specialty Start Date End Date Jade Underwood MD [address] [place], [place] [address] PCP - General 11/04/14 Fine Chemicals Operator Relationship Specialty Start Date End Date Jade Underwood MD [address] [place], [place] [id number] PCP - General 11/04/14 Fine Chemicals Operator Relationship Specialty Start Date End Date Erick Fowler MD,MS [address] [place] [phone] Hematology 01/25/[address] [facility] [address] [place] [address] Oncologist Medical Oncology 01/25/23 Fine Chemicals Operator Relationship Specialty Start Date End Date Merna Sykes RN PCP - General Hematology and Oncology 02/01/23 Erick Fowler MD,MS [address] [place] [phone] Hematology 01/25/[address] [facility] [address] [place] [address] Oncologist Medical Oncology 01/25/23 FOR RECORDS PERTAINING [...] BE BASED ON THE PRIMARY CLINICAL RECORDS. [facility] [employer] [facility]. provides no warranty or guarantee of the accuracy or completeness of information in this document.
[2023-05-19 07:42] LABS: Absolute Lymphocyte Count 1.87 X10^3/uL (0.83-4.51); Absolute Neutrophil Count 7.7 X10^3/uL (2.0-7.7); Basophil# 0.04 X10^3/uL; Basophil% 0.4 % (0-1); Eosinophil# 0.07 X10^3/uL; Eosinophils% 0.7 % (0-5); Hematocrit 36.9 % (37-47); Hemoglobin 12.9 g/dL (12.0-15.0); Lymphocyte # 1.87 X10^3/ul (0.83-4.51); Lymphocyte % 18.2 % (19-41); Mean Corpuscular Hgb 29.2 pg (27.0-32.0); Mean Corpuscular Volume 83.5 fL (81-99); Monocyte# 0.64 X10^3/uL; Monocyte% 6.2 % (0-10); NRBC Flagged by Analyzer 0 % (0-5); Neutrophil # 7.66 X10^3/uL (2.7-7.7); Neutrophil % 74.3 % (47-70); Platelet Count 287 K/mm3 (150-450); RBC Distribution Width SD 39.5 fl (35.1-43.9); Red Blood Count 4.42 M/mm3 (4.2-5.4); White Blood Count 10.3 K/mm3 (4.4-11.0)
--- OUTSIDE RECORDS SUMMARY | 2023-05-19 07:44 | XMS RPT_ITS | CCD ---
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 Name Role Phone Jade Underwood MD Primary Care Provider [phone] Janeth BLANK,MS, Erick Unavailable [phone] Christian [facility], Leena Morrison Unavailable Beryl PIZANO, [place] Primary Care Provider Unava ilable LEENA GONZALES Referring Unavailable ERICK FOWLER Attending UnavailERICK Gao Attending UnavailERICK Gao Referring Unavaildorian SYKES EFFINGHAM Primary Care Unavailable ERICK FOWLER Attending ERICK Lambert Referring Unavaildorian SYKES [place] Primary Care Unavailable Jade Underwood MD Primary Care Provider [phone] SHERIDAN GRADY Attending Unavailable JADE UNDERWOOD Primary Care Unavailable JADE UNDERWOOD Referring Unavailable JADE UNDERWOOD Referring Unavailable JADE UNDERWOOD Primary Care Unavailable JADE UNDERWOOD Attending Unavailable JADE UNDERWOOD Primary Care Unavailable JADE UNDERWOOD Referring Unavailable JADE UNDERWOOD Primary Care Unavailable Allergies Allergy Classification Reported Allergen(s) Allergy Type Date of Onset Reaction(s) Facility (20 sources) gabapentin; Translations: [GABAPENTIN] Drug Allergy 7 [facility] Work Phone: (20 sources) Sulfonamides (Antibiotic); Translations: [SULFA (SULFONAMIDE ANTIBIOTICS)] Drug Intolerance 5 GI Upset [facility] Work Phone: Medications Current Medications Medication [...] Erick Fowler MD,MS Work Phone: [facility] 01-30-2023 13:45-0400 Body mass index (BMI) [Ratio] 30.76 kg/m2 Erick Fowler MD,MS Work Phone: [facility] 01-30-2023 13:45-0400 Body temperature 98.71 [degF] Erick Fowler MD,MS Work Phone: [facility] 01-30-2023 13:45-0400 Body weight 86.46 kg Erick Fowler MD,MS Work Phone: [facility] 01-30-2023 13:45-0400 Diastolic blood pressure 75 mm[Hg] Erick Fowler MD,MS Work Phone: [facility] 01-30-2023 13:45-0400 Heart rate 72 /min Erick Fowler MD,MS Work Phone: [facility] 01-30-2023 13:45-0400 Respiratory rate 14 /min Erick Fowler MD,MS Work Phone: [facility] 01-30-2023 13:45-0400 SaO2% (BldA) [Mass fraction] 96 % Erick Fowler MD,MS Work Phone: [facility] 01-30-2023 13:45-0400 Systolic blood pressure 126 mm[Hg] Erick Fowler MD,MS Work Phone: [facility] 11-22-2022 10:06-0400 Body height 166 cm Sheridan Birmingham SHOT HOLE SHOOTER.FAGOT HEATER HELPER Work Phone: [facility] 11-22-2022 10:06-0400 Body weight 88.72 kg Sheridan Birmingham SHOT HOLE SHOOTER.FAGOT HEATER HELPER Work Phone: [facility] 11-22-2022 10:06-0400 Diastolic blood pressure 76 mm[Hg] Sheridan Miguel A SHOT HOLE SHOOTER.FAGOT HEATER HELPER Work Phone: [facility] 11-22-2022 10:06-0400 Systolic blood pressure 126 mm[Hg] Sheridan Miguel A SHOT HOLE SHOOTER.FAGOT HEATER HELPER Work Phone: [facility] 05-04-2022 15:46-0500 Body weight 90.27 kg Jade Underwood MD Work Phone: [facility] 05-04-2022 15:46-0500 Diastolic blood pressure 82 mm[Hg] Jade Underwood MD Work Phone: [facility] 05-04-2022 15:46-0500 Heart rate 84 /min Jade Underwood MD Work Phone: [facility] 05-04-2022 15:46-0500 SaO2% (BldA) [Mass fraction] 95 % Jade Underwood MD Work Phone: [facility] 05-04-2022 15:46-0500 Systolic blood pressure 130 mm[Hg] Jade Underwood MD Work Phone: [facility] 12-09-2021 12:28-0400 Body temperature 98.01 [degF] Kary Paige APRN.FAGOT HEATER HELPER Work Phone: [facility] 12-09-2021 12:28-0400 Body weight 94.8 kg Kary Paige APRN.FAGOT HEATER HELPER Work Phone: [facility] 12-09-2021 12:28-0400 Diastolic blood pressure 80 mm[Hg] Kary aPige APRN.FAGOT HEATER HELPER Work Phone: [facility] 12-09-2021 12:28-0400 Heart rate 106 /min Kary Paige APRN.FAGOT HEATER HELPER Work Phone: [facility] 12-09-2021 12:28-0400 Respiratory rate 18 /min Kary Paige APRN.FAGOT HEATER HELPER Work Phone: [facility] 12-09-2021 12:28-0400 SaO2% (BldA) [Mass fraction] 97 % Kary Paige APRN.FAGOT HEATER HELPER Work Phone: [facility] 12-09-2021 12:28-0400 Systolic blood pressure 126 mm[Hg] Kary Paige APRN.FAGOT HEATER HELPER Work Phone: [facility] 07-25-2021 13:05-0400 Body temperature 97.5 [degF] La Alejandra PA-C Work Phone: [facility] 07-25-2021 13:05-0400 Body weight 98.43 kg La Brennany PA-C Work Phone: [facility] 07-25-2021 13:05-0400 Diastolic blood pressure 74 mm[Hg] La Athy PA-C Work Phone: [facility] 07-25-2021 13:05-0400 Heart rate 78 /min La Athy PA-C Work Phone: [facility] 07-25-2021 13:05-0400 Respiratory rate 16 /min La Athy PA-C Work Phone: [facility] 07-25-2021 13:05-0400 SaO2% (BldA) [Mass fraction] 97 % La Athy PA-C Work Phone: [facility] 07-25-2021 13:05-0400 Systolic blood pressure 132 mm[Hg] La Athy PA-C Work Phone: [facility] Encounters Encounter Date Encounter Type Care Provider Facility Start: 05-14-2023 Refill Jade Underwood MD Work Phone: [facility] [place] Procedures Date Procedure Procedure Detail Performing Clinician [...] Iadna hepatitis c qu ant & reverse waistband setter lockstitch Erick Fowler MD,MS Work Phone: Start: 01-30-2023 [...] Author Start: 11-23-2027 HPV TESTING HPV TESTING [facility] Start: 11-23-2027 Screening for malign ant neoplasm of cervix HPV Testing [facility] Start: 11-03-2027 Lipid panel Lipid Screening [facility] Start: 11-03-2027 LIPID SCREEN LIPID SCREEN [facility] Start: 06-06-2027 Tetanus vaccination TETANUS [facility] Start: 06-06-2027 Urine microalbumin profile [facility] Start: 11-02-2025 DIABETES SCREEN DIABETES SCREEN [facility] Start: 11-02-2025 Diabetes Screening Diabetes Screenin g [facility] Start: 2024 LIPID SCREEN LIPID SCREEN [facility] Start: 01-31-2024 Potassium [Moles/vol ume] in Serum or Plasma POTASSIUM [facility] Start: 11-23-2023 BP CONTROLLED (<130/80) BP CON TROLLED (<130/80) [facility] Start: 11-23-2023 PAP TESTING PAP TESTING [facility] Start: 11-23-2023 Screening for malign ant neoplasm of cervix Pap Testing [facility] Start: 11-03-2023 ANNUAL PCP TEAM STOCK BUYER RAYMOND DISEASE VISIT ANNUAL PCP TEAM CHRONIC DISEASE VISIT [facility] Start: 11-03-2023 BP CONTROLLED (<130/80) BP CON TROLLED (<130/80) [facility] Start: 11-03-2023 COVID-19 VACCINE (#1) COVID-19 VACCI NE (#1) [facility] Immunizations Immunization Date Immunization Notes Care Provider Fa cility 11-02-2022 pneumococcal (PCV20) vaccine, 20 valent (PREVNAR 20) Jade Underwood MD Work Phone: [facility] 03-23-2022 influenza, seasonal, injectable Jade Underwood MD Work Phone: [facility] 03-23-2022 influenza virus vaccine, unspecified formulation Erick Fowler MD,MS Work Phone: [facility] 12-22-2020 influenza, seasonal, injectable Jade Underwood MD Work Phone: [facility] 03-08-2020 influenza, seasonal, injectable Jade Underwood MD Work Phone: [facility] 05-16-2018 hepatitis A and hepatitis B vaccine Jade Underwood MD Work Phone: [facility] 05-16-2018 hepatitis B vaccine, unspecified formulation Jade Underwood MD Work Phone: [facility] 06-06-2017 tetanus toxoid, reduced diphtheria toxoid, and acellular pertussis vaccine, adsorbed Jade Underwood MD Work Phone: [facility] 12-01-2016 influenza, injectabl e, quadrivalent, contains preservative Jade Underwood MD Work Phone: [facility] 12-25-2014 influenza, injectabl e, quadrivalent, contains preservative Jade Underwood MD Work Phone: [facility] 02-06-2006 influenza virus vaccine, unspecified formulation Jade Underwood MD Work Phone: [facility] Work Phone: Payers Date Payer Category [facility] [id number] 2023-Present [address] [place] [address] [id number] 2022 Medicaid [id number] 2022 Unknown [id number] 2020 Medicaid [facility] MEDICAID [id number] 2020-Present [phone] [address] [place] [address] Medicaid [id number] 2020 Medicaid [id number] 1967 Unknown [id number] 1967 Unknown [id number] 1967 Unknown [id number] Social History Date Type Detail Facility Start: 09-15-2020 End: 12-09-2021 Tobacco smoking status NHIS Ex-smoker [facility] History of tobacco use Cigarette Smoker [facility] Start: 09-15-2020 End: 11-02-2022 Cigarettes smoked current (pack per day) - Reported 0.5 [facility] Start: 09-15-2020 End: 05-04-2022 Tobacco use and exposure Smokeless tobacco non-user [facility] Start: 02-18-2021 End: 11-22-2022 Alcohol intake Current non-drinker of alcohol (finding) [facility] Start: 1965 Sex Assigned At Female C [facility] Start: 07-15-2021 End: 12-09-2021 Exposure to SARS-CoV-2 (event) Not sure [facility] Work Phone: History of tobacco use Current smoker [facility] Start: 05-04-2022 [facility] Start: 05-04-2022 End: 11-02-2022 Tobacco use panel [facility] National Score (1-10 0), lower number is lower risk 92 [facility] Start: 02-08-2021 Gender identity Identifies as female gender (finding) [facility] Start: 02-08-2021 Sexual orientation Heterosexual (fin dylan) [facility] Tobacco smoking consumption unknown [facility] Start: 1965 Sex Assigned At Not on file [facility] Clinical Notes 02-05-2015 to 05-14-2023 Telephone Encounter - Kelley Renee - 05/14/2023 2:05 PM ESTTelephone Encounter - Guerline Dao LPN - 05/11/2023 11:40 AM Noris Garcia DO, PhD - 01/30/2023 2:00 PM EDTAttachments Note Date & Type Note Facility 05-14-2023 Miscellaneous Notes Pharmacy verified in [facility] Patient has been identified by name and [...] Kelley Tanner Pss documented in this encounter [facility] 05-11-2023 Miscellaneous Notes No show letter #1 sent to patient for missed visit today. documented in this encounter [facility] 01-30-2023 History of Presen t illness [...] reported. Patient was initially seen in the [place] emergency room on September 10, 2020 with [...] is a 57 y.o. year-old female in [facility]. HEENT: normocephalic, atraumatic; extraocular movements intact and [...] Physician Hematology and Medical Oncology [facility] Chief Complaint Patient presents with Follow-up [...] is a 57 y.o. year-old female in [facility]. HEENT: normocephalic, atraumatic; extraocular movements intact and [...] final management plan. Erick Fowler MD, MS Dude Wrangler - Hematology documented in this encounter [facility] 01-30-2023 Instructions Annabelle Rodriguez RN - 01/30/2023 2:00 PM EDT Primary Care Team Dr. Erick Singh, FAGOT HEATER HELPER - Certified Nurse Practitioner Idalmis Keenan CNP- Certified Nurse Pracitioner Yolanda Haynes RN - Nurse Annabelle Palencia RN - Nurse Vicki Sykes RN- Patient Care Bioanalyst Contact Numbers: Clinic Phone & Appointment Changes: [phone] Clinic For Medication Refills: Please plan ahead [...] applied to wood stairs to prevent sliding. Timpson a bright colored line on the edge [...] may request more written information from the [employer] for [employer] Information at or email: [email or web address]. The following attachments cannot be sent through Care Everywhere.Scan: PET (Allyson Paige) (Arabic)Bone Marrow Procedure Guide (Allyson Paige) (Arabic)documented in this encounter [facility] 01-26-2023 Note Request received for second opinion consultation by Halina Solorio APRN-LENORA. Dx Follicular Lymphoma . Please review OS slides to confirm diagnosis. Thanks. Preoperative Diagnosis: Left pelvic lymph node. [facility] documented as of this encounter (statuses as of 11/03/2022) [facility]07-27-2023 History of Past illness Narrative* Problem Noted Date Diagnosed Date Resolved Date Delayed surgical wound healing 11/02/2022 11/02/2022 11/02/2022 Opioid dependence 11/02/2022 11/02/2022 11/02/2022 Pain of right upper arm 01/18/2022 11/02/202210/08 Paresthesia of upper extremity 01/18/2022 11/02/2022 11/02/2022 Substance abuse 01/18/2022 11/02/2022 11/02/2022 Screening for colon cancer 02/21/2018 1 06/01/2021 Overview: Added automatically from request for surgery [id number] Pain in right elbow 02/05/2015 08/24/19 17 [...] of this encounter (statuses as of 11/14/2022) [facility]07-27-2023 History of Past illness Narrative* Problem [...] Overview: Added automatically from request for surgery [id number] Pain in right elbow 02/05/2015 08/24/19 17 [...] of this encounter (statuses as of 11/22/2022) [facility]07-27-2023 History of Past illness Narrative* Problem [...] Overview: Added automatically from request for surgery [id number] Pain in right elbow 02/05/2015 08/24/19 17 [...] of this encounter (statuses as of 11/23/2022) [facility]07-27-2023 History of Past illness Narrative* Problem [...] Overview: Added automatically from request for surgery [id number] Pain in right elbow 02/05/2015 08/24/19 17 [...] of this encounter (statuses as of 12/19/2022) [facility]07-27-2023 History of Past illness Narrative* Problem [...] Overview: Added automatically from request for surgery [id number] Pain in right elbow 02/05/2015 08/24/19 17 [...] of this encounter (statuses as of 05/11/2023) [facility]07-27-2023 History of Past illness Narrative* Problem [...] Overview: Added automatically from request for surgery [id number] Pain in right elbow 02/05/2015 08/24/19 17 [...] of this encounter (statuses as of 05/15/2023) [facility]07-27-2023 NoteHNO ID: [id number] Author: Jade Underwood MD Service: ? Author [...] to pain in knees. 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 Castelan- [facility]; repeat 5 years DANAZ (MISSED AB 1ST TRIMESTER) EGD W/B (more content not included)...[facility]07-20-2023 Miscellaneous Notes* Telephone Encounter - Arleen [...] and advise. Arleen Webb documented in this encounterVan [facility]02-28-2023 NoteHNO ID: [id number] Author: RT Sanjiv(R) Service: ? Author Type: Commercial Singer Type: Progress Notes Filed: 06/06/2022 2:57 PM [...] BY: RT Sanjiv(R) June 06, 2022 2:42 [facility]01-26-2023 History of Present illness Narrative* Jade Underwood MD - 05/04/2022 3:46 PM EST Patient presents with: Follow Up Arthritis HPI: Patient presents today for office visit for follow up. PSYCH: Currently tolerating medications well: Yes . Side effects: No. Sleep issues: trouble staying asleep. Usually waking up due to pain in knees. 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 D&C (MISSED AB 1ST TRIMESTER) EGD W/BX, SINGLE OR MULT 02/21/2022 Dr. Castelan- [facility] LAMINECTOMY W/O FFD 1/2 VERT SEG [...] for annual exam in one year. - [facility] SCREENING Jade Underwood RTO in six months and prn. documented in [facility]23 Miscellaneous Notes* Telephone Encounter - Eugenia [...] patient. Karyna Lutz Pss documented in this encounterVan [facility]12-29-2022 Miscellaneous Notes* Telephone Encounter - Lyndsey [...] advise. Lyndsey Fuentes Pss documented in this encounterVan [facility]12[facility]23-[facility] History of Present illness Narrative* Jade Underwood MD - 03/31/2022 8:06 AM EST Did not check in. Called and no answer. Left message to reschedule. documented in this encounterVan [facility]12-21-2022 Miscellaneous Notes* Telephone Encounter - DENIZ [...] Thank you. Venita Singh documented in this encounterVan [facility]12-01-2022 Miscellaneous Notes* Telephone Encounter - DENIZ Moon - 03/09/2022 2:34 PM EST TC to patient who is agreeable to appointment. [facility] Pt also [...] Dr. Kj Dao LPN documented in this encounterVan [facility]12-01-2022 Miscellaneous Notes* Telephone Encounter - Cassie [...] Thanks, Rei Singh PA-C documented in this encounterVan [facility]11-25-2022 Miscellaneous Notes* Telephone Encounter - Chuyita [...] Guerin Pss documented in this [facility]11-18-2022 Miscellaneous Notes* Telephone Encounter - [...] Fuentes Pss documented in this [facility]10-31-2022 Miscellaneous Notes* Telephone Encounter - Guerline Dao LPN - 02/06/2022 12:17 PM EDT VIRGIE 02/18/21 Has been notified to schedule a visit. * [facility] En[facility] 02/06/2022 11:51 AM EDT Patient has been identified by name and date of : Yes Requested Prescriptions Pending Prescriptions Disp Refills DULoxetine (CYMBALTA) 60 mg capsule 30 capsule 0 Sig: Take 1 capsule by mouth once daily. RX INSTRUCTIONS: Patient aware RX will be sent to pharmacy. No need to notify patient. Margaret [facility]es [facility] documented in [facility]09-27-[facility]22 Miscellaneous Notes* Telephone Encounter - Sandra [...] patient. Sandradane Harrington Pss documented in this encounterVan [facility]09-22-2022 Miscellaneous Notes* Telephone Encounter - Eugenia [...] notify patient. Karyna Webb documented in this encounterVan [facility]09-15-2022 Miscellaneous Notes* Telephone Encounter - Eugenia Lamar Ma - 12/22/2021 11:36 AM EDT Last office visit: 02/18/21 F/u scheduled: none, has no showed and cancelled last 2 appts. Eugenia Lamar Ma * Telephone Encounter - Kelley Tanner Pss - 12/22/2021 10:29 AM EDT Pharmacy verified in [facility] Patient has been identified by name and [...] advise. Kelley Tanner Pss documented in this encounterVan [facility]09-02-[facility]22 History of Present illness Narrative* Kary Paige APRN.FAGOT HEATER HELPER - 12/09/2021 12:56 PM EDT CC: Patient [...] plan. Kary Paige APRN.LENORA documented in this encounterVan [facility]08-12-2022 Miscellaneous Notes* Telephone Encounter - Karyna [...] notify patient. Karyna Webb documented in this encounterVan [facility]ert [facility] Hospital04-18-2022 History of Present illness Narrative* La Alejandra PA-C - 07/25/2021 3:13 PM EDT This note was created using [employer]. Subjective Staci Sutton is a 55 year [...] Wt 98.4 kg (217 lb) LMP 02/27/2012 CjK910% BMI 35.02 kg/m Physical Exam Vitals reviewed. [...] AP/LAT/L5-S1 La Alejandra PA-C documented in this encounterVan [facility]ert [facility] Hospital03-25-2022 Miscellaneous Notes* Telephone Encounter - Vika [...] patient. Vika Farris Pss documented in this encounterVan [facility]ert [facility] Hospital11-15-2018 History of Past illness Narrative* Problem Noted Date Resolved Date Screening for colon cancer 02/21/201803/31 Overview: Added automatically from request for surgery [id number] Pain in right elbow 02/05/2015 08/23/2016 Arthrodesis [...] of this encounter (statuses as of 04/01/2022) [facility] History of Past illness Narrative* Problem Noted Date Resolved Date Screening for colon cancer 02/21/201803/31 Overview: Added automatically from request for surgery [id number] Pain in right elbow 02/05/2015 08/23/2016 Arthrodesis [...] of this encounter (statuses as of 04/12/2022) [facility] History of Past illness Narrative* Problem Noted Date Resolved Date Screening for colon cancer 02/21/201803/31 Overview: Added automatically from request for surgery [id number] Pain in right elbow 02/05/2015 08/23/2016 Arthrodesis [...] of this encounter (statuses as of 04/15/2022) [facility] History of Past illness Narrative* Problem Noted Date Resolved Date Screening for colon cancer 02/21/201803/31 Overview: Added automatically from request for surgery [id number] Pain in right elbow 02/05/2015 08/23/2016 Arthrodesis [...] of this encounter (statuses as of 04/28/2022) [facility] History of Past illness Narrative* Problem Noted Date Resolved Date Screening for colon cancer 02/21/201803/31 Overview: Added automatically from request for surgery [id number] Pain in right elbow 02/05/2015 08/23/2016 Arthrodesis [...] of this encounter (statuses as of 05/04/2022) [facility] History of Past illness Narrative* Problem Noted Date Diagnosed Date Resolved Date Screening for colon cancer 02/21/2018 1 06/01/2021 Overview: Added automatically from request for surgery [id number] Pain in right elbow 02/05/2015 08/24/19 17 [...] of this encounter (statuses as of 10/26/2022) [facility]10[facility] History of Past illness Narrative* Problem [...] of this encounter (statuses as of 07/01/2021) [facility] History of Past illness Narrative* Problem [...] of this encounter (statuses as of 07/25/2021) [facility] History of Past illness Narrative* Problem [...] of this encounter (statuses as of 11/21/2021) [facility] History of Past illness Narrative* Problem [...] of this encounter (statuses as of 12/09/2021) [facility] History of Past illness Narrative* Problem [...] of this encounter (statuses as of 12/22/2021) [facility] History of Past illness Narrative* Problem [...] of this encounter (statuses as of 12/29/2021) [facility] History of Past illness Narrative* Problem [...] of this encounter (statuses as of 01/03/2022) [facility] History of Past illness Narrative* Problem [...] of this encounter (statuses as of 01/30/2022) [facility] History of Past illness Narrative* Problem [...] of this encounter (statuses as of 02/06/2022) [facility] of Past illness Narrative* Problem [...] of this encounter (statuses as of 02/24/2022) [facility] History of Past illness Narrative* Problem [...] of this encounter (statuses as of 03/03/2022) [facility] History of Past illness Narrative* Problem [...] of this encounter (statuses as of 03/09/2022) [facility] History of Past illness Narrative* Problem [...] of this encounter (statuses as of 03/29/2022) [facility]* Diagnosis Lump of skin Localized superficial swelling, mass, or lump documented in this encounter [facility]* Diagnosis Tailbone injury, initial encounter- Primary Chronic low back pain with sciatica, sciatica laterality unspecified, unspecified back pain laterality [facility] Edema, unspecified type S/P lumbar fusion Arthrodesis status Moderate episode of recurrent major depressive disorder (HCC) Postoperative hypothyroidism Postsurgical hypothyroidism [facility] Diagnosis Sinus pressure- Primary Other diseases of nasal cavity and sinuses Acute cough [facility] Diagnosis Edema, unspecified type Seasonal allergies Allergic rhinitis, cause unspecified documented [facility] Diagnosis Postoperative hypothyroidism Postsurgical hypothyroidism [facility] Diagnosis S/P lumbar fusion Arthrodesis status Moderate episode of recurrent major depressive disorder (HCC) documented [facility] Diagnosis Encounter for screening mammogram for breast cancer documented [facility] Diagnosis Postoperative hypothyroidism Postsurgical hypothyroidism Edema, unspecified type [facility]* Diagnosis 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)- Primary Postoperative hypothyroidism Postsurgical hypothyroidism Chronic hepatitis C without hepatic coma (HCC) Chronic hepatitis C without mention of hepatic coma Essential hypertension Unspecified essential hypertension [facility] Diagnosis S/P lumbar fusion Arthrodesis status Moderate episode of recurrent major depressive disorder (HCC) TMJ dysfunction Temporomandibular joint disorders, unspecified documented [facility] Diagnosis S/P lumbar fusion Arthrodesis status Moderate episode of recurrent major depressive disorder (HCC) [facility]* Diagnosis Edema, unspecified type Postoperative hypothyroidism Postsurgical hypothyroidism [facility]* Diagnosis Grade 1 follicular lymphoma of [...] Breast screening, unspecified documented [facility]* Diagnosis Seasonal allergies Allergic rhinitis, cause unspecified [facility]* Diagnosis Postoperative hypothyroidism- Primary Postsurgical hypothyroidism [facility] Diagnosis S/P lumbar fusion Arthrodesis status Moderate episode of recurrent major depressive disorder (HCC) documented [facility]* Diagnosis Encounter for gynecological examination (general) (routine) without abnormal findings- Primary Screening for cervical cancer Screening for malignant neoplasm of the cervix Encounter for screening for human papillomavirus (HPV) Special screening examination for human papillomavirus (HPV) Encounter for screening mammogram for malignant neoplasm of breast Other screening mammogram [facility]* Diagnosis Edema, unspecified type Postoperative hypothyroidism Postsurgical hypothyroidism [facility] Diagnosis Follicular lymphoma grade I of lymph nodes of multiple sites- Primary Nodular lymphoma of lymph nodes of multiple sites [facility] Diagnosis Follicular lymphoma grade I of lymph nodes of multiple sites Nodular lymphoma of lymph nodes of multiple sites Follicular lymphoma grade I of lymph nodes of multiple sites- Primary Nodular lymphoma of lymph nodes of multiple sites [facility]* Diagnosis S/P lumbar fusion Arthrodesis status Moderate episode of recurrent major depressive disorder (HCC) documented in this encounter [facility] for referral (narrative)* Diagnostic Procedure Only (Urgent) - Closed Specialty Diagnoses / Procedures Referred By Aniya royal Referred To Contact XR IMAGING Diagnoses Tailbone injury, initial encounter Procedures XR SACRUM/COCCYX 3V AP/LAT RADEX SACRUM & COCCYX MINIMUM 2 VIEWS La Alejandra PA-C [address] [place] [address] Xr Imaging Referral ID Status Reason Start Date Expiration Date V isits Requested Visits Authorized [id number] Closed Auto-Generate d Referral 07/25/2021 08/24/2022 1 1 * Diagnostic Procedure Only (Urgent) - Closed Specialty Diagnoses / Procedures Referred By Contac t Referred To Contact XR IMAGING Diagnoses Chronic low back pain with sciatica, sciatica laterality unspecified, unspecified back pain laterality Procedures XR LUMBAR GENERAL 3V AP/LAT/L5-S1 RADEX SPINE LUMBOSACRAL 2/3 VIEWS La Alejandra PA-C [address] [place] [address] Xr Imaging Referral ID Status Reason Start Date Expiration Date V isits Requested Visits Authorized [id number] Closed Auto-Generate d Referral 07/25/2021 08/24/2022 1 1 [facility] for referral (narrative)* Diagnostic Procedure Only (Routine) - Pending Review Specialty Diagnoses / Procedures Referred By Aniya t Referred To Contact BR IMAGING Diagnoses Encounter for screening mammogram for breast cancer Procedures GRACE SCREENING SCREENING MAMMOGRAPHY BI 2-VIEW BREAST INC CAD Jade Underwood MD [address] [place] [address] Br Imaging [address] [place] [address] Referral ID Status Reason Start Date Expiration Date Visits Requested Visits Authorized [id number] Pending Review Auto-Generat ed Referral 02/24/2023 1 1 [facility] for referral (narrative)* Diagnostic Procedure Only (Routine) - Authorized Specialty Diagnoses / Procedures Referred By Aniya royal Referred To Contact BR IMAGING Diagnoses Screening breast examination Procedures GRACE SCREENING SCREENING MAMMOGRAPHY BI 2-VIEW BREAST INC CAD Jade Underwood MD [facility] [place] [address] [facility] Imaging [address] [place] [address] Referral ID Status Reason Start Date Expiration Date Visits Requested Visits Authorized [id number] Authorized Auto-Generat ed Referral 05/04/2022 06/03/2023 1 1 * Diagnostic Procedure Only (Routine) - Authorized Specialty Diagnoses / Procedures Referred By Aniya t Referred To Contact US IMAGING Diagnoses Mass of skin of back Procedures US CHEST WALL/SOFT TISSUE US CHEST REAL TIME W/IMAGE DOCUMENTATION Jade Underwood MD [address] [place] [address] Us Imaging Referral ID Status Reason Start Date Expiration Date Visits Requested Visits Authorized [id number] Authorized Auto-Generat ed Referral 05/04/2022 06/03/2023 1 1 * Diagnostic Procedure Only (Routine) - Pending Review Specialty Diagnoses / Procedures Referred By Yaniac t Referred To Contact XR IMAGING Diagnoses Chronic pain of both knees Procedures XR KNEE GENERAL 4V AP BOTH/PA BOTH/LAT/MERC BILATERAL RADIOLOGIC EXAM KNEE COMPLETE 4/MORE VIEWS Jade Underwood MD [address] [place] [address] Xr Imaging Referral ID Status Reason Start Date Expiration Date Visits Requested Visits Authorized [id number] Pending Review Auto-Generat ed Referral 05/04/2022 06/03/2023 1 1 [facility] Diagnostic Procedure Only (Routine) - Pending Review Specialty Diagnoses / Procedures Referred By Aniya t Referred To Contact BR IMAGING Diagnoses Encounter for screening mammogram for malignant neoplasm of breast Procedures GRACE SCREENING SCREENING MAMMOGRAPHY BI 2-VIEW BREAST INC Sheridan Grayson APRN.CNP [address] [place] [address] [facility] [address] [place] [address] Referral ID Status Reason Start Date Expiration Date Visits Requested Visits Authorized [id number] Pending Review Auto-Generat ed Referral 11/22/2022 12/22/2023 1 1 [facility] Summary Purpose Family History No Family [...] MD,MS [address] [place] [address] Referral ID Status Reason Start Date Expiration Date V isits Requested Visits Authorized [id number] Auth Not Needed 01/30/2023 02/24/2024 1 1 Specialty Diagnoses / Procedures Referred By Contac t Referred To Contact Diagnoses Follicular lymphoma grade I of lymph nodes of multiple sites Procedures BONE MARROW ASPIRATION Erick Fowler MD,MS [address] [place] [address] Referral ID Status Reason Start Date Expiration Date V isits Requested Visits Authorized [id number] New Request 01/30/2023 02/24/2024 1 1 Specialty Diagnoses / Procedures Referred By Contac t Referred To Contact Diagnoses Follicular lymphoma grade I of lymph nodes of multiple sites Procedures NUC PET LYMPHOMA CHG NUC THERAPY HYPERTHYROID SUBSEQUENT Erick Fowler MD,MS [address] [place] [address] Referral ID Status Reason Start Date Expiration Date V isits Requested Visits Authorized [id number] Pending Review 01/30/2023 02/24/2024 1 1 Additional Source Comments INFORMATION SOURCE (unrecogn ized section and content) DATE CREATED AUTHOR AUTHOR'S ORGANIZ ATION 03/21/2023 [facility] DATE CREATED AUTHOR AUTHOR'S ORGANIZ ATION 05/13/2023 [facility] Source Comments (unrecognize d section and content) In the event this informatio n is protected by the Federal Confidentiality of Alcohol and Drug Abuse Patient Records regulations: The Federal rules restrict any use of the information to criminally investigate or prosecute any alcohol or drug abuse patient.[facility] the event this information is protected by the Federal Confidentiality of Alcohol and Drug Abuse Patient Records regulations: The Federal rules restrict any use of the information to criminally investigate or prosecute any alcohol or drug abuse patient.[facility] the event this information is protected by the Federal Confidentiality of Alcohol and Drug Abuse Patient Records regulations: The Federal rules restrict any use of the information to criminally investigate or prosecute any alcohol or drug abuse patient.[facility] the event this information is protected by the Federal Confidentiality of Alcohol and Drug Abuse Patient Records regulations: The Federal rules restrict any use of the information to criminally investigate or prosecute any alcohol or drug abuse patient.[facility] the event this information is protected by the Federal Confidentiality of Alcohol and Drug Abuse Patient Records regulations: The Federal rules restrict any use of the information to criminally investigate or prosecute any alcohol or drug abuse patient.[facility] the event this information is protected by the Federal Confidentiality of Alcohol and Drug Abuse Patient Records regulations: The Federal rules restrict any use of the information to criminally investigate or prosecute any alcohol or drug abuse patient.[facility] the event this information is protected by the Federal Confidentiality of Alcohol and Drug Abuse Patient Records regulations: The Federal rules restrict any use of the information to criminally investigate or prosecute any alcohol or drug abuse patient.[facility] the event this information is protected by the Federal Confidentiality of Alcohol and Drug Abuse Patient Records regulations: The Federal rules restrict any use of the information to criminally investigate or prosecute any alcohol or drug abuse patient.[facility] the event this information is protected by the Federal Confidentiality of Alcohol and Drug Abuse Patient Records regulations: The Federal rules restrict any use of the information to criminally investigate or prosecute any alcohol or drug abuse patient.[facility] the event this information is protected by the Federal Confidentiality of Alcohol and Drug Abuse Patient Records regulations: The Federal rules restrict any use of the information to criminally investigate or prosecute any alcohol or drug abuse patient.[facility] the event this information is protected by the Federal Confidentiality of Alcohol and Drug Abuse Patient Records regulations: The Federal rules restrict any use of the information to criminally investigate or prosecute any alcohol or drug abuse patient.[facility] the event this information is protected by the Federal Confidentiality of Alcohol and Drug Abuse Patient Records regulations: The Federal rules restrict any use of the information to criminally investigate or prosecute any alcohol or drug abuse patient.[facility] the event this information is protected by the Federal Confidentiality of Alcohol and Drug Abuse Patient Records regulations: The Federal rules restrict any use of the information to criminally investigate or prosecute any alcohol or drug abuse patient.[facility] the event this information is protected by the Federal Confidentiality of Alcohol and Drug Abuse Patient Records regulations: The Federal rules restrict any use of the information to criminally investigate or prosecute any alcohol or drug abuse patient.[facility] the event this information is protected by the Federal Confidentiality of Alcohol and Drug Abuse Patient Records regulations: The Federal rules restrict any use of the information to criminally investigate or prosecute any alcohol or drug abuse patient.[facility] the event this information is protected by the Federal Confidentiality of Alcohol and Drug Abuse Patient Records regulations: The Federal rules restrict any use of the information to criminally investigate or prosecute any alcohol or drug abuse patient.[facility] the event this information is protected by the Federal Confidentiality of Alcohol and Drug Abuse Patient Records regulations: The Federal rules restrict any use of the information to criminally investigate or prosecute any alcohol or drug abuse patient.[facility] the event this information is protected by the Federal Confidentiality of Alcohol and Drug Abuse Patient Records regulations: The Federal rules restrict any use of the information to criminally investigate or prosecute any alcohol or drug abuse patient.[facility] the event this information is protected by the Federal Confidentiality of Alcohol and Drug Abuse Patient Records regulations: The Federal rules restrict any use of the information to criminally investigate or prosecute any alcohol or drug abuse patient.[facility] the event this information is protected by the Federal Confidentiality of Alcohol and Drug Abuse Patient Records regulations: The Federal rules restrict any use of the information to criminally investigate or prosecute any alcohol or drug abuse patient.[facility] the event this information is protected by the Federal Confidentiality of Alcohol and Drug Abuse Patient Records regulations: The Federal rules restrict any use of the information to criminally investigate or prosecute any alcohol or drug abuse patient.[facility] the event this information is protected by the Federal Confidentiality of Alcohol and Drug Abuse Patient Records regulations: The Federal rules restrict any use of the information to criminally investigate or prosecute any alcohol or drug abuse patient.[facility] the event this information is protected by the Federal Confidentiality of Alcohol and Drug Abuse Patient Records regulations: The Federal rules restrict any use of the information to criminally investigate or prosecute any alcohol or drug abuse patient.[facility] the event this information is protected by the Federal Confidentiality of Alcohol and Drug Abuse Patient Records regulations: The Federal rules restrict any use of the information to criminally investigate or prosecute any alcohol or drug abuse patient.[facility] the event this information is protected by the Federal Confidentiality of Alcohol and Drug Abuse Patient Records regulations: The Federal rules restrict any use of the information to criminally investigate or prosecute any alcohol or drug abuse patient.[facility] the event this information is protected by the Federal Confidentiality of Alcohol and Drug Abuse Patient Records regulations: The Federal rules restrict any use of the information to criminally investigate or prosecute any alcohol or drug abuse patient.[facility] Reason for Visit (unrecogniz ed section [...] cervical cancer Procedures CONSULT TO GYNECOLOGY OFFICE/OUTPATIENT [facility] MDM 60-74 MINUTES Jade Underwood MD [address] [place] [address] Referral ID Status Reason Start Date Expiration Date V isits Requested Visits Authorized [id number] Closed PCP Requested Referral Auto-Generated Referral 11/02/2022 11/02/2023 1 1 Reason Onset Date Comments Refill Request 11/23/2022 Reason Comments Follow-up Specialty Diagnoses / Procedures Referred By Aniya t Referred To Contact Diagnoses Follicular lymphoma grade I of lymph nodes of multiple sites Procedures BONE MARROW ASPIRATE AND BIOPSY Erick Fowler MD,MS [address] [place] [address] Referral ID Status Reason Start Date Expiration Date V isits Requested Visits Authorized [id number] Auth Not Needed 01/30/2023 02/24/2024 1 1 Reason Comments Letter No show letter #1 Reason Onset Date Comments Refill Request 05/14/2023 Care Teams (unrecognized sec tion and content) 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 Specialty Start Date End Date Jade Underwood MD [address] [place] [address] PCP - General 11/04/14 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 Specialty Start Date End Date Jade Underwood MD [address] [place] [address] PCP - General 11/04/14 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 Specialty Start Date End Date Jade Underwood MD [address] [place] [address] PCP - General 11/04/14 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 Specialty Start Date End Date Jade Underwood MD [address] [place] [address] PCP - General 11/04/14 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 Specialty Start Date End Date Jade Underwood MD [address] [place] [address] PCP - General 11/04/14 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 Specialty Start Date End Date Jade Underwood MD [address] [facility] [address] PCP - General 11/04/14 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 Specialty Start Date End Date Jade Underwood MD [address] [facility] [address] PCP - General 11/04/14 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 Specialty Start Date End Date Jade Underwood MD [address] [facility] [place] [address] PCP - General 11/04/14 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 Specialty Start Date End Date Jade Underwood MD [address] [facility] [place] [address] PCP - General 11/04/14 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 Specialty Start Date End Date Jade Underwood MD [address] [place] [address] PCP - General 11/04/14 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 Specialty Start Date End Date Jade Underwood MD [address] [place] [address] PCP - General 11/04/14 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 Specialty Start Date End Date Jade Underwood MD [address] [place] [address] PCP - General 11/04/14 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 Specialty Start Date End Date Jade Underwood MD [address] [place] [address] PCP - General 11/04/14 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 Specialty Start Date End Date Jade Underwood MD [address] [place] [address] PCP - General 11/04/14 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 Specialty Start Date End Date Jade Underwood MD [address] [place], [place] [address] PCP - General 11/04/14 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 Specialty Start Date End Date Jade Underwood MD [address] [place], [place] [address] PCP - General 11/04/14 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 Specialty Start Date End Date Erick Fowler MD,MS [address] [place] [phone] Hematology 01/25/23 Leena Gonzales [facility] [address] [facility] [place] [address] Oncologist Medical Oncology 01/25/23 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 [facility] [employer] [facility]. provides no warranty or guarantee of the accuracy or completeness of information in this document.
[2023-05-19 07:55] VITALS: RESP 16
[2023-05-19 07:59] LABS: Alcohol, Blood (Medical)-Serum < 3.0 mg/dL
[2023-05-19 08:02] LABS: ALB/GLOB Ratio 1.1 RATIO (0.9-2.4); AST(SGOT) 19 U/L (15-37); Alanine Aminotransfer ALT/SGPT 32 U/L (13-56); Alkaline Phosphatase 100 U/L (45-117); Anion Gap 6 (5-15); BUN 7 mg/dL (7-18); BUN/Creat Ratio 10.8 RATIO (10-20); Calcium,Total 9.4 mg/dL (8.5-10.1); Chloride 96 mmol/L (98-107); Creatinine, Serum 0.65 mg/dL (0.55-1.02); EST Glomerular Filtration Rate 100 mL/min (>60); Est Glom Filt Rate - Afr Amer 121 mL/min (>60); Estimated Creatinine Clearance 108.99 ml/min; Globulin 3.8 g/dL (2.2-4.2); Glucose 110 mg/dL (74-106); Potassium 2.8 mmol/L (3.5-5.1); Protein, Total 7.8 g/dL (6.4-8.2); Sodium Level 133 mmol/L (136-145)
[2023-05-19 08:35] VITALS: BMI 30.3
[2023-05-19 08:35] LABS: Amphetamine Urine VISTA NEGATIVE (<1000 ng/mL); Barbiturate Urine VISTA NEGATIVE (< 200 ng/mL); Benzodiazepine Urine VISTA NEGATIVE (< 200 ng/mL); Cocaine Urine VISTA NEGATIVE (< 300 ng/mL); Ecstacy Urine VISTA NEGATIVE (< 500 ng/mL); Methadone Urine VISTA NEGATIVE (< 300 ng/mL); PCP Urine VISTA NEGATIVE (< 25 ng/mL); THC Urine VISTA NEGATIVE (< 50 ng/mL); Vista UDS pH Range 8
[2023-05-19 09:15] VITALS: BP 144/93; PULSE 86; RESP 18; TEMP 36.6; O2SAT 99
[2023-05-19] MEDS: Ondansetron 8 MG Tablet PO (09:53)
[2023-05-19] MEDS: Buprenorphine HCl 2 MG TAB.SUBL 4 MG SL (09:53)
[2023-05-19] MEDS: hydrOXYzine PAM 25 MG Capsule 50 MG PO (09:53)
[2023-05-19] MEDS: Methocarbamol 750 MG Tablet PO (11:21)
[2023-05-19] MEDS: cloNIDine HCl 0.1 MG Tablet 0.100000000000000006 MG PO (11:21)
[2023-05-19] MEDS: Dicyclomine 10 MG Capsule 20 MG PO (13:49)
[2023-05-19] MEDS: Acetaminophen 325 MG Tablet 650 MG PO (13:49)
--- NOTE | 2023-05-19 14:23 | ADDICTION ---
Pt was met with for Addiction Medicine assessment and to complete ASAM, AUDIT, DUDIT, Mt Status, and d/c plan. Pt reports that she is struggling with daily oxycodone use and she has been trying to get back on her MAT Suboxone medication. Pt reports she is interested in getting reconnected with Dr. Acuna at [facility]. Pt reports Dr. Acuna discharged her from services approx. two months ago d/t pt's active opioid use. Pt declined signing an JONAS for [facility]. Pt reports she would prefer to call her provider and to schedule her own follow up services. Pt was informed that d/t the extent of her risk of relapse, it is recommended that she follow up with a minimum of outpatient, IOP, Counseling, and Peer Support services immediately following d/c from detox. Pt reports that she does not plan to stay in detox for the recommended timeframe. Pt states she will likely leave AMA d/t her restlessness and irritability. Pt was encouraged to follow medical recommendations and pt was informed of the high risk of relapse w/leaving detox AMA.
--- NOTE | 2023-05-19 14:58 | PCM.HOSP.N ---
Hospitalist Note Notified by nursing staff that patient left AMA this afternoon.
== END 2023-05-19 15:04 | disposition left against medical advice (07) | DRG 770 ==
LOC: ED 07:21 → MS3 05-29 10:49
PROVIDERS: Admitting Provider Hospitalist; Emergency Provider Emergency Medicine; PCP Family Medicine; Visit Provider Hospitalist
DX: F11.13 Opioid abuse with withdrawal (principal); E03.9 Hypothyroidism, unspecified; I10 Essential (primary) hypertension; F32.A Depression, unspecified; F17.210 Nicotine dependence, cigarettes, uncomplicated; F17.290 Nicotine dependence, other tobacco product, uncomplicated; F41.9 Anxiety disorder, unspecified; E66.9 Obesity, unspecified; Z68.31 Body mass index [BMI] 31.0-31.9, adult; Z79.899 Other long term (current) drug therapy; Z85.72 Personal history of non-Hodgkin lymphomas
CPT/HCPCS: 80053; 80307; 80320; 85025; 96372; 99281; 99282; H0012; G0480; J2405

== ENCOUNTER 2023-05-19 23:24 | Emergency (ER) | payer MEDICAID, SELFPAY ==
[2023-05-19 23:24] VITALS: BP 152/105; PULSE 98; RESP 16; TEMP 35.9; O2SAT 94; BMI 31.0
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
[2023-05-20] MEDS: Acetaminophen 500 MG Tablet 1000 MG PO (00:24)
[2023-05-20] MEDS: Potassium Chloride Oral Tablet 20 MEQ 40 MEQ PO (00:24)
--- OUTSIDE RECORDS SUMMARY | 2023-05-20 00:29 | XMS RPT_ITS | CCD ---
Author Name Unknown Address [address] [place] [address] Organization [facility] Care Team Providers Care Post Production Assistant Name Role Phone Jade Underwood MD Primary Care Provider Janeth BLANK,MS, Erick Unavailable Christian [facility], Leena Morrison Unavailable Beryl PIZANO, Newton Primary Care Provider Unava ilable LEENA GONZALES Referring Unavailable ERICK FOWLER Attending UnavailERICK Gao Attending UnavailERICK Gao Referring Unavaildorian SYKES PATRICK Primary Care Unavailable ERICK FOWLER Attending ERICK Lambert Referring Unavaildorian SYKES PATRICK Primary Care Unavailable Jade Underwood MD Primary [...] sources) gabapentin; Translations: [GABAPENTIN] Drug Allergy 7 [facility] Work Phone: (20 sources) Sulfonamides (Antibiotic); Translations: [SULFA (SULFONAMIDE ANTIBIOTICS)] Drug Intolerance 5 GI Upset [facility] Work Phone: Medications Current Medications Medication [...] 11-02-2022 11-02-2022 Episodic Infective arthritis and osteomyelitis Vital Signs Date Time Vital Sign Value Performing Clinician Faci lity 01-30-2023 13:45-0400 Body height 167.6 cm Erick Fowler MD,MS Work Phone: [facility] 01-30-2023 13:45-0400 Body mass index (BMI) [Ratio] 30.76 kg/m2 Erick Fowler MD,MS Work Phone: [facility] 01-30-2023 13:45-0400 Body temperature 98.71 [degF] Erick Fowler MD,MS Work Phone: [facility] 01-30-2023 13:45-0400 Body weight 86.46 kg Erick Fowler MD,MS Work Phone: [facility] 01-30-2023 13:45-0400 Diastolic blood pressure 75 mm[Hg] Erick Fowler MD,MS Work Phone: [facility] 01-30-2023 13:45-0400 Heart rate 72 /min Erick Fowler MD,MS Work Phone: [facility] 01-30-2023 13:45-0400 Respiratory rate 14 /min Erick Fowler MD,MS Work Phone: [facility] 01-30-2023 13:45-0400 SaO2% (BldA) [Mass fraction] 96 % Erick Fowler MD,MS Work Phone: [facility] 01-30-2023 13:45-0400 Systolic blood pressure 126 mm[Hg] Erick Fowler MD,MS Work Phone: [facility] 11-22-2022 10:06-0400 Body height 166 cm Sheridan Monroe SANITATION MANAGER.MORTGAGE UNDERWRITER Work Phone: [facility] 11-22-2022 10:06-0400 Body weight 88.72 kg Sheridan Monroe SANITATION MANAGER.MORTGAGE UNDERWRITER Work Phone: [facility] 11-22-2022 10:06-0400 Diastolic blood pressure 76 mm[Hg] Sheridan Miguel A SANITATION MANAGER.MORTGAGE UNDERWRITER Work Phone: [facility] 11-22-2022 10:06-0400 Systolic blood pressure 126 mm[Hg] Sheridan Monroe SANITATION MANAGER.MORTGAGE UNDERWRITER Work Phone: [facility] 05-04-2022 15:46-0500 Body weight 90.27 kg Jade Underwood MD Work Phone: [facility] 05-04-2022 15:46-0500 Diastolic blood pressure 82 mm[Hg] Jade Underwood MD Work Phone: [facility] 05-04-2022 15:46-0500 Heart rate 84 /min Jade Underwood MD Work Phone: [facility] 05-04-2022 15:46-0500 SaO2% (BldA) [Mass fraction] 95 % Jade Underwood MD Work Phone: [facility] 05-04-2022 15:46-0500 Systolic blood pressure 130 mm[Hg] Jade Underwood MD Work Phone: [facility] 12-09-2021 12:28-0400 Body temperature 98.01 [degF] Kary Paige APRN.MORTGAGE UNDERWRITER Work Phone: [facility] 12-09-2021 12:28-0400 Body weight 94.8 kg Kary Paige APRN.MORTGAGE UNDERWRITER Work Phone: [facility] 12-09-2021 12:28-0400 Diastolic blood pressure 80 mm[Hg] Kary Paige APRN.MORTGAGE UNDERWRITER Work Phone: [facility] 12-09-2021 12:28-0400 Heart rate 106 /min Kary Paige APRN.MORTGAGE UNDERWRITER Work Phone: [facility] 12-09-2021 12:28-0400 Respiratory rate 18 /min Kary Paige APRN.MORTGAGE UNDERWRITER Work Phone: [facility] 12-09-2021 12:28-0400 SaO2% (BldA) [Mass fraction] 97 % Kary Paige APRN.MORTGAGE UNDERWRITER Work Phone: [facility] 12-09-2021 12:28-0400 Systolic blood pressure 126 mm[Hg] Kary Paige APRN.MORTGAGE UNDERWRITER Work Phone: [facility] 07-25-2021 13:05-0400 Body temperature 97.5 [degF] La Athy PA-C Work Phone: [facility] 07-25-2021 13:05-0400 Body weight 98.43 kg La Athy PA-C Work Phone: [facility] 07-25-2021 13:05-0400 Diastolic blood pressure 74 mm[Hg] La Athy PA-C Work Phone: [facility] 07-25-2021 13:05-0400 Heart rate 78 /min La Athy PA-C Work Phone: [facility] 07-25-2021 13:05-0400 Respiratory rate 16 /min La Athy PA-C Work Phone: [facility] 07-25-2021 13:05-0400 SaO2% (BldA) [Mass fraction] 97 % La Athy PA-C Work Phone: [facility] 07-25-2021 13:05-0400 Systolic blood pressure 132 mm[Hg] La Athy PA-C Work Phone: [facility] Encounters Encounter Date Encounter Type Care Provider Facility Start: 05-14-2023 Refestephanie Underwood MD Work Phone: [facility] [place] Procedures Date Procedure Procedure Detail Performing Clinician [...] Iadna hepatitis c qu ant & reverse secretary specialist Erick Fowler MD,MS Work Phone: Start: 01-30-2023 [...] Author Start: 11-23-2027 HPV TESTING HPV TESTING [facility] Start: 11-23-2027 Screening for malign ant neoplasm of cervix HPV Testing [facility] Start: 11-03-2027 Lipid panel Lipid Screening [facility] Start: 11-03-2027 LIPID SCREEN LIPID SCREEN [facility] Start: 06-06-2027 Tetanus vaccination TETANUS [facility] Start: 06-06-2027 Urine microalbumin profile [facility] Start: 11-02-2025 DIABET[facility]CREEN [facility] Start: 11-02-2025 Diabetes Screening Diabetes Screenin g [facility] Start: 2024 LIPID SCREEN LIPID SCREEN [facility] Start: 01-31-2024 Potassium [Moles/vol ume] in Serum or Plasma POTASSIUM [facility] Start: 11-23-2023 BP CONTROLLED (<130/80) BP CON TROLLED (<130/80) [facility] Start: 11-23-2023 PAP TESTING PAP TESTING [facility] Start: 11-23-2023 Screening for malign ant neoplasm of cervix Pap Testing [facility] Start: 11-03-2023 ANNUAL PCP TEAM PACKAGE 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 RAYMOND DISEASE VISIT ANNUAL PCP TEAM CHRONIC DISEASE VISIT [facility] Start: 11-03-2023 BP CONTROLLED (<130/80) BP CON TROLLED (<130/80) [facility] Start: 11-03-2023 COVID-19 VACCINE (#1) COVID-19 VACCI NE (#1) [facility] Immunizations Immunization Date Immunization Notes Care Provider Fa cility 11-02-2022 pneumococcal (PCV20) vaccine, 20 valent (PREVNAR 20) Jade Underwood MD Work Phone: [facility] 03-23-2022 influenza, seasonal, injectable Jade Underwood MD Work Phone: [facility] 03-23-2022 influenza virus vaccine, unspecified formulation Erick Fowler MD,MS Work Phone: [facility] 12-22-2020 influenza, seasonal, injectable Jade Underwood MD Work Phone: [facility] 03-08-2020 influenza, seasonal, injectable Jade Underwood MD Work Phone: [facility] 05-16-2018 hepatitis A and hepatitis B vaccine Jade Underwood MD Work Phone: [facility] 05-16-2018 hepatitis B vaccine, unspecified formulation Jade Underwood MD Work Phone: [facility] 06-06-2017 tetanus toxoid, reduced diphtheria toxoid, and acellular pertussis vaccine, adsorbed Jade Underwood MD Work Phone: [facility] 12-01-2016 influenza, injectabl e, quadrivalent, contains preservative Jade Underwood MD Work Phone: [facility] 12-25-2014 influenza, injectabl e, quadrivalent, contains preservative Jade Underwood MD Work Phone: [facility] 02-06-2006 influenza virus vaccine, unspecified formulation Jade Underwood MD Work Phone: [facility] Work Phone: Payers Date Payer Category Payer Unknown [employer] BONILLA [id number] 2023-Present [address] [place] [address] [id number] 2022 Medicaid [id number] 2022 Unknown [id number] 2020 Medicaid [employer] [id number] 2020-Present [phone] [address] [place] [address] Medicaid [id number] 2020 Medicaid [id number] 1967 Unknown [id number] 1967 Unknown [id number] 1967 Unknown [id number] Social History Date Type Detail Facility Start: 09-15-2020 End: 12-09-2021 Tobacco smoking status [facility] Ex-smoker [facility] History of tobacco use Cigarette Smoker [facility] Start: 09-15-2020 End: 11-02-2022 Cigarettes smoked current (pack per day) - Reported 0.5 [facility] Start: 09-15-2020 End: 05-04-2022 Tobacco use and exposure Smokeless tobacco non-user [facility] Start: 02-18-2021 End: 11-22-2022 Alcohol intake Current non-drinker of alcohol (finding) [facility] Start: 1965 Sex Assigned At Female [facility] Start: 07-15-2021 End: 12-09-2021 Exposure to SARS-CoV-2 (event) Not sure [facility] Work Phone: History of tobacco use Current smoker [facility] Start: 05-04-2022 Tobacco smoking stat us WVIS Smokes tobacco daily [facility] Start: 05-04-2022 End: 11-02-2022 Tobacco use panel [facility] National Score (1-10 0), lower number is lower risk 92 [facility] Start: 02-08-2021 Gender identity Identifies as female gender (finding) [facility] Start: 02-08-2021 Sexual orientation Heterosexual (erlinda richardson) [facility] Tobacco smoking stat [facility] Tobacco smoking consumption unknown [facility] Start: 1965 Sex Assigned At Not on file O [facility] Clinical Notes 02-05-2015 to 05-14-2023 Telephone Encounter - Kelley Renee - 05/14/2023 2:05 PM ESTTelephone Encounter - Guerline Dao LPN - 05/11/2023 11:40 AM Noris Garcia DO, PhD - 01/30/2023 2:00 PM EDTAttachments Note Date & Type Note Facility 05-14-2023 Miscellaneous Notes Pharmacy verified in [facility] Patient has been identified by [...] (189 lb) Not applicable Please advise. Kelley Webb documented in this encounter [facility] 05-11-2023 Miscellaneous Notes No show letter #1 sent to patient for missed visit today. documented in this encounter [facility] 10-24-2023 History of Presen t illness Narrative Follicular [...] reported. Patient was initially seen in the [place] emergency room on September 10, 2020 with [...] is a 57 y.o. year-old female in [facility]. 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 year-old female in [facility]. HEENT: normocephalic, atraumatic; extraocular movements intact and [...] final management plan. Erick Fowler MD, MS Account Collector - Hematology documented in this encounter [facility] 01-30-2023 Instructions Annabelle Rodriguez RN - 01/30/2023 2:00 PM EDT Primary Care Team Dr. Erick Singh CNP - Certified Nurse Practitioner Idalmis Keenan CNP- Certified Nurse Pracitioner Yolanda Haynes RN - Nurse Annabelle Palencia RN - Nurse Vicki Sykes RN- Patient Care Search Director Contact Numbers: Clinic Phone & Appointment Changes: [phone] Clinic For Medication Refills: Please plan ahead [...] applied to wood stairs to prevent sliding. [place] a bright colored line on the edge [...] may request more written information from the [employer] for Health Information at or email: [email or web address]. The following attachments cannot be sent through Care Everywhere.Scan: PET (Allyson Paige) (Cape Verdean)Bone Marrow Procedure Guide (Allyson Paige) ([place]dean)documented in this encounter [facility] 01-26-2023 Note Request received for second opinion consultation by Halina Solorio APRN-LENORA. Dx Follicular Lymphoma . Please review OS slides to confirm diagnosis. Thanks. Preoperative Diagnosis: Left pelvic lymph node. [facility] documented as of this encounter (statuses as of 11/03/2022) [facility]07-27-2023 History of Past illness Narrative* Problem Noted Date Diagnosed Date Resolved Date Delayed surgical wound healing 11/02/2022 11/02/2022 11/02/2022 Opioid dependence 11/02/2022 11/02/2022 11/02/2022 Pain of right upper arm 01/18/2022 11/02/2022 07/10/2022 Paresthesia of upper extremity 01/18/2022 11/02/2022 11/02/2022 Substance abuse 01/18/2022 11/02/2022 11/02/2022 Screening for colon cancer 02/21/2018 1 06/01/2021 Overview: Added automatically from request for surgery [id number] Pain in right elbow 02/05/2015 08/24/19 17 [...] of this encounter (statuses as of 11/14/2022) [facility] History of Past illness Narrative* Problem [...] Overview: Added automatically from request for surgery [id number] Pain in right elbow 02/05/2015 08/24/19 17 [...] of this encounter (statuses as of 11/22/2022) [facility] History of Past illness Narrative* Problem Noted Date Diagnosed Date Resolved Date Delayed surgical wound healing 11/02/2022 11/02/2022 11/02/2022 Opioid dependence 11/02/2022 11/02/2022 11/02/2022 Pain of right upper arm 01/18/2022 11/02/2022 07/10/2022 Paresthesia of upper extremity 01/18/2022 11/02/2022 11/02/2022 Substance abuse 01/18/2022 11/02/2022 11/02/2022 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 Dsouza Screening for colon cancer 02/21/2018 1 06/01/2021 Overview: Added automatically from request for surgery [id number] Pain in right elbow 02/05/2015 08/24/19 Arthrodesis status 11/04/2012 7 Backache 11/04/2012 08/23/2016 [...] of this encounter (statuses as of 11/23/2022) [facility] History of Past illness Narrative* Problem Noted Date Diagnosed Date Resolved Date Delayed surgical wound healing 11/02/2022 11/02/2022 11/02/2022 Opioid dependence 11/02/2022 11/02/2022 11/02/2022 Pain of right upper arm 01/18/2022 11/02/2022 07/10/2022 Paresthesia of upper extremity 01/18/2022 11/02/2022 11/02/2022 Substance abuse 01/18/2022 11/02/2022 11/02/2022 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 Dsouza Screening for colon cancer 02/21/2018 1 06/01/2021 Overview: Added automatically from request for surgery [id number] Pain in right elbow 02/05/2015 08/24/19 17 [...] of this encounter (statuses as of 12/19/2022) [facility] History of Past illness Narrative* Problem [...] Overview: Added automatically from request for surgery [id number] Pain in right elbow 02/05/2015 08/24/19 17 [...] of this encounter (statuses as of 05/11/2023) [facility] History of Past illness Narrative* Problem [...] Overview: Added automatically from request for surgery [id number] Pain in right elbow 02/05/2015 08/24/19 17 [...] of this encounter (statuses as of 05/15/2023) [facility]07-27-2023 NoteHNO ID: [id number] Author: Jade Underwood MD Service: ? Author [...] to pain in knees. 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 Sees Dr Castelan on Protonix and carafate now. Knees are [...] facility COLONOSCOPY W/BIOPSY SINGLE/MULTIPLE 02/21/2022 Dr. Castelan- [facility]; repeat 5 years [facility] (MISSED AB 1ST TRIMESTER) EGD W/B (more content not included)...[facility]07-20-2023 Miscellaneous Notes* Telephone Encounter - Arleen [...] and advise. Arleen Webb documented in [facility] encounterHol[facility]02-28-2023 NoteHNO ID: [id number] Author: RT Sanjiv(R) Service: ? Author Type: Installation Service Representative Type: Progress Notes Filed: 06/06/2022 2:57 PM [...] BY: RT Sanjiv(R) June 06, 2022 2:42 [facility]01-26-2023 History of Present illness Narrative* Jade Underwood MD - 05/04/2022 3:46 PM EST Patient presents with: Follow Up Arthritis HPI: Patient presents today for office visit for follow up. PSYCH: Currently tolerating medications well: Yes . Side effects: No. Sleep issues: trouble staying asleep. Usually waking up due to pain in knees. 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 Sees Friend on Protonix and carafate now. Knees [...] correction[facility] (MISS[facility] AB 1ST TRIMESTER) EGD W/BX, SINGLE [facility]/O FFD 04/10 VERT SEG LUMBAR [...] for annual exam in one year. - [facility] SCREENING Jade Underwood RTO in six months and prn. documented in this encounterHol[facility]01-20-2023 Miscellaneous Notes* Telephone Encounter - Eugenia Lamar Ma - 04/28/2022 1:59 PM EST Last office visit: 03/31/22 F/u scheduled: 05/04/22 Eugenia Lamar Ma * Telephone Encounter - Karyna Webb - 04/28/2022 1:49 PM EST Patient has [...] patient. Karyna Lutz Pss documented in this [facility]12-29-2022 Miscellaneous Notes* Telephone Encounter - Lyndsey Fuentes [...] advise. Lyndsey Fuentes Pss documented in this [facility]12-23-2022 History of Present illness Narrative* Jade Underwood MD - 03/31/2022 8:06 AM EST Did not check in. Called and no answer. Left message to reschedule. documented in this [facility]12-21-2022 Miscellaneous Notes* Telephone Encounter - DENIZ Moon [...] Thank you. Venita Singh documented in [facility] encounterHol[facility]12-[facility]-2022 Miscellaneous Notes* Telephone Encounter - DENIZ Moon - 03/09/2022 2:34 PM EST TC to patient who is agreeable to appointment. [facility] Pt also [...] Dr. Kj Dao LPN documented in this encounterHolzer Hospital12-01-2022 Miscellaneous Notes* Telephone Encounter - Cassie [...] Thanks, Rei Singh PA-C documented in this encounterHolzer Hospital11-25-2022 Miscellaneous Notes* Telephone Encounter - Chuyita [...] refill: 01/2022 * Telephone Encounter - Radha Guerin Pss - 03/03/2022 9:30 AM EST Patient has [...] advise. Radha Guerin Pss documented in this encounterHolzer Hospital11-18-2022 Miscellaneous Notes* Telephone Encounter - Lyndsey [...] advise. Lyndsey Fuentes Pss documented in this encounterHolzer Hospital10-31-2022 Miscellaneous Notes* Telephone Encounter - Guerline Dao LPN - 02/06/2022 12:17 PM EDT [facility] 02/18/21 Has been notified to schedule a visit. * Telephone Encounter - Margaret Perales [facility] - 02/06/2022 11:51 AM EDT Patient has been identified by name and date of : Yes Requested Prescriptions Pending Prescriptions Disp Refills DULoxetine (CYMBALTA) 60 mg capsule 30 capsule 0 Sig: Take 1 capsule by mouth once daily. RX INSTRUCTIONS: Patient aware RX will be sent to pharmacy. No need to notify patient. [facility] encounter[facility]09-27-[facility] Miscellaneous Notes* Telephone Encounter - Sandra Harrington Pss - 01/03/2022 12:14 PM EDT Patient has been identified by name and date of : Yes Requested Prescriptions Pending Prescriptions Disp Refills DULoxetine (CYMBALTA) 60 mg capsule 30 capsule 0 Sig: Take 1 capsule by mouth once daily. RX INSTRUCTIONS: Patient aware RX will be sent to pharmacy. No need to notify patient. Sandra Harrington Pss documented in this encounterHolzer Hospital09-22-2022 Miscellaneous Notes* Telephone Encounter - Eugenia Lamar Ma - 12/29/2021 10:43 AM EDT Last office visit: 02/18/21 F/u scheduled: none RX INSTRUCTIONS: Please note there was a med update on 12/04/21, but no rx sent to pharmacy Eugenia Lamar Ma * Telephone Encounter - Karyna Lutz Pss - 12/29/2021 10:30 AM EDT Patient has [...] patient. Karyna Lutz Pss documented in this encounterHolzer Hospital09-15-2022 Miscellaneous Notes* Telephone Encounter - Eugenia Lamar Ma - 12/22/2021 11:36 AM EDT Last office visit: 02/18/21 F/u scheduled: none, has no showed and cancelled last 2 appts. Eugenia Lamar Ma * Telephone Encounter - Kelley Tanner Pss - 12/22/2021 10:29 AM EDT Pharmacy verified in [facility] Patient has been identified by [...] advise. Kelley Tanner Pss documented in this encounterHolzer Hospital09-02-2022 History of Present illness Narrative* Kary Paige APRN.LENORA - 12/09/2021 12:56 PM EDT CC: Patient [...] of heroin abuse (HCC) in remission, sees [facility] Human papillomavirus in conditions classified elsewhere and of unspecified site Hypertension Lumbago 02/08/2007 Nontoxic uninodular goiter 01/15/2007 Postoperative hypothyroidism 07/26/2015 Unspecified disorder of thyroid 1992 Benign, left thyroidectomy PAST SURGICAL HISTORY Procedure Laterality Date CAUTERY CERVIX CRYOCAUTERY INITIAL/REPEAT 09/2004 at correctional facility D&C (MISSED AB 1ST TRIMESTER) LAMINECTOMY W/O FFD /2 VERT SEG LUMBAR 2008 L4-L5 Lumbar fusion [...] plan. Kary Paige APRN.LENORA documented in this encounterHolzer Hospital08-12-2022 Miscellaneous Notes* Telephone Encounter - Karyna [...] notify patient. Karyna Webb documented in this encounterHolzer Hospital04-18-2022 History of Present illness Narrative* La Alejandra PA-C - 07/25/2021 3:13 PM EDT This note was created using [employer]. Subjective Staci Sutton is a 55 year [...] Wt 98.4 kg (217 lb) LMP 02/27/2012 RzF302% BMI 35.02 kg/m Physical Exam Vitals reviewed. [...] AP/LAT/L5-S1 La Alejandra PA-C documented in this encounterHolzer Hospital03-25-2022 Miscellaneous Notes* Telephone Encounter - Vika [...] pharmacy. No need to notify patient. Vika Webb documented in this encounterHolzer Hospital11-15-2018 History of Past illness Narrative* Problem Noted Date Resolved Date Screening for colon cancer 02/21/201803/31 Overview: Added automatically from request for surgery [id number] Pain in right elbow 02/05/2015 08/23/2016 Arthrodesis [...] of this encounter (statuses as of 04/01/2022) [facility] History of Past illness Narrative* Problem Noted Date Resolved Date Screening for colon cancer 02/21/201803/31 Overview: Added automatically from request for surgery [id number] Pain in right elbow 02/05/2015 08/23/2016 Arthrodesis [...] of this encounter (statuses as of 04/12/2022) [facility] History of Past illness Narrative* Problem Noted Date Resolved Date Screening for colon cancer 02/21/201803/31 Overview: Added automatically from request for surgery [id number] Pain in right elbow 02/05/2015 08/23/2016 Arthrodesis [...] of this encounter (statuses as of 04/15/2022) [facility] History of Past illness Narrative* Problem Noted Date Resolved Date Screening for colon cancer 02/21/201803/31 Overview: Added automatically from request for surgery [id number] Pain in right elbow 02/05/2015 08/23/2016 Arthrodesis [...] of this encounter (statuses as of 04/28/2022) [facility] History of Past illness Narrative* Problem Noted Date Resolved Date Screening for colon cancer 02/21/201803/31 Overview: Added automatically from request for surgery [id number] Pain in right elbow 02/05/2015 08/23/2016 Arthrodesis [...] of this encounter (statuses as of 05/04/2022) [facility] History of Past illness Narrative* Problem Noted Date Diagnosed Date Resolved Date Screening for colon cancer 02/21/2018 1 06/01/2021 Overview: Added automatically from request for surgery [id number] Pain in right elbow 02/05/2015 08/24/19 17 [...] of this encounter (statuses as of 10/26/2022) [facility] History of Past illness Narrative* Problem [...] of this encounter (statuses as of 07/01/2021) [facility] of [facility] illness Narrative* Problem [...] of this encounter (statuses as of 07/25/2021) [facility] of [facility] illness Narrative* Problem [...] of this encounter (statuses as of 11/21/2021) [facility] of [facility] illness Narrative* Problem [...] of this encounter (statuses as of 12/09/2021) [facility] Narrative* Problem [...] of this encounter (statuses as of 12/22/2021) [facility] Narrative* Problem [...] of this encounter (statuses as of 12/29/2021) [facility] History of Past illness Narrative* Problem [...] of this encounter (statuses as of 01/03/2022) [facility] of Past illness Narrative* Problem [...] of this encounter (statuses as of 01/30/2022) [facility] of Past illness Narrative* Problem [...] of this encounter (statuses as of 02/06/2022) [facility] of Past illness Narrative* Problem [...] of this encounter (statuses as of 02/24/2022) [facility] illness Narrative* Problem [...] of this encounter (statuses as of 03/03/2022) [facility] Narrative* Problem [...] of this encounter (statuses as of 03/09/2022) [facility] Narrative* Problem [...] of this encounter (statuses as of 03/29/2022) [facility] Diagnosis Lump of skin Localized superficial swelling, mass, or lump documented [facility] Diagnosis Tailbone injury, initial encounter- Primary Chronic low back pain with sciatica, sciatica laterality unspecified, unspecified back pain laterality [facility] Diagnosis Edema, unspecified type S/P lumbar fusion Arthrodesis status Moderate episode of recurrent major depressive disorder (HCC) Postoperative hypothyroidism Postsurgical hypothyroidism [facility] Diagnosis Sinus pressure- Primary Other diseases of nasal cavity and sinuses Acute cough [facility] Diagnosis Edema, unspecified type Seasonal allergies Allergic rhinitis, cause unspecified [facility] Diagnosis Postoperative hypothyroidism Postsurgical hypothyroidism [facility] Diagnosis S/P lumbar fusion Arthrodesis status Moderate episode of recurrent major depressive disorder (HCC) [facility] Diagnosis Encounter for screening mammogram for breast cancer [facility] Diagnosis Postoperative hypothyroidism Postsurgical hypothyroidism Edema, unspecified type [facility] Diagnosis 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)- Primary Postoperative hypothyroidism Postsurgical hypothyroidism Chronic hepatitis C without hepatic coma (HCC) Chronic hepatitis C without mention of hepatic coma Essential hypertension Unspecified essential hypertension [facility] Diagnosis S/P lumbar fusion Arthrodesis status Moderate episode of recurrent major depressive disorder (HCC) TMJ dysfunction Temporomandibular joint disorders, unspecified [facility] Diagnosis S/P lumbar fusion Arthrodesis status Moderate episode of recurrent major depressive disorder (HCC) [facility] Diagnosis Edema, unspecified type Postoperative hypothyroidism Postsurgical hypothyroidism [facility] Diagnosis Grade 1 follicular lymphoma of [...] Breast screening, unspecified [facility] Diagnosis Seasonal allergies Allergic rhinitis, cause unspecified [facility] Diagnosis Postoperative hypothyroidism- Primary Postsurgical hypothyroidism documented in this encounter [facility] note* Diagnosis S/P lumbar fusion Arthrodesis status Moderate episode of recurrent major depressive disorder (HCC) documented in this encounter [facility] note* Diagnosis Encounter for gynecological examination (general) (routine) without abnormal findings- Primary Screening for cervical cancer Screening for malignant neoplasm of the cervix Encounter for screening for human papillomavirus (HPV) Special screening examination for human papillomavirus (HPV) Encounter for screening mammogram for malignant neoplasm of breast Other screening mammogram documented in this encounter [facility] note* Diagnosis Edema, unspecified type Postoperative hypothyroidism Postsurgical hypothyroidism documented in this encounter [facility] note* Diagnosis Follicular lymphoma grade I of lymph nodes of multiple sites- Primary Nodular lymphoma of lymph nodes of multiple sites [facility] Diagnosis Follicular lymphoma grade I of lymph nodes of multiple sites Nodular lymphoma of lymph nodes of multiple sites Follicular lymphoma grade I of lymph nodes of multiple sites- Primary Nodular lymphoma of lymph nodes of multiple sites [facility] Diagnosis S/P lumbar fusion Arthrodesis status Moderate episode of recurrent major depressive disorder (HCC) documented in this encounter [facility] for referral (narrative)* Diagnostic Procedure Only (Urgent) - Closed Specialty Diagnoses / Procedures Referred By Yaniac t Referred To Contact XR IMAGING Diagnoses Tailbone injury, initial encounter Procedures XR SACRUM/COCCYX 3V AP/LAT RADEX SACRUM & COCCYX MINIMUM 2 VIEWS La Alejandra PA-C [address] [place] [address] Xr Imaging Referral ID Status Reason Start Date Expiration Date V isits Requested Visits Authorized [id number] Closed Auto-Generate d Referral 07/25/2021 08/24/2022 1 1 * Diagnostic Procedure Only (Urgent) - Closed Specialty Diagnoses / Procedures Referred By Yaniac t Referred To Contact XR IMAGING Diagnoses Chronic low back pain with sciatica, sciatica laterality unspecified, unspecified back pain laterality Procedures XR LUMBAR GENERAL 3V AP/LAT/L5-S1 RADEX SPINE LUMBOSACRAL 2/3 VIEWS La Alejandra PA-C [address] [place] [address] Xr Imaging Referral ID Status Reason Start Date Expiration Date V isits Requested Visits Authorized [id number] Closed Auto-Generate d Referral 07/25/2021 08/24/2022 1 1 [facility] for referral (narrative)* Diagnostic Procedure Only (Routine) - Pending Review Specialty Diagnoses / Procedures Referred By Aniya royal Referred To Contact BR IMAGING Diagnoses Encounter for screening mammogram for breast cancer Procedures GRACE SCREENING SCREENING MAMMOGRAPHY BI 2-VIEW BREAST INC Jade Kennedy MD [address] [place] [address] [facility] [address] [place] [address] Referral ID Status Reason Start Date Expiration Date Visits Requested Visits Authorized [id number] Pending Review Auto-Generat ed Referral 02/24/2023 1 1 [facility] for referral (narrative)* Diagnostic Procedure Only (Routine) - Authorized Specialty Diagnoses / Procedures Referred By Aniya t Referred To Contact BR IMAGING Diagnoses Screening breast examination Procedures GRACE SCREENING SCREENING MAMMOGRAPHY BI 2-VIEW BREAST INC Jade Kennedy MD [address] [place] [address] [facility] [address] [place] [address] Referral ID Status Reason Start Date Expiration Date Visits Requested Visits Authorized [id number] Authorized Auto-Generat ed Referral 05/04/2022 06/03/2023 1 1 * Diagnostic Procedure Only (Routine) - Authorized Specialty Diagnoses / Procedures Referred By Aniya royal Referred To Contact US IMAGING Diagnoses Mass of skin of back Procedures US CHEST WALL/SOFT TISSUE US CHEST REAL TIME W/IMAGE DOCUMENTATION Jade Underwood MD [address] [place] [address] [facility] Referral ID Status Reason Start Date Expiration Date Visits Requested Visits Authorized [id number] Authorized Auto-Generat ed Referral 05/04/2022 06/03/2023 1 1 * Diagnostic Procedure Only (Routine) - Pending Review Specialty Diagnoses / Procedures Referred By Aniya royal Referred To Contact XR IMAGING Diagnoses Chronic pain of both knees Procedures XR KNEE GENERAL 4V AP BOTH/PA BOTH/LAT/MERC BILATERAL RADIOLOGIC EXAM KNEE COMPLETE 4/MORE VIEWS Jade Underwood MD [address] [place] [address] Xr Imaging Referral ID Status Reason Start Date Expiration Date Visits Requested Visits Authorized [id number] Pending Review Auto-Generat ed Referral 05/04/2022 06/03/2023 1 1 [facility] Diagnostic Procedure Only (Routine) - Pending Review Specialty Diagnoses / Procedures Referred By Aniya royal Referred To Contact BR IMAGING Diagnoses Encounter for screening mammogram for malignant neoplasm of breast Procedures GRACE SCREENING SCREENING MAMMOGRAPHY BI 2-VIEW BREAST INC CAD Sheridan Grady APRN.CNP [address] [place] [address] [facility] [address] [place] [address] Referral ID Status Reason Start Date Expiration Date Visits Requested Visits Authorized [id number] Pending Review Auto-Generat ed Referral 11/22/2022 12/22/2023 1 1 [facility] Summary Purpose Family History No Family [...] Fowler MD,MS [address] [place] [address] Referral ID Status Reason Start Date Expiration Date V isits Requested Visits Authorized [id number] Auth Not Needed 01/30/2023 02/24/2024 1 1 Specialty Diagnoses / Procedures Referred By Contsharad t Referred To Contact Diagnoses Follicular lymphoma grade I of lymph nodes of multiple sites Procedures BONE MARROW ASPIRATION Erick Fowler MD,MS [address] [place] [address] Referral ID Status Reason Start Date Expiration Date V isits Requested Visits Authorized [id number] New Request 01/30/2023 02/24/2024 1 1 Specialty Diagnoses / Procedures Referred By Contac t Referred To Contact Diagnoses Follicular lymphoma grade I of lymph nodes of multiple sites Procedures NUC PET LYMPHOMA CHG NUC THERAPY HYPERTHYROID SUBSEQUENT Erick Fowler MD,MS [address] [place] [address] Referral ID Status Reason Start Date Expiration Date V isits Requested Visits Authorized [id number] Pending Review 01/30/2023 02/24/2024 1 1 Additional Source Comments INFORMATION SOURCE (unrecogn ized section and content) DATE CREATED AUTHOR AUTHOR'S ORGANIZ ATION 03/21/2023 [facility] DATE CREATED AUTHOR AUTHOR'S ORGANIZ ATION 05/13/2023 [facility] Source Comments (unrecognize d section and content) In the event this informatio n is protected by the Federal Confidentiality of Alcohol and Drug Abuse Patient Records regulations: The Federal rules restrict any use of the information to criminally investigate or prosecute any alcohol or drug abuse patient.[facility] event this information is protected by the Federal Confidentiality of Alcohol and Drug Abuse Patient Records regulations: The Federal rules restrict any use of the information to criminally investigate or prosecute any alcohol or drug abuse patient.[facility] the event this information is protected by the Federal Confidentiality of Alcohol and Drug Abuse Patient Records regulations: The Federal rules restrict any use of the information to criminally investigate or prosecute any alcohol or drug abuse patient.[facility] the event this information is protected by the Federal Confidentiality of Alcohol and Drug Abuse Patient Records regulations: The Federal rules restrict any use of the information to criminally investigate or prosecute any alcohol or drug abuse patient.[facility] the event this information is protected by the Federal Confidentiality of Alcohol and Drug Abuse Patient Records regulations: The Federal rules restrict any use of the information to criminally investigate or prosecute any alcohol or drug abuse patient.[facility] the event this information is protected by the Federal Confidentiality of Alcohol and Drug Abuse Patient Records regulations: The Federal rules restrict any use of the information to criminally investigate or prosecute any alcohol or drug abuse patient.[facility] the event this information is protected by the Federal Confidentiality of Alcohol and Drug Abuse Patient Records regulations: The Federal rules restrict any use of the information to criminally investigate or prosecute any alcohol or drug abuse patient.[facility] the event this information is protected by the Federal Confidentiality of Alcohol and Drug Abuse Patient Records regulations: The Federal rules restrict any use of the information to criminally investigate or prosecute any alcohol or drug abuse patient.[facility] the event this information is protected by the Federal Confidentiality of Alcohol and Drug Abuse Patient Records regulations: The Federal rules restrict any use of the information to criminally investigate or prosecute any alcohol or drug abuse patient.[facility] the event this information is protected by the Federal Confidentiality of Alcohol and Drug Abuse Patient Records regulations: The Federal rules restrict any use of the information to criminally investigate or prosecute any alcohol or drug abuse patient.[facility] the event this information is protected by the Federal Confidentiality of Alcohol and Drug Abuse Patient Records regulations: The Federal rules restrict any use of the information to criminally investigate or prosecute any alcohol or drug abuse patient.[facility] the event this information is protected by the Federal Confidentiality of Alcohol and Drug Abuse Patient Records regulations: The Federal rules restrict any use of the information to criminally investigate or prosecute any alcohol or drug abuse patient.[facility] the event this information is protected by the Federal Confidentiality of Alcohol and Drug Abuse Patient Records regulations: The Federal rules restrict any use of the information to criminally investigate or prosecute any alcohol or drug abuse patient.[facility] the event this information is protected by the Federal Confidentiality of Alcohol and Drug Abuse Patient Records regulations: The Federal rules restrict any use of the information to criminally investigate or prosecute any alcohol or drug abuse patient.[facility] the event this information is protected by the Federal Confidentiality of Alcohol and Drug Abuse Patient Records regulations: The Federal rules restrict any use of the information to criminally investigate or prosecute any alcohol or drug abuse patient.[facility] the event this information is protected by the Federal Confidentiality of Alcohol and Drug Abuse Patient Records regulations: The Federal rules restrict any use of the information to criminally investigate or prosecute any alcohol or drug abuse patient.[facility] the event this information is protected by the Federal Confidentiality of Alcohol and Drug Abuse Patient Records regulations: The Federal rules restrict any use of the information to criminally investigate or prosecute any alcohol or drug abuse patient.[facility] the event this information is protected by the Federal Confidentiality of Alcohol and Drug Abuse Patient Records regulations: The Federal rules restrict any use of the information to criminally investigate or prosecute any alcohol or drug abuse patient.[facility] the event this information is protected by the Federal Confidentiality of Alcohol and Drug Abuse Patient Records regulations: The Federal rules restrict any use of the information to criminally investigate or prosecute any alcohol or drug abuse patient.[facility] the event this information is protected by the Federal Confidentiality of Alcohol and Drug Abuse Patient Records regulations: The Federal rules restrict any use of the information to criminally investigate or prosecute any alcohol or drug abuse patient.[facility] the event this information is protected by the Federal Confidentiality of Alcohol and Drug Abuse Patient Records regulations: The Federal rules restrict any use of the information to criminally investigate or prosecute any alcohol or drug abuse patient.[facility] the event this information is protected by the Federal Confidentiality of Alcohol and Drug Abuse Patient Records regulations: The Federal rules restrict any use of the information to criminally investigate or prosecute any alcohol or drug abuse patient.[facility] the event this information is protected by the Federal Confidentiality of Alcohol and Drug Abuse Patient Records regulations: The Federal rules restrict any use of the information to criminally investigate or prosecute any alcohol or drug abuse patient.[facility] the event this information is protected by the Federal Confidentiality of Alcohol and Drug Abuse Patient Records regulations: The Federal rules restrict any use of the information to criminally investigate or prosecute any alcohol or drug abuse patient.[facility] the event this information is protected by the Federal Confidentiality of Alcohol and Drug Abuse Patient Records regulations: The Federal rules restrict any use of the information to criminally investigate or prosecute any alcohol or drug abuse patient.[facility] the event this information is protected by the Federal Confidentiality of Alcohol and Drug Abuse Patient Records regulations: The Federal rules restrict any use of the information to criminally investigate or prosecute any alcohol or drug abuse patient.[facility] Reason for Visit (unrecogniz ed section [...] cervical cancer Procedures CONSULT TO GYNECOLOGY OFFICE/OUTPATIENT NEW HIGH MDM 60-74 MINUTES Jade Underwood MD [address] [place] [address] Referral ID Status Reason Start Date Expiration Date V isits Requested Visits Authorized [id number] Closed PCP Requested Referral Auto-Generated Referral 11/02/2022 11/02/2023 1 1 Reason Onset Date Comments Refill Request 11/23/2022 Reason Comments Follow-up Specialty Diagnoses / Procedures Referred By Contac t Referred To Contact Diagnoses Follicular lymphoma grade I of lymph nodes of multiple sites Procedures BONE MARROW ASPIRATE AND BIOPSY Erick Fowler MD,MS [address] [place] [address] Referral ID Status Reason Start Date Expiration Date V isits Requested Visits Authorized [id number] Auth Not Needed 01/30/2023 02/24/2024 1 1 Reason Comments Letter No show letter #1 Reason Onset Date Comments Refill Request 05/14/2023 Care Teams (unrecognized sec tion and content) Post Production Assistant Relationship Specialty Start Date End Date Jade Underwood MD [address] [place], [place] [id number] PCP - General 11/04/14 Post Production Assistant Relationship Specialty Start Date End Date Jade Underwood MD [address] [place] [id number] PCP - General 11/04/14 Post Production Assistant Relationship Specialty Start Date End Date Jade Underwood MD [address] [place], [place] [id number] PCP - General 11/04/14 Post Production Assistant Relationship Specialty Start Date End Date Jade Underwood MD [address] [facility] [place] [address] PCP - General 11/04/14 Post Production Assistant Relationship Specialty Start Date End Date Jade Underwood MD [address] [facility] [place] [address] PCP - General 11/04/14 Post Production Assistant Relationship Specialty Start Date End Date Jade Underwood MD [address] [facility] [place] [address] PCP - General 11/04/14 Post Production Assistant Relationship Specialty Start Date End Date Jade Underwood MD [address] [facility] [place] [address] PCP - General 11/04/14 Post Production Assistant Relationship Specialty Start Date End Date Jade Underwood MD [address] [facility] [place] [address] PCP - General 11/04/14 Post Production Assistant Relationship Specialty Start Date End Date Jade Underwood MD [address] [facility] [place] [address] PCP - General 11/04/14 Post Production Assistant Relationship Specialty Start Date End Date Jade Underwood MD [address] [facility] [place] [address] PCP - General 11/04/14 Post Production Assistant Relationship Specialty Start Date End Date Jade Underwood MD [address] [facility] [place] [address] PCP - General 11/04/14 Post Production Assistant Relationship Specialty Start Date End Date Jade Underwood MD [address] [facility] [place] [address] PCP - General 11/04/14 Post Production Assistant Relationship Specialty Start Date End Date Jade Underwood MD [address] [place], [place] [id number] PCP - General 11/04/14 Post Production Assistant Relationship Specialty Start Date End Date Jade Underwood MD [address] [place], [place] [address] PCP - General 11/04/14 Post Production Assistant Relationship Specialty Start Date End Date Jade Underwood MD [address] [place], [place] [address] PCP - General 11/04/14 Post Production Assistant Relationship Specialty Start Date End Date Jade Underwood MD [address] [place] [address] PCP - General 11/04/14 Post Production Assistant Relationship Specialty Start Date End Date Erick Fowler MD,MS [address] [address] Hematology 01/25/[address] [facility] [address] [facility] [place] [address] Oncologist Medical Oncology 01/25/23 Post Production Assistant Relationship Specialty Start Date End Date Merna Sykes RN PCP - General Hematology and Oncology 02/01/23 Erick Fowler MD,MS [address] [facility] [address] [place] [address] Hematology 01/25/[address] [facility] [address] [facility] [place] [address] Oncologist Medical Oncology 01/25/23 FOR RECORDS PERTAINING [...] BE BASED ON THE PRIMARY CLINICAL RECORDS. [facility] [employer] [facility]. provides no warranty or guarantee of the accuracy or completeness of information in this document.
== END 2023-05-20 00:50 ==
PROVIDERS: Emergency Provider Emergency Medicine; PCP Family Medicine; Visit Provider Emergency Medicine
DX: Z04.1 Encounter for examination and observation following transport accident (principal); F11.13 Opioid abuse with withdrawal; F17.210 Nicotine dependence, cigarettes, uncomplicated; F17.290 Nicotine dependence, other tobacco product, uncomplicated; E87.6 Hypokalemia; I10 Essential (primary) hypertension; Z79.899 Other long term (current) drug therapy
CPT/HCPCS: 71046; 99283

== ENCOUNTER → 2023-07-11 | Outpatient (CLI) | payer MEDICAID, SELFPAY ==
--- NOTE | 2023-07-11 13:39 | BI_ITS ---
MAMMOGRAPHY - BILATERAL SCREENING REASON FOR EXAM: Female, 57 years old. Routine annual screening examination. PERTINENT HISTORY: Grandmother with breast cancer. History of lymphoma. TECHNIQUE: Digital bilateral breast gordon (3D mammographic acquisition) in the CC and MLO projections. 2-D mediolateral oblique (MLO) and craniocaudad (CC) views of both breasts were obtained. CAD: Full Field Digital Mammography with Computer Added Detection was performed. COMPARISON: Comparison is made with prior outside examination November 14, 2016. FINDINGS: Breast Composition: The breasts are heterogeneously dense, which may obscure small masses. There are no dominant masses or suspicious calcifications. Prominence of the axillary nodes bilaterally. No other significant abnormalities are identified. There has been no significant change since the prior study. BI/SCRN MAMM (CAD)W/GORDON BILAT IMPRESSION: Stable bilateral screening mammogram. Yearly follow-up mammogram recommended. (A) ASSESSMENT CATEGORY: BIRADS Category 2: Benign. A letter regarding these results will be sent to the patient by the facility within 30 days. Approximately 10% of breast cancers are not detected by mammography. A normal mammogram should not delay biopsy of a clinically suspicious abnormality. [id number] Electronically Signed: Jake Taylor MD at 15:17 EDT ,
== END | disposition home or self-care (01) ==
LOC: CT 13:39
PROVIDERS: PCP Family Medicine; Referring Provider Internal Medicine Hematology & Oncology; Visit Provider Internal Medicine Hematology & Oncology
DX: Z12.31 Encounter for screening mammogram for malignant neoplasm of breast (principal)
CPT/HCPCS: 77063; 77067

== ENCOUNTER → 2023-08-02 | Outpatient (CLI) | payer MEDICAID, SELFPAY ==
--- NOTE | 2023-08-02 14:33 | CT_ITS ---
STUDY: CT CHEST, ABDOMEN T PELVIS WITH CONTRAST REASON FOR EXAM: Female, 57 years old. F/U LYMPHOMA RADIATION DOSAGE (If Supplied By Facility): CTDIvol = ( 17.05 ) mGy, DLP = ( 2291.69 ) mGycm TECHNIQUE: Transaxial imaging was performed following intravenous administration of IV 100mL Isovue-300. Individualized dose optimization techniques were used for this CT. COMPARISON: 11/28/2022 FINDINGS: CHEST Markedly improved bilateral axillary lymphadenopathy with a decrease in the size of the large right axillary lymph node from 3.0 x 4.5 cm to 1.5 x 3.5 cm and other lymph nodes now normal in size. Findings are consistent with improved known lymphoma. Small left pleural effusion with some left lower lobe atelectasis. There is moderate cardiac enlargement. Normal mediastinum. Normal hilar regions. Normal unenhanced pulmonary arteries. Normal aorta arch and descending thoracic aorta. Multiple healed left rib fractures. There is no demonstrated abnormality of the visualized upper abdomen. ABDOMEN The visualized lung bases are unremarkable. The visualized portions of the heart are within normal limits. Normal liver. Normal gallbladder and extrahepatic biliary system. Normal spleen. Normal pancreas. Normal bilateral adrenal glands. Normal right kidney. Normal left kidney. Normal visualized stomach. Normal small intestine. Normal colon. The appendix is visualized and appears normal. Normal abdominal aorta. Normal inferior vena cava. No change in the portal caval lymphadenopathy measuring 1.2 x 1.8 cm. Other smaller retroperitoneal and mesenteric lymph nodes appear smaller in size. Normal abdominal wall. Mild levoscoliosis lumbar spine with degenerative disc disease. PELVIS Normal urinary bladder. Normal visualized small intestine. Normal visualized colon. There is no pelvic fluid. Improved left pelvic sidewall lymphadenopathy from 3.5 x 4.5 cm to 1.5 x 2.0 cm. Bilateral inguinal lymph nodes appear normal in size. Normal visualized pelvic arteries. Status post bilateral tubal ligation. Normal abdominal wall. Normal osseous structures. CT/CT Chest, Abd, Pel w/Contrast IMPRESSION: 1. Improving lymphoma with shrinking axillary, retroperitoneal, mesenteric, and pelvic sidewall lymphadenopathy. 2. Small left pleural effusion with some left lower lobe atelectasis. 3. Cardiomegaly. Electronically Signed: Sea Eve[place] MD at 10:45 EDT ,
--- NOTE | 2023-08-02 14:33 | CT_ITS ---
EXAM: CT NECK WITH INTRAVENOUS CONTRAST CLINICAL INDICATION: F/U LYMPHOMA -- IV CONTRAST ONLY TECHNIQUE: Helically acquired images were obtained of the neck with intravenous contrast. This CT exam was performed using one or more of the following dose reduction techniques: automated exposure control, adjustment of the mA and/or kV according to patient size, and/or use of iterative reconstruction technique. CONTRAST: IV 100mL Isovue-300 COMPARISON: CT Neck dated 04/26/2021 FINDINGS: NASOPHARYNX: Normal. SUPRAHYOID NECK: Normal. Oropharynx, oral cavity, parapharyngeal space and retropharyngeal space are unremarkable. INFRAHYOID NECK: 2 cm soft tissue density noted within the left vallecula suggestive of a mass. Direct visualization recommended for further evaluation. SUBMANDIBULAR/PAROTID GLANDS: Salivary glands are normal in size. THYROID: No thyroid tissue identified. BONES/JOINTS: No suspicious lytic or blastic abnormality. SOFT TISSUES: Normal. VASCULATURE: No acute findings. LYMPH NODES: Stable small reactive bilateral cervical lymph nodes noted along levels 2 and 3. LUNG APICES: Unremarkable as visualized. PLEURAL SPACE: Small left pleural effusion. CT/Soft Tissue Neck WITH Contrast IMPRESSION: 1. 2 cm mass involving the left side of the vallecula. 2. Small left pleural effusion. 3. No cervical lymphadenopathy. Electronically Signed: Dave Charles MD at 17:00 EDT ,
== END | disposition home or self-care (01) ==
LOC: CT 14:31
PROVIDERS: PCP Family Medicine; Referring Provider Internal Medicine Hematology & Oncology; Visit Provider Internal Medicine Hematology & Oncology
DX: C82.90 Follicular lymphoma, unspecified, unspecified site (principal)
CPT/HCPCS: 70491; 71260; 74177; Q9967

== ENCOUNTER → 2023-09-18 | Outpatient (CLI) | payer MEDICAID, SELFPAY | END | disposition home or self-care (01) | LOC: LAB 07:43 | PROVIDERS: PCP Family Medicine; Referring Provider Family Medicine; Visit Provider Family Medicine | DX: E89.0 Postprocedural hypothyroidism (principal) ==

== ENCOUNTER 2023-09-24 05:37 | Day surgery (SDC) | payer MEDICAID, SELFPAY ==
--- NOTE | 2023-09-18 07:43 | EKG12_ITS ---
Test Reason : PREOP Blood Pressure : / mmHG Vent. Rate : 071 BPM Atrial Rate : 071 BPM P-R Int : 144 ms QRS Dur : 094 ms QT Int : 390 ms P-R-T Axes : -06 -20 -02 degrees QTc Int : 423 ms Normal sinus rhythm Voltage criteria for left ventricular hypertrophy Abnormal ECG Confirmed by Sudheer Calix ([id number]), online content editor PETAR JAMES ([id number]) on 09/19/2023 5:56:28 AM Referred By: Ajit Monet Confirmed By:Sudheer Calix
[2023-09-18 08:24] LABS: Hematocrit 36.2 % (37-47); Hemoglobin 11.8 g/dL (12.0-15.0); Mean Corp Hgb Conc 32.6 g/dL (32-36); Mean Corpuscular Hgb 27.7 pg (27.0-32.0); Mean Platelet Vol. 9.9 fl (6.2-12.0); Platelet Count 270 K/mm3 (150-450); RBC Distribution Width CV 13.7 % (11.6-14.6); RBC Distribution Width SD 42.6 fl (35.1-43.9); Red Blood Count 4.26 M/mm3 (4.2-5.4); White Blood Count 7.1 K/mm3 (4.4-11.0)
[2023-09-18 08:45] LABS: Anion Gap 4 (5-15); BUN 16 mg/dL (7-18); BUN/Creat Ratio 21.9 RATIO (10-20); Calcium,Total 9.4 mg/dL (8.5-10.1); Chloride 102 mmol/L (98-107); Creatinine, Serum 0.73 mg/dL (0.55-1.02); EST Glomerular Filtration Rate 88 mL/min (>60); Est Glom Filt Rate - Afr Amer 106 mL/min (>60); Glucose 103 mg/dL (74-106); Potassium 3.2 mmol/L (3.5-5.1); Sodium Level 137 mmol/L (136-145)
[2023-09-18 14:16] LABS: T4 Free Direct 1.53 ng/dL (0.76-1.46); T4 Total, Thyroxin 14.7 ug/dL (4.8-13.9); Thyroid Stim Hormone (TSH) 0.04 uIU/mL (0.358-3.74)
[2023-09-24] VITALS (9 sets, daily range): BP systolic 118–167; BP diastolic 60–107; PULSE 71–81; RESP 16–18; TEMP 36.4–37; O2SAT 80–98; BMI 32.0
--- NOTE | 2023-09-24 | IMM_PTH ---
PATIENT: OSIEL MEDINA LOC: [facility] [place] U#:[id number] AGE/SX: 57/F ROOM: RE09/24/[address]: Dr. Ajit Monet MD : 1965 BED: DIS: 09/24/2023 SPEC #: [id number] RECD: 09/25/23 12:33 STATUS: EMA REQ #: [id number] ASHLEY: 09/24/23 00:[address]: Ajit Monet DEPT: IMMUNOHISTOCHEMISTRY RECD BY: Joe Torres ENTERED: 09/25/23 12:45 SP TYPE: IMMUNO OTHR DR: Dr. Miles Underwood MD Tissues: Laryngeal cavity Procedures: BCL-2 (add) BCL-6 (add) CD10 (add) CD138 (add) CD15 (add) CD20 (add) CD23 (add) CD3 (add) CD30 (add) CD43 (add) CD45 (add) CD5 (add) CD79A (add) CYCLIN (add) KAPPA (add) KI-67 (add) LAMBDA (add) MPO (add) MUM1 (add) C-MYC (add) Pankeratin (initial) PHYSICIAN & INSTITUTION [place] [id number] SPECIMEN INFORMATION: Tissue Source: Left vallecula mass Clinical Info: Malignant neoplasm of vallecula Specimen Number: [id number] CPT code: 63482,10269j39 METHODOLOGY: Deparaffinized sections of prefer/formalin-fixed tissue or PAP/DQ stained slides are incubated with monoclonal/polyclonal antibodies/oligonucleotide probes. Localization is made via biotin free immunoperoxidase method. Appropriate controls are performed and reacted as expected. Results on target cell population are indicated in the following table: RESULTS: ANTIBODY / CLONE RESULT Block 2 AE1-3 (AE1/AE3/PCK26) negative CD3 (PS1) negative CD5 (SP10) negative CD20 (L26) positive CD43 (L60) negative CD45 (RP2/18) positive CD79a (11E3) positive CD138 (B-A38) negative [place]ame[place] (polyclonal) negative Lambda (polyclonal) negative CD10 (56C6) positive CD15 (MMA) negative CD23 (1B12) positive CD30 (Alex-H2) negative BCL-2 (bcl-2/100/D5) positive BCL-6 (VU161H/A8) negative Cyclin D1/BCL-1 (SP4) negative MUM1 (MRQ-43) negative C-MYC (Y69) negative MPO (polyclonal) negative Ki-67 (30-9) positive, low CD10 (56C6) positive These tests were developed and their performance characteristics determined by [facility]. They may not have been cleared or approved by the U.S. Food and Drug Administration. The FDA has determined that such clearance or approval is not necessary. The above immunohistochemical/dualISH markers are ordered and reviewed by the Pathologist. INTERPRETATION: Left vallecula mass, biopsy: Consistent with follicular lymphoma . AM/mr 09/26/2023
[2023-09-24] MEDS: Lactated Ringers 1,000 ML 15 ML IV (06:24)
[2023-09-24] MEDS: Epinephrine (1 mg/ml) 1 MG/ML VIAL ×2 (07:20→08:45)
--- NOTE | 2023-09-24 07:28 | PRE.ANES_ITS ---
ASA Classification* ASA Classification ASA Classification: 2 Assessment & Plan Anesthesia* Anesthesia Assessment Anesthesia Assessment: Discussed sedation and/or anesthesia options, risks, benefits, and alternatives with patient/parents/legal guardian/POA. Questions invited. The patient/parents/legal guardian/POA seems to understand and agrees to proceed with anesthesia plan. Reviewed the physical assessment, medical history, allergy history and patient home medications list prior to surgery/procedure/anesthetic and documented any changes. Performed airway and anesthesia risk assessments. Anesthesia Type Anesthesia Type: General Pre-Assessment Diagnosis/Proposed Procedure Planned Operative Procedure(s): (L) Biopsy, Mass, direct laryngoscopy with excision vallecular mass Anesthesia History Anesthesia History - ophthalmic surgeon: Anesthesia History - ophthalmic surgeon Hx Hospitalization No 09/17/23 14:45 Any Problems With Anesthesia No 09/17/23 14:45 Cholinesterase deficiency No 09/17/23 14:45 You/Your Family Experience No 09/17/23 14:45 fever (hyperthermia) with Relationship Recent Exposure to Contagious No 09/24/23 06:19 Disease Does patient have nerve No 09/17/23 14:45 stimulator Patient instructed to have device shut off --Does patient have Pacemaker or ICD? When Was Last Pacemaker Check QUESTION #4 FULL TEXT: You/Your Family Experience fever (hyperthermia) with Anesthesia Last Oral Intake Last Oral intake: Last Oral Intake NPO since 06:00 09/24/23 06:19 Meds taken in AM with sips of No 09/24/23 06:19 water? Meds patient instructed to take am of surgery PONV PONV - ophthalmic surgeon: PONV - ophthalmic surgeon Female Yes 09/17/23 14:45 HX of Motion Sickness No 09/17/23 14:45 HX of N/V After Surgery No 09/17/23 14:45 Non-Smoker No 09/17/23 14:45 Duration of Surgery greater Yes 09/17/23 14:45 than 60 minutes Number of Risk Factors 2 09/17/23 14:45 PONV Score Moderate Risk 09/17/23 14:45 Height & Weight Height & Weight: Anesthesia: Height & Weight Height 5 ft 6 in 09/24/23 06:19 Weight: 90.083 kg 09/24/23 06:19 Body Mass Index (BMI) 32.0 09/24/23 06:19 Respiratory Assessment Respiratory Assessment - ophthalmic surgeon: Respiratory Tract Infection Hx - ophthalmic surgeon Hx Respiratory Tract Infection No 09/17/23 14:45 STOP Sleep Apnea STOP Sleep Apnea - ophthalmic surgeon: STOP Sleep Apnea - ophthalmic surgeon Hx Hypertension Yes: CONTROLLED WITH MED 09/17/23 14:45 Hx Sleep Apnea No 09/17/23 14:45 CPAP No 09/17/23 14:45 BIPAP No 09/17/23 14:45 Do you snore loudly (louder No 09/17/23 14:45 than talking or can be heard Do you often feel tired/ No 09/17/23 14:45 fatigued/ sleepy during daytime? Has anyone observed you stop No 09/17/23 14:45 breathing during sleep? STOP Results Negative 09/17/23 14:45 QUESTION #5 FULL TEXT : Do you snore loudly (louder than talking or can be heard through closed doors)? 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 Specify any problems Hx of Preganancy in last 3 No 09/17/23 14:45 Months Nurse Filling Out Transfusion MGRIFFITH 09/17/23 14:45 & Questions: Date: 09/17/23 09/17/23 14:45 Time: 14:47 09/17/23 14:45 Patient unable to answer at this time (ie. confused, unrespo /Reproduction History /Reproductive History - ophthalmic surgeon: /Reproductive Hx- ophthalmic surgeon Hx Now No 09/17/23 14:45 Gestational Age (in weeks): EDC: Hx Hx Para Hx Section SAB No 09/17/23 14:45 Active Medications Active Medications: Current Medications Generic Name Dose Route Start Last Admin Trade Name Freq PRN Reason Stop Dose Admin Lactated Ringer's 1,000 mls @ 15 mls/hr 09/24/23 06:30 09/24/23 06:24 IV 15 mls/hr .Q48H JIMI Administration Anesthesia Focused Assessment* Temperature: 98.6 F Pulse Rate: 71 Blood Pressure: 127/60 Respiratory Rate: 16 Pulse Ox: 95 Airway Assessment Mouth opens: >3 cm Mallampati Score: II Focused Labs Anesthesia Preop lab: CBC WBC 7.1 K/mm3 (4.4-11.0) 09/18/23 08:04 RBC 4.26 M/mm3 (4.2-5.4) 09/18/23 08:04 Hgb 11.8 g/dL (12.0-15.0) L 09/18/23 08:04 Hct 36.2 % (37-47) L 09/18/23 08:04 Plt Count 270 K/mm3 (150-450) 09/18/23 08:04 CHEMISTRY Potassium 3.2 mmol/L (3.5-5.1) L 09/18/23 08:04 Sodium 137 mmol/L (136-145) 09/18/23 08:04 BUN 16 mg/dL (7-18) 09/18/23 08:04 Creatinine 0.73 mg/dL (0.55-1.02) 09/18/23 08:04 Glucose 103 mg/dL (74-106) 09/18/23 08:04 TSH 0.04 uIU/mL (0.358-3.74) L 09/18/23 08:05 COAG PT 13.3 SECONDS (11.7-14.9) 12/18/22 07:47 Review of Systems (Anesthesia) ROS Narrative System reviewed and no additional complaints, except as documented. [facility] Medical History (Updated 09/17/23 @ 14:54 by Trinidad Godinez) Wears glasses Cancer Restless legs Lymph node enlargement Delayed surgical wound healing Open wound Lymphoma Open wound of right axillary region Lipoma of right axilla Substance abuse Excessive bleeding Heartburn Gastric reflux Leg cramps Post-menopausal Wears dentures Easy bruising Smoker Shortness of breath on exertion History of edema Pain in right upper arm Mass of right axilla Thyroid disease Osteoarthritis Anxiety and depression Allergies Follicular lymphoma Chronic back pain Hepatitis C virus infection cured after antiviral drug therapy Hypertension Drug abuse Anemia Arthritis Home Medications ?Medication ?Instructions ?Recorded ?Last Taken ?Type duloxetine 60 mg capsule,delayed 60 mg PO DAILY mood 09/16/20 09/23/23 History release (Cymbalta) buprenorphine 8 mg-naloxone 2 mg 2 tab sublingual BID withdrawal 05/03/21 09/23/23 History sublingual tablet bupropion HCl 150 mg tablet,12 hr 150 mg PO BID mood 05/03/21 09/23/23 History sustained-release (Wellbutrin SR) cetirizine 10 mg tablet 10 mg PO DAILY PRN allergies 12/18/22 09/23/23 History chlorthalidone 25 mg tablet 25 mg PO DAILY blood pressure 12/18/22 09/23/23 History levothyroxine 200 mcg tablet 200 mcg PO DAILY thyroid 12/18/22 09/23/23 History levothyroxine 25 mcg tablet 25 mcg PO DAILY thyroid 12/18/22 09/23/23 History ondansetron 4 mg disintegrating 4 mg PO Q6H PRN nausea and 05/18/23 09/23/23 Rx tablet vomiting #20 tabs Lactobacillus acidophilus 10 100 mmu cells PO DAILY 09/17/23 09/23/23 History billion cell capsule (NewFlora) flaxseed oil 1,000 mg capsule 1,000 mg PO DAILY 09/17/23 09/23/23 History ibuprofen 200 mg capsule 200 mg PO Q8H PRN pain 09/17/23 09/23/23 History multivitamin 1 tab PO DAILY 09/17/23 09/23/23 History Allergy/AdvReac Type Severity Reaction Status Date / Time gabapentin Allergy Intermediate Hives Verified 09/24/23 06:17 Sulfa (Sulfonamide Allergy Intermediate HIVES, Verified 09/24/23 06:17 Antibiotics) NAUSEA morphine AdvReac Mild Nausea Verified 09/24/23 06:17 Family History Grandmother Arthritis Thyroid disorder Breast cancer Diabetes Hypertension CVA (cerebral vascular accident) Grandfather Diabetes Mother Anesthesia complication Asthma Severe allergy Grandmother Breast cancer High cholesterol Thyroid disorder Father CVA (cerebral vascular accident) Surgical History History of axillary surgery History of excision of mass History of tubal ligation H/O total thyroidectomy Status post removal of thyroid nodule History of back surgery Social History Smoking Status: Current every day smoker tobacco type: e-cigarettes Tobacco: How many years used: 35 how long ago did patient quit smoking: only smoking 1-2 cigarettes/day second hand exposure: No alcohol intake: never substance use type: former substance user Date of last use: 3.5 YEARS AGO, marijuana, heroin and methamphetamine brenda/sabianist: Mu-Ism seatbelt use: always do you feel safe at home: Yes additional social history: Does Not Take Aspirin Does Take Ibuprofen As Needed
--- NOTE | 2023-09-24 07:30 | LARBX_PTH ---
PATIENT: OSIEL MEDINA LOC: [facility] [place] U#:[id number] AGE/SX: 57/F ROOM: RE09/24/[address]: Dr. Ajit Monet MD : 1965 BED: DIS: 09/24/2023 SPEC #: [id number] RECD: 09/24/23 15:38 STATUS: EMA DURON #: [id number] ASHLEY: 09/24/23 07:[address]: Ajit Monet DEPT: SURGICAL PATHOLOGY RECD BY: Joe Torres ENTERED: 09/24/23 15:39 SP TYPE: LARYNX BX OTHR DR: Dr. Miles Underwood MD Tissues: Laryngeal cavity Lymph node, NOS Procedures: Surgery Specimen Level IV HEADER OPERATION: Biopsy, mass, direct laryngoscopy with excision vallecular PRE-OP DIAGNOSIS: Malignant neoplasm of vallecula TISSUE SUBMITTED: Left vallecula mass- for lymph node protocol MICROSCOPIC DIAGNOSIS Left vallecula mass, biopsy: Consistent with CD10 + B-cell follicular lymphoma. See comment. / 09/25/2023 COMMENT Immunohistochemistry ([id number]) supports the above diagnosis. Flow analysis supports the diagnosis. The complete report is viewable is the patient's EMR. MICROSCOPIC DESCRIPTION Slides are reviewed. GROSS DESCRIPTION Received in fixative is one container labeled with the patient's name and designated Left vallecular biopsy. The specimen consists of multiple irregular fragments of pink-tijerina soft tissue measuring in aggregate 4.0 x 2.0 x 0.5cm. Line Tender portions are submitted for Flow cytometric analysis. Line Tender touch prep smears are prepared and examined. Remainder of the specimen is sectioned and totally submitted in two cassettes. / 09/24/2023 TC:0 CPT:86072
--- NOTE | 2023-09-24 07:54 | PCM.DC.SUM ---
Providers Primary Care Physician: Dr. Miles Underwood MD Reason For Visit: Biopsy, Mass, direct laryngoscopy with excision va Medications at Discharge Home Medications duloxetine 60 mg capsule,delayed release (Cymbalta) 60 mg PO DAILY mood 09/16/20 buprenorphine 8 mg-naloxone 2 mg sublingual tablet 2 tab sublingual BID withdrawal 05/03/21 bupropion HCl 150 mg tablet,12 hr sustained-release (Wellbutrin SR) 150 mg PO BID mood 05/03/21 cetirizine 10 mg tablet 10 mg PO DAILY PRN allergies 12/18/22 chlorthalidone 25 mg tablet 25 mg PO DAILY blood pressure 12/18/22 levothyroxine 200 mcg tablet 200 mcg PO DAILY thyroid 12/18/22 levothyroxine 25 mcg tablet 25 mcg PO DAILY thyroid 12/18/22 ondansetron 4 mg disintegrating tablet 4 mg PO Q6H PRN nausea and vomiting #20 tabs 05/18/23 Lactobacillus acidophilus 10 billion cell capsule (NewFlora) 100 mmu cells PO DAILY 09/17/23 flaxseed oil 1,000 mg capsule 1,000 mg PO DAILY 09/17/23 ibuprofen 200 mg capsule 200 mg PO Q8H PRN pain 09/17/23 multivitamin 1 tab PO DAILY 09/17/23 Weight / BMI Weight Weight: 90.083 kg Body Mass Index (BMI) 32.0 ABG / Lab / Microbiology Data 09/18/23 08:04 09/18/23 08:04 D/C Instructions Discharge Diet: Soft diet Please Follow Up With: Ajit Monet MD When: 1-2 weeks Meaningful Use Info Meaningful Use Meaningful Use Diagnoses (Choose all that apply): None applicable Ischemic Stroke Statin Dosing Therapy Reference: STATIN DOSE THERAPY REFERENCE: * Patients > 75 years receive moderate or high dose statin therapy. * Patients 75 years or YOUNGER should receive HIGH intensity statin dose unless contraindicated. You will be required to document reason for non-treatment if statin daily dose does not meet guidelines. HIGH DOSE STATIN THERAPY DAILY Atorvastatin > than or = to 40 mg Rosuvastatin > than or = to 20 mg Amlodipine + Atorvastatin > than or = to 2.5/40 mg Ezetimibe + Simvastatin 10/80 mg Simvastatin 80mg Discharge Plan Admission Attending Provider: Ajit Monet Primary Care Provider: Miles Underwood Instructions Print Language: Gibraltarian Discharge Orders/Prescriptions Prescriptions: No Action duloxetine [Cymbalta] 60 mg capsule,delayed release(DR/EC) 60 mg PO DAILY bupropion HCl [Wellbutrin SR] 150 mg tablet sustained-release 12 hr 150 mg PO BID buprenorphine-naloxone 8-2 mg tablet, sublingual 2 tab sublingual BID levothyroxine 25 mcg tablet 25 mcg PO DAILY Patient Comments: TAKE 1 TABLET BY MOUTH EVERY DAY on ON AN EMPTY STOMACH in addition to 200mcg. levothyroxine 200 mcg tablet 200 mcg PO DAILY Patient Comments: Take 1 tablet by mouth once daily. cetirizine 10 mg tablet 10 mg PO DAILY PRN (Reason: allergies) Patient Comments: TAKE 1 TABLET BY MOUTH EVERY DAY chlorthalidone 25 mg tablet 25 mg PO DAILY Patient Comments: Take 1 tablet by mouth once daily. ondansetron 4 mg tablet,disintegrating 4 mg PO Q6H PRN (Reason: nausea and vomiting) Qty: 20 0RF multivitamin Tablet 1 tab PO DAILY flaxseed oil 1,000 mg capsule 1,000 mg PO DAILY NewFlora 10 billion cell capsule 100 mmu cells PO DAILY ibuprofen 200 mg capsule 200 mg PO Q8H PRN (Reason: pain) Other Ambulatory Orders: 12 Lead EKG (Routine) Timeframe: [id number] Location: None Selected Ordered By: Dr. Ajit Monet Referrals / Follow Up: Miles Underwood MD [Primary Care Provider] - Disposition Disposition (needs filled in before D/C Order can be placed): Home, Self Care
--- NOTE | 2023-09-24 07:55 | PCM.OPRPT ---
Report of Operation Date of Procedure: 09/24/23 Pre-Operative Diagnosis: Left vallecular mass Post-Operative Diagnosis: same Surgery/Procedure Performed:: Direct laryngoscopy with excision base of tongue mass. Surgeon: Ajit Monet Type of Anesthesia: General Anesthesiologist: Brett Karimi Estimated Blood Loss (mL): minimal Description of Procedure: The patient was taken to the OR on 09/24/23. She was placed in the supine position on the OR table. She was given sufficient general endotracheal anesthesia. The table was turned 90 degrees clockwise. She was draped steriley. A gum guard was placed on the upper gingiva. A sliding demi laryngoscope was placed into the patient's mouth the left base of tongue was exposed. The mass was easily visualized. I then used a bovie with a long tip to make an incision on the anterior and posterior edge of the mass at the tongue base. I then used sharp dissection with laryngoscopy scissors to excise the mass. The mass was then delivered and sent for lymph node protocol. Hemostasis was achieved with monopolar cautery and adrenaline topically on Codman's. All blood was suctioned from the ward- and hypopharynx. All instrumentation was removed. The patient was then turned back to anesthesia. She was awoken and brought to the recovery room in stable condition. blood loss minimal, replacement none. Sponge, needle and instrument count were correct at the end of the procedure.
--- NOTE | 2023-09-24 09:01 | PCM.POST.ANE ---
Anesthesia: Postop Eval I Current Vital Signs Temperature: 97.6 F Pulse Rate: 81 Blood Pressure: 136/100 Respiratory Rate: 18 Pulse Ox: 98 Oxygen Delivery Method: Nasal Cannula Oxygen Flow Rate (L/min): 4 Assessment Airway patent: Yes Spontaneous unlabored respirations: Yes Mental status: Awake nausea: No Vomiting: No Anesthesia Complication: No Fluid Hydration Crystalloid volume administer (ml): 800 Total IV fluid infused: 800 Progress Note Anesthesia document: Postop Eval 1 completed: Yes
--- NOTE | 2023-09-24 09:14 | PCM.POSTANE2 ---
Anesthesia Postop Eval I Sum Postop Eval Completion status Anesthesia document: Postop Eval 1 completed: Yes Anesthesia Postop Eval I Summary Anesthesia Postop Eval I Summary: Anesthesia Postop Eval I: Assessment Summary Airway patent Yes 09/24/23 09:03 Spontaneous unlabored Yes 09/24/23 09:03 respirations Mental status Awake 09/24/23 09:03 nausea No 09/24/23 09:03 Vomiting No 09/24/23 09:03 Anesthesia Postop Eval I: Fluid Summary Crystalloid volume administer 800 09/24/23 09:03 (ml) Colloids volume administered ( ml) Blood Product volume administered (ml) Total IV fluid infused 800 09/24/23 09:03 Anesthesia Postop Eval I: Summary Notes Anesthesia Complication No 09/24/23 09:03 Anesthesia Complication Comment: Post-operative progress note Anesthesia: Postop Eval II Evaluation Mental status: Awake Pain Level: 0 nausea: No Vomiting: No Complications Anesthesia Complication: No
[2023-09-24] MEDS: Acetaminophen 325 MG Tablet 650 MG PO (09:54)
== END 2023-09-24 10:07 | disposition home or self-care (01) ==
LOC: SDC 05:37 → AC 05:39
PROVIDERS: PCP Family Medicine; Referring Provider Otolaryngology; Visit Provider Otolaryngology
PROC: 0CJS8ZZ Inspection of Larynx, Via Natural or Artificial Opening Endoscopic (ICD-10-PCS; CPT 31575; principal; 2023-09-24 07:25)
DX: C10.0 Malignant neoplasm of vallecula (principal); C85.11 Unspecified B-cell lymphoma, lymph nodes of head, face, and neck; F17.290 Nicotine dependence, other tobacco product, uncomplicated; I10 Essential (primary) hypertension; Z79.899 Other long term (current) drug therapy
CPT/HCPCS: 31535; 00320; 80048; 84436; 84439; 84443; 85027; 88305; 88341; 88342; 93005; J7120; J2405

== ENCOUNTER → 2024-01-23 | Outpatient (CLI) | payer MEDICAID, SELFPAY ==
[2024-01-23 13:06] LABS: Anion Gap 3 (5-15); BUN 13 mg/dL (7-18); BUN/Creat Ratio 18.5 RATIO (10-20); Calcium,Total 9.3 mg/dL (8.5-10.1); Chloride 106 mmol/L (98-107); EST Glomerular Filtration Rate 92 mL/min (>60); Est Glom Filt Rate - Afr Amer 111 mL/min (>60); Free T3 2.5 pg/mL (2.18-3.98); Glucose 103 mg/dL (74-106); Potassium 4.2 mmol/L (3.5-5.1); Sodium Level 141 mmol/L (136-145); Thyroid Stim Hormone (TSH) 0.052 uIU/mL (0.358-3.740)
== END | disposition home or self-care (01) ==
LOC: LAB 11:43
PROVIDERS: PCP Family Medicine; Referring Provider Psychiatry & Neurology Psychiatry; Visit Provider Psychiatry & Neurology Psychiatry
DX: R53.83 Other fatigue (principal); Z90.89 Acquired absence of other organs
CPT/HCPCS: 36415; 80048; 84439; 84443; 84481

== ENCOUNTER 2024-01-26 10:58 | Emergency (ER) | payer MEDICAID, SELFPAY ==
[2024-01-26 10:59] VITALS: BP 149/96; PULSE 88; RESP 16; TEMP 36.6; O2SAT 98; BMI 32.2
--- NOTE | 2024-01-26 11:25 | RAD_ITS ---
EXAM: XR CERVICAL SPINE, 2 OR 3 VIEWS CLINICAL INDICATION: Fall injury. TECHNIQUE: Frontal and lateral views of the cervical spine. COMPARISON: Cervical spine radiographs 12/08/2012. FINDINGS: VERTEBRAE: Straightening of the C-spine curvature. Preserved vertebral body height. No acute fracture. No spondylolisthesis. No significant facet arthropathy. DISC SPACES: Moderate degenerative disc space height narrowing with anterior and posterior marginal spurs at C5-C6 disc space level. Mild C6-C7 disc space height narrowing with minimal anterior posterior marginal spurs. Normal remaining cervical disc space heights. SOFT TISSUES: Unremarkable. No prevertebral soft tissue widening. LUNG APICES: Clear. RAD/Cerv Spine 2 or 3 Views IMPRESSION: 1. No acute fracture or malalignment of the cervical spine. 2. Degenerative disc space height narrowing at C5-C6 and C6-C7 disc space levels with anterior and posterior marginal spurs. 3. No significant interval change. Electronically Signed: Garrett Deuñas MD at 11:57 EDT ,
--- NOTE | 2024-01-26 11:26 | EX.ED.GENINJ ---
HPI History of Present Illness Chief Complaint: Fall Detail of Chief Complaint: Fall Informant: patient Narrative Narrative: Patient presents to the emergency department after sustaining a fall last evening in the shower. Patient states that she slipped and fell and she tried to brace herself with her left arm but her left chest hit the side of the tub. She is not sure if she bumped her head but there was no loss of consciousness and she denies headache. She describes some pain in her neck and left upper shoulder. She complains of some pain in her left side/ribs that is somewhat worse with deep breath. Patient states that she had some numbness and tingling in her left hand over the second third and fourth as well as the fifth fingers and the tips but that seems to have been improving. She denies weakness in the extremities. [facility] Medical History Wears glasses Cancer Restless legs Lymph node enlargement Delayed surgical wound healing Open wound Lymphoma Open wound of right axillary region Lipoma of right axilla Substance abuse Excessive bleeding Heartburn Gastric reflux Leg cramps Post-menopausal Wears dentures Easy bruising Smoker Shortness of breath on exertion History of edema Pain in right upper arm Mass of right axilla Thyroid disease Osteoarthritis Anxiety and depression Allergies Follicular lymphoma Chronic back pain Hepatitis C virus infection cured after antiviral drug therapy Hypertension Drug abuse Anemia Arthritis Home Medications ?Medication ?Instructions ?Recorded ?Last Taken ?Type duloxetine 60 mg capsule,delayed 60 mg PO DAILY mood 09/16/20 09/23/23 History release (Cymbalta) buprenorphine 8 mg-naloxone 2 mg 2 tab sublingual BID withdrawal 05/03/21 09/23/23 History sublingual tablet bupropion HCl 150 mg tablet,12 hr 150 mg PO BID mood 05/03/21 09/23/23 History sustained-release (Wellbutrin SR) cetirizine 10 mg tablet 10 mg PO DAILY PRN allergies 12/18/22 09/23/23 History chlorthalidone 25 mg tablet 25 mg PO DAILY blood pressure 12/18/22 09/23/23 History levothyroxine 200 mcg tablet 200 mcg PO DAILY thyroid 12/18/22 09/23/23 History ondansetron 4 mg disintegrating 4 mg PO Q6H PRN nausea and 05/18/23 09/23/23 Rx tablet vomiting #20 tabs Lactobacillus acidophilus 10 100 mmu cells PO DAILY 09/17/23 09/23/23 History billion cell capsule (NewFlora) flaxseed oil 1,000 mg capsule 1,000 mg PO DAILY 09/17/23 09/23/23 History ibuprofen 200 mg capsule 200 mg PO Q8H PRN pain 09/17/23 09/23/23 History multivitamin 1 tab PO DAILY 09/17/23 09/23/23 History amlodipine 2.5 mg tablet 2.5 mg PO QDAY 12/18/23 Unknown History ibuprofen 800 mg tablet 800 mg PO TID PRN pain #30 tabs 01/26/24 Unknown Rx Allergy/AdvReac Type Severity Reaction Status Date / Time gabapentin Allergy Intermediate Hives Verified 01/26/24 10:58 Sulfa (Sulfonamide Allergy Intermediate HIVES, Verified 01/26/24 10:58 Antibiotics) NAUSEA morphine AdvReac Mild Nausea Verified 01/26/24 10:58 Family History Grandmother Arthritis Thyroid disorder Breast cancer Diabetes Hypertension CVA (cerebral vascular accident) Grandfather Diabetes Mother Anesthesia complication Asthma Severe allergy Grandmother Breast cancer High cholesterol Thyroid disorder Father CVA (cerebral vascular accident) Surgical History History of axillary surgery History of excision of mass History of tubal ligation H/O total thyroidectomy Status post removal of thyroid nodule History of back surgery Social History Smoking Status: Current every day smoker tobacco type: e-cigarettes Tobacco: How many years used: 35 how long ago did patient quit smoking: only smoking 1-2 cigarettes/day second hand exposure: No alcohol intake: never substance use type: former substance user Date of last use: 3.5 YEARS AGO, marijuana, heroin and methamphetamine brenda/nondenominational: Caodaism seatbelt use: always do you feel safe at home: Yes additional social history: Does Not Take Aspirin Does Take Ibuprofen As Needed ROS ROS ED Review of Systems ROS Unobtainable: other Constitutional Constitutional ED: Reports lethargy; Denies chills, fever(s), sweats or weight loss Eyes Eyes: Denies blurry vision, change in vision or diplopia ENT ENT ED: Denies rhinorrhea or sore throat Cardiovascular Cardiovascular: Reports chest pain; Denies orthopnea or racing heartbeat Respiratory/Chest Respiratory/Chest: Reports dyspnea and dyspnea on exertion; Denies cough, orthopnea or sputum Gastrointestinal Gastrointestinal: Denies abdominal pain, diarrhea, nausea or vomiting Genitourinary Genitourinary ED: Denies dysuria, hematuria or urinary frequency Musculoskeletal Musculoskeletal: Reports neck pain; Denies arthralgias, back pain or myalgias Integumentary Denies abscess, Abrasions or rash Neurologic Neurologic: Denies headache(s) or weakness Psychiatric Psychiatric: Denies anxiety, depression or suicidal thoughts Endocrine Endocrinology: Denies polydipsia, polyphagia or polyuria Hematologic/Lymphatic Hematologic/Lymphatic: Denies easy bleeding, easy bruising or lymphadenopathy Allergic/Immunologic Allergic/Immunologic ED: Denies mouth swelling, tongue swelling or urticaria EXAM Physical Exam Const Vital Signs: 01/26/24 10:59 01/26/24 12:12 Temperature 97.8 F Temperature Source Oral Pulse Rate 88 Respiratory Rate 16 Respiratory Effort Normal Non-Labored Respiratory Depth Normal Respiratory Pattern Normal Blood Pressure 149/96 H Blood Pressure Mean 113 Pulse Ox 98 99 Oxygen Delivery Method Room Air Room Air Positive well nourished and well developed General Appearance ED: well developed and NAD HEENT Reports TM's clear and moist mucous membranes normocephalic and atraumatic; Negative for trauma or tenderness Tympanic Membrane ED: Yes TM's clear Eyes PERRL and EOMs intact bilaterally General Eye ED: Negative for pale conjunctiva or scleral icterus Neck no lymphadenopathy, supple and no JVD Neck Narrative: Mild diffuse tenderness to palpation over the lower cervical spine. There is no ecchymosis or bruising noted. No bony step-offs. Also has tenderness over the left cervical paraspinal musculature that seems to reproduce her pain. General: Negative for tenderness Chest Wall palpation of chest normal Chest Narrative: Tenderness to palpation in the mid axillary line over the ribs diffusely. There is no ecchymosis or bruising. There is no crepitus or subcu edema. Chest: Negative for tenderness Resp normal respiratory effort and clear to auscultation bilaterally Effort and Inspection: Negative for respiratory distress or pain with movement Auscultation: Negative for rhonchi, wheezes or diminished lung sounds Cardio regular rate, regular rhythm, S1 normal heart sound, S2 normal heart sound and no murmurs Peripheral Pulses: pulses 2+ throughout GI normal to inspection, nondistended, normoactive bowel sounds, soft to palpation, non-tender, non-distended and no masses Back/Spine no CVA tenderness and no thoracic nor lumbar tenderness Extremity normal to inspection General Extremety ED: Negative for edema General Extremity: Negative for edema Neuro oriented x3, CN's II-XII intact bilaterally, no sensory deficits noted and gait normal Sensorium / Orientation: awake, alert, oriented to person, oriented to place and oriented to time Motor Exam: strength 5/5 throughout and strength abnormal Psych mental status grossly normal Skin no rashes or lesions noted and no wounds MDM MDM MDM Narrative Medical decision making narrative: Patient presents with fall and injury to the left ribs. X-rays of the C-spine obtained were negative for fracture. She had x-rays of the left ribs that showed acute fractures of ribs 4, 5, 6, and 7. There is no evidence of pneumothorax. Patient on Suboxone and does not want opiates. Patient will be given a prescription for ibuprofen and was given 800 mg of ibuprofen in the department. She will be given an incentive spirometer. She is advised to return if increasing shortness of breath, hemoptysis, or her condition should worsen anyway. Radiography Diagnostic Testing: Clinical Impression(s) from Imaging Studies Cervical Spine X-Ray 01/26/24 11:25 IMPRESSION: 1. No acute fracture or malalignment of the cervical spine. 2. Degenerative disc space height narrowing at C5-C6 and C6-C7 disc space levels with anterior and posterior marginal spurs. 3. No significant interval change. Electronically Signed: Garrett Dueñas MD at 11:57 EDT Reading Location ID and State: [facility] / [place] , Service support , Ribs w/Chest X-Ray 01/26/24 11:32 IMPRESSION: 1. Multiple acute fractures of the left fourth, fifth, sixth and seventh ribs. 2. Old fracture of the left lateral third rib is unchanged. 3. No pneumothorax or hemothorax. 4. No acute cardiopulmonary pathology. Electronically Signed: Garrett Dueñas MD at 11:55 EDT Reading Location ID and State: [facility] / [place] , Service support , Three-view x-rays of the cervical spine obtained interpreted by myself is no evidence of fracture dislocation. Radiology in agreement. Three-view x-rays of the left ribs and chest x-ray obtained interpreted by myself as fractures of ribs 5 6 and 7. Radiology agrees and the also note fractures of ribs 456 and 7 as well as old fracture of ribs 3. No pneumothorax. Discharge Plan Triage Chief Complaint: Fall ED Provider: Roosevelt Marin Dx/Rx/DC Orders Clinical Impression: Fall, Fracture, ribs Instructions: ED Mechanical Fall, ED Rib Fracture Prescriptions: New ibuprofen 800 mg tablet 800 mg PO TID PRN (Reason: pain) Qty: 30 0RF No Action duloxetine [Cymbalta] 60 mg capsule,delayed release(DR/EC) 60 mg PO DAILY bupropion HCl [Wellbutrin SR] 150 mg tablet sustained-release 12 hr 150 mg PO BID buprenorphine-naloxone 8-2 mg tablet, sublingual 2 tab sublingual BID amlodipine 2.5 mg tablet 2.5 mg PO QDAY levothyroxine 200 mcg tablet 200 mcg PO DAILY Patient Comments: Take 1 tablet by mouth once daily. cetirizine 10 mg tablet 10 mg PO DAILY PRN (Reason: allergies) Patient Comments: TAKE 1 TABLET BY MOUTH EVERY DAY chlorthalidone 25 mg tablet 25 mg PO DAILY Patient Comments: Take 1 tablet by mouth once daily. ondansetron 4 mg tablet,disintegrating 4 mg PO Q6H PRN (Reason: nausea and vomiting) Qty: 20 0RF multivitamin Tablet 1 tab PO DAILY flaxseed oil 1,000 mg capsule 1,000 mg PO DAILY NewFlora 10 billion cell capsule 100 mmu cells PO DAILY ibuprofen 200 mg capsule 200 mg PO Q8H PRN (Reason: pain) Primary Care Provider: Miles Underwood Referrals: Miles Underwood MD [Primary Care Provider] - 3-5 Days Print Language: French Disposition Disposition: Home, Self Care
--- NOTE | 2024-01-26 11:32 | RAD_ITS ---
EXAM: XR LEFT RIBS AND AP CHEST, 3 OR MORE VIEWS CLINICAL INDICATION: Fall injury. TECHNIQUE: Frontal and oblique views of the left ribs and frontal view of the chest. COMPARISON: PA and lateral chest radiographs 05/20/2023. FINDINGS: LUNGS AND PLEURAL SPACES: Unremarkable. No pneumothorax. No left pleural effusion or hemothorax. No suspicious pulmonary contusion, consolidation or edema. HEART: Unremarkable. Normal cardiac size. MEDIASTINUM: Central airways and mediastinal contour are unremarkable. BONES/JOINTS: Old fracture of the left lateral third rib is unchanged. Acute fractures of the left posterior fourth and fifth ribs. Acute fractures of the left lateral sixth rib. Acute fracture of the left anterior seventh rib. RAD/Ribs Uni Min 3V w/PA Chest IMPRESSION: 1. Multiple acute fractures of the left fourth, fifth, sixth and seventh ribs. 2. Old fracture of the left lateral third rib is unchanged. 3. No pneumothorax or hemothorax. 4. No acute cardiopulmonary pathology. Electronically Signed: Garrett Dueñas MD at 11:55 EDT ,
[2024-01-26 12:12] VITALS: O2SAT 99
[2024-01-26] MEDS: Ibuprofen 400 MG Tablet 800 MG PO (12:24)
[2024-01-26 12:26] VITALS: BP 140/68; PULSE 80; RESP 18; TEMP 36.6; O2SAT 99
== END 2024-01-26 12:28 | disposition home or self-care (01) ==
PROVIDERS: Emergency Provider Emergency Medicine; PCP Family Medicine; Visit Provider Emergency Medicine
DX: S22.42XA Multiple fractures of ribs, left side, initial encounter for closed fracture (principal); W18.2XXA Fall in (into) shower or empty bathtub, initial encounter; I10 Essential (primary) hypertension; F17.290 Nicotine dependence, other tobacco product, uncomplicated; Z79.899 Other long term (current) drug therapy
CPT/HCPCS: 71101; 72040; 99283

== ENCOUNTER → 2024-04-04 | Outpatient (CLI) | payer MEDICAID, SELFPAY ==
[2024-04-04 14:02] LABS: AST(SGOT) 29 U/L (15-37); Alanine Aminotransfer ALT/SGPT 46 U/L (13-56); Albumin, Serum 4.1 g/dL (3.2-5.0); Alkaline Phosphatase 122 U/L (45-117); Anion Gap 5 (5-15); BUN 10 mg/dL (7-18); BUN/Creat Ratio 12.6 RATIO (10-20); Calcium,Total 9.4 mg/dL (8.5-10.1); Chloride 98 mmol/L (98-107); Creatinine, Serum 0.79 mg/dL (0.55-1.02); EST Glomerular Filtration Rate 80 mL/min (>60); Est Glom Filt Rate - Afr Amer 97 mL/min (>60); Globulin 4.1 g/dL (2.2-4.2); Glucose 94 mg/dL (74-106); Potassium 3.5 mmol/L (3.5-5.1); Protein, Total 8.2 g/dL (6.4-8.2); Sodium Level 136 mmol/L (136-145)
[2024-04-04 14:28] LABS: HIV - WCH Non-Reactive (Nonreactive); Hepatitis B Surface Antibody Non-Reactive; Hepatitis B Surface Antigen Non-Reactive (Nonreactive)
[2024-04-09 23:06] LABS: HCV Quant. RNA PCR HCV Not Detected IU/mL (.); Hepatitis A AB, Total Negative (Negative)
== END | disposition home or self-care (01) ==
LOC: LAB 12:36
PROVIDERS: PCP Family Medicine; Referring Provider Family Medicine; Visit Provider Family Medicine
DX: F11.20 Opioid dependence, uncomplicated (principal)
CPT/HCPCS: 36415; 80053; 86703; 86706; 86708; 87340; 87522; 87902

== ENCOUNTER → 2024-07-11 | Outpatient (CLI) | payer MEDICAID, SELFPAY ==
--- NOTE | 2024-07-11 13:06 | CT_ITS ---
PROCEDURE: CT of the chest, abdomen, and pelvis with IV contrast. 07/11/2024 REASON FOR EXAM: Follow-up lymphoma TECHNIQUE: After the administration of 97 cc Isovue 370 IV contrast, contiguous axial CT images were obtained through the chest, abdomen, and pelvis. Sagittal and coronal reformats were created. One or more dose reduction techniques were used (e.g., Automated exposure control, adjustment of the mA and/or kV according to patient size, use of iterative reconstruction technique. RADIATION DOSE SUMMARY: DLP: 1915.92 mGycm COMPARISON: None available FINDINGS: Chest CT: The bones are osteopenic with degenerative changes in the spine. Mild to moderate chronic appearing height loss of T8. Heart is not enlarged. No sizable pericardial effusion. Mild coronary artery calcifications. 4.1 cm aneurysmal dilation of the ascending thoracic aorta. Descending thoracic aorta is normal in caliber. No supraclavicular, left axillary, central mediastinal, or hilar adenopathy. There is a 2.6 cm short axis right axillary lymph node image [address] images. The thyroid is either absent or atrophic. No focal abnormality of either breast. The central airway and central pulmonary arteries are clear. No focal airspace consolidation, pneumothorax, or pleural effusion. No dominant pulmonary parenchymal nodule. 3 mm posterior right apical juxtapleural nodule image 29 of the lung windows. Abdominal/pelvic CT: The bones are osteopenic with degenerative changes in the spine. The abdominal aorta is normal in caliber. No large abdominal wall defect. No focal abnormality of the urinary bladder. The uterus is present. No dominant adnexal mass. Moderate ingested material in the stomach. No calcified gallstones or abnormal dilation of the biliary tree. Portal vein is patent. Low-attenuation appearance of the liver. No discrete liver lesion. The adrenal glands and pancreas show no specific abnormality. Spleen size at the upper limits of normal at 13.2 cm. The right kidney has a horizontal orientation. The kidneys are symmetric in size and enhancement. No solid renal mass or obstructive uropathy. No abnormally dilated bowel segments or free intraperitoneal air. Scattered patchy wall thickening of the colon may be due to lack of distention versus peristalsis. There is a possible biopsy or surgical clip near the left lateral margin of the rectum image [address] images of the abdomen/pelvis. [id number] stool in the colon. The appendix is not clearly demonstrated. A few borderline left inguinal lymph nodes are present. Mildly enlarged patricia hepatis lymph node image [address] images measuring 1.3 cm. There is some mild vague soft tissue density in the retroperitoneum, partially surrounding the distal abdominal aorta and IVC. 1.1 cm right iliac chain lymph node image 72 axial images. 11 mm left iliac chain lymph node image [address] images. No acute findings in the chest, abdomen CT/CT Chest, Abd, Pel w/Contrast IMPRESSION: No acute findings in the chest, abdomen, or pelvis. There is a 2.6 cm short axis right axillary lymph node. There are some mildly enlarged upper abdominal, retroperitoneal, and pelvic lymph nodes. The findings may represent either recurrent or residual di sease, in this patient with history of lymphoma.. Comparison with any prior studies would be helpful to determine if there has be en a significant interval change. Fatty metamorphosis of the liver. No discrete liver lesion. Reading Location: [facility]
--- NOTE | 2024-07-11 13:06 | CT_ITS ---
PROCEDURE: CT of the neck with IV contrast. 07/11/2024 REASON FOR EXAM: Follow-up lymphoma TECHNIQUE: After the administration of 97 cc Isovue 370 IV contrast, contiguous axial CT images were obtained through the neck. Sagittal and coronal reformats were created. One or more dose reduction techniques were used (e.g., Automated exposure control, adjustment of the mA and/or kV according to patient size, use of iterative reconstruction technique). RADIATION DOSE SUMMARY: DLP: 1915.92 mGycm COMPARISON: No prior studies are available. FINDINGS: Bones are osteopenic. There are moderately extensive degenerative changes in the spine, to a severe degree at C5-6 and C6-7. Posterior disc osteophyte complexes at C5-6 and C6-7 cause moderate central spinal canal narrowing. Multilevel neural foraminal narrowing of the cervical spine. Skull base and craniocervical junction are intact. Included upper mediastinum, lungs, and central airway are unremarkable. Included portions of the brain grossly unremarkable, although detail is limited. Paranasal sinuses and mastoid air cells clear. Major salivary glands unremarkable. No discrete mucosal lesion of the pharynx/larynx. No peritonsillar or retropharyngeal fluid collection. No dominant cervical mass or adenopathy. The thyroid is absent or atrophic. There is a 9 mm borderline anterior left jugular chain lymph node image 41 of the axial data set. Major vascular structures of the neck unremarkable. CT/Soft Tissue Neck WITH Contrast IMPRESSION: No cervical mass or adenopathy. No acute findings in the neck. Severe degenerative disc disease at C5-6 and C6-7. Posterior disc osteophyte c omplexes at these levels cause moderate central spinal canal narrowing. Reading Location[facility]
--- NOTE | 2024-07-11 13:36 | BI_ITS ---
EXAM: SCRN MAMM (CAD)W/GORDON BILAT 07/11/2024 CLINICAL HISTORY: F, Age 58 y/o , ANNUAL SCREENING TECHNIQUE: Bilateral screening digital breast tomosynthesis with 2D and 3D images. Computer aided detection. COMPARISON: Prior exam(s) dated 07/11/2023. FINDINGS: TISSUE DENSITY: The breast tissue is heterogenously dense, which may obscure small masses. The mammogram demonstrates that the patient has dense breasts. Supplemental screening with whole breast ultrasound or MRI may be considered for further evaluation. Bilateral Breast Mammographic Findings: Right breast: There is a focal asymmetry in the lower outer right breast at middle depth. Also, there are enlarged right axillary lymph nodes, likely related to patient's history of lymphoma. Left breast: No significant masses, calcifications or other abnormalities are identified. BI/SCRN MAMM (CAD)W/GORDON BILAT IMPRESSION: 1. The focal asymmetry in the lower-outer right breast at middle depth require s further evaluation. Recommend diagnostic mammogram and ultrasound of the right breast. Right Breast: BIRADS 0 Incomplete: Need additional imaging evaluation and/or pr ior mammograms for comparison.. Left Breast: BIRADS 1 NEGATIVE. OVERALL FINAL ASSESSMENT: BIRADS 0 Incomplete: Need additional imaging evaluati on and/or prior mammograms for comparison.. RECOMMENDATION: Recommendation: Additional projections. A letter with findings and recommendations will be mailed to the patient. Reading Location: [facility]
== END | disposition home or self-care (01) ==
PROVIDERS: PCP Family Medicine; Referring Provider Internal Medicine Hematology & Oncology; Visit Provider Internal Medicine Hematology & Oncology
DX: C82.08 Follicular lymphoma grade I, lymph nodes of multiple sites (principal); Z12.31 Encounter for screening mammogram for malignant neoplasm of breast
CPT/HCPCS: 70491; 71260; 74177; 77063; 77067; Q9967

== ENCOUNTER → 2024-07-28 | Outpatient (CLI) | payer MEDICAID, SELFPAY ==
--- NOTE | 2024-07-28 13:40 | BI_ITS ---
EXAM: Unilateral diagnostic right mammogram. CLINICAL HISTORY: Abnormal screening examination. COMPARISON: Comparison is made with prior mammogram dated July 11, 2024 TECHNIQUE: Compression spot views in the mediolateral oblique and craniocaudad projections were obtained. 3D tomosynthesis was performed as well FINDINGS: Stable focal nodular density in the central medial aspect of the right breast. Correlation with ultrasound recommended. BI/DIAG MAMM W/CAD, UNILAT IMPRESSION: Sonographic correlation recommended. BI-RADS category 0. Reading Location: [place] [id number]
--- NOTE | 2024-07-28 13:40 | US_ITS ---
PROCEDURE: BREAST LIMITED UNILATERAL 07/28/2024 REASON FOR EXAM: FOCAL ASYMMETRY LOWER OUTER MIDDLE DEPTH TECHNIQUE: Targeted right breast ultrasound. COMPARISON: Comparison is made with prior mammogram done earlier in the day. FINDINGS: Right breast ultrasound was targeted to the lower outer quadrant of the right breast.. There is an 8 mm x 8 mm x 4 mm well-defined hypoechoic nodule with a central area of increased echotexture suggestive of a small benign-appearing lymph node. This is at the 6 o'clock position of the breast at 3 cm from the nipple. There is also evidence of a 7 mm x 5 mm x 4 mm cyst at the 7 o'clock position of the breast at 4 cm from the nipple. A cyst is also seen at the 8 o'clock position of the breast at 6 cm from the nipple measuring 5 mm x 4 mm x 4 mm. There is also evidence of centrally dilated retroareolar ducts at the 8 o'clock position of the breast at 7 cm from the nipple with possible 3 mm x 3 mm x 3 mm papilloma with increased vascularity. US/Breast Limited Unilateral IMPRESSION: Small cysts as described. Dilated duct at the 8 o'clock position of the breast at 7 cm from the nipple wi th possible 3 mm x 3 mm x 3 mm papilloma within it. Follow-up code: Biopsy Recommended BI-RADS category 4. Reading Location: [place] [id number]
== END | disposition home or self-care (01) ==
LOC: OPBI 13:38
PROVIDERS: PCP Family Medicine; Referring Provider Internal Medicine Hematology & Oncology; Visit Provider Internal Medicine Hematology & Oncology
DX: N64.89 Other specified disorders of breast (principal)
CPT/HCPCS: 77061; 76642; 77065; G0279

== ENCOUNTER → 2024-08-06 | Outpatient (CLI) | payer MEDICAID, SELFPAY ==
[2024-08-06 13:43] LABS: Free T3 3.1 pg/mL (2.18-3.98)
== END | disposition home or self-care (01) ==
LOC: LAB 12:12
PROVIDERS: PCP Family Medicine; Referring Provider Psychiatry & Neurology Psychiatry; Visit Provider Psychiatry & Neurology Psychiatry
DX: E03.9 Hypothyroidism, unspecified (principal)
CPT/HCPCS: 36415; 84439; 84443; 84481

== ENCOUNTER 2024-08-11 13:09 | Outpatient (CLI) | payer MEDICAID, SELFPAY ==
--- NOTE | 2024-08-11 13:11 | US_ITS ---
PROCEDURE: US BREAST BIOPSY 1ST LESION 08/11/2024 REASON FOR EXAM: F, Age 58 y/o , RIGHT BREAST MASS COMPARISON: Prior exam(s) dating back to July 28, 2024.. TECHNIQUE: Under direct sonographic guidance, the surgeon performed core biopsies of the 5 mm x 5 mm x 2 mm well-defined hypoechoic nodule at the 8 o'clock position of the breast at 7 cm from the nipple. FINDINGS: ULTRASOUND: Ultrasound was targeted to the 8 o'clock position of the right breast. The breast tissue appears sonographically normal. No cyst, solid mass, or suspicious shadowing. US/US Breast Biopsy 1st Lesion IMPRESSION: Ultrasound-guided breast biopsy of the nodular density at the 8 o'clock positio n of the right breast at 7 cm from the nipple. A tissue clip marker was placed at the biopsy site. Reading Location: [id number]
--- NOTE | 2024-08-11 13:19 | BI_ITS ---
EXAM: Digital unilateral mammogram right breast. CLINICAL HISTORY: Right breast mass. Mass was biopsied under ultrasound guidance. Document clip placement in relationship to the biopsy site. COMPARISON: Mammogram studies dated 07/28/2024, 07/11/2024, and 07/11/2023. A breast ultrasound dated 08/11/2024 was also reviewed. TECHNIQUE: Digital CC and MLO views of the right breast were performed. FINDINGS: A radiopaque clip is seen in the superior outer aspect of the right breast. The clip is located in a different quadrant than the mass. The mass is located in the lower outer quadrant of the right breast at the 8 o'clock, 7 cm from the nipple position. It does not appear that the correct area was biopsied. Re-biopsy is warranted. BI/DIAG MAMM W/CAD, UNILAT IMPRESSION: BI-RADS category S/4. There is a suspicious mass in the right breast was which warrants biopsy. It does not appear that this mass was initially biopsied. A radiopaque clip is not at this location. Reading Location: [id number]
--- NOTE | 2024-08-11 13:20 | BRBX_PTH ---
PATIENT: OSIEL MEDINA LOC: [facility] U#:[id number] AGE/SX: 58/F ROOM: RE08/11/[address]: Dr. Bill Cunha MD : [id number] BED: DIS: 08/11/2024 SPEC #: [id number] RECD: 08/11/24 14:49 STATUS: EMA REMukund #: [id number] ASHLEY: 08/11/24 13:[address]: Bill Cunha DEPT: SURGICAL PATHOLOGY RECD BY: Joe Torres ENTERED: 08/11/24 15:28 SP TYPE: BREAST BX OTHR DR: Dr. Miles Underwood MD Tissues: Right breast, NOS Procedures: Immunohistochemical Stains Surgery Specimen Level IV IHC Stain ADDITIONAL HEADER OPERATION: Ultrasound guided breast biopsy - right PRE-OP DIAGNOSIS: Right breast mass x4 passes TISSUE SUBMITTED: A- Right breast biopsy Ischemic Time: 1 minute Fixation Time: 5 hours MICROSCOPIC DIAGNOSIS A. Right breast, mass, core biopsy: * Benign breast tissue. * Usual ductal hyperplasia (UDH), sclerosing adenosis. * Rare microcalcification noted. * IHC for CK5/6 and Calponin support the diagnosis. MICROSCOPIC DESCRIPTION Slides are reviewed. All matched controls reacted appropriately. These tests were developed and their performance characteristics determined by [facility]. They may not have been cleared or approved by the [place]. Food and Drug Administration. The FDA has determined that such clearance or approval is not necessary.? The above immunohistochemical/dualISH?markers are ordered and reviewed by the Pathologist. GROSS DESCRIPTION A. Received in formalin in a container labeled with the patient's name, date of , and RT breast 4 passes are approximately 4 tijerina-yellow core biopsies of fibrofatty tissue ranging from 1.0 x 0.4 cm to 1.8 x 0.3 cm, with multiple core biopsy fragments measuring 0.9 x 0.7 x 0.3 cm in aggregate. Submitted in toto as follows:A1. 2 coresA2. 2 coresA3. Core biopsy fragments Total formalin fixation time: Between 6 and 72 hours. [facility] 08-12-2024 CPT:80571, [id number], [id number]
--- NOTE | 2024-08-11 14:57 | OP.PCM_ITS ---
Problems Associated Problem List Diagnoses (1) Abnormal ultrasound of breast: Procedures Integumentary [id number]-[id number]: [id number] Bx breast 1st lesion us imag Operative Report (Standard) Operative Information Date of Procedure: 08/11/24 Pre-Operative Diagnosis: Abnormal right breast ultrasound Post-Operative Diagnosis: Same Surgery/Procedure Performed: Ultrasound-guided right breast mammotome biopsy room service waiter/waitress: No Type of Anesthesia: Local Procedure Start Time: 14:15 Procedure Stop Time: 14:30 Select all DRAINS/GRAFTS/IMPLANTS that apply: None Special Medications: None Estimated Blood Loss: Minimal Specimen collected: Yes Description of specimen(s) removed: Right breast tissue Description of surgery: The patient is a 58-year-old female recently seen through the office with abnormally dilated ducts in the right breast and there was another 3 to 4 mm lesion concerning for possible intraductal papilloma. I attempted to visualize the lesion using our office ultrasound but could not reliably identify the lesion. As a result biopsy was scheduled to be done in radiology. Patient was brought to the ultrasound suite. The lesion was identified. Timeout was performed. The skin of the right breast was prepped and draped in the usual manner. Local anesthetic was injected into the area. Mammotome device was then inserted and placed just deep to the lesion in question. At this point a total of 4 suction biopsies were then obtained with good tissue sampling. At the completion of the procedure a clip was placed under ultrasound. This appeared to be deployed in the appropriate location however on post procedure films, the clip actually appears more lateral than the original mammogram views raising the possibility that the clip may not be in the same location as the biopsy. Will await pathology results as I feel the biopsy results will likely be accurate. Patient tolerated the procedure well. Steri-Strip dressing was applied. I will contact her with results once they become available Surgical Findings: See procedure note Complications Complications: No Admit VTE Documentation VTE Present on Admission: No VTE Mechan Device Prophylaxis: None VTE Pharm Prophylaxis ordered?: No Reason prophylaxis not ordered: Treatment Not Indicated
== END 2024-08-11 23:59 | disposition home or self-care (01) ==
LOC: OPUS 13:09
PROVIDERS: PCP Family Medicine; Referring Provider Surgery; Visit Provider Surgery
DX: N60.21 Fibroadenosis of right breast (principal)
CPT/HCPCS: 19083; 77065; 88305; 88341; 88342